=== PATIENT | male | born 1940 | race Caucasian/White ===

== ENCOUNTER 2023-07-27 20:11 | Observation (INO) ==
[2023-07-27 22:04] LABS: Albumin Globulin Ratio 1.1 (0.9-2); Bilirubin,Total 1.2 mg/dl (0.2-1.0); Calcium 9.6 mg/dl (8.6-10.3); Creatinine Clr Calc Pharmacy 81.8 ml/min; Est GFR (African American) 93.9 ml/min; Globulin 3.6 gm/dl (2.5-4.0); Potassium 3.6 mmol/L (3.5-5.1); Total Protein 7.6 gm/dl (6.0-8.3)
[2023-07-27 22:23] LABS: Appearance Urine Clear (Clear); Bacteria Urine Automated Negative (Negative); Bilirubin Urine Negative (Negative); Blood Urine 1+ (Negative); Color Urine Yellow; Epithelial Cell Urine Auto 20-30 /lpf (0-5); Glucose Urine UA Negative (Negative); Ketones Urine Negative (Negative); Leukocyte Esterase Urine 2+ (Negative); Nitrite Urine Negative (Negative); Protein Urine Negative (Negative); RBC Urine Automated 0-4 /hpf (0-4); Specific Gravity Urine 1.005 (1.000-1.030); Urobilinogen Urine Negative (Negative); WBC Urine Automated >30 /hpf (0-5)
[2023-07-27 22:26] LABS: Basophils # (auto) 0.03 K/uL (0.00-0.20); Basophils % (auto) 0.2 %; Eosinophils # (auto) 0.21 K/uL (0.00-0.50); Eosinophils % (auto) 1.7 %; Hematocrit (blood only) 41.4 % (42.0-52.0); Hemoglobin 13.8 g/dl (14.0-18.0); Immature Granulocytes # (auto) 0.06 K/uL (0.01-0.20); Immature Granulocytes % (auto) 0.5 %; Lymphocytes % (auto) 15.6 %; Mean Corpuscular Hemoglobin 31.2 pg (25.0-34.0); Mean Corpuscular Hgb Conc 33.3 g/dL (32.0-36.0); Mean Corpuscular Volume 93.5 fL (80.0-100.0); Monocytes # (auto) 1.31 K/uL (0.11-0.59); Monocytes % (auto) 10.8 %; Neutrophils # (auto) 8.66 K/uL (1.40-6.50); Neutrophils % (auto) 71.2 %; Platelet Count 178 K/uL (130-400); RDW Coefficient of Variation 12.8 % (11.5-14.5); Red Blood Count 4.43 M/uL (4.70-6.10); White Blood Count 12.17 K/ul (4.8-10.8)
[2023-07-27] MEDS ORDERED: PIPERACILLIN/TAZOBACTAM 4.5 GM/100 ML BAG IV ONE (22:40)
[2023-07-27] MEDS ORDERED: SODIUM CHLORIDE 0.9% 500 ML IV ONE (22:41)
--- NOTE | 2023-07-27 22:56 | Emergency Department Note ---
History of Present Illness General Chief complaint: Urinary Symptoms Stated complaint: UTI SYMPTOMS History of Present Illness This 83-year-old male presents to the ER complaining of urinary symptoms and increased confusion and weakness today. Patient denies chest pain, dyspnea, flank pain, vomiting, diarrhea. is present. He states he was admitted last night for 10 days for this. Home Medications Medication Instructions Recorded Confirmed Type allopurinol 300 mg tablet 300 mg PO Q2D 05/19/19 07/28/23 History aspirin 81 mg tablet,delayed 81 mg PO HS 05/19/19 07/28/23 History release finasteride 5 mg tablet 5 mg PO QAM 05/19/19 07/28/23 History hydrochlorothiazide 25 mg tablet 25 mg PO QAM 05/19/19 07/28/23 History lisinopril 10 mg tablet 10 mg PO QAM 05/19/19 07/28/23 History metoprolol tartrate 25 mg tablet 12.5 mg PO BID 05/19/19 07/28/23 History hfipdpqz-ly-fbzza 300 mcg-K 60 1 tab PO QAM 05/19/19 07/28/23 History mcg-lycop 600 mcg-lutein 300 mcg tablet ([facility]) rosuvastatin 10 mg tablet 10 mg PO QAM 05/19/19 07/28/23 History tamsulosin 0.4 mg capsule 0.8 mg PO QAM 05/19/19 07/28/23 History brimonidine 0.2 % eye drops 1 drp OPL BID 07/28/23 07/28/23 History dorzolamide 2 % eye drops 1 drp OPL BID 07/28/23 07/28/23 History latanoprost (PF) 0.005 % eye drops 1 drp OPL HS 07/28/23 07/28/23 History in a dropperette oxybutynin chloride 10 mg 10 mg PO QAM 07/28/23 07/28/23 History tablet,extended release 24 hr timolol maleate 0.5 % eye drops 1 drp OPB BID 07/28/23 07/28/23 History Allergies Allergy/AdvReac Type Severity Reaction Status Date / Time Blackening Seasoning Allergy Intermediate Swelling Uncoded 07/28/23 09:00 of Lip/Tongue/Throat Past Med/Surg History Medical History (Updated 07/27/23 @ 22:58 by Rahel Tian PA-C) Hypercholesterolemia Hypertension Pyelonephritis Pyelonephritis Urinary tract infection Ventricular tachycardia Surgical History History of appendectomy Family History Other Family history non-contributory Social History Smoking Status: Never smoker Second Hand Exposure: No; Do You Dip or Chew Tobacco: No; Hx Alcohol Use: Yes Alcohol type: beer Hx Substance Use: No Preferred Language: Nepali Communication Ability: Effective Child Care Leader Required: No Beliefs That Will Affect Care: None marital status: Current Living Situation: Spouse current occupational status: retired Other Information That Helps Us Care for You: No Feels Safe at Home: Yes Safety Concerns: Feels Safe At This Time Assistive Devices: Glasses Review of Systems A total of 10 systems reviewed and were otherwise negative Physical Exam Vital Signs Vital Signs - 24 hr 07/27/23 20:19 07/28/23 00:33 07/28/23 01:00 Temperature 36.7 C Temperature Source Skin Pulse Rate 71 69 Pulse Rate [Finger] 94 H Pulse Rhythm [Finger] Regular Pulse Strength [Finger] Normal Respiratory Rate 18 18 Respiratory Effort / Characteristics Non-Labored Spontaneous Respiratory Depth Normal Respiratory Pattern Regular Blood Pressure 171/78 H Blood Pressure [Right Arm] 172/91 H Blood Pressure Mean 109 Blood Pressure Mean [Right Arm] 118 Blood Pressure Position [Right Arm] Lying Pulse Oximetry 94 97 Oxygen Delivery Method Room Air Sepsis Recent Fever Within 48 Hours No Sepsis New/Unexplained Change in Mental Status No Sepsis Action Taken by Nursing No Action Required 07/28/23 01:00 Temperature Temperature Source Pulse Rate Pulse Rate [Finger] Pulse Rhythm [Finger] Pulse Strength [Finger] Respiratory Rate Respiratory Effort / Characteristics Respiratory Depth Respiratory Pattern Blood Pressure Blood Pressure [Right Arm] Blood Pressure Mean Blood Pressure Mean [Right Arm] Blood Pressure Position [Right Arm] Pulse Oximetry 97 Oxygen Delivery Method Room Air Sepsis Recent Fever Within 48 Hours Sepsis New/Unexplained Change in Mental Status Sepsis Action Taken by Nursing VITALS: Vitals are noted on the nurse's note and reviewed by myself. Vital signs stable. GENERAL: Pleasant elderly male, in no acute distress, nondiaphoretic, well- developed well-nourished. SKIN: The skin was without rashes, erythema, or bruising. There is no tenting of the skin. Capillary reflex less than 2 seconds. HEAD: Normocephalic atraumatic. EARS: External auditory canals clear, EYES: Pupils equal round and reactive to light and accommodation. Conjunctivae without injection, sclerae without icterus. Extraocular movements intact. NOSE: Patent, turbinates without inflammation or discharge. MOUTH: Mucous membranes moist. Pharynx without erythema or exudate. Uvula midline. Airway patent. Tongue does not deviate. NECK: Supple without nuchal rigidity. No lymphadenopathy. No thyromegaly. Cervical spine is nontender. No JVD. HEART: Regular rate and rhythm LUNGS: Clear to auscultation bilaterally without wheezes, rales or rhonchi. No retractions or accessory muscle use. ABDOMEN: Positive bowel sounds x 4. Normal tympanic percussion. Soft, nontender, without masses or organomegaly. Ward sign negative. No guarding or rebound tenderness. No CVA tenderness MUSCULOSKELETAL: No muscle atrophy, erythema, noted. NEURO: Patient was alert and oriented to person place and time. Normal sensation to light and sharp touch. No focal neurological deficits. Course Administered Medications Allopurinol (Allopurinol 300 Mg Tab) 300 mg PO Q48H ALEX Stop: 08/28/23 08:59 Last Admin: 07/29/23 08:51 Dose: 300 mg Documented By: Stanton Aspirin (Aspirin 81 Mg Ectab) 81 mg PO HS ALEX Stop: 08/27/23 20:59 Last Admin: 07/29/23 21:15 Dose: 81 mg Documented By: Admin: 07/28/23 20:02 Dose: 81 mg Documented By: GINI Brimonidine Tartrate (Brimonidine Tartrate 0.2% 5ml) 1 drops OPL BID ALEX Stop: 08/27/23 08:59 Last Admin: 07/29/23 21:16 Dose: 1 drops Documented By: Admin: 07/29/23 08:54 Dose: 1 drops Documented By: [facility] Admin: 07/28/23 20:01 Dose: 1 drops Documented By: Admin: 07/28/23 09:00 Dose: 1 drops Documented By: SYWLIA Dorzolamide HCl (Dorzolamide Hcl 2% Oph Soln 10 Ml Btl) 1 drops OPL BID [facility] Stop: 08/27/23 08:59 Last Admin: 07/29/23 21:16 Dose: 1 drops Documented By: Admin: 07/29/23 08:54 Dose: 1 drops Documented By: [facility] Admin: 07/28/23 20:01 Dose: 1 drops Documented By: Admin: 07/28/23 09:00 Dose: 1 drops Documented By: SYLWIA Enoxaparin Sodium (Enoxaparin Inj 40 Mg/0.4 Ml Syr) 40 mg SQ Q24H [facility] Stop: 08/27/23 08:59 Last Admin: 07/29/23 08:51 Dose: 40 mg Documented By: [facility] Admin: 07/28/23 09:13 Dose: 40 mg Documented By: SYLWIA Finasteride (Finasteride 5 Mg Tab) 5 mg PO QAM [facility] Stop: 08/27/23 08:59 Last Admin: 07/29/23 08:52 Dose: 5 mg Documented By: [facility] Admin: 07/28/23 09:06 Dose: 5 mg Documented By: SYLWIA Hydrochlorothiazide (Hydrochlorothiazide 25 Mg Tab) [facility]: 08/27/23 08:59 Last Admin: 07/29/23 08:53 Dose: 25 mg Documented By: [facility] Admin: 07/28/23 09:06 Dose: 25 mg Documented By: SYLWIA Piperacillin Sod/Tazobactam (Sod 4.5 gm/ Dextrose) 100 mls @ 25 mls/hr IV Q8H [facility]; Protocol Stop: 08/07/23 06:59 Last Admin: 07/29/23 22:00 Dose: 25 mls/hr Documented By: Infusion: 07/29/23 20:04 Dose: 0 mls/hr Documented By: Admin: 07/29/23 15:26 Dose: 25 mls/hr Documented By: Infusion: 07/29/23 10:37 Dose: 0 mls/hr Documented By: [facility] Admin: 07/29/23 06:08 Dose: 25 mls/hr Documented By: Infusion: 07/29/23 01:56 Dose: 0 mls/hr Documented By: Admin: 07/28/23 22:02 Dose: 25 mls/hr Documented By: Infusion: 07/28/23 19:46 Dose: 0 mls/hr Documented By: Admin: 07/28/23 15:38 Dose: 25 mls/hr Documented By: Infusion: 07/28/23 10:19 Dose: 0 mls/hr Documented By: Admin: 07/28/23 05:34 Dose: 25 mls/hr Documented By: PATRICK Latanoprost (Latanoprost 0.005% Op Soln 2.5 Ml Btl) 1 drops OPL HS ALEX Stop: 08/27/23 20:59 Last Admin: 07/29/23 21:17 Dose: 1 drops Documented By: Admin: 07/28/23 20:01 Dose: 1 drops Documented By: GINI Lisinopril (Lisinopril 10 Mg Tab) [facility] Stop: 08/27/23 08:59 Last Admin: 07/29/23 08:52 Dose: 10 mg Documented By: [facility] Admin: 07/28/23 09:06 Dose: 10 mg Documented By: SYLWIA Metoprolol Tartrate (Metoprolol Tartrate 25 Mg Tab) 12.5 mg PO BID [facility] Stop: 08/27/23 08:59 Last Admin: 07/29/23 21:15 Dose: 12.5 mg Documented By: Admin: 07/29/23 08:50 Dose: 12.5 mg Documented By: [facility] Admin: 07/28/23 20:08 Dose: 12.5 mg Documented By: Admin: 07/28/23 09:06 Dose: 12.5 mg Documented By: SYLWIA Multivitamins/Minerals (Cerovite Adv Formula Tab) 1 tab [facility] Stop: 08/27/23 08:59 Last Admin: 07/29/23 08:52 Dose: 1 tab Documented By: [facility] Admin: 07/28/23 09:06 Dose: 1 tab Documented By: SYLWIA Oxybutynin Chloride (Oxybutynin Chloride Xl 5 Mg Tabcr) 10 mg [facility] Stop: 08/27/23 08:59 Last Admin: 07/29/23 08:52 Dose: 10 mg Documented By: [facility] Admin: 07/28/23 09:06 Dose: 10 mg Documented By: SYLWIA Rosuvastatin Calcium (Rosuvastatin Calcium 10 Mg Tab) 10 [facility] Stop: 08/27/23 08:59 Last Admin: 07/29/23 08:52 Dose: 10 mg Documented By: [facility] Admin: 07/28/23 09:06 Dose: 10 mg Documented By: SYLWIA Tamsulosin HCl (Tamsulosin Hcl 0.4 Mg Cap) 0.8 mg PO QAM ALEX Stop: 08/27/23 08:59 Last Admin: 07/29/23 08:50 Dose: 0.8 mg Documented By: Admin: 07/28/23 09:07 Dose: 0.8 mg Documented By: SYLWIA Timolol Maleate (Timolol Maleate 0.5% Op Soln 5 Ml Btl) 1 drops OPB BID ALEX Stop: 08/27/23 08:59 Last Admin: 07/29/23 21:16 Dose: 1 drops Documented By: Admin: 07/29/23 08:54 Dose: 1 drops Documented By: Admin: 07/28/23 20:01 Dose: 1 drops Documented By: Admin: 07/28/23 09:01 Dose: 1 drops Documented By: SYLWIA Discontinued Medications Piperacillin Sod/Tazobactam Sod (Zosyn) 4.5 gm in 100 mls @ 200 mls/hr IV NOW ONE Stop: 07/27/23 23:09 Last Infusion: 07/28/23 03:25 Dose: 0 mls/hr Documented By: Admin: 07/28/23 01:04 Dose: 200 mls/hr Documented By: MAURYW Sodium Chloride (Nss) 500 mls @ 999 mls/hr IV .Q31M ONE Stop: 07/27/23 23:11 Last Infusion: 07/28/23 03:26 Dose: 0 mls/hr Documented By: Admin: 07/28/23 01:06 Dose: 999 mls/hr Documented By: NAW Sodium Chloride (Nss) 1,000 mls @ 75 mls/hr IV .[id number] ALEX Stop: 07/28/23 15:06 Last Infusion: 07/28/23 15:46 Dose: 0 mls/hr Documented By: Admin: 07/28/23 01:57 Dose: 75 mls/hr Documented By: PATRICK Ioversol (Optiray 320 100ml) 100 ml IV ONCE ONE Stop: 07/27/23 23:18 Last Admin: 07/27/23 23:17 Dose: 93 ml Documented By: JUNIOR Medical Decision Making Medical Records Attestation: I reviewed the patient's medical records. Home Medications Current Medication List: was personally reviewed by me Laboratory Data Attestation: I reviewed the patient's lab results. 07/27/23 21:27 07/27/23 21:27 Lab Results 07/27/23 07/27/23 07/27/23 Range/Units 21:27 21:27 21:32 WBC 12.17 H (4.8-10.8) K/ul RBC 4.43 L (4.70-6.10) M/uL Hgb 13.8 L (14.0-18.0) g/dl Hct 41.4 L (42.0-52.0) % MCV 93.5 (80.0-100.0) fL MCH 31.2 (25.0-34.0) pg MCHC 33.3 (32.0-36.0) g/dL RDW Std Deviation 44.0 (36.4-46.3) fL RDW Coeff of Hilda 12.8 (11.5-14.5) % Plt Count 178 (130-400) K/uL MPV 11.0 (9.4-12.4) fL Immature Gran % (Auto) 0.5 % Neut % (Auto) 71.2 % Lymph % (Auto) 15.6 % [place] % (Auto) 10.8 % Eos % (Auto) 1.7 % Baso % (Auto) 0.2 % Neut # (Auto) 8.66 H (1.40-6.50) K/uL Lymph # (Auto) 1.90 (1.20-3.40) K/uL [place] # (Auto) 1.31 H (0.11-0.59) K/uL Eos # (Auto) 0.21 (0.00-0.50) K/uL Baso # (Auto) 0.03 (0.00-0.20) K/uL Immature Gran # (Auto) 0.06 (0.01-0.20) K/uL Sodium 137 (136-145) mmol/L Potassium 3.6 (3.5-5.1) mmol/L Chloride 100 (98-107) mmol/L Carbon Dioxide 32 (21-32) mmol/L Anion Gap 5 (3-11) BUN 17 (6-23) mg/dl Creatinine 0.81 (0.6-1.4) mg/dl Est Cr Clr Drug Dosing 81.8 ml/min Est GFR ( Amer) 93.9 ml/min Est GFR (Non-Af Amer) 81.0 ml/min BUN/Creatinine Ratio 21.0 H (10-20) Glucose 136 H (70-99(Fasting)) mg/dl Lactate (0.4-2.0) mmol/L Calcium 9.6 (8.6-10.3) mg/dl Magnesium 1.8 (1.7-2.4) mg/dl Total Bilirubin 1.2 H (0.2-1.0) mg/dl AST 43 H (13-39) U/L ALT 33 (7-52) U/L Alkaline Phosphatase 71 (34-104) U/L Troponin I High Sens 9.1 (0-20) pg/ml Total Protein 7.6 (6.0-8.3) gm/dl Albumin 4.0 (3.4-5.0) gm/dl Globulin 3.6 (2.5-4.0) gm/dl Albumin/Globulin Ratio 1.1 (0.9-2) Lipase 17 (11-82) U/L Urine Color Yellow Urine Appearance Clear (Clear) Urine pH 6.0 (4.5-7.5) Ur Specific [place] 1.005 (1.000-1.030) Urine Protein Negative (Negative) Urine Glucose (UA) Negative (Negative) Urine Ketones Negative (Negative) Urine Blood 1+ H (Negative) Urine Nitrite Negative (Negative) Urine Bilirubin Negative (Negative) Urine Urobilinogen Negative (Negative) Ur Leukocyte Esterase 2+ H (Negative) Urine WBC (Auto) >30 H (0-5) /hpf Urine RBC (Auto) 0-4 (0-4) /hpf U Hyaline Cast (Auto) 1-5 (0-5) /lpf U Epithel Cells (Auto) 20-30 H (0-5) /lpf Urine Bacteria (Auto) Negative (Negative) 07/28/23 Range/Units 00:26 WBC (4.8-10.8) K/ul RBC (4.70-6.10) M/uL Hgb (14.0-18.0) g/dl Hct (42.0-52.0) % MCV (80.0-100.0) fL MCH (25.0-34.0) pg MCHC (32.0-36.0) g/dL RDW Std Deviation (36.4-46.3) fL RDW Coeff of Hilda (11.5-14.5) % Plt Count (130-400) K/uL MPV (9.4-12.4) fL Immature Gran % (Auto) % Neut % (Auto) % Lymph % (Auto) % [place] % (Auto) % Eos % (Auto) % Baso % (Auto) % Neut # (Auto) (1.40-6.50) K/uL Lymph # (Auto) (1.20-3.40) K/uL [place] # (Auto) (0.11-0.59) K/uL Eos # (Auto) (0.00-0.50) K/uL Baso # (Auto) (0.00-0.20) K/uL Immature Gran # (Auto) (0.01-0.20) K/uL Sodium (136-145) mmol/L Potassium (3.5-5.1) mmol/L Chloride (98-107) mmol/L Carbon Dioxide (21-32) mmol/L Anion Gap (3-11) BUN (6-23) mg/dl Creatinine (0.6-1.4) mg/dl Est Cr Clr Drug Dosing ml/min Est GFR ( Amer) ml/min Est GFR (Non-Af Amer) ml/min BUN/Creatinine Ratio (10-20) Glucose (70-99(Fasting)) mg/dl Lactate 1.3 (0.4-2.0) mmol/L Calcium (8.6-10.3) mg/dl Magnesium (1.7-2.4) mg/dl Total Bilirubin (0.2-1.0) mg/dl AST (13-39) U/L ALT (7-52) U/L Alkaline Phosphatase (34-104) U/L Troponin I High Sens (0-20) pg/ml Total Protein (6.0-8.3) gm/dl Albumin (3.4-5.0) gm/dl Globulin (2.5-4.0) gm/dl Albumin/Globulin Ratio (0.9-2) Lipase (11-82) U/L Urine Color Urine Appearance (Clear) Urine pH (4.5-7.5) Ur Specific [place] (1.000-1.030) Urine Protein (Negative) Urine Glucose (UA) (Negative) Urine Ketones (Negative) Urine Blood (Negative) Urine Nitrite (Negative) Urine Bilirubin (Negative) Urine Urobilinogen (Negative) Ur Leukocyte Esterase (Negative) Urine WBC (Auto) (0-5) /hpf Urine RBC (Auto) (0-4) /hpf U Hyaline Cast (Auto) (0-5) /lpf U Epithel Cells (Auto) (0-5) /lpf Urine Bacteria (Auto) (Negative) Imaging Data Attestation: I personally reviewed and interpreted this imaging study as follows: Radiologist's Impression: Abdomen/Pelvis CT 07/27/23 22:41 Exam(s): CT ABDOMEN + PELVIS With Contrast IV Amt: 93 ML OPTIRAY 320 EXAM: CT Abdomen and Pelvis With Intravenous Contrast CLINICAL HISTORY: Reason for exam: UTI, ams. TECHNIQUE: Axial computed tomography images of the abdomen and pelvis with intravenous contrast. Automated exposure control was utilized for the study. A dose lowering technique was utilized adhering to the principles of ALARA. CONTRAST: Patient received 93 ML OPTIRAY 320 of IV contrast COMPARISON: No relevant prior studies available. FINDINGS: Lung bases: Unremarkable. No mass. No consolidation. ABDOMEN: Liver: Hepatic steatosis. Gallbladder and bile ducts: Unremarkable. No calcified stones. No ductal dilation. Pancreas: Unremarkable. No mass. No ductal dilation. Spleen: Unremarkable. No splenomegaly. Adrenals: Unremarkable. No mass. Kidneys and ureters: Cyst in the RIGHT kidney lower pole measures 6.8 x 5.8 cm. No hydronephrosis. Stomach and bowel: Diverticulosis, without acute diverticulitis. No small bowel obstruction. No free intraperitoneal air. PELVIS: Appendix: No findings to suggest acute appendicitis. Bladder: Decompressed urinary bladder with mild wall thickening, correlate for UTI. Urinalysis recommended. Reproductive: Unremarkable as visualized. ABDOMEN and PELVIS: Intraperitoneal space: Unremarkable. No free air. No significant fluid collection. Bones/joints: Degenerative changes of the spine. No acute fracture. No dislocation. Soft tissues: Fat-containing bilateral inguinal hernias. Vasculature: Atherosclerotic changes of the aorta. No abdominal aortic aneurysm. Lymph nodes: Unremarkable. No enlarged lymph nodes. IMPRESSION: 1. Decompressed urinary bladder with mild wall thickening, correlate for UTI. Urinalysis recommended. 2. Hepatic steatosis. 3. Diverticulosis, without acute diverticulitis. No small bowel obstruction. No free intraperitoneal air. Electronically signed by: Larry King MD 07/27/23 23:52 PM MDM Narrative Prior records/ancillary studies reviewed and summarized above. Nursing notes reviewed. Additional history obtained from family. The patient's history was concerning for increased confusion with urinary sympto ms. Differential diagnosis: Etiologies such as metabolic, infection, hypo/hyperglycemia, electrolyte abnormalities, cardiac sources, intracerebral event, toxicologic, neurologic, as well as others were entertained. Physical examination: As above. ER treatment provided: IV Lock An order was placed for continuous cardiac monitoring. The monitor shows a rate of 60-100 with a sinus rhythm per my interpretation. Zosyn, IV fluids On reassessment the patient felt better. Diagnostics interpretation by me: The labs Independently Interpreted by myself revealed leukocytosis, urine concerning for infection sent for culture. Prior urine culture was reviewed Imaging studies: CT the abdomen pelvis is negative for obstruction or pyelonephritis per my independent interpretation. Consultation: A consultation was placed with the hospitalist. The case was discussed and diagnostics were reviewed. The patient was evaluated in the ER for further treatment. Consultation was placed with the pharmacist and recommend starting with Zosyn when reviewing the last urine culture. Exam and history seem consistent with UTI with increased confusion. Medicine was consulted along with pharmacy and the case discussed. Patient will be admitted to the medical service. Patient was started on IV antibiotics and IV fluids. By the evaluation outlined above emergent etiologies such as electrolyte abnormalities, cardiac sources, intracerebral event, toxologic, neurologic, abnormalities blood glucose, metabolic, as well as others were deemed relatively unlikely. The pt informed about the findings as listed above. All questions were answered and pleased with the treatment. The chart was completed utilizing [employer] voice recognition software. Grammatical errors, random word insertions, pronoun errors, and incomplete sentences are an occassional consequence of this system due to software limitations, ambient noise, and hardware issues. Any formal questions or concerns about the content, text, or information contained within the body of this dictation should be directly addressed to the physician faculty i on call medical assistant for clarification. Impression & Plan Acute UTI, Weakness Discharge Plan Visit Data Chief Complaint: Urinary Symptoms Stated Complaint: UTI SYMPTOMS ED Provider: Keanu Pandey ED Midlevel Provider: Rahel Tian Discharge Problem: Acute UTI, Weakness Patient Disposition: Admitted As Inpatient Condition: Fair Discharge Instructions Interventions: ED Discharge Assessment Last Done: 07/28/23 01:47 Addendum July 30, 2023 01:01 HPI: The patient is an 83-year-old gentleman with a past medical history of hypertension, hyperlipidemia, UTI who presents to the emergency department for evaluation of symptoms of frequency and burning with urination with confusion that began this morning. The patient denies chest pain, shortness of breath, vomiting, diarrhea, flank pain. He has been previously admitted for similar symptoms. A/P: EKG is without overt acute ischemia. EKG demonstrates sinus rhythm with occasional PVCs and PACs. Left bundle branch block, no sgarbossa criteria. QTc 472, QRS 140. Similar to prior. WBC 12 K with elevated neutrophils but no left shift. H/H 13.8/41.4 without recent for comparison. Platelets within normal limits. Chemistry without metabolic acidosis. Total bilirubin and AST mildly elevated nonspecific and LFTs otherwise normal. High-sensitivity troponin 9.1, within normal limits. Lipase is normal. UA is consistent with infection. CT of the abdomen pelvis was performed and did not demonstrate evidence of upper infection. Empiric treatment for UTI initiated with IV Zosyn. Hospitalist service was consulted for admission for further management. I was consulted by the Advanced Practice Provider and was substantively involved in the patient's visit.This includes aspects of the HPI, MDM, diagnostic interpretations, and disposition/plan. I discussed the case with the ELIS and agree with the findings and plan as documented in ELIS Jaylan's note.
[2023-07-27 23:13] LABS: Magnesium 1.8 mg/dl (1.7-2.4)
[2023-07-27] MEDS ORDERED: OPTIRAY 320 100ml IV ONE (23:17)
[2023-07-27 23:20] LABS: Troponin I High Sensitivity 9.1 pg/ml (0-20)
--- NOTE | 2023-07-27 23:53 | CT Scan Report ---
Exam(s): CT ABDOMEN + PELVIS With Contrast IV Amt: 93 ML OPTIRAY 320 EXAM: CT Abdomen and Pelvis With Intravenous Contrast CLINICAL HISTORY: Reason for exam: UTI, ams. TECHNIQUE: Axial computed tomography images of the abdomen and pelvis with intravenous contrast. Automated exposure control was utilized for the study. A dose lowering technique was utilized adhering to the principles of ALARA. CONTRAST: Patient received 93 ML OPTIRAY 320 of IV contrast COMPARISON: No relevant prior studies available. FINDINGS: Lung bases: Unremarkable. No mass. No consolidation. ABDOMEN: Liver: Hepatic steatosis. Gallbladder and bile ducts: Unremarkable. No calcified stones. No ductal dilation. Pancreas: Unremarkable. No mass. No ductal dilation. Spleen: Unremarkable. No splenomegaly. Adrenals: Unremarkable. No mass. Kidneys and ureters: Cyst in the RIGHT kidney lower pole measures 6.8 x 5.8 cm. No hydronephrosis. Stomach and bowel: Diverticulosis, without acute diverticulitis. No small bowel obstruction. No free intraperitoneal air. PELVIS: Appendix: No findings to suggest acute appendicitis. Bladder: Decompressed urinary bladder with mild wall thickening, correlate for UTI. Urinalysis recommended. Reproductive: Unremarkable as visualized. ABDOMEN and PELVIS: Intraperitoneal space: Unremarkable. No free air. No significant fluid collection. Bones/joints: Degenerative changes of the spine. No acute fracture. No dislocation. Soft tissues: Fat-containing bilateral inguinal hernias. Vasculature: Atherosclerotic changes of the aorta. No abdominal aortic aneurysm. Lymph nodes: Unremarkable. No enlarged lymph nodes. IMPRESSION: 1. Decompressed urinary bladder with mild wall thickening, correlate for UTI. Urinalysis recommended. 2. Hepatic steatosis. 3. Diverticulosis, without acute diverticulitis. No small bowel obstruction. No free intraperitoneal air. Electronically signed by: Larry King MD 07/27/23 23:52 PM
--- NOTE | 2023-07-28 00:45 | History & Physical Report ---
Date of Service July 28, 2023 Assessment & Plan (1) Acute UTI: Plan: 83-year-old male with past med significant for hypertension, pulmonary hypertension, interstitial lung disease, history of sinus bradycardia, glaucoma,History of right bundle branch, history of nonsustained ventricular tachycardia, history of sepsis from UTI during during which she had nonsustained ventricular tachycardia and follows with cardiology comes because of frequent urination and burning micturition since today. Acute UTI History of sepsis from UTI in the past ER started on Zosyn which will be continued Gentle fluids We will follow the cultures History of hypertension On lisinopril, hydrochlorothiazide, metoprolol We will monitor History of gout On allopurinol History of glaucoma Continue home eyedrops History of nonsustained ventricular tachycardia On metoprolol Follows with cardiology BPH On Flomax Hyperlipidemia On statin DVT prophylaxis Lovenox Disposition Medical floor Full code History of Present Illness Chief Complaint: Urinary symptoms Primary Care Provider: Bebeto Tony DO 83-year-old male with past med significant for hypertension, pulmonary hypertension, interstitial lung disease, history of sinus bradycardia, glaucoma,History of right bundle branch, history of nonsustained ventricular tachycardia, history of sepsis from UTI during during which he had nonsustained ventricular tachycardia and follows with cardiology comes because of frequent urination and burning micturition since today. Because of history of sepsis in the past patient is worried and came to the ER. Denies any fevers. No abdominal pain. No blood in the urine. Normal bowel movements. No chest pain. No shortness of breath. Mild occasional cough. Has some runny nose. No headache. Currently resting comfortably and hemodynamically stable. Past medical history. As mentioned above Past surgical history. Circumcision. Colonoscopy. Cystoscopy. Right eye stent for glaucoma. Appendectomy. Tonsillectomy. Social history. . No smoking. Alcohol rarely. No drug use. Family history. Brother had colon cancer. Sister colon cancer. Mother has diabetes. Brother has heart disorder. Allergies Allergy/AdvReac Type Severity Reaction Status Date / Time SEAFOOD AdvReac Mild Abdominal Uncoded 07/28/23 00:30 Pain Home Medications Medication Instructions Recorded Confirmed Type allopurinol 300 mg tablet 300 mg PO Q2D 05/19/19 07/28/23 History aspirin 81 mg tablet,delayed 81 mg PO HS 05/19/19 07/28/23 History release finasteride 5 mg tablet 5 mg PO QAM 05/19/19 07/28/23 History hydrochlorothiazide 25 mg tablet 25 mg PO QAM 05/19/19 07/28/23 History lisinopril 10 mg tablet 10 mg PO QAM 05/19/19 07/28/23 History metoprolol tartrate 25 mg tablet 12.5 mg PO BID 05/19/19 07/28/23 History fovdyiud-ym-iiziz 300 mcg-K 60 1 tab PO QAM 05/19/19 07/28/23 History mcg-lycop 600 mcg-lutein 300 mcg tablet ([facility]) rosuvastatin 10 mg tablet 10 mg PO QAM 05/19/19 07/28/23 History tamsulosin 0.4 mg capsule 0.8 mg PO QAM 05/19/19 07/28/23 History brimonidine 0.2 % eye drops 1 drp OPL BID 07/28/23 07/28/23 History dorzolamide 2 % eye drops 1 drp OPL BID 07/28/23 07/28/23 History latanoprost (PF) 0.005 % eye drops 1 drp OPL HS 07/28/23 07/28/23 History in a dropperette oxybutynin chloride 10 mg 10 mg PO QAM 07/28/23 07/28/23 History tablet,extended release 24 hr timolol maleate 0.5 % eye drops 1 drp OPB BID 07/28/23 07/28/23 History Past Med/Surg History Medical History (Updated 07/27/23 @ 22:58 by Rahel Tian PA-C) Hypercholesterolemia Hypertension Pyelonephritis Pyelonephritis Urinary tract infection Ventricular tachycardia Surgical History History of appendectomy Family History Other Family history non-contributory Social History Smoking Status: Never smoker Second Hand Exposure: No; Do You Dip or Chew Tobacco: No; Hx Alcohol Use: Yes Alcohol type: beer Hx Substance Use: No Preferred Language: Italian Communication Ability: Effective Pool Coordinator Required: No Beliefs That Will Affect Care: None marital status: Current Living Situation: Spouse current occupational status: retired Other Information That Helps Us Care for You: No Feels Safe at Home: Yes Safety Concerns: Feels Safe At This Time Assistive Devices: Glasses Review of Systems Review of Systems: All systems reviewed & are unremarkable except as noted in HPI & below Physical Exam Physical Exam: General- Not in distress Head- atraumatic Eyes- PERRL. ENT- oropharynx clear Neck- supple, no JVD. Lungs- clear to auscultation no wheezing or crackles Heart- regular rhythm; no murmur, no gallop. Abdomen- normal bowel sounds, soft, nontender, no distension Extremities- trace pretibial edema, no erythema seen. Neuro- alert, oriented x 3; PERRLno facial palsy; no dysarthria; moves extremities. Skin- warm & dry Results & Data Results & Data Vital Signs (Past 12 Hours) Vital Signs Temp Pulse Resp BP Pulse Ox 07/28/23 00:33 69 07/27/23 20:19 36.7 C 71 18 171/78 H 94 Diagnostic Findings Laboratory Results WBC 12.17 K/ul (4.8-10.8) H 07/27/23 21: RBC 4.43 M/uL (4.70-6.10) L 07/27/23 21: Hgb 13.8 g/dl (14.0-18.0) L 07/27/23 21: Hct 41.4 % (42.0-52.0) L 07/27/23 21: MCV 93.5 fL (80.0-100.0) 07/27/23 21: MCH 31.2 pg (25.0-34.0) 07/27/23 21: MCHC 33.3 g/dL (32.0-36.0) 07/27/23 21: RDW Std Deviation 44.0 fL (36.4-46.3) 07/27/23 21: RDW Coeff of Hilda 12.8 % (11.5-14.5) 07/27/23 21: Plt Count 178 K/uL (130-400) 07/27/23 21: MPV 11.0 fL (9.4-12.4) 07/27/23 21: Immature Gran % (Auto) 0.5 % 07/27/23: Neut % (Auto) 71.2 % 07/27/23: Lymph % (Auto) 15.6 % 07/27/23: [place] % (Auto) 10.8 % 07/27/23: Eos % (Auto) 1.7 % 07/27/23: Baso % (Auto) 0.2 % 07/27/23: Neut # (Auto) 8.66 K/uL (1.40-6.50) H 07/27/23: Lymph # (Auto) 1.90 K/uL (1.20-3.40) 07/27/23: Emmet # (Auto) 1.31 K/uL (0.11-0.59) H 07/27/23: Eos # (Auto) 0.21 K/uL (0.00-0.50) 07/27/23: Baso # (Auto) 0.03 K/uL (0.00-0.20) 07/27/23: Immature Gran # (Auto) 0.06 K/uL (0.01-0.20) 07/27/23: Sodium 137 mmol/L (136-145) 07/27/23: Potassium 3.6 mmol/L (3.5-5.1) 07/27/23: Chloride 100 mmol/L (98-107) 07/27/23: Carbon Dioxide 32 mmol/L (21-32) 07/27/23: Anion Gap 5 (3-11) 07/27/23: BUN 17 mg/dl (6-23) 07/27/23: Creatinine 0.81 mg/dl (0.6-1.4) 07/27/23: Est Cr Clr Drug Dosing 81.8 ml/min 07/27/23: Est GFR ( Amer) 93.9 ml/min 07/27/23: Est GFR (Non-Af Amer) 81.0 ml/min 07/27/23: BUN/Creatinine Ratio 21.0 (10-20) H 07/27/23: Glucose 136 mg/dl (70-99(Fasting)) H 07/27/23 21: Lactate 1.3 mmol/L (0.4-2.0) 07/28/23 00:26 Calcium 9.6 mg/dl (8.6-10.3) 07/27/23 21: Magnesium 1.8 mg/dl (1.7-2.4) 07/27/23: Total Bilirubin 1.2 mg/dl (0.2-1.0) H 07/27/23: AST 43 U/L (13-39) H 07/27/23: ALT 33 U/L (7-52) 07/27/23: Alkaline Phosphatase 71 U/L (34-104) 07/27/23: Troponin I High Sens 9.1 pg/ml (0-20) 07/27/23 21: Total Protein 7.6 gm/dl (6.0-8.3) 07/27/23: Albumin 4.0 gm/dl (3.4-5.0) 07/27/23: Globulin 3.6 gm/dl (2.5-4.0) 07/27/23: Albumin/Globulin Ratio 1.1 (0.9-2) 07/27/23: Lipase 17 U/L (11-82) 07/27/23 21: Urine Color Yellow 07/27/23 21: Urine Appearance Clear (Clear) 07/27/23: Urine pH 6.0 (4.5-7.5) 07/27/23: Ur Specific [place] 1.005 (1.000-1.030) 07/27/23 21: Urine Protein Negative (Negative) 07/27/23 21: Urine Glucose (UA) Negative (Negative) 07/27/23: Urine Ketones Negative (Negative) 07/27/23: Urine Blood 1+ (Negative) H 07/27/23 21: Urine Nitrite Negative (Negative) 07/27/23 21: Urine Bilirubin Negative (Negative) 07/27/23 21: Urine Urobilinogen Negative (Negative) 07/27/23 21: Ur Leukocyte Esterase 2+ (Negative) H 10/25/23 21:32 Urine WBC (Auto) >30 /hpf (0-5) H 07/27/23 21:32 Urine RBC (Auto) 0-4 /hpf (0-4) 07/27/23 21:32 U Hyaline Cast (Auto) 1-5 /lpf (0-5) 07/27/23 21:32 U Epithel Cells (Auto) 20-30 /lpf (0-5) H 07/27/23 21:32 Urine Bacteria (Auto) Negative (Negative) 07/27/23 21:32 Impressions Abdomen/Pelvis CT 07/27/23 22:41 Exam(s): CT ABDOMEN + PELVIS With Contrast IV Amt: 93 ML OPTIRAY 320 EXAM: CT Abdomen and Pelvis With Intravenous Contrast CLINICAL HISTORY: Reason for exam: UTI, ams. TECHNIQUE: Axial computed tomography images of the abdomen and pelvis with intravenous contrast. Automated exposure control was utilized for the study. A dose lowering technique was utilized adhering to the principles of ALARA. CONTRAST: Patient received 93 ML OPTIRAY 320 of IV contrast COMPARISON: No relevant prior studies available. FINDINGS: Lung bases: Unremarkable. No mass. No consolidation. ABDOMEN: Liver: Hepatic steatosis. Gallbladder and bile ducts: Unremarkable. No calcified stones. No ductal dilation. Pancreas: Unremarkable. No mass. No ductal dilation. Spleen: Unremarkable. No splenomegaly. Adrenals: Unremarkable. No mass. Kidneys and ureters: Cyst in the RIGHT kidney lower pole measures 6.8 x 5.8 cm. No hydronephrosis. Stomach and bowel: Diverticulosis, without acute diverticulitis. No small bowel obstruction. No free intraperitoneal air. PELVIS: Appendix: No findings to suggest acute appendicitis. Bladder: Decompressed urinary bladder with mild wall thickening, correlate for UTI. Urinalysis recommended. Reproductive: Unremarkable as visualized. ABDOMEN and PELVIS: Intraperitoneal space: Unremarkable. No free air. No significant fluid collection. Bones/joints: Degenerative changes of the spine. No acute fracture. No dislocation. Soft tissues: Fat-containing bilateral inguinal hernias. Vasculature: Atherosclerotic changes of the aorta. No abdominal aortic aneurysm. Lymph nodes: Unremarkable. No enlarged lymph nodes. IMPRESSION: 1. Decompressed urinary bladder with mild wall thickening, correlate for UTI. Urinalysis recommended. 2. Hepatic steatosis. 3. Diverticulosis, without acute diverticulitis. No small bowel obstruction. No free intraperitoneal air. Electronically signed by: Larry King MD 07/27/23 23:52 PM Code Status & VTE Plan VTE Prophylaxis Plan VTE Prophylaxis will be ordered: Yes
[2023-07-28] MEDS ORDERED: ACETAMINOPHEN 325 MG TAB PO PRN (01:47)
[2023-07-28] MEDS ORDERED: SODIUM CHLORIDE 0.9% 1,000 ML IV SCH (01:47)
[2023-07-28] MEDS ORDERED: POLYETHYLENE (MIRALAX) 17 GM PACK PO PRN (01:47)
[2023-07-28] MEDS: PIPERACILLIN/TAZOBACTAM 4.5 GM in DEXTROSE 5% MINI-B 100 ML IV SCH ×3 (05:34→22:02)
[2023-07-28 05:54] LABS: Basophils # (auto) 0.02 K/uL (0.00-0.20); Basophils % (auto) 0.2 %; Eosinophils # (auto) 0.28 K/uL (0.00-0.50); Eosinophils % (auto) 2.6 %; Hematocrit (blood only) 38.1 % (42.0-52.0); Hemoglobin 13.2 g/dl (14.0-18.0); Immature Granulocytes # (auto) 0.03 K/uL (0.01-0.20); Immature Granulocytes % (auto) 0.3 %; Lymphocytes # (auto) 1.97 K/uL (1.20-3.40); Lymphocytes % (auto) 18.6 %; Mean Corpuscular Hemoglobin 31.7 pg (25.0-34.0); Mean Corpuscular Hgb Conc 34.6 g/dL (32.0-36.0); Mean Corpuscular Volume 91.4 fL (80.0-100.0); Monocytes # (auto) 1.13 K/uL (0.11-0.59); Monocytes % (auto) 10.7 %; Neutrophils # (auto) 7.14 K/uL (1.40-6.50); Neutrophils % (auto) 67.6 %; Platelet Count 161 K/uL (130-400); RDW Coefficient of Variation 12.7 % (11.5-14.5); RDW Standard Deviation 42.1 fL (36.4-46.3); Red Blood Count 4.17 M/uL (4.70-6.10); White Blood Count 10.57 K/ul (4.8-10.8)
[2023-07-28 06:04] LABS: BUN Creatinine Ratio 18.7 (10-20); Creatinine Clr Calc Pharmacy 88.2 ml/min; Est GFR (African American) 96.9 ml/min; Est GFR (Non-African American) 83.6 ml/min; Magnesium 1.7 mg/dl (1.7-2.4); Potassium 3.4 mmol/L (3.5-5.1)
[2023-07-28] MEDS: BRIMONIDINE TARTRATE 0.2% 5ML OPL SCH ×2 (09:00→20:01)
[2023-07-28] MEDS: DORZOLAMIDE HCL 2% OPH SOLN 10 ML BTL OPL SCH ×2 (09:00→20:01)
[2023-07-28] MEDS: TIMOLOL MALEATE 0.5% OP SOLN 5 ML BTL OPB SCH ×2 (09:01→20:01)
[2023-07-28] MEDS: lisinopril 10 MG TAB PO SCH (09:06)
[2023-07-28] MEDS: ROSUVASTATIN CALCIUM 10 MG TAB PO SCH (09:06)
[2023-07-28] MEDS: OXYBUTYNIN CHLORIDE XL 5 MG TABCR PO SCH (09:06)
[2023-07-28] MEDS: METOPROLOL TARTRATE 25 MG TAB PO SCH ×2 (09:06→20:08)
[2023-07-28] MEDS: hydroCHLOROthiazide 25 MG TAB PO SCH (09:06)
[2023-07-28] MEDS: FINASTERIDE 5 MG TAB PO SCH (09:06)
[2023-07-28] MEDS: CEROVITE ADV FORMULA TAB PO SCH (09:06)
[2023-07-28] MEDS: TAMSULOSIN HCL 0.4 MG CAP PO SCH (09:07)
[2023-07-28] MEDS: ENOXAPARIN INJ 40 MG/0.4 ML SYR SQ SCH (09:13)
--- NOTE | 2023-07-28 16:59 | Communication Note ---
Date of Service: July 28, 2023 The patient was seen and examined in medical floor He was admitted with UTI symptoms with UA was supportive for infection and has been sent for culture. Started on intravenous Zosyn. Has been feeling much better without any other significant symptoms. The full progress note will be done tomorrow. Dr Dutch Borrero
[2023-07-28 19:58] VITALS: TEMP 97.7
[2023-07-28] MEDS: LATANOPROST 0.005% OP SOLN 2.5 ML BTL OPL SCH (20:01)
[2023-07-28] MEDS: ASPIRIN 81 MG ECTAB PO SCH (20:02)
[2023-07-29] MEDS: PIPERACILLIN/TAZOBACTAM 4.5 GM in DEXTROSE 5% MINI-B 100 ML IV SCH ×3 (06:08→22:00)
[2023-07-29 07:53] LABS: Basophils # (auto) 0.03 K/uL (0.00-0.20); Basophils % (auto) 0.3 %; Eosinophils # (auto) 0.25 K/uL (0.00-0.50); Eosinophils % (auto) 2.8 %; Hematocrit (blood only) 38.8 % (42.0-52.0); Hemoglobin 13.1 g/dl (14.0-18.0); Immature Granulocytes # (auto) 0.04 K/uL (0.01-0.20); Immature Granulocytes % (auto) 0.5 %; Lymphocytes # (auto) 1.74 K/uL (1.20-3.40); Lymphocytes % (auto) 19.8 %; Mean Corpuscular Hemoglobin 31.4 pg (25.0-34.0); Mean Corpuscular Hgb Conc 33.8 g/dL (32.0-36.0); Monocytes % (auto) 10.3 %; Neutrophils # (auto) 5.82 K/uL (1.40-6.50); Neutrophils % (auto) 66.3 %; Platelet Count 171 K/uL (130-400); RDW Standard Deviation 44.3 fL (36.4-46.3); Red Blood Count 4.17 M/uL (4.70-6.10); White Blood Count 8.78 K/ul (4.8-10.8)
[2023-07-29 08:04] LABS: BUN Creatinine Ratio 18.6 (10-20); Calcium 9.1 mg/dl (8.6-10.3); Est GFR (African American) 91.6 ml/min; Est GFR (Non-African American) 79.1 ml/min; Magnesium 1.8 mg/dl (1.7-2.4); Potassium 3.5 mmol/L (3.5-5.1)
[2023-07-29] MEDS: METOPROLOL TARTRATE 25 MG TAB PO SCH ×2 (08:50→21:15)
[2023-07-29] MEDS: TAMSULOSIN HCL 0.4 MG CAP PO SCH (08:50)
[2023-07-29] MEDS: ENOXAPARIN INJ 40 MG/0.4 ML SYR SQ SCH (08:51)
[2023-07-29] MEDS: lisinopril 10 MG TAB PO SCH (08:52)
[2023-07-29] MEDS: ROSUVASTATIN CALCIUM 10 MG TAB PO SCH (08:52)
[2023-07-29] MEDS: FINASTERIDE 5 MG TAB PO SCH (08:52)
[2023-07-29] MEDS: CEROVITE ADV FORMULA TAB PO SCH (08:52)
[2023-07-29] MEDS: OXYBUTYNIN CHLORIDE XL 5 MG TABCR PO SCH (08:52)
[2023-07-29] MEDS: hydroCHLOROthiazide 25 MG TAB PO SCH (08:53)
[2023-07-29] MEDS: DORZOLAMIDE HCL 2% OPH SOLN 10 ML BTL OPL SCH ×2 (08:54→21:16)
[2023-07-29] MEDS: BRIMONIDINE TARTRATE 0.2% 5ML OPL SCH ×2 (08:54→21:16)
[2023-07-29] MEDS: TIMOLOL MALEATE 0.5% OP SOLN 5 ML BTL OPB SCH ×2 (08:54→21:16)
[2023-07-29] MEDS ORDERED: allopurinoL 300 MG TAB PO SCH (09:00)
--- NOTE | 2023-07-29 16:27 | Hospitalist Progress Note ---
Date of Service July 29, 2023 Assessment & Plan (1) Acute UTI: Plan: 83-year-old male with past med significant for hypertension, pulmonary hypertension, interstitial lung disease, history of sinus bradycardia, glaucoma,History of right bundle branch, history of nonsustained ventricular tachycardia, history of sepsis from UTI during during which she had nonsustained ventricular tachycardia and follows with cardiology comes because of frequent urination and burning micturition since today. Acute UTI History of sepsis from UTI in the past ER started on Zosyn which will be continued Gentle fluids Clinically much better and the white count is normalized Denies any urinary symptoms and does not have any fever and or chills Wound culture is growing 10,000 colonies and awaiting final report Likely discharge tomorrow History of hypertension On lisinopril, hydrochlorothiazide, metoprolol We will monitor Blood pressure remains stable at 129/74 History of gout On allopurinol No acute attack History of glaucoma Continue home eyedrops History of nonsustained ventricular tachycardia On metoprolol Follows with cardiology No evidence of any cardiac issues during this admission BPH On Flomax Hyperlipidemia On statin DVT prophylaxis Lovenox Disposition Medical floor Full code Discussed with the and the patient Admission and Anticipated Discharge Date Admission Date: July 28, 2023 Subjective 07/29/2023 The patient was seen and examined in medical floor He has been feeling much better Denies any urinary symptoms No fever and no chills Review of Systems Review of Systems: All systems reviewed and are unremarkable except as noted below Physical Exam Physical Exam: Sitting on a chair without any acute distress Constitutional: well developed, well nourished and + obese; not ill appearing Eyes: PERRL, conjunctivae normal, anicteric sclerae ENMT: external ear and nose normal, oropharynx normal Neck: trachea midline, no thyromegaly Respiratory: no respiratory distress Auscultation: lungs clear to auscultation bilaterally Cardiovascular: Rate/Rhythm: regular rate and regular rhythm; not tachycardic Heart Sounds: normal S1, normal S2 and + murmur Extremities: + edema (Trace edema bilaterally) Gastrointestinal (Abdomen): Inspection/Auscultation: normal bowel sounds; abdomen not distended Percussion/Palpation: abdomen soft; abdomen nontender Musculoskeletal: No acute arthritis involving any joint Neurologic: normal touch/pain/proprioception and moves all extremities; no focal motor deficits Psychiatric: A+Ox3, euthymic affect Lymphatic: no cervical or axillary lymphadenopathy Results & Data Results & Data Vital Signs (Past 12 Hours) Vital Signs Temp Pulse Resp BP Pulse Ox O2 Del Method 07/29/23 15:13 36.5 C 62 16 129/74 93 Room Air 07/29/23 09:08 36.5 C 71 16 136/78 93 Room Air Laboratory Results Short CBC 07/29/23 Range/Units 06:46 WBC 8.78 (4.8-10.8) K/ul Hgb 13.1 L (14.0-18.0) g/dl Hct 38.8 L (42.0-52.0) % Plt Count 171 (130-400) K/uL BMP 07/29/23 06:46 Sodium 138 Potassium 3.5 Chloride 102 Carbon Dioxide 29 BUN 16 Creatinine 0.86 Glucose 150 H Calcium 9.1 Medications Administered Current Inpatient Medications Acetaminophen (Acetaminophen 325 Mg Tab) 650 mg PO Q4H PRN PRN Reason: pain/fever Stop: 08/27/23 01:46 Allopurinol (Allopurinol 300 Mg Tab) 300 mg PO Q48H AELX Stop: 08/28/23 08:59 Last Admin: 07/29/23 08:51 Dose: 300 mg Aspirin (Aspirin 81 Mg Ectab) 81 mg PO HS ALEX Stop: 08/27/23 20:59 Last Admin: 07/28/23 20:02 Dose: 81 mg Brimonidine Tartrate (Brimonidine Tartrate 0.2% 5ml) 1 drops OPL BID ALEX Stop: 08/27/23 08:59 Last Admin: 07/29/23 08:54 Dose: 1 drops Dorzolamide HCl (Dorzolamide Hcl 2% Oph Soln 10 Ml Btl) 1 drops OPL BID ALEX Stop: 08/27/23 08:59 Last Admin: 07/29/23 08:54 Dose: 1 drops Enoxaparin Sodium (Enoxaparin Inj 40 Mg/0.4 Ml Syr) 40 mg SQ Q24H ALEX Stop: 08/27/23 08:59 Last Admin: 07/29/23 08:51 Dose: 40 mg Finasteride (Finasteride 5 Mg Tab) 5 mg PO QAM ALEX Stop: 08/27/23 08:59 Last Admin: 07/29/23 08:52 Dose: 5 mg Hydrochlorothiazide (Hydrochlorothiazide 25 Mg Tab) 25 mg PO QAM [facility] Stop: 08/27/23 08:59 Last Admin: 07/29/23 08:53 Dose: 25 mg Piperacillin Sod/Tazobactam (Sod 4.5 gm/ Dextrose) 100 mls @ 25 mls/hr IV Q8H [facility]; Protocol Stop: 08/07/23 06:59 Last Admin: 07/29/23 15:26 Dose: 25 mls/hr Latanoprost (Latanoprost 0.005% Op Soln 2.5 Ml Btl) 1 drops OPL HS [facility] Stop: 08/27/23 20:59 Last Admin: 07/28/23 20:01 Dose: 1 drops Lisinopril (Lisinopril 10 Mg Tab) [address] [facility] [place] [facility]: 08/27/23 08:59 Last Admin: 07/29/23 08:52 Dose: 10 mg Metoprolol Tartrate (Metoprolol Tartrate 25 Mg Tab) 12.5 mg PO BID [facility] Stop: 08/27/23 08:59 Last Admin: 07/29/23 08:50 Dose: 12.5 mg Multivitamins/Minerals (Cerovite Adv Formula Tab) [address] [facility] [place] Stop: 08/27/23 08:59 Last Admin: 07/29/23 08:52 Dose: 1 tab Oxybutynin Chloride (Oxybutynin Chloride Xl 5 Mg Tabcr) [address] [facility] [place] Stop: 08/27/23 08:59 Last Admin: 07/29/23 08:52 Dose: 10 mg Polyethylene Glycol (Polyethylene (Miralax) 17 Gm Pack) 17 gm PO DAILY PRN PRN Reason: Constipation Stop: 08/27/23 01:46 Rosuvastatin Calcium (Rosuvastatin Calcium 10 Mg Tab) 10 mg PO [facility] Stop: 08/27/23 08:59 Last Admin: 07/29/23 08:52 Dose: 10 mg Tamsulosin HCl (Tamsulosin Hcl 0.4 Mg Cap) 0.[address] [facility] [place] Stop: 08/27/23 08:59 Last Admin: 07/29/23 08:50 Dose: 0.8 mg Timolol Maleate (Timolol Maleate 0.5% Op Soln 5 Ml Btl) 1 drops OPB BID [facility] Stop: 08/27/23 08:59 Last Admin: 07/29/23 08:54 Dose: 1 drops
--- NOTE | 2023-07-29 20:55 | Electrocardiogram Report ---
Test Reason : Blood Pressure : / mmHG Vent. Rate : 076 BPM Atrial Rate : 076 BPM P-R Int : 188 ms QRS Dur : 140 ms QT Int : 420 ms P-R-T Axes : 052 -60 066 degrees QTc Int : 472 ms Sinus rhythm with occasional Premature ventricular complexes and Premature atrial complexes Left axis deviation Left bundle branch block Abnormal ECG When compared with ECG of 08-MAY-2016 07:53, Premature ventricular complexes are now Present Premature atrial complexes are now Present Confirmed by Seng Cespedes ([id number]) on 07/29/2023 8:55:16 PM Referred By: REFERRED SELF Confirmed By:Seng Cespedes
[2023-07-29] MEDS: ASPIRIN 81 MG ECTAB PO SCH (21:15)
[2023-07-29] MEDS: LATANOPROST 0.005% OP SOLN 2.5 ML BTL OPL SCH (21:17)
[2023-07-30] MEDS: PIPERACILLIN/TAZOBACTAM 4.5 GM in DEXTROSE 5% MINI-B 100 ML IV SCH (06:37)
[2023-07-30 08:15] VITALS: RESP 16
[2023-07-30] MEDS: ROSUVASTATIN CALCIUM 10 MG TAB PO SCH (09:18)
[2023-07-30] MEDS: OXYBUTYNIN CHLORIDE XL 5 MG TABCR PO SCH (09:18)
[2023-07-30] MEDS: lisinopril 10 MG TAB PO SCH (09:18)
[2023-07-30] MEDS: TAMSULOSIN HCL 0.4 MG CAP PO SCH (09:18)
[2023-07-30] MEDS: CEROVITE ADV FORMULA TAB PO SCH (09:18)
[2023-07-30] MEDS: hydroCHLOROthiazide 25 MG TAB PO SCH (09:19)
[2023-07-30] MEDS: ENOXAPARIN INJ 40 MG/0.4 ML SYR SQ SCH (09:19)
[2023-07-30] MEDS: METOPROLOL TARTRATE 25 MG TAB PO SCH (09:19)
[2023-07-30] MEDS: DORZOLAMIDE HCL 2% OPH SOLN 10 ML BTL OPL SCH (09:20)
[2023-07-30] MEDS: TIMOLOL MALEATE 0.5% OP SOLN 5 ML BTL OPB SCH (09:20)
[2023-07-30] MEDS: BRIMONIDINE TARTRATE 0.2% 5ML OPL SCH (09:20)
[2023-07-30 10:12] LABS: Basophils # (auto) 0.03 K/uL (0.00-0.20); Basophils % (auto) 0.4 %; Eosinophils # (auto) 0.31 K/uL (0.00-0.50); Eosinophils % (auto) 3.8 %; Hematocrit (blood only) 40.3 % (42.0-52.0); Hemoglobin 13.8 g/dl (14.0-18.0); Immature Granulocytes # (auto) 0.04 K/uL (0.01-0.20); Immature Granulocytes % (auto) 0.5 %; Lymphocytes # (auto) 1.65 K/uL (1.20-3.40); Mean Corpuscular Hemoglobin 31.2 pg (25.0-34.0); Mean Corpuscular Hgb Conc 34.2 g/dL (32.0-36.0); Mean Platelet Volume 10.9 fL (9.4-12.4); Monocytes # (auto) 0.73 K/uL (0.11-0.59); Monocytes % (auto) 8.9 %; Neutrophils # (auto) 5.48 K/uL (1.40-6.50); Neutrophils % (auto) 66.4 %; Platelet Count 180 K/uL (130-400); RDW Coefficient of Variation 12.9 % (11.5-14.5); RDW Standard Deviation 42.8 fL (36.4-46.3); Red Blood Count 4.43 M/uL (4.70-6.10); White Blood Count 8.24 K/ul (4.8-10.8)
[2023-07-30 10:28] LABS: BUN Creatinine Ratio 19.1 (10-20); Calcium 9.3 mg/dl (8.6-10.3); Creatinine Clr Calc Pharmacy 74.4 ml/min; Est GFR (African American) 90.4 ml/min; Potassium 3.6 mmol/L (3.5-5.1)
[2023-07-30] MEDS: FINASTERIDE 5 MG TAB PO SCH (11:14)
--- NOTE | 2023-07-30 14:04 | Hospitalist Progress Note ---
Date of Service July 30, 2023 Assessment & Plan (1) Acute UTI: Plan: 83-year-old male with past med significant for hypertension, pulmonary hypertension, interstitial lung disease, history of sinus bradycardia, glaucoma,History of right bundle branch, history of nonsustained ventricular tachycardia, history of sepsis from UTI during during which she had nonsustained ventricular tachycardia and follows with cardiology comes because of frequent urination and burning micturition since today. Acute UTI History of sepsis from UTI in the past ER started on Zosyn which will be continued Gentle fluids Clinically much better and the white count is normalized Denies any urinary symptoms and does not have any fever and or chills Wound culture is growing 10,000 colonies and awaiting final report Likely discharge tomorrow History of hypertension On lisinopril, hydrochlorothiazide, metoprolol We will monitor Blood pressure remains stable at 129/74 History of gout On allopurinol No acute attack History of glaucoma Continue home eyedrops History of nonsustained ventricular tachycardia On metoprolol Follows with cardiology No evidence of any cardiac issues during this admission BPH On Flomax Hyperlipidemia On statin DVT prophylaxis Lovenox Disposition Medical floor Full code Discussed with the and the patient Admission and Anticipated Discharge Date Admission Date: July 28, 2023 Results & Data Results & Data Vital Signs (Past 12 Hours) Vital Signs Temp Pulse Resp BP Pulse Ox O2 Del Method 07/30/23 08:14 36.5 C 67 16 128/82 92 Room Air
[2023-07-30 15:24] VITALS: BP 150/74; PULSE 66; O2SAT 94
--- NOTE | 2023-07-30 16:30 | Discharge Summary ---
Discharge Summary Date of Service July 30, 2023 Notes For Next Care Provider Consider Urology follow up Medication Changes From Visit Augmentin for 7 additional days Admission HPI Per Admitting Provider 83-year-old male with past med significant for hypertension, pulmonary hypertension, interstitial lung disease, history of sinus bradycardia, glauco ma,History of right bundle branch, history of nonsustained ventricular tachycardia, history of sepsis from UTI during during which he had nonsustained ventricular tachycardia and follows with cardiology comes because of frequent urination and burning micturition since today. Because of history of sepsis in the past patient is worried and came to the ER. Denies any fevers. No abdominal pain. No blood in the urine. Normal bowel movements. No chest pain. No shortness of breath. Mild occasional cough. Has some runny nose. No headache. Currently resting comfortably and hemodynamically stable. Past medical history. As mentioned above Past surgical history. Circumcision. Colonoscopy. Cystoscopy. Right eye stent for glaucoma. Appendectomy. Tonsillectomy. Social history. . No smoking. Alcohol rarely. No drug use. Family history. Brother had colon cancer. Sister colon cancer. Mother has diabetes. Brother has heart disorder. Admission Exam Per Admitting Provider General- Not in distress Head- atraumatic Eyes- PERRL. ENT- oropharynx clear Neck- supple, no JVD. Lungs- clear to auscultation no wheezing or crackles Heart- regular rhythm; no murmur, no gallop. Abdomen- normal bowel sounds, soft, nontender, no distension Extremities- trace pretibial edema, no erythema seen. Neuro- alert, oriented x 3; PERRLno facial palsy; no dysarthria; moves extremities. Skin- warm & dry Principal Dx & Hospital Course #1 = Principal Diagnosis (1) Acute UTI: (2) Weakness: (3) Hypertension: (4) Hypercholesterolemia: (5) Pyelonephritis: (6) Ventricular tachycardia: Plan 83-year-old male with past med Hx significant for hypertension, pulmonary hypertension, interstitial lung disease, history of sinus bradycardia, glaucoma, History of right bundle branch block, history of nonsustained ventricular tachycardia, history of sepsis from UTI presenting with frequent urination and burning micturition of one day. Acute UTI History of sepsis from UTI in the past WBC elevated on admission, UA suggestive of infection, urine Cx with no significant growth Blood Cx NGTD ER started on Zosyn, transitioned to Augmentin on discharge for 7 more days Gentle fluids Clinically much better and the white count normalized on discharge Denies any urinary symptoms and does not have any fever and or chills Consider Urology follow up. Hypertension On lisinopril, hydrochlorothiazide, metoprolol Blood pressure remained stable History of gout On allopurinol, continue History of glaucoma Continue home eyedrops History of nonsustained ventricular tachycardia On metoprolol Follows with cardiology No evidence of any cardiac issues during this admission BPH On Flomax, stable Hyperlipidemia On statin, stable Discharge Exam General: Alert, oriented. No acute distress Skin: No noted rashes or bruises Psych: Appropriate mood and affect Neuro: No gross deficits HEENT: NC/AT Chest: Nontender to palpation. CV: RRR, Normal s1, s2. No murmurs appreciated Resp: Breath sounds clear bilaterally, no increased effort of breathing. Abdomen: Soft, nontender, nondistended. No guarding. No organomegaly appreciated. Extremities: No edema in lower extremities bilaterally. Updated Medication List Medication Instructions Recorded Confirmed Type allopurinol 300 mg tablet 300 mg PO Q2D 05/19/19 07/28/23 History aspirin 81 mg tablet,delayed 81 mg PO HS 05/19/19 07/28/23 History release finasteride 5 mg tablet 5 mg PO QAM 05/19/19 07/28/23 History hydrochlorothiazide 25 mg tablet 25 mg PO QAM 05/19/19 07/28/23 History lisinopril 10 mg tablet 10 mg PO QAM 05/19/19 07/28/23 History metoprolol tartrate 25 mg tablet 12.5 mg PO BID 05/19/19 07/28/23 History [id number]-[id number] 300 mcg-K 60 1 tab PO QAM 05/19/19 07/28/23 History mcg-lycop 600 mcg-lutein 300 mcg tablet (Centrum Silver Men) rosuvastatin 10 mg tablet 10 mg PO QAM 05/19/19 07/28/23 History tamsulosin 0.4 mg capsule 0.8 mg PO QAM 05/19/19 07/28/23 History brimonidine 0.2 % eye drops 1 drp OPL BID 07/28/23 07/28/23 History dorzolamide 2 % eye drops 1 drp OPL BID 07/28/23 07/28/23 History latanoprost (PF) 0.005 % eye drops 1 drp OPL HS 07/28/23 07/28/23 History in a dropperette oxybutynin chloride 10 mg 10 mg PO QAM 07/28/23 07/28/23 History tablet,extended release 24 hr timolol maleate 0.5 % eye drops 1 drp OPB BID 07/28/23 07/28/23 History amoxicillin 875 mg-potassium 1 tab PO BIDM #14 tabs 07/30/23 Rx clavulanate 125 mg tablet Hospital Stay Data Consultations 07/27/23 22:53 ED Decision to Admit Stat Diagnostic Imagining Performed 07/27/23 22:41 CT Abd and Pelvis [CT abd pelvis IV con only] Stat Abdomen/Pelvis CT 07/27/23 22:41 Exam(s): CT ABDOMEN + PELVIS With Contrast IV Amt: 93 ML OPTIRAY 320 EXAM: CT Abdomen and Pelvis With Intravenous Contrast CLINICAL HISTORY: Reason for exam: UTI, ams. TECHNIQUE: Axial computed tomography images of the abdomen and pelvis with intravenous contrast. Automated exposure control was utilized for the study. A dose lowering technique was utilized adhering to the principles of ALARA. CONTRAST: Patient received 93 ML OPTIRAY 320 of IV contrast COMPARISON: No relevant prior studies available. FINDINGS: Lung bases: Unremarkable. No mass. No consolidation. ABDOMEN: Liver: Hepatic steatosis. Gallbladder and bile ducts: Unremarkable. No calcified stones. No ductal dilation. Pancreas: Unremarkable. No mass. No ductal dilation. Spleen: Unremarkable. No splenomegaly. Adrenals: Unremarkable. No mass. Kidneys and ureters: Cyst in the RIGHT kidney lower pole measures 6.8 x 5.8 cm. No hydronephrosis. Stomach and bowel: Diverticulosis, without acute diverticulitis. No small bowel obstruction. No free intraperitoneal air. PELVIS: Appendix: No findings to suggest acute appendicitis. Bladder: Decompressed urinary bladder with mild wall thickening, correlate for UTI. Urinalysis recommended. Reproductive: Unremarkable as visualized. ABDOMEN and PELVIS: Intraperitoneal space: Unremarkable. No free air. No significant fluid collection. Bones/joints: Degenerative changes of the spine. No acute fracture. No dislocation. Soft tissues: Fat-containing bilateral inguinal hernias. Vasculature: Atherosclerotic changes of the aorta. No abdominal aortic aneurysm. Lymph nodes: Unremarkable. No enlarged lymph nodes. IMPRESSION: 1. Decompressed urinary bladder with mild wall thickening, correlate for UTI. Urinalysis recommended. 2. Hepatic steatosis. 3. Diverticulosis, without acute diverticulitis. No small bowel obstruction. No free intraperitoneal air. Electronically signed by: Larry King MD 07/27/23 23:52 PM Pending Results Patient Have Any Pending Studies at Discharge: No Discharge Instructions Given to Patient (Per Discharging Provider) Mr. Gutierrez, You were admitted out of concern that you had a progressing urinary tract infection. Your symptoms improved after about 2 days of IV antibiotic treatment. We are discharging you home with medication for an additional 8 days (a prescription for 7 days and a home pack for tomorrow). Please take as directed. We recommend follow up with your primary care provider as scheduled. Consider follow up with a urologist as well, your pcp can refer you if needed. You can take the antibiotics with an over the counter probiotic to help prevent diarrhea. Please continue taking your other home medications as prescribed. It was a pleasure taking care of you during your time here! Total Time Total Time Spent Total Time Spent (In Minutes): > 30 minutes
[2023-07-30] MEDS ORDERED: AMOXICILLIN/CLAVULANATE 875 MG TAB PO SCH (17:00)
[2023-07-30] MEDS ORDERED: AMOXICILLIN/CLAVULANATE 875MG HOME PACK PO ONE (21:00)
== END 2023-07-30 17:50 | disposition home or self-care (01) | DRG 690 ==
LOC: ED 20:11 → 3N 07-28 00:36 → INTOOBSV 07-28 00:36 → SUATTDRO 07-28 00:36 → 3N 07-28 01:47
DX: N40.0 Benign prostatic hyperplasia without lower urinary tract symptoms; I47.20 Ventricular tachycardia, unspecified; J84.9 Interstitial pulmonary disease, unspecified; Z79.82 Long term (current) use of aspirin; I27.20 Pulmonary hypertension, unspecified; H40.9 Unspecified glaucoma; E78.00 Pure hypercholesterolemia, unspecified; M10.9 Gout, unspecified; Z79.899 Other long term (current) drug therapy; N12 Tubulo-interstitial nephritis, not specified as acute or chronic; N39.0 Urinary tract infection, site not specified; I10 Essential (primary) hypertension

== ENCOUNTER 2024-12-28 12:52 | Observation (INO) ==
--- NOTE | 2024-12-28 13:39 | Emergency Department Note ---
Impression & Plan Weakness, Leukocytosis, RLQ abdominal pain ED Provider Note NAME: SHASHA ROTHMAN AGE: 84 SEX: M : 1940 ARRIVES VIA: Walk-In INFORMANT: [Patient][family] ED PROVIDER(S): [Scott Escoto MD] CHIEF COMPLAINT: Lethargic HISTORY OF PRESENT ILLNESS: The patient is an 84-year-old male who is almost too weak to even stand. Things have progressed over 4 weeks. 4 weeks ago, he had a viral infection that caused a lot of coughing. He then developed a UTI. He finished his antibiotics. He states that he now has some right sided abdominal pain from coughing, he thinks he has a hernia. He has an appointment scheduled for next week with a general surgeon. His right sided abdominal pain worsens with movement and if he lays on his right side. He is here really for the weakness. He states he is so weak, he can barely even function. He can barely stand from a chair. No shortness of breath. No fever. No nausea or vomiting. No black or bloody stool. PMHx/PSHx/Social Hx: See Below PHYSICAL EXAM: GENERAL: Patient is in no acute distress. HEENT: No acute trauma, normocephalic atraumatic, mucous membranes dry, no nasal congestion. NECK: No stridor, no adenopathy, no meningismus, trachea is midline. LUNGS: There are crackles heard bilaterally with some decreased breath sounds bilaterally. No respiratory distress. HEART: Without murmurs gallops or rubs, regular rate and rhythm. Heart tones distant. ABDOMEN: Soft, tender along the right lower abdomen, no significant distention. Appendicitis scar noted. EXTREMITIES: No cyanosis, full range of motion of all the joints without pain or difficulty. NEUROLOGIC: Oriented x 3, no acute motor or sensory deficits, no focal weakness. No speech slur. SKIN: No jaundice, no diaphoresis. DIFFERENTIAL DIAGNOSIS: Diverticulitis, bowel obstruction, hernia, dehydration, electrolyte imbalance, pneumonia, UTI, among others. EMERGENCY DEPARTMENT PROCEDURES: MEDICAL DECISION MAKING: There is a moderate leukocytosis, this certainly could be consistent with infection. A very mild anemia was seen. There was a normal platelet count. No coagulopathy. No renal failure or significant electrolyte abnormality. Lactic acid level was not elevated making sepsis less likely. No worrisome liver enzyme elevation. BNP was not elevated making CHF unlikely. Procalcitonin level was not elevated making a bacterial source for his complaints less likely. The patient appeared to be in a euthyroid state. ECG showed a sinus rhythm, no obvious ischemia. Cardiac enzyme testing x 1 was not consistent with acute cardiac injury. Chest x-ray showed a poor inspiratory effort, no focal pneumonia. Urinalysis showed some dehydration, no obvious infection. Respiratory bio fire was negative. Abdominal and pelvis CT showed a small right inguinal hernia. No diverticulitis, no acute surgical process on CT imaging. The patient received IV saline, he is currently resting fairly comfortably. The patient presents with profound weakness for the last several weeks. I suspect a large part of this is debilitation. Patient is too weak to even really stand, he can do nothing on his own at home. The cause for his leukocytosis noted today is unclear. I do think the patient requires a hospital stay, further workup and strengthening. He may require inpatient rehab at some point. I did speak with the patient at length, I did speak with case management. The on-call hospitalist was consulted. Prior/Outside records/notes reviewed: None ECG per my interpretation: Indication was weakness. The ECG shows a normal sinus rhythm with a rate of 69. There is a left bundle branch block. There is no acute ST elevation, no PVCs. The QTc is 437. Continuous Cardiac Monitoring per my interpretation: An order was placed for continuous cardiac monitoring. The monitor shows a rate of 79 with normal sinus rhythm. Imaging/x-ray results per my interpretation: Chest x-ray shows a poor inspiratory effort and some mild cardiomegaly. No obvious focal infiltrate. Chronic Medical/Social conditions affecting care: Advanced age. Care/Management discussed with: Case management, the on-call hospitalist. Level of care consideration(s): After review of the information above and other included data: --I believe the patient requires escalation of care to admission DISPOSITION: Admission Past Med/Surg History Problem List (Updated 12/28/24 @ 20:47 by Scott Escoto MD) RLQ abdominal pain (Acute) Leukocytosis (Acute) Weakness (Acute) Recent urinary tract infection Ambulatory dysfunction Generalized weakness Acute UTI (Acute) Weakness (Acute) Hypercholesterolemia (Chronic) Pyelonephritis Pyelonephritis Urinary tract infection (Acute) Ventricular tachycardia Medical History Gout BPH (benign prostatic hyperplasia) RBBB LBBB (left bundle branch block) NSVT (nonsustained ventricular tachycardia) Dyslipidemia Diabetes mellitus, type II Hypertension Surgical History History of colonoscopy Hx of tonsillectomy History of appendectomy Family History Other Cancer Diabetes Social History Smoking Status: Never smoker Second Hand Exposure: No; Do You Dip or Chew Tobacco: No; Hx Alcohol Use: No Hx Substance Use: No Preferred Language: Congolese Communication Ability: Effective Mix Technician Required: No Beliefs That Will Affect Care: None marital status: Current Living Situation: Spouse Current Living Situation Comment: lives at home with current occupational status: retired Other Information That Helps Us Care for You: No Feels Safe at Home: Yes Safety Concerns: Feels Safe At This Time Assistive Devices: Cane, Hearing Aid - Bilateral, Hospital Bed and Walker Allergies Allergies Allergy/AdvReac Type Severity Reaction Status Date / Time Blackening Seasoning Allergy Intermediate Swelling Uncoded 07/28/23 09:00 of Lip/Tongue/Throat Home Meds Home Medications Medication Instructions Recorded Confirmed allopurinol 300 mg tablet 300 mg PO Q2D 05/19/19 12/28/24 aspirin 81 mg tablet,delayed 81 mg PO HS 05/19/19 12/28/24 release finasteride 5 mg tablet 5 mg PO QAM 05/19/19 12/28/24 hydrochlorothiazide 25 mg tablet 25 mg PO QAM 05/19/19 12/28/24 lisinopril 10 mg tablet 10 mg PO QAM 05/19/19 12/28/24 metoprolol tartrate 25 mg tablet 12.5 mg PO BID 05/19/19 12/28/24 [id number] 300 mcg-K 60 1 tab PO QAM 05/19/19 12/28/24 mcg-lycop 600 mcg-lutein 300 mcg tablet (Centrum Silver Men) rosuvastatin 10 mg tablet 10 mg PO QAM 05/19/19 12/28/24 tamsulosin 0.4 mg capsule 0.8 mg PO HS 05/19/19 12/28/24 brimonidine 0.2 % eye drops 1 drp OPL UD 07/28/23 12/28/24 dorzolamide 2 % eye drops 1 drp OPL BID 07/28/23 12/28/24 latanoprost (PF) 0.005 % eye drops 1 drp OPL HS 07/28/23 12/28/24 in a dropperette oxybutynin chloride 10 mg 10 mg PO DAILY 07/28/23 12/28/24 tablet,extended release 24 hr timolol maleate 0.5 % eye drops 1 drp OPB BID 07/28/23 12/28/24 Results & Data (ED) Vital Signs Vital Signs - 24 hr 12/28/24 12:56 12/28/24 13:30 12/28/24 13:40 Temperature 36.9 C Temperature Source Oral Pulse Rate 79 67 Pulse Rate from SpO2 Sensor 65 Respiratory Rate 16 18 Respiratory Effort / Characteristics Spontaneous Respiratory Depth Normal Respiratory Pattern Regular Blood Pressure 109/65 105/61 Blood Pressure Mean 79 75 Pulse Oximetry 91 91 92 Oxygen Delivery Method Room Air Room Air Sepsis Recent Fever Within 48 Hours No Sepsis New/Unexplained Change in Mental Status No Sepsis Action Taken by Nursing No Action Required 12/28/24 13:54 12/28/24 14:00 12/28/24 14:02 Temperature Temperature Source Pulse Rate 62 68 Pulse Rate from SpO2 Sensor 63 Respiratory Rate 23 Respiratory Effort / Characteristics Respiratory Depth Respiratory Pattern Blood Pressure 128/57 L 128/57 L Blood Pressure Mean 80 98 Pulse Oximetry 93 Oxygen Delivery Method Sepsis Recent Fever Within 48 Hours Sepsis New/Unexplained Change in Mental Status Sepsis Action Taken by Nursing 12/28/24 14:54 12/28/24 15:00 12/28/24 15:00 Temperature Temperature Source Pulse Rate Pulse Rate from SpO2 Sensor 63 Respiratory Rate Respiratory Effort / Characteristics Respiratory Depth Respiratory Pattern Blood Pressure 108/69 108/69 Blood Pressure Mean 72 72 Pulse Oximetry 94 Oxygen Delivery Method Sepsis Recent Fever Within 48 Hours Sepsis New/Unexplained Change in Mental Status Sepsis Action Taken by Nursing 12/28/24 15:12 12/28/24 15:30 12/28/24 15:45 Temperature Temperature Source Pulse Rate Pulse Rate from SpO2 Sensor 67 63 Respiratory Rate Respiratory Effort / Characteristics Respiratory Depth Respiratory Pattern Blood Pressure 154/86 H Blood Pressure Mean 110 Pulse Oximetry 94 96 Oxygen Delivery Method Sepsis Recent Fever Within 48 Hours Sepsis New/Unexplained Change in Mental Status Sepsis Action Taken by Nursing 12/28/24 15:51 12/28/24 15:57 12/28/24 16:01 Temperature Temperature Source Pulse Rate Pulse Rate from SpO2 Sensor 64 Respiratory Rate Respiratory Effort / Characteristics Respiratory Depth Respiratory Pattern Blood Pressure 134/87 Blood Pressure Mean 91 Pulse Oximetry 95 Oxygen Delivery Method Room Air Sepsis Recent Fever Within 48 Hours Sepsis New/Unexplained Change in Mental Status Sepsis Action Taken by Nursing 12/28/24 16:15 Temperature Temperature Source Pulse Rate Pulse Rate from SpO2 Sensor 66 Respiratory Rate Respiratory Effort / Characteristics Respiratory Depth Respiratory Pattern Blood Pressure Blood Pressure Mean Pulse Oximetry 96 Oxygen Delivery Method Sepsis Recent Fever Within 48 Hours Sepsis New/Unexplained Change in Mental Status Sepsis Action Taken by [facility] Medications Current Medication List: was personally reviewed by me Laboratory Data Attestation: I reviewed the patient's lab results. 12/28/24 13:22 12/28/24 13:22 Lab Results 12/28/24 12/28/24 12/28/24 Range/Units 13:22 14:17 15:10 WBC 15.30 H (4.8-10.8) K/ul RBC 4.31 L (4.70-6.10) M/uL Hgb 13.2 L (14.0-18.0) g/dl Hct 39.3 L (42.0-52.0) % MCV 91.2 (80.0-100.0) fL MCH 30.6 (25.0-34.0) pg MCHC 33.6 (32.0-36.0) g/dL RDW Std Deviation 45.1 (36.4-46.3) fL RDW Coeff of Hilda 13.4 (11.5-14.5) % Plt Count 254 (130-400) K/uL MPV 10.9 (9.4-12.4) fL Immature Gran % (Auto) 0.6 % Neut % (Auto) 81.2 % Lymph % (Auto) 8.2 % Sanders % (Auto) 9.0 % Eos % (Auto) 0.7 % Baso % (Auto) 0.3 % Neut # (Auto) 12.43 H (1.40-6.50) K/uL Lymph # (Auto) 1.25 (1.20-3.40) K/uL Sanders # (Auto) 1.38 H (0.11-0.59) K/uL Eos # (Auto) 0.11 (0.00-0.50) K/uL Baso # (Auto) 0.04 (0.00-0.20) K/uL Immature Gran # (Auto) 0.09 (0.01-0.20) K/uL PT 11.3 (9.0-12.0) Seconds INR 1.0 (0.9-1.1) APTT 29 (21-31) Seconds PTT Ratio 1.1 Sodium 136 (136-145) mmol/L Potassium 3.7 (3.5-5.1) mmol/L Chloride 97 L (98-107) mmol/L Carbon Dioxide 29 (21-32) mmol/L Anion Gap 10 (3-11) BUN 28 H (6-23) mg/dl Creatinine 0.89 (0.6-1.4) mg/dl Est Cr Clr Drug Dosing Not Reportable eGFR 83.46 BUN/Creatinine Ratio 31.5 H (10-20) Glucose 180 H (70-99(Fasting)) mg/dl Lactate 1.8 (0.4-2.0) mmol/L Calcium 9.5 (8.6-10.3) mg/dl Magnesium 1.9 (1.7-2.4) mg/dl Total Bilirubin 0.9 (0.2-1.0) mg/dl AST 28 (13-39) U/L ALT 26 (7-52) U/L Alkaline Phosphatase 92 (34-104) U/L Troponin I High Sens 10.1 (0-20) pg/ml B-Natriuretic Peptide 73 (0-100) pg/ml Total Protein 7.4 (6.0-8.3) gm/dl Albumin 3.4 (3.4-5.0) gm/dl Globulin 4.0 (2.5-4.0) gm/dl Albumin/Globulin Ratio 0.9 (0.9-2) Procalcitonin 0.17 (0-0.5) ng/ml TSH 1.766 (0.300-4.500) uIu/ml Urine Color Dark Yellow Urine Appearance Clear (Clear) Urine pH 5.5 (4.5-7.5) Ur Specific [place] 1.024 (1.000-1.030) Urine Protein 1+ H (Negative) Urine Glucose (UA) Negative (Negative) Urine Ketones Trace H (Negative) Urine Blood Negative (Negative) Urine Nitrite Negative (Negative) Urine Bilirubin 1+ H (Negative) Urine Urobilinogen Negative (Negative) Ur Leukocyte Esterase Trace H (Negative) Urine WBC (Auto) 0-5 (0-5) /hpf Urine RBC (Auto) 0-2 (0-2) /hpf U Hyaline Cast (Auto) 11-20 H (0-2) /lpf U Epithel Cells (Auto) 6-10 H (0-2) /hpf Urine Bacteria (Auto) None Seen (None Seen) Urine Mucus Present A (None Prsent) Administered Medications Aspirin (Aspirin 81 Mg Ectab) 81 mg PO [facility] Stop: 01/27/25 20:59 Last Admin: 12/28/24 20:31 Dose: 81 mg Documented By: MED Brimonidine Tartrate (Brimonidine Tartrate 0.2% 5ml) 1 drops OPL BID [facility] Stop: 01/27/25 18:16 Last Admin: 12/28/24 20:29 Dose: 1 drops Documented By: MED Dorzolamide HCl (Dorzolamide Hcl 2% Oph Soln 10 Ml Btl) 1 drops OPL BID [facility] Stop: 01/27/25 20:59 Last Admin: 12/28/24 20:28 Dose: 1 drops Documented By: MED Enoxaparin Sodium (Enoxaparin Inj 40 Mg/0.4 Ml Syr) 40 mg SQ Q24H [facility] Stop: 01/27/25 19:59 Last Admin: 12/28/24 20:30 Dose: 40 mg Documented By: MED Latanoprost (Latanoprost 0.005% Op Soln 2.5 Ml Btl) 1 drops OPL [facility] Stop: 01/27/25 20:59 Last Admin: 12/28/24 20:29 Dose: 1 drops Documented By: MED Metoprolol Tartrate (Metoprolol Tartrate 25 Mg Tab) 12.5 mg PO BID [facility] Stop: 01/27/25 20:59 Last Admin: 12/28/24 20:31 Dose: 12.5 mg Documented By: MED Tamsulosin HCl (Tamsulosin Hcl 0.4 Mg Cap) 0.8 mg PO [facility] Stop: 01/27/25 20:59 Last Admin: 12/28/24 20:32 Dose: 0.8 mg Documented By: MED Timolol Maleate (Timolol Maleate 0.5% Op Soln 5 Ml Btl) 1 drops OP BID [facility] Stop: 01/27/25 20:59 Last Admin: 12/28/24 20:28 Dose: 1 drops Documented By: MED Discontinued Medications Sodium Chloride (Nss) 500 mls @ 999 mls/hr IV .Q31M ONE Stop: 12/28/24 15:32 Last Infusion: 12/28/24 15:43 Dose: Infused Documented By: Admin: 12/28/24 15:08 Dose: 999 mls/hr Documented By: MNLuisa Ioversol (Optiray 320 100ml) 90 ml IV ONCE ONE Stop: 12/28/24 14:35 Last Admin: 12/28/24 14:35 Dose: 90 ml Documented By: JESSEE Lidocaine (Lidocaine 5% 1 Patch) 1 patch TD NOW STA Stop: 12/28/24 18:18 Last Admin: 12/28/24 19:31 Dose: 1 patch Documented By: MED Imaging Data Radiologist's Impression: Chest X-Ray 12/28/24 13:12 XR chest 1V portable CLINICAL HISTORY: weakness COMPARISON STUDY: 10/25/2024 FINDINGS: Stable calcified left mediastinal lymph node. Stable cardiomegaly without pulmonary vascular congestion. Inspiration is shallow which limits the exam. Stable mild elevation of the right hemidiaphragm. Evaluation of the left lung base is limited by the overlying cardiac silhouette. No definite consolidation or pleural effusion. No pneumothorax. IMPRESSION: Shallow inspiration with no acute findings seen. ACT 112: Negative or not required by law. Electronically signed by: Rigo Roque M.D. 12/28/2024 1:45 PM Abdomen/Pelvis CT 12/28/24 13:[address] WITH IV CONTRAST CT DOSE: 1554.16 mGy.cm HISTORY: right abd pain TECHNIQUE: Multiaxial CT images of the abdomen and pelvis were performed following the IV administration of 90 cc of Optiray, A dose lowering technique was utilized adhering to the principles of ALARA. COMPARISON STUDY: 07/27/2023 FINDINGS: Stable interstitial opacities in the lung bases, possible interstitial lung disease. ABDOMEN: Liver has mildly lobular contour, possible early cirrhosis. There is mild diffuse ascites. Gallbladder, spleen, pancreas, and adrenal glands are unremarkable. Kidneys show no hydronephrosis or calculi. There are a few cysts at the kidneys, largest at the lower right kidney measures 7 cm, stable. There are scattered atherosclerotic calcifications. No abdominal aortic aneurysm. Pelvis: Stable small fat-containing right inguinal hernia. Prostate is mildly enlarged. Urinary bladder is decompressed. There is sigmoid diverticulosis. No acute diverticulitis. There is possible mild enteritis. No other bowel inflammation or obstruction seen. No free air or abscess. No enlarged adenopathy. Osseous structures: There is moderate lumbar degenerative disc disease. No acute osseous findings. IMPRESSION: 1. Interval small amount of diffuse ascites at the abdomen and pelvis. 2. Mildly lobular contour of the liver, normal variation versus early cirrhosis. 3. Possible mild enteritis without bowel obstruction. 4. No other acute findings seen. Otherwise as described. ACT 112: Negative or not required by law. The above report was generated using voice recognition software. It may contain grammatical, syntax or spelling errors. Electronically signed by: Rigo Roque M.D. 12/28/2024 2:49 PM Discharge Plan Visit Data Chief Complaint: Lethargic Stated Complaint: WEAKNESS, ABDOMINAL PAIN ED Provider: Scott Escoto Discharge Problem: Weakness, Leukocytosis, RLQ abdominal pain Patient Disposition: Admitted As Inpatient Condition: Fair Discharge Instructions Interventions: ED Discharge Assessment Last Done: 12/28/24 18:10 Discharge Problem: Leukocytosis Qualifiers: Leukocytosis type: unspecified Qualified Code(s): D72.829 - Elevated white blood cell count, unspecified
--- NOTE | 2024-12-28 13:47 | XRay Report ---
XR chest 1V portable CLINICAL HISTORY: weakness COMPARISON STUDY: 10/25/2024 FINDINGS: Stable calcified left mediastinal lymph node. Stable cardiomegaly without pulmonary vascula r congestion. Inspiration is shallow which limits the exam. Stable mild elevation of the right hemidi aphragm. Evaluation of the left lung base is limited by the overlying cardiac silhouette. No definite consolidation or pleural effusion. No pneumothorax. IMPRESSION: Shallow inspiration with no acute findings seen. ACT 112: Negative or not required by law. Electronically signed by: Rigo Roque M.D. 12/28/2024 1:45 PM
[2024-12-28 13:51] LABS: Basophils # (auto) 0.04 K/uL (0.00-0.20); Basophils % (auto) 0.3 %; Eosinophils # (auto) 0.11 K/uL (0.00-0.50); Eosinophils % (auto) 0.7 %; Hematocrit (blood only) 39.3 % (42.0-52.0); Hemoglobin 13.2 g/dl (14.0-18.0); Immature Granulocytes # (auto) 0.09 K/uL (0.01-0.20); Immature Granulocytes % (auto) 0.6 %; Lymphocytes # (auto) 1.25 K/uL (1.20-3.40); Lymphocytes % (auto) 8.2 %; Mean Corpuscular Hemoglobin 30.6 pg (25.0-34.0); Mean Corpuscular Hgb Conc 33.6 g/dL (32.0-36.0); Mean Corpuscular Volume 91.2 fL (80.0-100.0); Mean Platelet Volume 10.9 fL (9.4-12.4); Monocytes # (auto) 1.38 K/uL (0.11-0.59); Neutrophils # (auto) 12.43 K/uL (1.40-6.50); Neutrophils % (auto) 81.2 %; Platelet Count 254 K/uL (130-400); RDW Coefficient of Variation 13.4 % (11.5-14.5); RDW Standard Deviation 45.1 fL (36.4-46.3); Red Blood Count 4.31 M/uL (4.70-6.10)
[2024-12-28 14:11] LABS: Alanine Aminotransferase 26 U/L (7-52); Albumin Globulin Ratio 0.9 (0.9-2); Albumin Level 3.4 gm/dl (3.4-5.0); Alkaline Phosphatase 92 U/L (34-104); Anion Gap 10 (3-11); Aspartate Aminotransferase 28 U/L (13-39); BUN Creatinine Ratio 31.5 (10-20); Bilirubin,Total 0.9 mg/dl (0.2-1.0); Blood Urea Nitrogen 28 mg/dl (6-23); Calcium 9.5 mg/dl (8.6-10.3); Carbon Dioxide 29 mmol/L (21-32); Chloride 97 mmol/L (98-107); Glucose 180 mg/dl (70-99(Fasting)); Magnesium 1.9 mg/dl (1.7-2.4); Potassium 3.7 mmol/L (3.5-5.1); Sodium 136 mmol/L (136-145); Total Protein 7.4 gm/dl (6.0-8.3)
[2024-12-28 14:14] LABS: Partial Thromboplastin Ratio 1.1; Partial Thromboplastin Time 29 Seconds (21-31); Prothrombin Time 11.3 Seconds (9.0-12.0)
[2024-12-28 14:18] LABS: Troponin I High Sensitivity 10.1 pg/ml (0-20)
[2024-12-28 14:25] LABS: Thyroid Stimulating Hormone 1.766 uIu/ml (0.300-4.500)
--- NOTE | 2024-12-28 14:28 | Electrocardiogram Report ---
Test Reason : Blood Pressure : */* mmHG Vent. Rate : 69 BPM Atrial Rate : 69 BPM P-R Int : 198 ms QRS Dur : 138 ms QT Int : 408 ms P-R-T Axes : 35 -61 38 degrees QTcB Int : 437 ms Normal sinus rhythm Left axis deviation Left bundle branch block Abnormal ECG When compared with ECG of 25-Oct-2024 12:52, No significant change was found Confirmed by Lucho Nava ([id number]) on 12/28/2024 2:28:02 PM Referred By: Confirmed By: Lucho Nava
[2024-12-28] MEDS: OPTIRAY 320 100ml IV ONE (14:35)
[2024-12-28 14:39] LABS: Adenovirus PCR Not Detected (NotDetected); Bordetella parapertussis PCR Not Detected (NotDetected); Bordetella pertussis PCR Not Detected (NotDetected); Chlamydia pneumoniae PCR Not Detected (NotDetected); Coronavirus 229E PCR Not Detected (NotDetected); Coronavirus CoV-2 (COVID19)PCR Not Detected (NotDetected); Coronavirus HKU1 PCR Not Detected (NotDetected); Coronavirus NL63 PCR Not Detected (NotDetected); Coronavirus OC43PCR Not Detected (NotDetected); Human Metapneumovirus PCR Not Detected (NotDetected); Influenza A PCR Not Detected (NotDetected); Influenza B PCR Not Detected (NotDetected); Mycoplasma pneumoniae PCR Not Detected (NotDetected); Parainfluenza Virus 1 PCR Not Detected (NotDetected); Parainfluenza Virus 2 PCR Not Detected (NotDetected); Parainfluenza Virus 3 PCR Not Detected (NotDetected); Parainfluenza Virus 4 PCR Not Detected (NotDetected); Respiratory Syncytial VirusPCR Not Detected (NotDetected); Rhinovirus/Enterovirus PCR Not Detected (NotDetected)
--- NOTE | 2024-12-28 14:50 | CT Scan Report ---
ABDOMEN AND PELVIS CT WITH IV CONTRAST CT DOSE: 1554.16 mGy.cm HISTORY: right abd pain TECHNIQUE: Multiaxial CT images of the abdomen and pelvis were performed following the IV administrat ion of 90 cc of Optiray, A dose lowering technique was utilized adhering to the principles of ALARA. COMPARISON STUDY: 07/27/2023 FINDINGS: Stable interstitial opacities in the lung bases, possible interstitial lung disease. ABDOMEN: Liver has mildly lobular contour, possible early cirrhosis. There is mild diffuse ascites. G allbladder, spleen, pancreas, and adrenal glands are unremarkable. Kidneys show no hydronephrosis or calculi. There are a few cysts at the kidneys, largest at the lower right kidney measures 7 cm, stabl e. There are scattered atherosclerotic calcifications. No abdominal aortic aneurysm. Pelvis: Stable small fat-containing right inguinal hernia. Prostate is mildly enlarged. Urinary bladd er is decompressed. There is sigmoid diverticulosis. No acute diverticulitis. There is possible mild enteritis. No other bowel inflammation or obstruction seen. No free air or abscess. No enlarged adeno sonia. Osseous structures: There is moderate lumbar degenerative disc disease. No acute osseous findings. IMPRESSION: 1. Interval small amount of diffuse ascites at the abdomen and pelvis. 2. Mildly lobular contour of the liver, normal variation versus early cirrhosis. 3. Possible mild enteritis without bowel obstruction. 4. No other acute findings seen. Otherwise as described. ACT 112: Negative or not required by law. The above report was generated using voice recognition software. It may contain grammatical, syntax o r spelling errors. Electronically signed by: Rigo Roque M.D. 12/28/2024 2:49 PM
[2024-12-28] MEDS: SODIUM CHLORIDE 0.9% 500 ML IV ONE (15:08)
[2024-12-28 15:30] LABS: Appearance Urine Clear (Clear); Bacteria Urine Automated None Seen (None Seen); Bilirubin Urine 1+ (Negative); Blood Urine Negative (Negative); Color Urine Dark Yellow; Glucose Urine UA Negative (Negative); Ketones Urine Trace (Negative); Leukocyte Esterase Urine Trace (Negative); Mucus Urine Present (None Prsent); Nitrite Urine Negative (Negative); Protein Urine 1+ (Negative); RBC Urine Automated 0-2 /hpf (0-2); Specific Gravity Urine 1.024 (1.000-1.030); Urobilinogen Urine Negative (Negative); WBC Urine Automated 0-5 /hpf (0-5); pH Urine 5.5 (4.5-7.5)
--- NOTE | 2024-12-28 16:25 | History & Physical Report ---
<Statement entered by Celso Castaneda, DO - 12/28/24 18:11> I have seen and examined the patient and have discussed the case with the advance practice provider. I have reviewed the advanced practitioner's documentation, and I agree with, and take responsibility for that plan of care. Patient overall seems to be declining with his recent viral infection and subsequent UTI. Anticipate would benefit from some more focused rehab prior to returning home. Discussed plan of care as outlined below I spent a total of 14 minutes coordinating, documenting, and providing care for this patient excluding time spent by another provider/QHP. Date of Service December 28, 2024 Assessment & Plan (1) Generalized weakness: (2) Ambulatory dysfunction: Plan: Patient is 84-year-old male with PMH HTN, HLD, DM II, pulmonary HTN, interstitial lung disease, history RBBB and LBBB, history NSVT, gout presented to ER with c/o progressive weakness. In ER afebrile, Vital stable WBC: 15, random glucose: 180, lactate WNL, no significant electrolyte abnormality, LFTs WNL, normal troponin CXR: no consolidation noted No focal findings on exam Possible deconditioning from recent illness. R/O bacteremia. Blood cultures pending Fall precautions PT/OT eval CBC, BMP in am #Abdominal pain Right sided/RLL abdominal pain with movement started after severe coughing CT abd/pelvis: Stable small fat-containing right inguinal hernia. Prostate is mildly enlarged. Urinary bladder is decompressed. There is sigmoid diverticulosis. No acute diverticulitis. There is possible mild enteritis. No other bowel inflammation or obstruction seen. No free air or abscess. No enlarged adenopathy. Denies diarrhea. Will continue to monitor Suspect strain abdominal wall after coughing Trial of lidocaine patch If worsening or no improvement may need to consider further imaging (3) Recent urinary tract infection: Plan: Was having increased urinary frequency. 12/20/2024 urine culture + pansensitive > 100,000 colonies/mL E. coli Treated with Macrobid x 7 days Reported improvement of symptoms. UA without bacteria seen today (4) Hypertension: Plan: Continue home lisinopril, HCTZ, metoprolol tartrate (5) Dyslipidemia: Plan: Continue rosuvastatin (6) Diabetes mellitus, type II: Plan: A1c: 7.3 on 11/08/24 Random glucose 180 Novolog sliding scale per protocol (7) NSVT (nonsustained ventricular tachycardia): Plan: History NSVT Continue metoprolol tartrate (8) BPH (benign prostatic hyperplasia): Plan: #History phimosis Follows with urology, Dr Horowitz Continue tamsulosin, finasteride, oxybutynin (9) Gout: Plan: Continue allopurinol DVT Prophylaxis Lovenox SQ Admit med tele DNR/DNI as per discussion with pt Follows with Dr Alvarado for routine care Pt was seen and care coordinated with Dr Castaneda. See addendum I spent a total of 72 minutes reviewing notes, outpatient records, labs, medication, coordinating, documenting and providing care for this patient exclud ing time spent in the performance of separately billed services and excluding time spent by another provider/QHP. History of Present Illness Chief Complaint: Weakness Primary Care Provider: Kenny Alvarado MD Patient is 84-year-old male with PMH HTN, HLD, DM II, pulmonary HTN, interstitial lung disease, history RBBB and LBBB, history NSVT, gout presented to ER with c/o progressive weakness. Patient reports approximately one month ago had cough that he reports was severe. States one time he coughed so hard that he passed out. Patient reports cough is since resolved. Denies any recurrent syncope. He denies any noted fever or chills or hemoptysis. Reports right lower abdominal pain for past several weeks that began after he was severely coughing. Describes pain as ache with movement and reports is unable to sleep on right side secondary to pain. Denies any noted edema or bulging to abdomen. He reports overall decreased appetite. Denies nausea or vomiting. Denies diarrhea. Reports constipation. Last BM was yesterday and described as small. Seen by PCPs office on 12/20/2024 for urinary frequency. Treated with Macrobid x 7 days. The 12/20/2024 urine culture + pansensitive > 100,000 colonies/mL E. coli. He feels the urinary frequency has improved to his baseline. Patient reports past month has had progressive fatigue and weakness. He has needed to start ambulating with walking stick. He feels both legs are weak. Denies falls. Denies fever/chills, diaphoresis, melena, hematochezia, REYES, dizziness, vision changes, neck pain, CP, SOB, orthopnea, palpitations, rhinorrhea, paresthesias, extremity edema, rashes, hematuria. Allergies Allergy/AdvReac Type Severity Reaction Status Date / Time Blackening Seasoning Allergy Intermediate Swelling Uncoded 07/28/23 09:00 of Lip/Tongue/Throat Home Medications Medication Instructions Recorded Confirmed Type allopurinol 300 mg tablet 300 mg PO Q2D 05/19/19 12/28/24 History aspirin 81 mg tablet,delayed 81 mg PO HS 05/19/19 12/28/24 History release finasteride 5 mg tablet 5 mg PO QAM 05/19/19 12/28/24 History hydrochlorothiazide 25 mg tablet 25 mg PO QAM 05/19/19 12/28/24 History lisinopril 10 mg tablet 10 mg PO QAM 05/19/19 12/28/24 History metoprolol tartrate 25 mg tablet 12.5 mg PO BID 05/19/19 12/28/24 History [id number]-[id number] 300 mcg-K 60 1 tab PO QAM 05/19/19 12/28/24 History mcg-lycop 600 mcg-lutein 300 mcg tablet (Centrum Silver Men) rosuvastatin 10 mg tablet 10 mg PO QAM 05/19/19 12/28/24 History tamsulosin 0.4 mg capsule 0.8 mg PO HS 05/19/19 12/28/24 History brimonidine 0.2 % eye drops 1 drp OPL UD 07/28/23 12/28/24 History dorzolamide 2 % eye drops 1 drp OPL BID 07/28/23 12/28/24 History latanoprost (PF) 0.005 % eye drops 1 drp OPL HS 07/28/23 12/28/24 History in a dropperette oxybutynin chloride 10 mg 10 mg PO DAILY 07/28/23 12/28/24 History tablet,extended release 24 hr timolol maleate 0.5 % eye drops 1 drp OPB BID 07/28/23 12/28/24 History Past Med/Surg History Problem List (Updated 12/28/24 @ 17:23 by Yulisa Alcala PA-C) Recent urinary tract infection Ambulatory dysfunction Generalized weakness Acute UTI (Acute) Weakness (Acute) Hypercholesterolemia (Chronic) Pyelonephritis Pyelonephritis Urinary tract infection (Acute) Ventricular tachycardia Medical History Gout BPH (benign prostatic hyperplasia) RBBB LBBB (left bundle branch block) NSVT (nonsustained ventricular tachycardia) Dyslipidemia Diabetes mellitus, type II Hypertension Surgical History History of colonoscopy Hx of tonsillectomy History of appendectomy Family History Other Cancer Diabetes Social History Smoking Status: Never smoker Second Hand Exposure: No; Do You Dip or Chew Tobacco: No; Hx Alcohol Use: Yes Alcohol type: beer Hx Substance Use: No Preferred Language: Ecuadorean Communication Ability: Effective Roll Forming Supervisor Required: No Beliefs That Will Affect Care: None marital status: Current Living Situation: Spouse current occupational status: retired Feels Safe at Home: Yes Assistive Devices: Glasses Review of Systems Review of Systems: All systems reviewed & are unremarkable except as noted in HPI & below Physical Exam Physical Exam: General: no distress, overweight elderly male Head: normocephalic, atraumatic Eyes: PERRL, EOM's intact, conjunctiva non-injected, anicteric ENT: normal inspection external ears, nose, mucous membranes moist Neck: supple, trachea midline Lungs: clear, no respiratory distress, no wheezing/rhonchi/rales CV: RRR, no murmur, no pretibial edema Abd: protuberant, normal BS, soft, +tender to palpation RLQ without rebound or guarding Ext: no cyanosis, no calf tenderness Neuro: A&O x 3, no focal deficits noted, normal affect Skin: warm, dry Results & Data Results & Data Vital Signs (Past 12 Hours) Vital Signs Temp Pulse Resp BP Pulse Ox O2 Del Method 12/28/24 15:57 Room Air 12/28/24 15:51 95 12/28/24 15:45 96 12/28/24 15:30 154/86 H 12/28/24 15:12 94 12/28/24 15:00 108/69 12/28/24 15:00 108/69 12/28/24 14:54 94 12/28/24 14:02 128/57 L 12/28/24 14:00 68 12/28/24 13:54 62 23 128/57 L 93 12/28/24 13:40 92 Room Air 12/28/24 13:30 67 18 105/61 91 12/28/24 12:56 36.9 C 79 16 109/65 91 Room Air Laboratory Results Short CBC 12/28/24 Range/Units 13:22 WBC 15.30 H (4.8-10.8) K/ul Hgb 13.2 L (14.0-18.0) g/dl Hct 39.3 L (42.0-52.0) % Plt Count 254 (130-400) K/uL BMP 12/28/24 13:22 Sodium 136 Potassium 3.7 Chloride 97 L Carbon Dioxide 29 BUN 28 H Creatinine 0.89 Glucose 180 H Calcium 9.5 Liver Function 12/28/24 Range/Units 13:22 Total Bilirubin 0.9 (0.2-1.0) mg/dl AST 28 (13-39) U/L ALT 26 (7-52) U/L Alkaline Phosphatase 92 (34-104) U/L Albumin 3.4 (3.4-5.0) gm/dl Urine 12/28/24 Range/Units 15:10 Urine Color Dark Yellow Urine Appearance Clear (Clear) Urine pH 5.5 (4.5-7.5) Ur Specific [place] 1.024 (1.000-1.030) Urine Protein 1+ H (Negative) Urine Glucose (UA) Negative (Negative) Diagnostic Findings Chest X-Ray 12/28/24 13:12 XR chest 1V portable CLINICAL HISTORY: weakness COMPARISON STUDY: 10/25/2024 FINDINGS: Stable calcified left mediastinal lymph node. Stable cardiomegaly without pulmonary vascular congestion. Inspiration is shallow which limits the exam. Stable mild elevation of the right hemidiaphragm. Evaluation of the left lung base is limited by the overlying cardiac silhouette. No definite consolidation or pleural effusion. No pneumothorax. IMPRESSION: Shallow inspiration with no acute findings seen. ACT 112: Negative or not required by law. Electronically signed by: Rigo Roque M.D. 12/28/2024 1:45 PM Abdomen/Pelvis CT 12/28/24 13:[address] WITH IV CONTRAST CT DOSE: 1554.16 mGy.cm HISTORY: right abd pain TECHNIQUE: Multiaxial CT images of the abdomen and pelvis were performed following the IV administration of 90 cc of Optiray, A dose lowering technique was utilized adhering to the principles of ALARA. COMPARISON STUDY: 07/27/2023 FINDINGS: Stable interstitial opacities in the lung bases, possible interstitial lung disease. ABDOMEN: Liver has mildly lobular contour, possible early cirrhosis. There is mild diffuse ascites. Gallbladder, spleen, pancreas, and adrenal glands are unremarkable. Kidneys show no hydronephrosis or calculi. There are a few cysts at the kidneys, largest at the lower right kidney measures 7 cm, stable. There are scattered atherosclerotic calcifications. No abdominal aortic aneurysm. Pelvis: Stable small fat-containing right inguinal hernia. Prostate is mildly enlarged. Urinary bladder is decompressed. There is sigmoid diverticulosis. No acute diverticulitis. There is possible mild enteritis. No other bowel inflammation or obstruction seen. No free air or abscess. No enlarged adenopathy. Osseous structures: There is moderate lumbar degenerative disc disease. No acute osseous findings. IMPRESSION: 1. Interval small amount of diffuse ascites at the abdomen and pelvis. 2. Mildly lobular contour of the liver, normal variation versus early cirrhosis. 3. Possible mild enteritis without bowel obstruction. 4. No other acute findings seen. Otherwise as described. ACT 112: Negative or not required by law. The above report was generated using voice recognition software. It may contain grammatical, syntax or spelling errors. Electronically signed by: Rigo Roque M.D. 12/28/2024 2:49 PM
[2024-12-28] MEDS ORDERED: BRIMONIDINE TARTRATE 0.2% 5ML OPL SCH (18:17)
[2024-12-28] MEDS ORDERED: DEXTROSE 50% 50 ML SYRINGE IV PRN (18:17)
[2024-12-28] MEDS ORDERED: CARBOHYDRATES FOR HYPOGLYCEMIA PO PRN (18:17)
[2024-12-28] MEDS ORDERED: GLUCOSE 40% GEL 15 GM TUBE PO PRN (18:17)
[2024-12-28] MEDS ORDERED: GLUCAGON FOR INJ 1 MG VIAL SQ PRN (18:17)
[2024-12-28] MEDS ORDERED: GLUCOSE 10 TAB/TUBE PO PRN (18:17)
[2024-12-28] MEDS ORDERED: Patient's HEIGHT &/or WEIGHT Needed SCH (18:32)
[2024-12-28] MEDS: LIDOCAINE 5% 1 PATCH TD STA (19:31)
[2024-12-28] MEDS: TIMOLOL MALEATE 0.5% OP SOLN 5 ML BTL OP SCH (20:28)
[2024-12-28] MEDS: DORZOLAMIDE HCL 2% OPH SOLN 10 ML BTL OPL SCH (20:28)
[2024-12-28] MEDS: LATANOPROST 0.005% OP SOLN 2.5 ML BTL OPL SCH (20:29)
[2024-12-28] MEDS: BRIMONIDINE TARTRATE 0.2% 5ML OPL SCH (20:29)
[2024-12-28] MEDS: ENOXAPARIN INJ 40 MG/0.4 ML SYR SQ SCH (20:30)
[2024-12-28] MEDS: METOPROLOL TARTRATE 25 MG TAB PO SCH (20:31)
[2024-12-28] MEDS: ASPIRIN 81 MG ECTAB PO SCH (20:31)
[2024-12-28] MEDS: TAMSULOSIN HCL 0.4 MG CAP PO SCH (20:32)
[2024-12-28] MEDS: INSULIN ASPART PER UNIT CHARGE SC SCH (20:44)
[2024-12-28] MEDS: ACETAMINOPHEN 325 MG TAB PO PRN (23:36)
--- OUTSIDE RECORDS SUMMARY | 2024-12-29 02:26 | External Medical Summary | Summary of Care ---
Author Name Unknown Organization [facility] Address [address] [place] [address] Phone [phone] Care Team Providers Care Customer Service Specialist Name Role Phone Kenny Alvarado MD Primary Care Provider + Reason for Visit * Reason Comments Follow Up * Evaluate & Treat - Unlimited Visits (Within 10 days (routine)) - Closed Specialty Diagnoses / Procedures Referred By Contac t Referred To Contact Cardiovascular Medicine / Cardiology Diagnoses Mixed hyperlipidemia Pulmonary HTN (HCC) NSVT (nonsustained ventricular tachycardia) (HCC) Kenny Alvarado MD [address] [place] [address] Phone: tel: fax: Referral ID Status Reason Start Date Expiration Date V isits Requested Visits Authorized [id number] Closed Specialty Services Required 05/20/[phone] Encounter Details Date Type Department Care Team (Late st Contact Info) Description 12/18/2024 10:30 AM EDT Office Visit Cardiology, [facility] [address] [facility] [place] [id number] Benny Wylie DO [address] [place] [id number] LBBB (left bundle branch block)*; RBBB (right bundle branch block); NSVT (nonsustained ventricular tachycardia) (HCC); Bradycardia, sinus Allergies No known active allergiesdocumented as of this encounter (statuses as of 12/18/2024) Medications ASPIRIN 81 MG PO TABS one tab by mouth daily 7 Active CENTRUM SILVER PO TABS one tab daily 3 Active AnaquaTOUCH ULTRA SYSTEM W/DEVICE KIT use fasting daily. DX 250.00 1 Kit 0 5 Active ONETOUCH ULTRASOFT LANCETS MISC use fasting daily. DX 250.00 1 Box 5 5 Active Glucose Blood (AnaquaTOUCH ULTRA BLUE) STRPIndications: Type 2 diabetes mellitus with hemoglobin A1c goal of less than 8.0% ([facility]) Use fasting daily. E11.9 100 Strip 5 8 Active Meclizine HCl 12.5 MG Oral Tablet (Antivert)Indica tions:Vertigo Take 1 Tab by mouth 3 times a day as needed for Dizziness. 30 Tab 1 1 Active Additional Information Patient not taking.Reported on 12/18/2024 Brimonidine Tartrate 0.2 % Ophthalmic Solution (Alphagan) 1 Active Dorzolamide HCl 2 % Ophthalmic Solution (Trusopt Ocumeter Plus) 1 Active Timolol Maleate 0.5 % Ophthalmic Solution (Timoptic) 1 Active Latanoprost 0.005 % Ophthalmic Solution (Xalatan) 1 Drop at bedtime. Active prednisoLONE Acetate 1 % Ophthalmic Suspension (Pred Forte) 2 Active Ofloxacin 0.3 % Ophthalmic Solution (Ocuflox) 2 Active Loratadine 10 MG Oral Capsule Take 1 Capsule by mouth in the morning. Active Triamcinolone Acetonide 0.1 % External Cream (Aristocort) Apply topically to affected area 2 times a day. 30 g 2 4 Active Tamsulosin HCl 0.4 MG Oral Capsule (Flomax)Indicati ons:BPH without obstruction/lowe r urinary tract symptoms TAKE 2 CAPSULES EVERY NIGHT AT BEDTIME 180 Capsule 3 4 Active Rosuvastatin Calcium 10 MG Oral Tablet (Crestor)Indicat ions:Dyslipidemi a, goal LDL below 130 TAKE 1 TABLET EVERY DAY 90 Tablet 3 4 Active hydroCHLOROthiaz ursula 25 MG Oral Tablet (Hydrodiuril)Ind ications:Essenti al hypertension with goal blood pressure less than 140/90 TAKE 1 TABLET EVERY DAY 90 Tablet 3 4 Active Lisinopril 10 MG Oral Tablet (Prinivil)Indica tions:Essential hypertension with goal blood pressure less than 140/90 TAKE 1 TABLET EVERY DAY 90 Tablet 3 4 Active oxyBUTYnin Chloride ER 10 MG Oral Tablet Extended Release 24 Hour (Ditropan XL) Take 1 Tablet by mouth in the morning. 90 Tablet 3 4 Active Finasteride 5 MG Oral Tablet (Proscar)Indicat ions:BPH without obstruction/lowe r urinary tract symptoms TAKE 1 TABLET EVERY DAY 90 Tablet 1 5 Active Allopurinol 300 MG Oral Tablet (Zyloprim)Indica tions:Chronic gout of multiple sites, unspecified cause TAKE 1 TABLET EVERY OTHER DAY 45 Tablet 1 5 Active Metoprolol Tartrate 25 MG Oral Tablet (Lopressor)Indic ations:NSVT (nonsustained ventricular tachycardia) (HCC),HTN, goal below 140/90,Dyslipide harry, goal LDL below 100,LBBB (left bundle branch block),Pulmonary HTN (HCC),Interstiti al lung disease (HCC),Bradycardi a, sinus,RBBB (right bundle branch block) TAKE 1/2 TABLET IN THE MORNING AND TAKE 1/2 TABLET BEFORE BEDTIME 90 Tablet 5 Active documented as of this encounter (statuses as of 12/18/2024) Active Problems Problem Noted Date Diagnosed Date Nocturia 12/26/2023 Urinary frequency 12/26/2023 Phimosis 12/26/2023 NSVT (nonsustained ventricular tachycardia) 10/05 Primary open angle glaucoma (POAG) of both eyes 10/13/2021 Bradycardia, sinus 03/30/2019 Type 2 diabetes mellitus wit h hemoglobin A1c goal of less than 8.0% 11/30/2017 LBBB (left bundle branch block) 08/05/2017 RBBB (right bundle branch block) 04/12/2016 BPH without obstruction/lower urinary tract symp toms 11/25/2015 Urethral stricture 09/29/2015 Overview (09/29/2015): Multiple penile and bulbar thin strictures from 18 - 22 fr size Pulmonary HTN 01/06/2015 Interstitial lung disease 01/06/2015 Mixed hyperlipidemia 12/29/2014 Venous insufficiency 09/13/2011 BMI 35-39 ISOLATED (SEE ACTUAL BMI) 03/16/2010 Overview (03/16/2010): Per Obesity Protocol, #19 Essential hypertension with goal blood pressure less than 140/90 08/25/2009 Overview (08/25/2009): Modified per HTN protocol #16. Gouty arthropathy 07/19/2005 documented as of this encounter (statuses as of 12/18/2024) Resolved Problems Problem Noted Date Diagnosed Date Resolved Date NSVT (nonsustained ventricular tachycardia) 05/09/2018 10/18/2019 Abnormal echocardiogram 08/05/201709/02 Venous stasis dermatitis of right lower extremity 11/08/2016 01/29/2019 NSVT (nonsustained ventricular tachycardia) 12/29/2014 11/15/2017 Low back pain 03/25/2014 05/09/2017 Dyslipidemia, goal LDL below 160 05/06/2011 02/06/2015 History of Helicobacter infection 01/21/2009 02/15/2018 Esophageal reflux 01/20/2009 02/20/2009 HYPERTENSION NOS 07/19/2005 08/25/2009 Overview (08/25/2009): Modified per HTN protocol #16. Dyslipidemia, goal to be determined 07/19/2005 05/06/2011 ADVANCE DIRECTIVE INFORMATION 07/19/2005 10/13/2021 Overview (07/19/2005): Yes, Patient instructed to provide copy of advance directive for provider to review and to be scanned into Electronic Medical Record documented as of this encounter (statuses as of 12/18/2024) Immunizations Name Administration Dates Next Due COVID-19 mRNA, LNP-s, No Pre serve, 2-Dose Series (Moderna) 12/05/2020,11/08/2020 COVID-19, MRNA-LNP, PF, 50 M CG/0.5 mL, 12 YRS AND ABOVE, IM (MODERNA-Spikevax) 08/31/2023 COVID-19, mRNA, LNP-s, PF, B ooster, 100mcg/0.5mg (Moderna) 08/19/2021 Covid-19, Mrna, Lnp-s, Pf, B ivalent, 30 Mcg, IM, 12 yrs and above (Pfizer) 07/05/2022 Pneumococcal Conjugate Vacc, 13 Valent (Prevnar) 04/23/2016 Pneumococcal Polysaccharide PPV23 (Pneumovax) 09/30/2010 RSV Vac., Recomb, Adjuvant, PF,0.5 Ml (Arexvy) 08/31/2023 Season Influenza, Quad, PF, Adjuvanted, 65+ Yrs, IM (FLUAD) 06/05/2020 Seasonal Influenza Vac., MDV , IM, 0.5 mL (Fluzone) 06/11/2015,09/02/2014,08/07/2013,07/27,08/09/2011,08/18/2010,08/11/2009 ,08/17/2007,07/27/2006 Seasonal Influenza, High Dos e, Trivalent, PF, IM (Fluzone HD) 06/27/2024 Seasonal Influenza, PF, 6 M & above, IM , (FluLaval or Fluzone) 06/09/2018,08/05/2017 Seasonal Influenza, Quadriva lent Hd (Fluzone Hd) 06/11/2022,06/25/2021 Seasonal Influenza, Quadriva lent Hd, 65+ Yrs 06/20/2023 Seasonal Influenza, Quadriva lent, No Preserve, IM 06/30/2016 Seasonal Influenza, Trivalen t, Adjuvanted, 65+ YRS, PF, (Fluad) 06/14/2019 TDAP (age 10 and older)(Boostrix) 01/29/2019 Varicella Zoster Vaccine (Adult) 03/14/2012 Zoster Vaccine Recombinant (Shingrix) 08/18/2020 ,05/15/2020 documented as of this encounter Social History Tobacco Use Types Packs/Day Years Used Date Smoking Tobacco: Never Smokeless Tobacco: Never Alcohol Use Standard Drinks/Week Comments Yes 0 (1 standard drink = 0.6 oz pur e alcohol) rarely only the sacrament PHQ-2 Answer Date Recorded PHQ Adult Total Score 0 03/28/2024 Hunger Vital Sign Answer Date Recorded Within the past 12 months, y ou worried that your food would run out before you got the money to buy more. Never true 11/02/19 23 Within the past 12 months, t he food you bought just didn't last and you didn't have money to get more. Never true 11/02/2022 Sex and Gender Information Value Date Recorded Sex Assigned at Male 01/29/2019 1:51 PM EDT Legal Sex Male 7:07 AM EST Gender Identity Male 01/29/2019 1:51 PM EDT Sexual Orientation Straight 01/29/2019 1: 51 PM EDT documented as of this encounter Last Filed Vital Signs Vital Sign Reading Time Taken Comments Blood Pressure 124/68 12/18/2024 10:45 AM EDT Pulse 56 12/18/2024 10:45 AM EDT Temperature - - Respiratory Rate 16 12/18/2024 10:4 5 AM EDT Oxygen Saturation - - Inhaled Oxygen Concentration - - Weight 103.1 kg (227 lb 6.4 oz) 025 10:45 AM EDT Height - - Body Mass Index 33.58 06/12/2024 9:35 AM EDT documented in this encounter Progress Notes * Benny Wylie, DO - 12/18/2024 11:06 AM EDT 12/18/2024 Cardiology Follow Up SUBJECTIVE: History of Present Illness Jorge Luis Gutierrez is an 84 year old male with hypertension, dyslipidemia, left bundle branch block, andhistory of non-sustained ventricular tachycardia who presents for follow-up. He recently experienced a viral illness, leaving him feeling fatigued and 'worn out half the time.'Symptoms include a persistent cough that disrupted sleep for three to four nights, throat swelling,and difficulty breathing. He also has pain in his side, attributed to coughing, persisting for about two to three weeks. He experiences intermittent fever and sweating, but no vomiting. Despite these symptoms, he can still climb stairs, albeit more slowly. He notes swelling in his face, which began before the cough and other symptoms. Last year, he had swelling on the right side of his face, for which a CT scan of the neck showed no abnormalities. He describes a sensation of ear closure, similar to changes in altitude. In October, he visited the emergency room for facial swelling, where complement levels were normal. He experiences right lower quadrant abdominal pain, likely due to muscle strain from coughing. No scrotal pain or changes in urination, but he notes variability in bowel habits, with episodes of diarrhea and constipation, likely due to dietary changes. He has a history of non-sustained ventricular tachycardia during an acute urinary tract infection in 2014, with no recent episodes reported. He is on hydrochlorothiazide for hypertension and rosuvastatin for dyslipidemia. His blood pressureis well-controlled, and his LDL cholesterol level was 69 mg/dL as of May 2024. He also takes lisinopril, which was recently exchanged for another medication. His cardiac history dates back to 2014. He initially presented to the emergency department and was found to have a febrile illness due to a urinary tract infection and had a brief asymptomatic run ofnonsustained ventricular tachycardia observed on telemetry at that time. He also has a history of al ternating right bundle branch block and left bundle branch block which we have been observing. During his initial cardiac workup in 2014 and echocardiogram also revealed mild pulmonary hypertension. CT of the chest revealed findings consistent with underlying interstitial lung disease. Past Medical History: HTN HLD LBBB Hx of alternating RBBB and LBBB Hx of Nonsustained Vtach in the setting of acute illness/UTI, 2014 Mild Pulm HTN Interstitial lung disease Hx of pancreatitis, 06/2021 Extensive ROS: All systems reviewed & are unremarkable except as noted in HPI & below Cardiovascular (chest pain/palpitations/fluttering/diaphoresis/dyspnea on exertion/paroxysmally nocturnal dyspnea):Negative Review of patient's allergies indicates: No Known Allergies Current Outpatient Medications Medication Sig Dispense Refill ASPIRIN 81 MG PO TABS one tab by mouth daily CENTRUM SILVER PO TABS one tab daily Brimonidine Tartrate 0.2 % Ophthalmic Solution (Alphagan) Dorzolamide HCl 2 % Ophthalmic Solution (Trusopt Ocumeter Plus) Timolol Maleate 0.5 % Ophthalmic Solution (Timoptic) Latanoprost 0.005 % Ophthalmic Solution (Xalatan) 1 Drop at bedtime. Ofloxacin 0.3 % Ophthalmic Solution (Ocuflox) Loratadine 10 MG Oral Capsule Take 1 Capsule by mouth in the morning. Triamcinolone Acetonide 0.1 % External Cream (Aristocort) Apply topically to affected area 2 times a day. 30 g 2 Tamsulosin HCl 0.4 MG Oral Capsule (Flomax) TAKE 2 CAPSULES EVERY NIGHT AT BEDTIME 180 Capsule 3 Rosuvastatin Calcium 10 MG Oral Tablet (Crestor) TAKE 1 TABLET EVERY DAY 90 Tablet 3 hydroCHLOROthiazide 25 MG Oral Tablet (Hydrodiuril) TAKE 1 TABLET EVERY DAY 90 Tablet 3 Lisinopril 10 MG Oral Tablet (Prinivil) TAKE 1 TABLET EVERY DAY 90 Tablet 3 oxyBUTYnin Chloride ER 10 MG Oral Tablet Extended Release 24 Hour (Ditropan XL) Take 1 Tablet by mouth in the morning. 90 Tablet 3 Finasteride 5 MG Oral Tablet (Proscar) TAKE 1 TABLET EVERY DAY 90 Tablet 1 Allopurinol 300 MG Oral Tablet (Zyloprim) TAKE 1 TABLET EVERY OTHER DAY 45 Tablet 1 Metoprolol Tartrate 25 MG Oral Tablet (Lopressor) TAKE 1/2 TABLET IN THE MORNING AND TAKE 1/2 TABLET BEFORE BEDTIME 90 Tablet 0 [employer] SYSTEM W/DEVICE KIT use fasting daily. DX 250.00 1 Kit 0 AnaquaTOUCH ULTRASOFT LANCETS MISC use fasting daily. DX 250.00 1 Box 5 Glucose Blood (Reveal TechnologyUCH ULTRA BLUE) STRP Use fasting daily. E11.9 100 Strip 5 Meclizine HCl 12.5 MG Oral Tablet (Antivert) Take 1 Tab by mouth 3 times a day as needed for Dizziness. (Patient not taking: Reported on 12/18/2024) 30 Tab 1 prednisoLONE Acetate 1 % Ophthalmic Suspension (Pred Forte) (Patient not taking: Reported on 12/18/2024) No current facility-administered medications for this visit. OBJECTIVE/PHYSICAL EXAMINATION: BP 124/68 (BP Site: Left Arm) | Pulse 56 | Resp 16 | Wt 103.1 kg (227 lb 6.4 oz) | BMI 33.58 kg/m²| BSA 2.24 m² General: no acute distress and stated age Eyes: conjunctiva are pink and non-injected, sclera clear Neck: normal jugular venous pulse, no hepatojugular reflux Chest: normal shape and normal respiratory effort Lungs: clear to auscultation , no rales rhonchi or wheezing Cardiac Exam: - regular heart sounds, no murmurs, rubs, or gallops Abdomen: abdomen soft, non-tender, no abnormal masses and no hepatosplenomegaly Musculoskeletal: no gait disturbance, no weakness Extremities: no edema and no cyanosis Neuro: grossly normal exam Psych: appropriate affect and insight. Data: Results LABS Complement levels: within normal limits (10/2024) RADIOLOGY CT scan of neck: no abnormalities (06/2024) DIAGNOSTIC EKG: sinus bradycardia, 55 bpm, left bundle branch block, QRS duration 140 ms (12/18/2024) Summary of transthoracic echocardiogram performed 11/10/2020: The LV wall thickness is normal. The left ventricular wall motion is normal. The qualitative LV ejection fraction is 55-59% (normal). The left atrium is mildly enlarged (35-41 ml/m^2). The left ventricular diastolic function is mildly abnormal (grade I). Mild aortic valve sclerosis is present. Aortic stenosis is absent. Mild tricuspid regurgitation is present. Mild pulmonary hypertension is present. The estimated pulmonary artery systolic pressure is 43mm Hg. Compared to the prior study dated 10/26/2019, the left ventricular ejection fraction is stable without significant interval change, mild pulmonary hypertension is now noted. Latest Reference Range & Units 05/16/24 08:18 Triglycerides <=174 mg/dL 327 (H) Cholesterol <200 mg/dL 167 Non-HDL Cholesterol <=159 mg/dL 127 HDL Cholesterol >39 mg/dL 40 LDL Cholesterol (Direct Measure) <=129 mg/dL 69 (H): Data is abnormally high Assessment & Plan Left bundle branch block Left bundle branch block with current EKG showing sinus bradycardia at 55 bpm and QRS duration of 140 ms, unchanged from June 2021. No symptoms of worsening dyspnea or syncope reported. - Monitor for symptoms such as worsening dyspnea or syncope. Non-sustained ventricular tachycardia Non-sustained ventricular tachycardia associated with a urinary tract infection in 2014. No recent episodes reported. - Monitor for recurrence of symptoms. Hypertension Hypertension well-controlled at 124/68 mmHg on hydrochlorothiazide and lisinopril. - Continue hydrochlorothiazide and lisinopril. Dyslipidemia LDL cholesterol at 69 mg/dL as of May 2024, within target range. On rosuvastatin 10 mg daily. - Continue rosuvastatin 10 mg daily. Viral illness Symptoms consistent with viral illness, including cough, fatigue, and intermittent fever. Suspectedviral infection, possibly influenza or COVID-19. Recovery may be prolonged in older adults. - Monitor symptoms and allow time for recovery. Right lower quadrant abdominal pain Persistent right lower quadrant abdominal pain for two weeks, worsens with movement. Suspected muscle strain due to coughing; differential includes hernia, gallbladder issues, or diverticulitis. No hernia detected on examination. - Monitor pain and seek evaluation by primary care physician if not improved in 1-2 weeks. - Seek emergent care if acute changes in bowel habits occur. Follow up : Follow Up: Return in about 1 year (around 12/18/2025) for Clinic Visit. | For: Clinic Visit Patient seen in longitudinal follow up of the above issues with assessment and plan as documented. Benny Wylie DO Cardiology, [address] [address] Text in this note was generated using an [employer] documentation service. I discussed the use of a device to record and summarize our discussion today. All persons present during the encounter consented to its use. documented in this encounter Procedure Notes * Dario Juarez MD - 12/18/2024 11:00 AM EDTAssociated Order(s): EKG REASON FOR STUDY: Annual;Annual CONCLUSIONS: Sinus bradycardia Left axis deviation Left bundle branch block Abnormal ECG When compared with ECG of 25-Jun-2021 15:03, T wave inversion now evident in Inferior leads Ventricular Rate: 55 Atrial Rate: 55 TX Interval: 194 QRS Duration: 140 QT/QTc: 452/432 ms P-R-T Alma: 22 : -44 : -12 degrees documented in this encounter Nursing Notes * Shefali Ramirez CMA - 12/18/2024 10:37 AM EDT Examination Room: 10 Name: Jorge Luis Gutierrez Date of : (1940). Reason for Visit: f/u - overdue for annual visit, med refills Interim Hospitalization(s): [facility] for facial edema Problems/Concerns: Still recovering from recent URI, also having dull LRQ pain Chest Pain/SOB: denies [facility] Discussed: Yes [facility] is a way you can talk to your provider online through e-mail. Would you like to sign up? I can activate it for you? ALREADY ACTIVE Patient was instructed to not get up on the exam table until directed and assisted by their provider; patient is to remain seated in the chair/ wheelchair/ exam table for fall prevention and safety reasons. Patient is aware to have assistance to step down off exam table with personnel. Patient voiced full comprehension of instructions. documented in this encounter Plan of Treatment Upcoming Encounters Date Type Department Care Team (Late st Contact Info) Description 01/01/2025 2:00 PM EDT Office Visit Allergy/Immunology [facility] [address] [facility] [place] [phone] Larry Cleveland MD [address] [facility] [place] [id number] 06/10/2025 12:40 PM EDT Office Visit General Internal Medicine [facility] [address] [facility] [place] [address] Kenny Alvarado MD [address] [facility] [place] [facility] [place] [id number] 07/03/2025 8:30 AM EDT Office Visit Urology, [facility] [address] [facility] [place] [address] Hung Horowitz MD [address] [place] [id number] Scheduled Procedures Name Priority Associated Diagnoses Date/Ti me COLONOSCOPY FLEXIBLE PROXIMAL DIAGNOSTIC Recall History of colon polyps Health Maintenance Due Date Last Done Comments Adult Wellness Visit 01/05/2014 01/05/2013 COVID-19 Vaccine ( season) 2024 08/31/2023, 07/05/2022, 08/19/2021, Additional history exists Diabetic Eye Exam 11/22/2024 11/22/2023, , 05/01/2019, Additional history exists Depression Screening 03/28/2025 03/28/2024 Diabetic Foot Exam 03/28/2025 03/28/2024, 0 11/02/2022, 10/13/2021, Additional history exists Albumin/Creatinine Ratio 03/29/2025 024, 04/29/2023, 04/09/2022, Additional history exists HbA1c 05/08/2025 11/08/2024, 03/03, 04/29/2023, Additional history exists DTap/Tdap Vaccines (2 - Td or Tdap) 01/29/2029 01/29/2019 Pneumococcal Vaccine: 50+ Years Completed 04/23/2016, 09/30/2010, 07/31/2003 RETIRED - COLONOSCOPY-EVERY 5 YRS AGES 18-100 Discontinued 03/13/2018, 03/13/2018, 01/08/2013, Additional history exists Zoster Vaccines Completed 08/18/2020, 05/03, 03/14/2012 Influenza Vaccine (FLU shot) Completed 06/27/2024, 06/20/2023, 06/11/2022, Additional history exists HPV (Gardasil) Vaccine Aged Out No lo nger eligible based on patient's age to complete this topic Hepatitis B Vaccine Aged Out No longe r eligible based on patient's age to complete this topic MENINGOCOCCAL (MENACTRA/MENVEO) Aged Out No longer eligible based on patient's age to complete this topic Meningitis B Vaccine (Bexsero/Trumemba) Aged Out No longer eligible based on patient's age to complete this topic documented as of this encounter Medical Devices Not on filedocumented as of this encounter Procedures Procedure Name Priority Date/Time Associated Diagnosis Comments TX ECG ROUTINE ECG W/LEAST 12 LDS W/I&R Routine 12/18/2024 11:00 AM EDT NSVT (nonsustained ventricular tachycardia) (HCC) Bradycardia, sinus RBBB (right bundle branch block) LBBB (left bundle branch block) documented in this encounter Results * EKG (12/18/2024 11:00 AM EDT) 12/18/2024 11:0 0 AM EDT Narrative Procedure Note Dario Juarez MD - 12/18/2024 11:00 AM EDT REASON FOR STUDY: Annual;Annual CONCLUSIONS: Sinus bradycardia Left axis deviation Left bundle branch block Abnormal ECG When compared with ECG of 25-Jun-2021 15:03, T wave inversion now evident in Inferior leads Ventricular Rate: 55 Atrial Rate: 55 TX Interval: 194 QRS Duration: 140 QT/QTc: 452/432 ms P-R-T Alma: 22 : -44 : -12 degrees Benny Wylie DO EKG Final Result Performing Organization Address City/State/[facility] Co de Phone Number [facility] documented in this encounter Visit Diagnoses Diagnosis LBBB (left bundle branch block)- Primary Other left bundle branch block RBBB (right bundle branch block) Right bundle branch block NSVT (nonsustained ventricular tachycardia) (HCC) Paroxysmal ventricular tachycardia Bradycardia, sinus Other specified cardiac dysrhythmias documented in this encounter Care Teams Customer Service Specialist Relationship Specialty Start Date End Date Kenny Alvarado MD [address] [place] [address] PCP - General Internal Medicine 07/30/21 documented as of this encounter"
--- OUTSIDE RECORDS SUMMARY | 2024-12-29 02:26 | External Medical Summary ---
Author Name Unknown Address Unknown Organization [id number]:[facility] [place] - [address] [facility] [address] Laboratory Report Ordering Provider Test Date Status TRUNG THAYER 12/20/2024 08:37:00 Final Observation Date Value Abnormality Reference (Units ) Status Bacteria identified in Specimen by Culture 12/20/2024 08:37:00 [id number]^ESCHE RICHIA COLI Abnormal Final >100,000 colonies/mL Escheri tejinder coli Performing Location [facility] - [address] [facility] [address] Ordering Provider Test Date Status TRUNG THAYER 12/20/2024 08:37:00 Final Observation Date Value Abnormality Reference (Units ) Status Ampicillin 12/20/2024 08:37:00 8 Susceptible Final Cefazolin 12/20/2024 08:37:00 <=4 Susceptible Final Cefepime susceptibility 12/20/2024 08:37:00 <=1 Susceptible Final Ceftriaxone suceptibility 12/20/2024 08:37:00 <=1 Susceptible Final Ciprofloxacin 12/20/2024 08:37:00 <=0.25 Susceptible Final Due to serious side effects, the FDA has advised against using Ciprofloxacin to treat uncomplicated UTIs and respiratory tract infections unless there are no alternative treatment options. Gentamicin susceptibility 12/20/2024 08:37:00 <=1 Susc eptible Final Nitrofurantoin susceptibility 12/20/2024 08:37:00 <=16 Susceptible Final Piperacillin + Tazobactamsusceptibility 12/20/2024 08:37:00 <=4 Susceptible Final TMP-SMZ susceptibility 12/20/2024 08:37:00 <=20 Suscept ible Final Test: Culture, Urine, Quanti tative
Specimen Source: Urine, Clean Catch
Specimen Type: Urine
Specimen Date: 12/20/2024836
Result Date: 12/22/2024724
Result Status: Final result
Abnormal: Yes
Resulting Lab: [facility]
[address]
[place] [address]

CULTURE

>100,000 colonies/mL Escherichia coli (Abnormal)

SUSCEPTIBILITY

Escherichia coli
METHOD MICROBROTH
DILUTIONS

AMPICILLIN 8 Susceptible
CEFAZOLIN <=4 Susceptible
CEFEPIME <=1 Susceptible
CEFTRIAXONE <=1 Susceptible
CIPROFLOXACIN <=0.25 Susceptible
[1]
GENTAMICIN <=1 Susceptible
NITROFURANTOIN <=16 Susceptible
PIPERACILLIN TAZOBACTAM <=4 Susceptible
TRIMETH/SULFAMETHOXAZOLE <=20 Susceptible

[1] Due to serious side effects, the FDA has advised against using
Ciprofloxacin to treat uncomplicated UTIs and respiratory tract infections
unless there are no alternative treatment options.

null Performing Location [facility] - [address] [facility] [address]
--- OUTSIDE RECORDS SUMMARY | 2024-12-29 02:26 | External Medical Summary ---
Author Name Unknown Address Unknown Organization K09:[facility] [place] [address] Laboratory Report Ordering Provider Test Date Status TRUNG THAYER 12/27/2024 07:46:00 Final Observation Date Value Abnormality Reference (Units ) Status Color of Urine by Auto 12/27/2024 07:46:00 Yellow Light Yellow, Yellow, Dark Yellow Final Clarity, Urine 12/27/2024 07:46:00 Clear Clear Final Glucose [Mass/volume] in Urine by Automated test strip 12/27/2024 07:46:00 Negative Negative (mg/dL) Final Bilirubin.total [Presence] in Urine by Automated test strip 12/27/2024 07:46:00 Small Abnormal Negative Final Ketones [Mass/volume] in Urine by Automated test strip 12/27/2024 07:46:00 Trace Abnormal Negative (mg/dL) Final Specific gravity, Urine 12/27/2024 07:46:00 1.025 1.003-1.030 Final Hemoglobin [Presence] in Urine by Automated test strip 12/27/2024 07:46:00 Negative Negative Final pH, Urine 12/27/2024 07:46:00 6.0 5.0-7.5 (Units) Final Protein [Mass/volume] in Urine by Automated test strip 12/27/2024 07:46:00 30 Abnormal Negative (mg/dL) Final Urobilinogen [Mass/volume] in Urine by Automated test strip 12/27/2024 07:46:00 0.2 0.2, 1.0 (mg/dL) Final Nitrite [Presence] in Urine by Automated test strip 12/27/2024 07:46:00 Negative Negative Final Leukocyte esterase [Presence] in Urine by Automated test strip 12/27/2024 07:46:00 Negative Negative Final RBC, Urine 12/27/2024 07:46:00 0-2 0-2 (/HPF) Final WBC, Urine 12/27/2024 07:46:00 3-5 Abnormal 0-2 (/HPF) Final Bacteria [#/area] in Urine sediment by Microscopy high power field 12/27/2024 07:46:00 26-50 Abnormal 0-25 (/HPF) Final Mucus, Urine 12/27/2024 07:46:00 Many Abnormal None (/HPF) Final Hyaline casts, Urine 12/27/2024 07:46:00 1-4 Abnormal None (/LPF) Final CULTURE, URINE - [facility] 12/27/2024 07:46:00 Final Quantitative urine culture t o be performed Performing Location [facility] [place] [address]
--- OUTSIDE RECORDS SUMMARY | 2024-12-29 02:26 | External Medical Summary ---
Author Name Unknown Address Unknown Organization [id number]:[facility] [place] - [address] [place] [address] Laboratory Report Ordering Provider Test Date Status TRUNG THAYER 12/27/2024 07:46:00 Final Observation Date Value Abnormality Reference (Units) Status Bacteria identified in Specimen by Culture 12/27/2024 07:46:00 No significant growth Final Test: Culture, Urine, Quanti tative
Specimen Source: Urine, Clean Catch
Specimen Type: Urine
Specimen Date: 12/27/2024745
Result Date: 12/28/2024820
Result Status: Final result
Resulting Lab: [facility]
[address]
[place] [address]

CULTURE

No significant growth

null Performing Location [facility] - [address] [facility] [address]
--- OUTSIDE RECORDS SUMMARY | 2024-12-29 02:26 | External Medical Summary ---
Author Name Unknown Address Unknown Organization K09:[facility] [address] [place] [address] Laboratory Report Ordering Provider Test Date Status TRUNG THAYER 12/20/2024 08:26:00 Final Observation Date Value Abnormality Reference (Units ) Status Color of Urine by Auto 12/20/2024 08:26:00 Other Abnormal Light Yellow, Yellow Final Clarity, Urine 12/20/2024 08:26:00 Cloudy Abnormal Clear Final Glucose [Mass/volume] in Urine by Automated test strip 12/20/2024 08:26:00 100 Abnormal Negative (mg/dL) Final Bilirubin.total [Presence] in Urine by Automated test strip 12/20/2024 08:26:00 Small Abnormal Negative Final Ketones [Mass/volume] in Urine by Automated test strip 12/20/2024 08:26:00 Trace Abnormal Negative (mg/dL) Final Specific gravity, Urine 12/20/2024 08:26:00 >=1.030 1.003-1.030 Final Hemoglobin [Presence] in Urine by Automated test strip 12/20/2024 08:26:00 Large Abnormal Negative Final pH, Urine 12/20/2024 08:26:00 5.5 5.0, 5.5, 6.0, 6.5, 7.0, 7.5 (units) Final Protein [Mass/volume] in Urine by Automated test strip 12/20/2024 08:26:00 >=300 Abnormal Negative (mg/dL) Final Urobilinogen, Urine 12/20/2024 08:26:00 1.0 0.2, 1.0 (mg/dL) Final Nitrite [Presence] in Urine by Automated test strip 12/20/2024 08:26:00 Positive Abnormal Negative Final Leukocyte esterase [Presence] in Urine by Automated test strip 12/20/2024 08:26:00 Large Abnormal Negative Final Performing Location [facility] [address]
--- OUTSIDE RECORDS SUMMARY | 2024-12-29 02:26 | External Medical Summary | Summary of Care ---
Author Name Unknown Organization [facility] Address [address] [place] [address] Phone [phone] Care Team Providers Care Cutter Machine Tender Name Role Phone Kenny Alvarado MD Primary Care Provider + Reason for Referral * Evaluate & Treat - Unlimited Visits (Within 10 days (routine)) - Authorized Specialty Diagnoses / Procedures Referred By Contanil t Referred To Contact General Surgery Diagnoses Incisional hernia, without obstruction or gangrene Cayla Castellanos PA-C [address] [place] [address] Phone: tel: fax: Referral ID Status Reason Start Date Expiration Date Visits Requested Visits Authorized [id number] Authorized Specialty Services Required 12/20/[phone] Question Answer Referral Priority Within 10 days (routine) Where should this appointment be scheduled? [facility] What condition is the patient being seen for? General Surgery Conditions What condition is the patient being seen for? Hernia (excluding Hiatal) Reason for Visit * Reason Comments Urinary Tract Infection Symptoms Encounter Details Date Type Department Care Team (Late st Contact Info) Description 12/20/2024 8:00 AM EDT Office Visit General Internal Medicine [facility] [address] [place] [address] Cayla Castellanos PA-C [address] [place] [address] UTI symptoms*; Incisional hernia, without obstruction or gangrene Allergies No known active allergiesdocumented as of this encounter (statuses as of 12/20/2024) Medications ASPIRIN 81 MG PO TABS one tab by mouth daily 7 Active CENTRUM SILVER PO TABS one tab daily 3 Active Slyce ULTRA SYSTEM W/DEVICE KIT use fasting daily. DX 250.00 1 Kit 0 5 Active ONETOUCH ULTRASOFT LANCETS MISC use fasting daily. DX 250.00 1 Box 5 5 Active Glucose Blood (High Cloud SecurityUCH ULTRA BLUE) STRPIndications:T ype 2 diabetes mellitus with hemoglobin A1c goal of less than 8.0% ([facility]) Use fasting daily. E11.9 100 Strip 5 8 Active Meclizine HCl 12.5 MG Oral Tablet (Antivert)Indicat ions:Vertigo Take 1 Tab by mouth 3 times a day as needed for Dizziness. 30 Tab 1 1 Active Brimonidine Tartrate 0.2 % Ophthalmic Solution (Alphagan) [...] Active Tamsulosin HCl 0.4 MG Oral Capsule (Flomax)Indicatio ns:BPH without obstruction/lower urinary tract symptoms TAKE 2 CAPSULES EVERY NIGHT AT BEDTIME 180 Capsule 3 4 Active Rosuvastatin Calcium 10 MG Oral Tablet (Crestor)Indicati ons:Dyslipidemia, goal LDL below 130 TAKE 1 TABLET EVERY DAY 90 Tablet 3 4 Active hydroCHLOROthiazi de 25 MG Oral Tablet (Hydrodiuril)Angelique cations:Essential hypertension with goal blood pressure less than 140/90 TAKE 1 TABLET EVERY DAY 90 Tablet 3 4 Active Lisinopril 10 MG Oral Tablet (Prinivil)Indicat ions:Essential hypertension with goal blood pressure less than 140/90 TAKE 1 TABLET EVERY DAY 90 Tablet 3 4 Active oxyBUTYnin Chloride ER 10 MG Oral Tablet Extended Release 24 Hour (Ditropan XL) Take 1 Tablet by mouth in the morning. 90 Tablet 3 4 Active Finasteride 5 MG Oral Tablet (Proscar)Indicati ons:BPH without obstruction/lower urinary tract symptoms TAKE 1 TABLET EVERY DAY 90 Tablet 1 5 Active Allopurinol 300 MG Oral Tablet (Zyloprim)Indicat ions:Chronic gout of multiple sites, unspecified cause TAKE 1 TABLET EVERY OTHER DAY 45 Tablet 1 5 Active Metoprolol Tartrate 25 MG Oral Tablet (Lopressor)Indica tions:NSVT (nonsustained ventricular tachycardia) (HCC),HTN, goal below 140/90,Dyslipidem ia, goal LDL below 100,LBBB (left bundle branch block),Pulmonary HTN (HCC),Interstitia l lung disease (HCC),Bradycardia , sinus,RBBB (right bundle branch block) TAKE 1/2 TABLET IN THE MORNING AND TAKE 1/2 TABLET BEFORE BEDTIME 90 Tablet 5 Active Nitrofurantoin Monohyd Macro 100 MG Oral Capsule (Macrobid)Indicat ions:UTI symptoms Take 1 Capsule by mouth in the morning and 1 Capsule before bedtime. Do all this for 7 days. With food until gone. 14 Capsule 5 12/28/19 25 Active documented as of this encounter (statuses as of 12/20/2024) Active Problems Problem Noted Date Diagnosed Date [...] as of this encounter (statuses as of 12/20/2024) Resolved Problems Problem Noted Date Diagnosed Date [...] as of this encounter (statuses as of 12/20/2024) Immunizations Name Administration Dates Next Due COVID-19 [...] Sign Reading Time Taken Comments Blood Pressure 90/56 12/20/2024 8:05 AM EDT Pulse 59 12/20/2024 8:05 AM EDT Temperature 35.1 °C (95.1 °F) 12/20/2024 8:05 AM ED T Respiratory Rate - - Oxygen Saturation 98% 12/20/2024 8:05 AM EDT Inhaled Oxygen Concentration - - Weight 103.3 kg (227 lb 12.8 oz) 12/20/2024 8:05 AM EDT Height - - Body Mass Index 33.64 06/12/2024 9:35 AM EDT documented in this encounter Progress Notes * Cayla Castellanos PA-C - 12/20/2024 8:04 AM EDT Images from the original note were not included. Subjective Jorge Luis Gutierrez is a 84 year old male that presents for Urinary Tract Infection Symptoms Pt also c/o pain in his R lower abd for the last few weeks that began when he was sick and coughingexcessively. Urinary Tract Infection Symptoms This is a new problem. The current episode started in the past 7 days (2 days ago). The problem occurs every urination. There has been no fever. There is No history of pyelonephritis. Associated symptoms include frequency. Pertinent negatives include no chills, flank pain, hematuria or vomiting. Hehas tried nothing for the symptoms. Review of Systems Constitutional: Negative for chills. Gastrointestinal: Negative for vomiting. Genitourinary: Positive for frequency. Negative for flank pain and hematuria. Review of Systems: See HPI for pertinent positives. All other review of systems is negative. Objective BP 90/56 | Pulse 59 | Temp (!) 95.1 °F (35.1 °C) | Wt 227 lb 12.8 oz (103.3 kg) | SpO2 98% | BMI 33.64 kg/m² | BSA 2.24 m² Physical Exam Constitutional: General: He is not in acute distress. HENT: Mouth/Throat: Mouth: Mucous membranes are moist. Pharynx: Oropharynx is clear. Cardiovascular: Rate and Rhythm: Normal rate and regular rhythm. Pulmonary: Effort: Pulmonary effort is normal. Breath sounds: Normal breath sounds. Abdominal: Tenderness: There is no right CVA tenderness or left CVA tenderness. Hernia: A hernia is present. Musculoskeletal: Cervical back: Normal range of motion and neck supple. Skin: General: Skin is warm. Neurological: General: No focal deficit present. Mental Status: He is alert. Mental status is at baseline. Results reviewed : Urinalysis, POC Assessment and Plan UTI symptoms Orders: CULTURE, URINE, QUANTITATIVE Nitrofurantoin Monohyd Macro 100 MG Oral Capsule (Macrobid); Take 1 Capsule by mouth in the morningand 1 Capsule before bedtime. Do all this for 7 days. With food until gone. Incisional hernia, without obstruction or gangrene Orders: SURGERY REFERRAL OP UA with positive nitrite, large amount of leukocytes and blood. Culture sent. Macrobid started. Daily yogurt/probiotic encouraged while taking the antibiotic. Referral to gen surg placed to discuss hernia and options for management. Wrap-Up Follow Up: Return if symptoms worsen or fail to improve. I spent a total of 30-39 minutes (exact time 34 mins) on the date of service in preparation, delivery, and documentation of the care provided to Jorge Luis Gutierrez excluding any time spent in the performance of separately billed services. documented in this encounter Nursing Notes * Samaria Trevino CCMA - 12/20/2024 7:58 AM EDT Pt is here today for possible of UTI pt stated it started on Tuesday pt has some pain on right lower abd pt is not having fevers pt is sleeping in a chair since Tuesday and pt has burning and going lot to bathroom pt went to the Cardio on Tuesday and told pt to have his hernia checked out pt was sick on with the vital and pt hasn't felt good since pt is very week documented in this encounter Miscellaneous Notes * Result Encounter Note - Cayla Castellanos PA-C - 12/20/2024 9:19 AM EDT On Macrobid. Culture sent. documented in this encounter Plan of Treatment Upcoming Encounters Date Type Department Care Team (Late st Contact Info) Description 01/01/2025 2:00 PM EDT Office Visit Allergy/Immunology [facility] [address] [place] [address] Larry Cleveland MD [address] [place] [address] 01/02/2025 9:00 AM EDT Office Visit General Surgery, [facility] [address] [place] [phone] Jonathan Horowitz MD [address] [place] [address] 06/10/2025 12:40 PM EDT Office Visit General Internal Medicine [facility] [address] [place] [address] Kenny Alvarado MD [address] [place] [address] 07/03/2025 8:30 AM EDT Office Visit Urology, [facility] [address] [place] [phone] Hung Horowitz MD [address] [place] [address] Pending Results Name Type Priority Associated Diagnoses Date /Time CULTURE, URINE, QUANTITATIVE Lab Routine UTI symptoms 12/20/2024 8:39 AM EDT Scheduled Procedures Name Priority Associated Diagnoses Date/Ti me COLONOSCOPY FLEXIBLE PROXIMAL DIAGNOSTIC Recall History of colon polyps Scheduled Referrals Name Type Priority Associated Diagnoses Orde r Schedule SURGERY REFERRAL OP Referral Within 10 da ys (routine) Incisional hernia, without obstruction or gangrene Ordered: 12/20/2024 Health Maintenance Due Date Last Done Comments Adult Wellness Visit 01/05/2014 01/05/2013 COVID-19 Vaccine ( season) 2024 08/31/2023, 07/05/2022, 08/19/2021, Additional history exists Diabetic Eye Exam 11/22/2024 11/22/2023, , 05/01/2019, Additional history exists Depression Screening 03/28/2025 03/28/2024 Diabetic Foot Exam 03/28/2025 03/28/2024, 0 11/02/2022, 10/13/2021, Additional history exists Albumin/Creatinine Ratio 03/29/202503/29/ 024, 04/29/2023, 04/09/2022, Additional history exists HbA1c [...] Procedure Name Priority Date/Time Associated Diagnosis Comments URINALYSIS, POINT OF CARE NICOL 12/20/2024 8:26 AM EDT documented in this encounter Results * (ABNORMAL) URINALYSIS, POINT OF CARE (12/20/2024 8:26 AM EDT) Color, Urine Other(A) Light Yellow, Yellow 12/20/2024 8:30 AM EDT [facility] Clarity, Urine Cloudy(A) Clear 12/20/2024 8:30 AM EDT [facility]- Glucose, Urine 100(A) Negative mg/dL 12/20/2024 8:30 AM EDT [facility]- Bilirubin, Urine Small(A) Negative 12/20/2024 8:30 AM EDT [facility]- Ketone, Urine Trace(A) Negative mg/dL 12/20/2024 8:30 AM EDT [facility]- Specific [place], Urine >=1.030 1.003 - 1.030 12/20/2024 8:30 AM EDT [facility]- Blood, Urine Large(A) Negative 12/20/2024 8:30 AM EDT [facility] pH, Urine 5.5 5.0, 5.5, 6.0, 6.5, 7.0, 7.5 units 12/20/2024 8:30 AM EDT [facility]- Protein, Urine >=300(A) Negative mg/dL 12/20/2024 8:30 AM EDT [facility] Urobilinogen, Urine 1.0 0.2, 1.0 mg/dL 12/20/2024 8:30 AM EDT [facility] Nitrite, Urine Positive( A) Negative 12/20/2024 8:30 AM EDT [facility] Esterase, Urine Large(A) Negative 12/20/2024 8:30 AM EDT [facility] Urine 12/20/2024 8:26 AM EDT 12/20/2024 8:30 AM EDT us Cayla REBOLL[facility] POINT OF CARE TEST DOCKED DEVICE UNSOLICITED RESULTS Final Result [facility] [address] [address] documented in this encounter Visit Diagnoses Diagnosis UTI symptoms- Primary Other symptoms involving urinary system Incisional hernia, without obstruction or gangrene Incisional hernia without mention of obstruction or gangrene documented in this encounter Care Teams Cutter Machine Tender Relationship Specialty Start Date End Date Kenny Alvarado MD [address] [id number] PCP - General Internal Medicine 07/30/21 documented as of this encounter"
--- OUTSIDE RECORDS SUMMARY | 2024-12-29 02:26 | External Medical Summary | Summary of Care ---
Author Name Unknown Organization [facility] Address [address] [place] [address] Phone [phone] Care Team Providers Care Guillotine Trimmer Name Role Phone Kenny Alvarado MD Primary Care Provider + Reason for Visit * Reason Comments Outpatient Testing Encounter Details Date Type Department Care Team (Late st Contact Info) Description 12/27/2024 7:50 AM EDT Laboratory Laboratory [facility] [address] [place] [phone] [facility] [place] [address] [place] [address] Acute UTI (urinary tract infection) Allergies No known active allergiesdocumented as of this encounter (statuses as of 12/27/2024) Medications ASPIRIN 81 MG PO TABS one tab by mouth daily 7 Active CENTRUM SILVER PO TABS one tab daily 3 Active ONETOUCH ULTRA SYSTEM W/DEVICE KIT use fasting daily. DX 250.00 1 Kit 0 5 Active ONETOUCH ULTRASOFT LANCETS MISC use fasting daily. DX 250.00 1 Box 5 5 Active Glucose Blood (ONETOUCH ULTRA BLUE) STRPIndications:T ype 2 diabetes mellitus with hemoglobin A1c goal of less than 8.0% ([facility]) Use fasting daily. E11.9 100 Strip 5 [...] food until gone. 14 Capsule 5 12/28/19 Active documented as of this encounter (statuses as of 12/27/2024) Active Problems Problem Noted Date Diagnosed Date [...] as of this encounter (statuses as of 12/27/2024) Resolved Problems Problem Noted Date Diagnosed Date [...] as of this encounter (statuses as of 12/27/2024) Immunizations Name Administration Dates Next Due COVID-19 [...] PM EDT documented as of this encounter Plan of Treatment Upcoming Encounters Date Type Department Care Team (Late st Contact Info) Description 12/31/2024 1:30 PM EDT Office Visit General Surgery, [facility] [address] [place] [phone] Matthieu Ragsdale MD [address] [place] [address] 01/01/2025 2:00 PM EDT Office Visit Allergy/Immunology [facility] [address] [place] [address] Larry Cleveland MD [address] [place] [address] 06/10/2025 12:40 PM EDT Office Visit General Internal Medicine [facility] [address] [place] [address] Kenny Alvarado MD [address] [place] [address] 07/03/2025 8:30 AM EDT Office Visit Urology, [facility] [address] [place] [phone] Hung Horowitz MD [address] [place] [address] Pending Results Name Type Priority Associated Diagnoses Date /Time URINALYSIS, REFLEX TO CULTURE (NOT FOR NEUTROPENIC PATIENTS) Lab Routine Acute UTI (urinary tract infection) 12/27/2024 7:46 AM EDT URINALYSIS, REFLEX TO CULTURE (CUP ONLY) Lab Routine Acute UTI (urinary tract infection) 12/27/2024 7:46 AM EDT URINALYSIS, REFLEX TO CULTURE Lab Routine Acute UTI (urinary tract infection) 12/27/2024 7:46 AM EDT Scheduled Procedures Name Priority Associated [...] Not on filedocumented as of this encounter Visit Diagnoses Diagnosis Acute UTI (urinary tract infection) Urinary tract infection, site not specified documented in this encounter Care Teams Guillotine Trimmer Relationship Specialty Start Date End Date Kenny Alvarado MD [address] [place] [address] PCP - General Internal Medicine 07/30/21 documented as of this encounter
--- OUTSIDE RECORDS SUMMARY | 2024-12-29 02:26 | External Medical Summary | Summary of Care ---
Author Name Unknown Organization [facility] Address [address] [address] Phone [phone] Care Team Providers Care Earring Maker Name Role Phone Kenny Alvarado MD Primary Care Provider + Reason for Visit * Reason Comments eRx-Medication Refill Encounter Details Date Type Department Care Team (Late st Contact Info) Description 11/30/2024 Refill Cardiology, [facility] [address] [place] [address] Rashad Loredo, [address] [place] [address] NSVT (nonsustained ventricular tachycardia) (HCC); HTN, goal below 140/90; Dyslipidemia, goal LDL below 100; LBBB (left bundle branch block); Pulmonary HTN (HCC); Interstitial lung disease (HCC); Bradycardia, sinus; RBBB (right bundle branch block) Allergies No known active allergiesdocumented as of this encounter (statuses as of 12/04/2024) Medications ASPIRIN 81 MG PO TABS one tab by mouth daily 02/17/20 07 Active CENTRUM SILVER PO TABS one tab daily 03/22/20 13 Active ONETOUCH ULTRA SYSTEM W/DEVICE KIT use fasting daily. DX 250.00 1 Kit 0 01/02/20 15 Active ONETOUCH ULTRASOFT LANCETS MISC use fasting daily. DX 250.00 1 Box 5 01/02/20 15 Active Glucose Blood (ONETOUCH ULTRA BLUE) STRPIndications: Type 2 diabetes mellitus with hemoglobin A1c goal of less than 8.0% ([facility]) Use fasting daily. E11.9 100 Strip 5 09/15/20 18 Active Meclizine HCl 12.5 MG Oral Tablet (Antivert)Indica tions:Vertigo Take 1 Tab by mouth 3 times a day as needed for Dizziness. 30 Tab 1 04/10/20 21 Active Brimonidine Tartrate 0.2 % Ophthalmic Solution (Alphagan) 07/24/20 21 Active Dorzolamide HCl 2 % Ophthalmic Solution (Trusopt Ocumeter Plus) 09/01/20 21 Active Timolol Maleate 0.5 % Ophthalmic Solution (Timoptic) 08/16/20 21 Active Latanoprost 0.005 % Ophthalmic Solution (Xalatan) 1 Drop at bedtime. Active prednisoLONE Acetate 1 % Ophthalmic Suspension (Pred Forte) 02/24/20 22 Active Ofloxacin 0.3 % Ophthalmic Solution (Ocuflox) 02/24/20 22 Active Loratadine 10 MG Oral Capsule Take 1 Capsule by mouth in the morning. Active Triamcinolone Acetonide 0.1 % External Cream (Aristocort) Apply topically to affected area 2 times a day. 30 g 2 12/26/19 24 Active Tamsulosin HCl 0.4 MG Oral Capsule (Flomax)Indicati ons:BPH without obstruction/lowe r urinary tract symptoms TAKE 2 CAPSULES EVERY NIGHT AT BEDTIME 180 Capsule 3 05/01/20 24 Active Rosuvastatin Calcium 10 MG Oral Tablet (Crestor)Indicat ions:Dyslipidemi a, goal LDL below 130 TAKE 1 TABLET EVERY DAY 90 Tablet 3 05/02/20 24 Active hydroCHLOROthiaz rusula 25 MG Oral Tablet (Hydrodiuril)Ind ications:Essenti al hypertension with goal blood pressure less than 140/90 TAKE 1 TABLET EVERY DAY 90 Tablet 3 05/02/20 24 Active Lisinopril 10 MG Oral Tablet (Prinivil)Indica tions:Essential hypertension with goal blood pressure less than 140/90 TAKE 1 TABLET EVERY DAY 90 Tablet 3 05/02/20 24 Active oxyBUTYnin Chloride ER 10 MG Oral Tablet Extended Release 24 Hour (Ditropan XL) Take 1 Tablet by mouth in the morning. 90 Tablet 3 06/27/20 24 Active Finasteride 5 MG Oral Tablet (Proscar)Indicat ions:BPH without obstruction/lowe r urinary tract symptoms TAKE 1 TABLET EVERY DAY 90 Tablet 1 10/15/19 25 Active Allopurinol 300 MG Oral Tablet (Zyloprim)Indica tions:Chronic gout of multiple sites, unspecified cause TAKE 1 TABLET EVERY OTHER DAY 45 Tablet 1 10/15/19 25 Active Metoprolol Tartrate 25 MG Oral Tablet (Lopressor)Indic ations:NSVT (nonsustained ventricular tachycardia) (HCC),HTN, goal below 140/90,Dyslipide harry, goal LDL below 100,LBBB (left bundle branch block),Pulmonary HTN (HCC),Interstiti al lung disease (HCC),Bradycardi a, sinus,RBBB (right bundle branch block) TAKE 1/2 TABLET IN THE MORNING AND TAKE 1/2 TABLET BEFORE BEDTIME 90 Tablet 12/04/19 25 Active Metoprolol Tartrate 25 MG Oral Tablet (Lopressor)Indic ations:NSVT (nonsustained ventricular tachycardia) (HCC),HTN, goal below 140/90,Dyslipide harry, goal LDL below 100,LBBB (left bundle branch block),Pulmonary HTN (HCC),Interstiti al lung disease (HCC),Bradycardi a, sinus,RBBB (right bundle branch block) TAKE 1/2 TABLET IN THE MORNING AND TAKE 1/2 TABLET BEFORE BEDTIME 90 Tablet 3 02/09/20 24 025 Discontinued documented as of this encounter (statuses as of 12/04/2024) Active Problems Problem Noted Date Diagnosed Date [...] as of this encounter (statuses as of 12/04/2024) Resolved Problems Problem Noted Date Diagnosed Date [...] as of this encounter (statuses as of 12/04/2024) Immunizations Name Administration Dates Next Due COVID-19 [...] PM EDT documented as of this encounter Miscellaneous Notes * Telephone Encounter - Khadra Olmos [facility] - 12/03/2024 3:34 PM EST Signed Prescriptions: Disp Refills Metoprolol Tartrate 25 MG Oral Tablet (Lop*90 Tab*0 Sig: TAKE 1/2 TABLET IN THE MORNING AND TAKE 1/2 TABLET BEFORE BEDTIMEAuthorizing Provider: RASHAD LOREDO User: KHADRA OLMOS * Telephone Encounter - Khadra Olmos [facility] - 12/03/2024 3:31 PM EST RX authorized for this fill only as patient is overdue for a visit. Zero additional refills given until upcoming appt. 12/18/2024 Khadra Olmos [facility], Pharm D Clinical Pharmacist [facility] 12/03/2024, 3:31 PM [phone] * Telephone Encounter - Frannie Junior - 11/30/2024 7:57 PM ESTPending Prescriptions: Disp Refills Metoprolol Tartrate 25 MG Oral Tablet [Pha*90 Tab*3 Sig: TAKE 1/2 TABLET IN THE MORNING AND TAKE 1/2 TABLET BEFORE BEDTIME * Telephone Encounter - Frannie Junior - 11/30/2024 7:55 PM EST Did you pend patient's preferred pharmacy and medication before forwarding?yes Pharmacy: [facility] [id number] [facility] [place] Pending Prescriptions: Disp Refills Metoprolol Tartrate 25 MG Oral Tablet (Lo*90 Tab*3 Sig: TAKE 1/2 TABLET IN THE MORNING AND TAKE 1/2 TABLET BEFORE BEDTIME Last Visit: 07/05/2022 (in office), Visit date not found (telemedicine) Next Visit: 12/18/2024 If no future appointments scheduled, and last appointment is greater than a year ago, please schedule patient for a follow-up appointment Last date the medication was ordered: 02/09/2024 Is this request for a controlled substance?No Urine Drug Screen:No results found for this or any previous visit. Patient Phone Numbers Labs: Lab Results Component Value Date/Time CREAT 0.9 11/08/2024 01:08 PM CREAT 1.0 06/05/2020 02:11 PM POTASSIUM 4.2 11/08/2024 01:08 PM POTASSIUM 4.3 06/05/2020 02:11 PM TSH 2.27 10/27/2023 02:32 PM TSH 1.40 06/29/2006 09:11 AM LDL 69 05/16/2024 08:18 AM LDL 86 06/05/2020 02:11 PM LDL UNINTERPRETABLE RESULT 01/29/2019 02:50 PM ALT 24 11/08/2024 01:08 PM ALT 42 06/05/2020 02:11 PM HGBA1C 7.3 (H) 11/08/2024 01:08 PM HGBA1C 6.9 (H) 12/04/2020 09:21 AM HGBA1C 7.2 (H) 06/05/2020 02:11 PM documented in this encounter Plan of Treatment Upcoming Encounters Date Type Department Care Team (Late st Contact Info) Description 12/18/2024 10:30 AM EDT Office Visit Cardiology, [facility] [address] [place] [address] Rashad Loredo DO [address] [place] [address] 01/01/2025 2:00 PM EDT Office Visit Allergy/Immunology [facility] [address] [facility] [place] [address] Larry Cleveland MD 200 [place] [address] 06/10/2025 12:40 PM EDT Office Visit General Internal Medicine [facility] [address] [facility] [place] [address] Kenny Alvarado MD 200 [place] [address] 07/03/2025 8:30 AM EDT Office Visit Urology, [facility] 132 [facility] [place] [address] Hung Horowitz MD [address] [place] [address] Scheduled Procedures Name Priority Associated Diagnoses Date/Ti [...] as of this encounter Visit Diagnoses Diagnosis NSVT (nonsustained ventricular tachycardia) (HCC) Paroxysmal ventricular tachycardia HTN, goal below 140/90 Unspecified essential hypertension Dyslipidemia, goal LDL below 100 Other and unspecified hyperlipidemia LBBB (left bundle branch block) Other left bundle branch block Pulmonary HTN (HCC) Other chronic pulmonary heart diseases Interstitial lung disease (HCC) Postinflammatory pulmonary fibrosis Bradycardia, sinus Other specified cardiac dysrhythmias RBBB (right bundle branch block) Right bundle branch block documented in this encounter Care Teams Earring Maker Relationship Specialty Start Date End Date Kenny Alvarado MD 200 [facility] [place] [address] PCP - General Internal Medicine 07/30/21 documented as of this encounter
--- OUTSIDE RECORDS SUMMARY | 2024-12-29 02:26 | External Medical Summary | Summary of Care ---
Author Name Unknown Organization [facility] Address [address] [place] [address] Phone [phone] Care Team Providers Care Dye House Helper Name Role Phone Kenny Alvarado MD Primary Care Provider + Reason for Visit * Reason Onset Date Comments Test Results 12/24/2024 Encounter Details Date Type Department Care Team (Late st Contact Info) Description 12/24/2024 Telephone General Internal Medicine [facility] [address] [place] [address] Kenny Alvarado MD 200 [place] [address] Test Results Allergies No known active allergiesdocumented as of this encounter (statuses as of 12/24/2024) Medications ASPIRIN 81 MG PO TABS one [...] hemoglobin A1c goal of less than 8.0% ([facility]) Use fasting daily. E11.9 100 [...] as of this encounter (statuses as of 12/24/2024) Active Problems Problem Noted Date Diagnosed Date [...] as of this encounter (statuses as of 12/24/2024) Resolved Problems Problem Noted Date Diagnosed Date [...] as of this encounter (statuses as of 12/24/2024) Immunizations Name Administration Dates Next Due COVID-19 [...] encounter Miscellaneous Notes * Telephone Encounter - Dary Nye CMA - 12/24/2024 11:17 AM EDT Patient aware and voiced understanding. * Telephone Encounter - Cayla Castellanos PA-C - 12/24/2024 10:37 AM EDT We can have him repeat his urine studies after he has completed the Macrobid to ensure infection has resolved. * Telephone Encounter - Dary Nye CMA - 12/24/2024 9:52 AM EDT ----- Message from Cayla Castellanos sent at 12/24/2024 9:29 AM EDT ----- Urine culture positive for UTI. Showing sensitivity to the Macrobid. Have his urinary symptoms improved? * Telephone Encounter - Dary Nye CMA - 12/24/2024 9:50 AM EDT Patient aware and voiced understanding. Pt stated that his burning has subsided but he is still going quite frequently. He is wondering if any further action is required for symptoms. Please advise. Dary Nye CMA * Telephone Encounter - Dary Nye CMA - 12/24/2024 9:50 AM EDT ----- Message from Cayla Castellanos sent at 12/24/2024 9:29 AM EDT ----- Urine culture positive for UTI. Showing sensitivity to the Macrobid. Have his urinary symptoms improved? documented in this encounter Plan of Treatment Upcoming Encounters Date Type Department Care Team (Late st Contact Info) Description 12/31/2024 1:30 PM EDT Office Visit General Surgery, [facility] [address] [address] Matthieu Ragsdale MD 132 [facility] [place] [address] 01/01/2025 2:00 PM EDT Office Visit Allergy/Immunology [facility] 200 [facility] [place] [address] Larry Cleveland MD 200 [facility] [place] [address] 06/10/2025 12:40 PM EDT Office Visit General Internal Medicine [facility] 200 [facility] [place] [address] Kenny Alvarado MD [address] [facility] [place] [address] 07/03/2025 8:30 AM EDT Office Visit Urology, [facility] [address] [place] [id number] Hung Horowitz MD [address] [place] [address] Scheduled Orders Name Type Priority Associated Diagnoses Orde r Schedule URINALYSIS, REFLEX TO CULTURE (NOT FOR NEUTROPENIC PATIENTS) Lab Routine Acute UTI (urinary tract infection) Expected: 12/31/2024, Expires: 12/24/2025 Scheduled Procedures Name Priority Associated Diagnoses Date/Ti [...] Visit Diagnoses Diagnosis Acute UTI (urinary tract infection)- Primary Urinary tract infection, site not specified documented in this encounter Care Teams Dye House Helper Relationship Specialty Start Date End Date Kenny Alvarado MD [address] [place] [address] PCP - General Internal Medicine 07/30/21 documented as of this encounter
--- OUTSIDE RECORDS SUMMARY | 2024-12-29 02:27 | External Medical Summary ---
Author Name Unknown Address Unknown Organization [id number]:[facility] - [address] [facility] [address] Laboratory Report Ordering Provider Test Date Status TIANNA MAKI 11/08/2024 13:08:21 Final Observation Date Value Abnormality Reference (Units ) Status HbA1C 11/08/2024 13:08:21 7.3 Above high normal 4. 0-5.6 (%) Final The use of HbA1c to monitor glycemic status is based on normal hemoglobin and HbA composition. This test should not be used in patients with abnormal hemoglobin that affects the half life of the red blood cell or the in vivo glycation rates. Glucose, estimated average 11/08/2024 13:08:21 163 Above high normal <126 (mg/dL) German hennessy Performing Location [facility] - [address] [facility] [address]
--- OUTSIDE RECORDS SUMMARY | 2024-12-29 02:27 | External Medical Summary | Summary of Care ---
Author Name Unknown Organization [facility] Address [address] [place] [address] Phone [phone] Care Team Providers Care Foot Piece Assembler Name Role Phone Kenny Alvarado MD Primary Care Provider + Reason for Visit * Reason Comments Outpatient Testing Encounter Details Date Type Department Care Team (Late st Contact Info) Description 11/08/2024 1:40 PM EST Laboratory Laboratory [facility] [address] [place] [address] [facility] [address] [facility] [place] [address] Essential hypertension with goal blood pressure less than 140/90; Type 2 diabetes mellitus with hemoglobin A1c goal of less than 8.0% ([facility]); Facial swelling Allergies No known active allergiesdocumented as of this encounter (statuses as of 11/08/2024) Medications ASPIRIN 81 MG PO TABS one [...] hemoglobin A1c goal of less than 8.0% (HCC) Use fasting daily. E11.9 100 Strip 5 [...] a day. 30 g 2 4 Active Metoprolol Tartrate 25 MG Oral Tablet (Lopressor)Indica tions:NSVT (nonsustained ventricular tachycardia) (HCC),HTN, goal below 140/90,Dyslipidem ia, goal LDL below 100,LBBB (left bundle branch block),Pulmonary HTN (HCC),Interstitia l lung disease (HCC),Bradycardia , sinus,RBBB (right bundle branch block) TAKE 1/2 TABLET IN THE MORNING AND TAKE 1/2 TABLET BEFORE BEDTIME 90 Tablet 3 4 Active Tamsulosin HCl 0.4 MG Oral [...] OTHER DAY 45 Tablet 1 5 Active documented as of this encounter (statuses as of 11/08/2024) Active Problems Problem Noted Date Diagnosed Date [...] as of this encounter (statuses as of 11/08/2024) Resolved Problems Problem Noted Date Diagnosed Date [...] as of this encounter (statuses as of 11/08/2024) Immunizations Name Administration Dates Next Due COVID-19 [...] 12/18/2024 10:30 AM EDT Office Visit Cardiology, [facility] [address] [place] [address] Benny Wylie DO [address] [place] [address] 01/01/2025 2:00 PM EDT Office Visit Allergy/Immunology [facility] [address] [place] [address] Larry Cleveland MD 200 [facility] [place] [address] 06/10/2025 12:40 PM EDT Office Visit General Internal Medicine [facility] 200 [facility] [place] [address] Kenny Alvarado MD 200 [facility] [place] [address] 07/03/2025 8:30 AM EDT Office Visit Urology, [facility] [address] [place] [address] Hung Horowitz MD [address] [address] Scheduled Procedures Name Priority Associated Diagnoses Date/Ti [...] 11/02/2022, 10/13/2021, Additional history exists Albumin/Creatinine Ratio 03/29/20252 024, 04/29/2023, 04/09/2022, Additional history exists HbA1c [...] Procedure Name Priority Date/Time Associated Diagnosis Comments DIFFERENTIAL, AUTOMATED Routine 11/08/2024 1:08 PM EST Facial swelling HEMOGLOBIN A1C Routine 11/08/2024 1:08 PM EST Type 2 diabetes mellitus with hemoglobin A1c goal of less than 8.0% (HCC) COMPREHENSIVE METABOLIC PANEL Routine 11/08/2024 1:08 PM EST Essential hypertension with goal blood pressure less than 140/90 CBC Routine 11/08/2024 1:08 PM EST Facial swelling COMPLEMENT C4 Routine 11/08/2024 1:08 PM EST Facial swelling COMPLEMENT C3 Routine 11/08/2024 1:08 PM EST Facial swelling CBC Routine 11/08/2024 1:08 PM EST Facial swelling documented in this encounter Results * DIFFERENTIAL, AUTOMATED (11/08/2024 1:08 PM EST) WBC 9.24 4.00 - 10.80 K/uL 11/08/2024 1:15 PM EST [facility] 56-02 Neutrophils % 64.3 40.0 - 75.0 % 11/08/2024 1:15 PM EST [facility] 56-02 Lymphocytes % 22.5 18.0 - 42.0 % 11/08/2024 1:15 PM EST [facility] 56-02 Monocytes % 10.1 1.0 - 11.0 % 11/08/2024 1:15 PM EST [facility] 56-02 Eosinophils % 2.8 0.0 - 6.0 % 11/08/2024 1:15 PM EST [facility] 56-02 Basophils % 0.3 0.0 - 2.0 % 11/08/2024 1:15 PM EST [facility] 56-02 Absolute Neutrophils 5.94 1.80 - 7.70 K/uL 11/08/2024 1:15 PM EST [facility] 56-02 Absolute Lymphocytes 2.08 1.00 - 4.80 K/ul 11/08/2024 1:15 PM EST [facility] 56-02 Absolute Monocytes 0.93 0.00 - 1.10 K/uL 11/08/2024 1:15 PM EST [facility] 56-02 Absolute Eosinophils 0.26 0.00 - 0.70 K/uL 11/08/2024 1:15 PM [facility] 56-02 Absolute Basophils 0.03 0.00 - 0.20 K/uL 11/08/2024 1:15 PM [facility] 56-02 Blood Venous blood specimen / Unknown Venipuncture / Unknown 11/08/2024 1:08 PM EST 11/08/2024 1:08 PM EST us Kenny Alvarado MD LAB BLOOD ORDERABLES Fin al Result [facility] [address] [place] [address] * (ABNORMAL) CBC (11/08/2024 1:08 PM EST) WBC 9.24 4.00 - 10.80 K/uL 11/08/2024 1:15 PM [facility] 56-02 RBC 4.27 4.50 - 5.25 M/uL 11/08/2024 1:15 PM [facility] 56-02 HGB 13.4(L) 14.0 - 16.8 g/dL 11/08/2024 1:15 PM [facility] 56-02 HCT 41.2 40.0 - 48.4 % 11/08/2024 1:15 PM [facility] 56-02 MCV 96.5 82.0 - 99.5 fL 11/08/2024 1:15 PM [facility] 56-02 MCH 31.4 27.0 - 34.0 pg 11/08/2024 1:15 PM [facility] 5602 MCHC 32.5 32.0 - 36.0 g/dL 11/08/2024 1:15 PM [facility] 5602 RDW 13.1 11.5 - 15.5 % 11/08/2024 1:15 PM [facility] 56-02 PLT 194 140 - 400 K/uL 11/08/2024 1:15 PM [facility] 5602 MPV 10.7 6.6 - 11.1 fL 11/08/2024 1:15 PM [facility] 56-02 Blood Venous blood specimen / Unknown Venipuncture / Unknown 11/08/2024 1:08 PM EST 11/08/2024 1:08 PM EST us Kenny Alvarado MD LAB BLOOD ORDERABLES Fin al Result [facility] [address] [place] [address] * COMPLEMENT C4 (11/08/2024 1:08 PM EST) Pathologist [facility] Complement C4 31 10 - 40 mg/dL 11/08/2024 5:22 PM EST [facility] Blood Venous blood specimen / Unknown Venipuncture / Unknown 11/08/2024 1:08 PM EST 11/08/2024 1:08 PM EST Kenny Alvarado MD LAB BLOOD ORDERABLES Fin al Result [facility] [address] [place] [address] * COMPLEMENT C3 (11/08/2024 1:08 PM EST) [facility] Complement C3 168 90 - 180 mg/dL 11/08/2024 5:22 PM EST [facility] Blood Venous blood specimen / Unknown Venipuncture / Unknown 11/08/2024 1:08 PM EST 11/08/2024 1:08 PM EST Kenny Alvarado MD LAB BLOOD ORDERABLES Fin al Result Performing Organization Address [facility] de Phone Number [facility] [address] [place] [address] * (ABNORMAL) HEMOGLOBIN A1C (11/08/2024 1:08 PM EST) [facility] Hemoglobin A1C 7.3(H) 4.0 - 5.6 % 11/08/2024 5:25 PM EST [facility] Comment:The use of HbA1c to monitor glycemic status is based on normal hemoglobin and HbA composition. This test should not be used in patients with abnormal hemoglobin that affects the half life of the red blood cell or the in vivo glycation rates. Estimated Average Glucose 163(H) <126 mg/dL 11/08/2024 5:25 PM EST [facility] Blood Venous blood specimen / Unknown Venipuncture / Unknown 11/08/2024 1:08 PM EST 11/08/2024 1:08 PM EST Kenny Alvarado MD LAB BLOOD ORDERABLES Fin al Result Performing Organization Address City/[facility]/ZIP Co de Phone Number [facility] [address] [place] [address] * (ABNORMAL) COMPREHENSIVE METABOLIC PANEL (11/08/2024 1:08 PM EST) [facility] BUN 13 6 - 20 mg/dL 11/08/2024 2:03 PM [facility] 56- CREATININE 0.9 0.6 - 1.2 mg/dL 11/08/2024 2:03 PM [facility] 56- EGFR 84 >=60 mL/min 11/08/2024 2:03 PM [facility] 56- Comment:eGFR is calculated b ased on the CKD-EPI 2020 equation. SODIUM 138 135 - 146 mmol/L 11/08/2024 2:03 PM [facility] 56- POTASSIUM 4.2 3.5 - 5.1 mmol/L 11/08/2024 2:03 PM [facility] 56- CHLORIDE 97(L) 98 - 107 mmol/L 11/08/2024 2:03 PM [facility] 56 CO2 29 22 - 32 mmol/L 11/08/2024 2:03 PM [facility] 56 ANION GAP 12 7 - 15 mmol/L 11/08/2024 2:03 PM [facility] 56 GLUCOSE 140(H) 70 - 120 mg/dL 11/08/2024 2:03 PM [facility] 56 Albumin 3.9 3.8 - 5.0 g/dL 11/08/2024 2:03 PM [facility] 56- AST 35 10 - 50 U/L 11/08/2024 2:03 PM [facility] 56- Alkaline Phosphatase 104 35 - 130 U/L 11/08/2024 2:03 PM [facility] 56- Bilirubin, Total 0.8 <=1.2 mg/dL 11/08/2024 2:03 PM [facility] 56- CALCIUM 9.5 8.4 - 10.2 mg/dL 11/08/2024 2:03 PM [facility] 56- Protein 7.5 6.0 - 8.3 g/dL 11/08/2024 2:03 PM [facility] 56- ALT 24 10 - 50 U/L 11/08/2024 2:03 PM [facility] 56- Blood Venous blood specimen / Unknown Venipuncture / Unknown 11/08/2024 1:08 PM EST 11/08/2024 1:08 PM EST us Kenny Alvarado MD LAB BLOOD ORDERABLES Fin al Result [facility] [address] [facility] [address] documented in this encounter Visit Diagnoses Diagnosis Essential hypertension with goal blood pressure less than 140/90 Type 2 diabetes mellitus with hemoglobin A1c goal of less than 8.0% (HCC) Facial swelling Swelling, mass, or lump in head and neck documented in this encounter Care Teams Foot Piece Assembler Relationship Specialty Start Date End Date Kenny Alvarado MD 200 [facility] [place] [address] PCP - General Internal Medicine 07/30/21 documented as of this encounter
--- OUTSIDE RECORDS SUMMARY | 2024-12-29 02:27 | External Medical Summary ---
Author Name Unknown Address Unknown Organization K09:[facility] [place] [address] Laboratory Report Ordering Provider Test Date Status TIANNA MAKI 11/08/2024 13:08:21 Final Observation Date Value Abnormality Reference (Units ) Status WBC, Total 11/08/2024 13:08:21 9.24 4.00-10.8 0 (K/uL) Final RBC 11/08/2024 13:08:21 4.27 4.50-5.25 (M/uL) Final Hemoglobin 11/08/2024 13:08:21 13.4 Below low normal 14 .0-16.8 (g/dL) Final HCT 11/08/2024 13:08:21 41.2 40.0-48.4 (%) Final MCV 11/08/2024 13:08:21 96.5 82.0-99.5 (fL) Final MCH 11/08/2024 13:08:21 31.4 27.0-34.0 (pg) Final MCHC 11/08/2024 13:08:21 32.5 32.0-36.0 (g/dL) Final RDW 11/08/2024 13:08:21 13.1 11.5-15.5 (%) Final Platelets 11/08/2024 13:08:21 194 140-400 (K /uL) Final MPV 11/08/2024 13:08:21 10.7 6.6-11.1 ( fL) Final Performing Location [facility] [place] [address]
--- OUTSIDE RECORDS SUMMARY | 2024-12-29 02:27 | External Medical Summary ---
Author Name Unknown Address Unknown Organization K01:LABORATORY [facility] [place] - [address] [place] [address] Laboratory Report Ordering Provider Test Date Status TIANNA MAKI 11/08/2024 13:08:21 Final Observation Date Value Abnormality Reference (Units ) Status Complement C3c [Mass/volume] in Serum or Plasma 11/08/2024 13:08:21 168 90-180 (mg/dL) Final Performing Location LABORATORY C - [address] [place] [address]
--- OUTSIDE RECORDS SUMMARY | 2024-12-29 02:27 | External Medical Summary ---
Author Name Unknown Address Unknown Organization K09:LABORATORY [facility] [address] [place] [address] Laboratory Report Ordering Provider Test Date Status TIANNA MAKI 11/08/2024 13:08:21 Final Observation Date Value Abnormality Reference (Units ) Status BUN 11/08/2024 13:08:21 13 6-20 (mg/dL) Final Creatinine 11/08/2024 13:08:21 0.9 0.6-1.2 (mg/dL) Final Glomerular filtration rate/1.73 sq M.predicted [Volume Rate/Area] in Serum, Plasma or Blood by Creatinine-based formula (CKD-EPI) 11/08/2024 13:08:21 84 >=60 (mL/min) Final eGFR is calculated based on the CKD-EPI 2020 equation. Sodium 11/08/2024 13:08:21 138 135-146 (m mol/L) Final Potassium 11/08/2024 13:08:21 4.2 3.5-5.1 (m mol/L) Final Cl 11/08/2024 13:08:21 97 Below low normal 98- 107 (mmol/L) Final CO2 11/08/2024 13:08:21 29 22-32 (mmo l/L) Final Anion gap 11/08/2024 13:08:21 12 7-15 (mmol /L) Final Glucose 11/08/2024 13:08:21 140 Above high normal 70 -120 (mg/dL) Final Albumin 11/08/2024 13:08:21 3.9 3.8-5.0 (g /dL) Final AST (Aspartate aminotransferase) 11/08/2024 13:08:21 35 10-50 (U/L) Fin al Alk Phos 11/08/2024 13:08:21 104 35-130 (U/ L) Final Bilirubin, Total 11/08/2024 13:08:21 0.8 <=1 .2 (mg/dL) Final Calcium 11/08/2024 13:08:21 9.5 8.4-10.2 ( mg/dL) Final Protein 11/08/2024 13:08:21 7.5 6.0-8.3 (g /dL) Final ALT (Alanine aminotransferase) 11/08/2024 13:08:21 24 10-50 (U/L) German hennessy Performing Location [facility]ATORY [facility] [address] [place] [address]
--- OUTSIDE RECORDS SUMMARY | 2024-12-29 02:27 | External Medical Summary ---
Author Name Unknown Address Unknown Organization K01:[facility] - [address] [place] [address] Laboratory Report Ordering Provider Test Date Status TIANNA MAKI 11/08/2024 13:08:21 Final Observation Date Value Abnormality Reference (Units ) Status C4 11/08/2024 13:08:21 31 10-40 (mg/ dL) Final Performing Location [facility] - [address] [place] [address]
--- OUTSIDE RECORDS SUMMARY | 2024-12-29 02:27 | External Medical Summary ---
Author Name Unknown Address Unknown Organization K09:LABORATORY [place] [address] [place] [address] Laboratory Report Ordering Provider Test Date Status TIANNA MAKI 11/08/2024 13:08:21 Final Observation Date Value Abnormality Reference (Units ) Status SYNC LEUKOCYTES IN BLOOD BY AUTOMATED COUNT 11/08/2024 13:08:21 9.24 4.00-10.80 (K/uL) Final Segs 11/08/2024 13:08:21 64.3 40.0-75.0 (%) Final Lymphs % 11/08/2024 13:08:21 22.5 18.0-42.0 (%) Final Monos 11/08/2024 13:08:21 10.1 1.0-11.0 (%) Final Eosinophils 11/08/2024 13:08:21 2.8 0.0-6.0 (%) Final Basos 11/08/2024 13:08:21 0.3 0.0-2.0 (%) Final Absolute Segs 11/08/2024 13:08:21 5.94 1.80-7.70 (K/uL) Final Lymphs, absolute 11/08/2024 13:08:21 2.08 1.00-4.80 (K/ul) Final Monos, Abs 11/08/2024 13:08:21 0.93 0.00-1.10 (K/uL) Final Eos, Abs 11/08/2024 13:08:21 0.26 0.00-0.70 (K/uL) Final Basos, Abs 11/08/2024 13:08:21 0.03 0.00-0.20 (K/uL) Final Performing Location [facility]ORY [place] [address]
--- OUTSIDE RECORDS SUMMARY | 2024-12-29 02:27 | External Medical Summary | Summary of Care ---
Author Name Unknown Organization [facility] Address [address] [place] [address] Phone [phone] Care Team Providers Care Sales Clerk Supervisor Name Role Phone Kenny Alvarado MD Primary Care Provider + Reason for Referral * Evaluate & Treat - Unlimited Visits (Within 30 days (routine)) - Authorized Specialty Diagnoses / Procedures Referred By Contac t Referred To Contact Allergy & Immunology / Allergy and Immunology Diagnoses Facial swelling Kenny Alvarado MD [facility] [address] [facility] [place] [address] Phone: tel: fax: Referral ID Status Reason Start Date Expiration Date Visits Requested Visits Authorized [id number] Authorized Specialty Services Required 11/08/2024 999 999 Question Answer Referral Priority Within 30 days (routine) Where should this appointment be scheduled? [facility] For what condition is the patient being referred? Anaphylaxis/Angioedema/Urticaria Comments Intermittent facial swelling ?allergy Reason for Visit * Reason Comments Follow Up 6 month and hospital follow up Encounter Details Date Type Department Care Team (Late st Contact Info) Description 11/08/2024 1:00 PM EST Office Visit General Internal Medicine [facility] [address] [place] [address] Kenny Alvarado MD [address] [facility] [address] Facial swelling*; Essential hypertension with goal blood pressure less than 140/90; Mixed hyperlipidemia; Type 2 diabetes mellitus with hemoglobin A1c goal of less than 8.0% ([facility]); Pulmonary HTN ([facility]); Interstitial lung disease ([facility]); NSVT (nonsustained ventricular tachycardia) ([facility]); Choking, initial encounter; Gouty arthropathy Allergies No known active allergiesdocumented as of this encounter (statuses as of 11/08/2024) Medications ASPIRIN 81 MG PO TABS one tab by mouth daily 7 Active CENTRUM SILVER PO TABS one tab daily 3 Active Tripvi ULTRA SYSTEM W/DEVICE KIT use fasting daily. DX 250.00 1 Kit 0 5 Active Zero LocusTOUCH ULTRASOFT LANCETS MISC use fasting daily. DX 250.00 1 Box 5 5 Active Glucose Blood (Zero LocusTOUCH ULTRA BLUE) STRPIndications:T ype 2 diabetes mellitus with hemoglobin A1c goal of less than 8.0% ([facility]) Use fasting daily. E11.9 100 Strip [...] Oral Tablet (Lopressor)Indica tions:NSVT (nonsustained ventricular tachycardia) ([facility]),HTN, goal below 140/90,Dyslipidem ia, goal LDL below [...] Sign Reading Time Taken Comments Blood Pressure 138/74 11/08/2024 12:37 PM EST Pulse 55 11/08/2024 12:37 PM EST Temperature 35.9 °C (96.6 °F) 11/08/2024 12:[address] Respiratory Rate - - Oxygen Saturation 97% 11/08/2024 12:37 PM EST Inhaled Oxygen Concentration - - Weight 108 kg (238 lb) 11/08/2024 12:37 PM EST Height - - Body Mass Index 35.15 06/12/2024 9:35 AM EDT documented in this encounter Progress Notes * Kenny Alvarado MD - 11/08/2024 12:58 PM EST Chief Complaint Patient presents with Follow Up 6 month and hospital follow up SUBJECTIVE: Jorge Luis Gutierrez is a 84 year old male with PMH as below who presents for follow up HTN, DM, lipids. No cp. Sob, flower. Did have episode right facial swelling into left side, felt some throat discomfort with it. No wheezing, cough. Has had intermittent facial swelling for many years, no cause found, no known trigger. Occasional choking episodes still if eats quickly, but managed if chews food and doesn't want swallow study as recommended. No falls. Patient Active Problem List Diagnosis Gouty arthropathy Essential hypertension with goal blood pressure less than 140/90 BMI 35-39 ISOLATED (SEE ACTUAL BMI) Venous insufficiency Mixed hyperlipidemia Pulmonary HTN (HCC) Interstitial lung disease (HCC) Urethral stricture BPH without obstruction/lower urinary tract symptoms RBBB (right bundle branch block) LBBB (left bundle branch block) Type 2 diabetes mellitus with hemoglobin A1c goal of less than 8.0% ([facility]) Bradycardia, sinus Primary open angle glaucoma (POAG) of both eyes NSVT (nonsustained ventricular tachycardia) ([facility]) Nocturia Urinary frequency Phimosis Current Outpatient Medications Medication Sig Dispense Refill ASPIRIN 81 MG PO TABS one tab by mouth daily CENTRUM SILVER PO TABS one tab daily ZAI Lab SYSTEM W/DEVICE KIT use fasting daily. DX 250.00 1 Kit 0 Zero LocusTOUCH ULTRASOFT LANCETS MISC use fasting daily. DX 250.00 1 Box 5 Glucose Blood (PushforUCH ULTRA BLUE) STRP Use fasting daily. E11.9 100 Strip 5 Meclizine HCl 12.5 MG Oral Tablet (Antivert) Take 1 Tab by mouth 3 times a day as needed for Dizziness. 30 Tab 1 Brimonidine Tartrate 0.2 % Ophthalmic Solution (Alphagan) Dorzolamide HCl 2 % Ophthalmic Solution (Trusopt Ocumeter Plus) Timolol Maleate 0.5 % Ophthalmic Solution (Timoptic) Latanoprost 0.005 % Ophthalmic Solution (Xalatan) 1 Drop at bedtime. prednisoLONE Acetate 1 % Ophthalmic Suspension (Pred Forte) Ofloxacin 0.3 % Ophthalmic Solution (Ocuflox) Loratadine 10 MG Oral Capsule Take 1 Capsule by mouth in the morning. Triamcinolone Acetonide 0.1 % External Cream (Aristocort) Apply topically to affected area 2 times a day. 30 g 2 Metoprolol Tartrate 25 MG Oral Tablet (Lopressor) TAKE 1/2 TABLET IN THE MORNING AND TAKE 1/2 TABLET BEFORE BEDTIME 90 Tablet 3 Tamsulosin HCl 0.4 MG Oral Capsule (Flomax) [...] TABLET EVERY OTHER DAY 45 Tablet 1 No current facility-administered medications for this visit. Review of patient's allergies indicates: No Known Allergies Health Maintenance Due Topic Date Due Adult Wellness Visit 01/05/2014 COVID-19 Vaccine () 06/03/2024 HbA1c 09/20/2024 Diabetic Eye Exam 11/22/2024 ROS: CONSTITUTIONAL: No fevers, sweats, or chills EYE: No recent significant change in vision, No eye pain, redness, discharge, and No diplopia EARS: No ear pain, No drainage, No tinnitus or vertigo, and No recent change in hearing PULMONARY: No cough, sputum, or hemoptysis, No wheezing, No rales, No shortness of breath, and No recent change in breathing CARDIOVASCULAR: No chest pain, No shortness of breath, No dyspnea on exertion, No orthopnea, No paroxysmal nocturnal dyspnea, No edema, No palpitations, and No syncope GASTROINTESTINAL: No abdominal pain, No change in bowel habits, No significant heartburn, No significant change in appetite, and No nausea, vomiting, diarrhea, or constipation EXTREMITIES: No pain, redness or swelling on the joints SKIN/INTEGUMENTARY: No edema NEUROLOGIC: Normal balance and No weakness ALL OTHER SYSTEMS NEGATIVE I reviewed social, PMH, PSH, and family history and updated where needed. Social History Socioeconomic History Marital status: Spouse name: Not on file Number of children: Not on file Years of education: Not on file Highest education level: Not on file Occupational History Not on file Tobacco Use Smoking status: Never Smokeless tobacco: Never Vaping Use Vaping status: Never Used Substance and Sexual Activity Alcohol use: Yes Comment: rarely only the sacrament Drug use: No Sexual activity: Yes Other Topics Concern Not on file Social History Narrative Environmental History Home construction: Brick, stone, wood Heating System: Oil, hot water Cockroach Exposure: No Basement (wet, dry, none): Dry Possible mold exposure: No Current exposure to pets: No Does pet sleep in the bed: No Pillows (foam, synthetic, down): Foam Dust mite covers:No Blankets (synthetic, down):synthetic Mattress (foam, springs, futon): Foam Dust mite covers:No Furniture Stuffing (foam, horse hair, other): Foam Carpets (area rugs, wall-to wall, none): Wall to wall, 5 years Work environment: [employer] Radon exposure: No Social Needs Financial Resource Strain: Not on file Food Insecurity: No Food Insecurity (11/02/2022) Hunger Vital Sign Worried About Running Out of Food in the Last Year: Never true Ran Out of Food in the Last Year: Never true Transportation Needs: Not on file Social Connections: Not on file Housing Stability: Not on file Past Medical History: Diagnosis Date Benign neoplasm of colon 04/17/2010 diverticulosis, polyps x2 path shows polyp was tubulovillous adenoma and the other adenoma repeat 2year Benign neoplasm of colon 01/02/13 COLONOSCOPY FLEXIBLE PROXIMAL DIAGNOSTIC performed by Lucho Sandhu MD at ENDOSCOPY [facility], benign polyp repeat colonoscopy in 5 year Dyslipidemia, goal LDL below 160 Essential hypertension with goal blood pressure less than 140/90 08/25/2009 Modified per HTN protocol #16. Gouty arthropathy 07/19/2005 HELICOBACTER PYLORI (H. PYLORI) INFECTION- treated 01/200901/21/2009 NSVT (nonsustained ventricular tachycardia) (HCC) 12/29/2014 Past Surgical History: Procedure Laterality Date CIRCUMCISION,OTHER THAN CLAMP/SLIT,>28 DAYS 1997 COLONOSCOPY 04/22/2005 Normal repeat in 04/11 COLONOSCOPY W/ LESION REMOVAL, SNARE 04/17/2010 diverticulosis, polyps x2 path shows polyp was tubulovillous adenoma and the other adenoma repeat 2years COLONOSCOPY, DIAGNOSTIC (RECTUM) 01/02/2013 COLONOSCOPY FLEXIBLE PROXIMAL DIAGNOSTIC performed by Lucho Sandhu MD at [facility]OSCOPY [facility], benign polyp repeat colonoscopy in 5 years COLONOSCOPY, DIAGNOSTIC (RECTUM) 03/13/2018 adenomatous polyp, repeat 5 yrs/COLONOSCOPY FLEXIBLE PROXIMAL DIAGNOSTIC performed by Bryce Chu MD at ENDOSCOPY [facility] CYSTOSCOPY 09/03/2015 INCISION OF EYE FOR GLAUCOMA Right 01/2022 stent placed REMOVAL OF APPENDIX 194 REMOVAL OF TONSILS, UNDER AGE 10 194 Family History Problem Relation Name Age of Onset Diabetes Mother Cancer Sister colon Cancer Brother colon Heart Disorder Brother OBJECTIVE: PHYSICAL EXAM: BP 138/74 | Pulse 55 | Temp 96.6 °F (35.9 °C) | Wt 238 lb (108 kg) | SpO2 97% | BMI 35.15 kg/m² | BSA 2.29 m² General: alert, healthy, and no distress Head: Normocephalic, No masses, lesions, or abnormalities Eye Exam: conjunctiva are pink and non-injected, sclera clear Ears:right canal clear, no obstruction Heart: regular rate & rhythm, no murmur, no gallops, PMI non-displaced, S-1 normal, and S-2 normal Lungs: normal respiratory rate and rhythm, lungs clear to auscultation Abdomen: abdomen soft, non-tender, and obese Extremities: no clubbing, no cyanosis, +small varicose veins right leg Neuro Exam: alert with fluent speech, gait normal Psych: normal affect, no flight of ideas or tangential thought, good eye contact, no pressured speech 10/25/24 ER note: This is an 84-year-old male presents for facial swelling, neck pain and feeling off balance. Patient overall appears clinically well without neurologic deficits. He has been observed walking by me with a stable gait. Does not maintain in 1 direction. No shuffling gait. Coordination is intact. No motor disturbance. - overall is difficult to see the facial swelling that patient's and his note. There is some possible periorbital swelling bilaterally without tenderness, fluctuance, pain. This appears to be not related to cellulitis, periorbital or orbital cellulitis. -Bloodwork is reviewed showing no significant leukocytosis, anemia, electrolyte or creatinine abnormality -CT of the head is negative -Chest x-ray reveals bilateral atelectasis versus pneumonia. Patient does not appear to have signs of pneumonia clinically, no cough, fever, chills, nausea, vomiting, hypoxia, clear lung sounds on exam -discussed the workup with patient and family, they are reassured by currently negative workup. They will follow-up with the PCP at this time -My assessment and the results of testing completed here in the ED were discussed with the patient/family. All questions were answered, and they expressed understanding of my assessment and the plan.They have been instructed to return if symptoms worsen, and they have been asked to follow up with their PCP to recheck today's presenting complaint. 06/21/[address] (done for swelling with ent): No soft tissue swelling or other significant abnormality of the neck. ASSESSMENT: (R22.0) Facial swelling (primary encounter diagnosis) (I10) Essential hypertension with goal blood pressure less than 140/90 (E78.2) Mixed hyperlipidemia (E11.9) Type 2 diabetes mellitus with hemoglobin A1c goal of less than 8.0% (HCC) (I27.20) Pulmonary HTN (HCC) (J84.9) Interstitial lung disease (HCC) (I47.29) NSVT (nonsustained ventricular tachycardia) (HCC) (T17.308A) Choking, initial encounter (M10.9) Gouty arthropathy PLAN: Facial swelling (Primary) - CBC WITH WBC DIFFERENTIAL; Future; Expected date: 11/08/2024 - ALLERGY REFERRAL OP - COMPLEMENT C3; Future; Expected date: 11/08/2024 - COMPLEMENT C4; Future; Expected date: 11/08/2024 Still unclear, possible allergy component as he reports better with anti-histamines Check labs Ask allergy aid, follow Er for severe Essential hypertension with goal blood pressure less than 140/90 - COMPREHENSIVE METABOLIC PANEL; Future; Expected date: 11/08/2024 Cont hctz, lisinopril, metoprolol Mixed hyperlipidemia Cont rosuvastatin Type 2 diabetes mellitus with hemoglobin A1c goal of less than 8.0% (HCC) - HEMOGLOBIN A1C; Future; Expected date: 11/08/2024 Pulmonary HTN (HCC) Bp controlled Await cardiology Interstitial lung disease (HCC) No current flower - follow symptoms Discussed further evaul for swallow study exclude chronic aspiration, declines NSVT (nonsustained ventricular tachycardia) (HCC) Cont metoprolol Choking, initial encounter As above, declines swallow Follow Gouty arthropathy Cont allopurinol Follow Up: Return in about 6 months (around 05/08/2025) for Labs Today. | For: Labs Today Kenny Alvarado MD documented in this encounter Nursing Notes * [facility] - 11/08/2024 12:33 PM EST Pt is here for 6 month follow up pt also is here for hospital follow up pt went to er in 10/25/24 Ilya Garcia pt stated he has questions about the swelling in his face pt said the ER did not give him answers why his face is swelling up pt's said this past Tuesday pt's left side of face was swelled up again documented in this encounter Plan of Treatment Upcoming Encounters Date Type Department Care Team (Late st Contact Info) Description 12/18/2024 10:30 AM EDT Office Visit Cardiology, [facility] [address] [place] [id number] Benny Wylie DO [address] [place] [address] 01/01/2025 2:00 PM EDT Office Visit Allergy/Immunology [facility] [address] [facility] [place] [address] Larry Cleveland MD [address] [facility] [place] [address] 06/10/2025 12:40 PM EDT Office Visit General Internal Medicine [facility] [address] [facility] [place] [address] Kenny Alvarado MD [address] [facility] [place] [address] 07/03/2025 8:30 AM EDT Office Visit Urology, [facility] [address] [place] [id number] Hung Horowitz MD [address] [place] [address] Scheduled Procedures Name Priority Associated Diagnoses Date/Ti me COLONOSCOPY FLEXIBLE PROXIMAL DIAGNOSTIC Recall History of colon polyps Scheduled Referrals Name Type Priority Associated Diagnoses Orde r Schedule ALLERGY REFERRAL OP Referral Within 30 da ys (routine) Facial swelling Ordered: 11/08/2024 Health Maintenance Due Date Last Done Comments [...] Not on filedocumented as of this encounter Results * COMPLEMENT C4 (11/08/2024 1:08 PM EST) Complement C4 31 10 - 40 mg/dL 11/08/2024 5:22 PM EST [facility] Blood Venous blood specimen / Unknown Venipuncture / Unknown 11/08/2024 1:08 PM EST 11/08/2024 1:08 PM EST Kenny Alvarado MD LAB BLOOD ORDERABLES Fin al Result Performing Organization Address City/[facility]/ZIP Co de Phone Number LABORATORY [facility] [address] [place] [address] * COMPLEMENT C3 (11/08/2024 1:08 PM EST) [facility] Complement C3 168 90 - 180 mg/dL 11/08/2024 5:22 PM EST LABORATORY [facility] Blood Venous blood specimen / Unknown Venipuncture / Unknown 11/08/2024 1:08 PM EST 11/08/2024 1:08 PM EST Kenny Alvarado MD LAB BLOOD ORDERABLES Fin al Result Performing Organization Address [facility] de Phone Number LABORATORY [facility] [address] [place] [address] * (ABNORMAL) HEMOGLOBIN A1C (11/08/2024 1:08 PM EST) [facility] Hemoglobin A1C 7.3(H) 4.0 - 5.6 % 11/08/2024 5:25 PM EST LABORATORY [facility] Comment:The use of HbA1c to monitor glycemic status is based on normal hemoglobin and HbA composition. This test should not be used in patients with abnormal hemoglobin that affects the half life of the red blood cell or the in vivo glycation rates. Estimated Average Glucose 163(H) <126 mg/dL 11/08/2024 5:25 PM EST LABORATORY [facility] Blood Venous blood specimen / Unknown Venipuncture / Unknown 11/08/2024 1:08 PM EST 11/08/2024 1:08 PM EST Kenny Alvarado MD LAB BLOOD ORDERABLES Fin al Result Performing Organization Address City/[facility] Co de Phone Number LABORATORY [facility] [address] [place] [address] * (ABNORMAL) COMPREHENSIVE METABOLIC PANEL (11/08/2024 1:08 PM EST) [facility] BUN 13 6 - 20 mg/dL 11/08/2024 2:03 PM [facility] 56-02 CREATININE 0.9 0.6 - 1.2 mg/dL 11/08/2024 2:03 PM [facility] 56- EGFR 84 >=60 mL/min 11/08/2024 2:03 PM [facility] 56- Comment:eGFR is calculated b ased on the CKD-EPI 2020 equation. SODIUM 138 135 - 146 mmol/L 11/08/2024 2:03 PM [facility] 56- POTASSIUM 4.2 3.5 - 5.1 mmol/L 11/08/2024 2:03 PM [facility] 56- CHLORIDE 97(L) 98 - 107 mmol/L 11/08/2024 2:03 PM [facility] 56- CO2 29 22 - 32 mmol/L 11/08/2024 2:03 PM [facility] 56 ANION GAP 12 7 - 15 mmol/L 11/08/2024 2:03 PM [facility] 56 GLUCOSE 140(H) 70 - 120 mg/dL 11/08/2024 2:03 PM [facility] 56- Albumin 3.9 3.8 - 5.0 g/dL 11/08/2024 2:03 PM [facility] 56- AST 35 10 - 50 U/L 11/08/2024 2:03 PM [facility] 56- Alkaline Phosphatase 104 35 - 130 U/L 11/08/2024 2:03 PM [facility] 56- Bilirubin, Total 0.8 <=1.2 mg/dL 11/08/2024 2:03 PM [facility] 56- CALCIUM 9.5 8.4 - 10.2 mg/dL 11/08/2024 2:03 PM [facility] 56- Protein 7.5 6.0 - 8.3 g/dL 11/08/2024 2:03 PM [facility] 56- ALT 24 10 - 50 U/L 11/08/2024 2:03 PM [facility] 56- Blood Venous blood specimen / Unknown Venipuncture / Unknown 11/08/2024 1:08 PM EST 11/08/2024 1:08 PM EST us Kenny Alvarado MD LAB BLOOD ORDERABLES Fin al Result LABORATORY [place] [address] [place] [address] documented in this encounter Visit Diagnoses Diagnosis Facial swelling- Primary Swelling, mass, or lump in head and neck Essential hypertension with goal blood pressure less than 140/90 Mixed hyperlipidemia Type 2 diabetes mellitus with hemoglobin A1c goal of less than 8.0% (HCC) Pulmonary HTN (HCC) Other chronic pulmonary heart diseases Interstitial lung disease (HCC) Postinflammatory pulmonary fibrosis NSVT (nonsustained ventricular tachycardia) (HCC) Paroxysmal ventricular tachycardia Choking, initial encounter Gouty arthropathy Gouty arthropathy, unspecified documented in this encounter Care Teams Sales Clerk Supervisor Relationship Specialty Start Date End Date Kenny Alvarado MD [address] [place] [address] PCP - General Internal Medicine 07/30/21 documented as of this encounter"
[2024-12-29] MEDS: SODIUM CHLORIDE 0.9% 500 ML IV ONE ×2 (02:29→22:36)
[2024-12-29 07:06] LABS: Basophils # (auto) 0.04 K/uL (0.00-0.20); Basophils % (auto) 0.3 %; Eosinophils # (auto) 0.08 K/uL (0.00-0.50); Eosinophils % (auto) 0.6 %; Hematocrit (blood only) 38.2 % (42.0-52.0); Hemoglobin 12.6 g/dl (14.0-18.0); Immature Granulocytes % (auto) 0.8 %; Lymphocytes % (auto) 11.3 %; Mean Corpuscular Hemoglobin 30.3 pg (25.0-34.0); Mean Corpuscular Volume 91.8 fL (80.0-100.0); Monocytes # (auto) 1.68 K/uL (0.11-0.59); Monocytes % (auto) 12.7 %; Neutrophils # (auto) 9.85 K/uL (1.40-6.50); Neutrophils % (auto) 74.3 %; Platelet Count 251 K/uL (130-400); RDW Coefficient of Variation 13.6 % (11.5-14.5); RDW Standard Deviation 46.2 fL (36.4-46.3); Red Blood Count 4.16 M/uL (4.70-6.10); White Blood Count 13.25 K/ul (4.8-10.8)
[2024-12-29 07:23] LABS: BUN Creatinine Ratio 24.4 (10-20); Calcium 9.4 mg/dl (8.6-10.3); Creatinine Clr Calc Pharmacy 48.1 ml/min; Potassium 3.9 mmol/L (3.5-5.1)
[2024-12-29] MEDS: ONDANSETRON INJ 2 MG/ML 2 ML VIAL IV PRN (07:44)
[2024-12-29] MEDS: POLYETHYLENE (MIRALAX) 17 GM PACK PO SCH (09:06)
[2024-12-29] MEDS: DOCUSATE SODIUM 100 MG CAP PO SCH (09:06)
[2024-12-29] MEDS: allopurinoL 300 MG TAB PO SCH (09:08)
[2024-12-29] MEDS: FINASTERIDE 5 MG TAB PO SCH (09:08)
[2024-12-29] MEDS: lisinopril 10 MG TAB PO SCH (09:09)
[2024-12-29] MEDS: hydroCHLOROthiazide 25 MG TAB PO SCH (09:09)
[2024-12-29] MEDS: OXYBUTYNIN CHLORIDE XL 5 MG TABCR PO SCH (09:10)
[2024-12-29] MEDS: ROSUVASTATIN CALCIUM 10 MG TAB PO SCH (09:10)
[2024-12-29] MEDS: CEROVITE ADV FORMULA TAB PO SCH (09:10)
--- OUTSIDE RECORDS SUMMARY | 2024-12-29 09:58 | External Medical Summary | Summary of Care ---
Author Name Unknown Organization [facility] Address [address] [place] [address] Phone [phone] Care Team Providers Care Parcel Post Clerk Name Role Phone Kenny Alvarado MD Primary Care Provider + Reason for Visit * Reason Onset Date Comments Test Results 12/28/2024 Encounter Details Date Type Department Care Team (Late st Contact Info) Description 12/28/2024 Telephone General Internal Medicine [facility] [address] [facility] [place] [address] Cayla Castellanos PA-C [address] [facility] [place] [address] Test Results Allergies No known active allergiesdocumented as of this encounter (statuses as of 12/28/2024) Medications ASPIRIN 81 MG PO TABS one [...] hemoglobin A1c goal of less than 8.0% ([facility]) Use fasting daily. E11.9 100 [...] as of this encounter (statuses as of 12/28/2024) Active Problems Problem Noted Date Diagnosed Date [...] as of this encounter (statuses as of 12/28/2024) Resolved Problems Problem Noted Date Diagnosed Date [...] as of this encounter (statuses as of 12/28/2024) Immunizations Name Administration Dates Next Due COVID-19 [...] encounter Miscellaneous Notes * Telephone Encounter - Josie Cazares OSA - 12/28/2024 12:02 PM EDT Spoke to pts and they are going to urgent care today. She also scheduled him an appointment for the weekend clinic just incase something happens and pt changes his mind about going to urgent care Samaria said that she will cancel the weekend clinic apt if pt ends up not needing it * Telephone Encounter - Cayla Castellanos PA-C - 12/28/2024 11:29 AM EDT Noted. Unfortunately I'm not comfortable giving him anything like a narcotic without seeing him. Hecould try to schedule an appt this afternoon or go to an urgent care for evaluation. * Telephone Encounter - Jeri Medellin LPN - 12/28/2024 11:15 AM EDT He is currently alternating Tylenol and Ibuprofen not helping at all. * Telephone Encounter - Cayla Castellanos PA-C - 12/28/2024 11:05 AM EDT What is he currently taking for pain? * Telephone Encounter - Bay Garcia RN - 12/28/2024 9:46 AM EDT Called patient and informed him and his spouse Samaria of Cayla's previous message. They both verbalized understanding. Patient said he is not feeling very good. States he feels weak and washed out. Patient said he is no longer having any burning with urination, states he is still voiding every 1.5 to 2 hours. Patientsaid he is still having the abdominal pain and can't lay down and can't sleep. Patient's said he is coughing and burping a lot. She said he is scheduled to see the surgeon on Tuesday. Patient asked if there is any medication that can be sent in for pain? Please advise. Did advise them that if patient's symptoms become severe to call 911 and go to the ER. They verbalized understanding. Pharmacy confirmed. * Telephone Encounter - Bay Garcia RN - 12/28/2024 9:30 AM EDT ----- Message from Cayla Castellanos sent at 12/28/2024 8:54 AM EDT ----- UA was still showing a few bacteria, however the culture was negative for any significant growth. How is the pt feeling? documented in this encounter Plan of Treatment Upcoming Encounters Date Type Department Care Team (Late st Contact Info) Description 12/29/2024 10:20 AM EDT Office Visit Family Practice [facility] [address] [facility] [place] [address] Karen Villalobos MD [address] [facility] [place] [address] 12/31/2024 1:30 PM EDT Office Visit General Surgery, [facility] [address] [facility] [place] [address] Matthieu Ragsdale MD [address] [place] [address] 01/01/2025 2:00 PM EDT Office Visit Allergy/Immunology [facility] [address] [place] [address] Larry Cleveland MD [address] [place] [address] 06/10/2025 12:40 PM EDT Office Visit General Internal Medicine [facility] [address] [place] [address] Kenny Alvarado MD [address] [facility] [place] [address] 07/03/2025 8:30 AM EDT Office Visit Urology, [facility] [address] [place] [id number] Hung Horowitz MD [address] [place] [address] Scheduled Procedures Name Priority Associated Diagnoses Date/Ti [...] Not on filedocumented as of this encounter Care Teams Parcel Post Clerk Relationship Specialty Start Date End Date Kenny Alvarado MD [address] [place] [address] PCP - General Internal Medicine 07/30/21 documented as of this encounter
--- NOTE | 2024-12-29 14:46 | Hospitalist Progress Note ---
Date of Service December 29, 2024 Assessment & Plan (1) Generalized weakness: Plan: Patient is 84-year-old male with PMH HTN, HLD, DM II, pulmonary HTN, interstitial lung disease, history RBBB and LBBB, history NSVT, gout presented to ER with c/o progressive weakness. Presented with generalized weakness with recent history of possible viral respiratory infection In ER afebrile, Vital stable Minimally elevated white count of 15,000 and without any other significant lab abnormalities CXR: no consolidation noted No focal findings on exam Possible deconditioning from recent illness. R/O bacteremia. Blood cultures pending Clinically a little better since this morning and remains afebrile Urine culture has been sent and awaiting blood cultures His white count has been improving- advised to drink more fluid Will get PT and OT evaluation #Abdominal pain Right sided/RLL abdominal pain with movement started after severe coughing CT abd/pelvis: Stable small fat-containing right inguinal hernia. Prostate is mildly enlarged. Urinary bladder is decompressed. There is sigmoid diverticulosis. No acute diverticulitis. There is possible mild enteritis. No other bowel inflammation or obstruction seen. No free air or abscess. No enlarged adenopathy. Right inguinal pain is minimal and there is no lump and/or significant tenderness on examination No bowel problem and no evidence of diverticulitis Will observe (2) Ambulatory dysfunction: Plan: Likely secondary to profound weakness Will have PT and OT evaluation prior to discharge (3) Recent urinary tract infection: Plan: Was having increased urinary frequency. 12/20/2024 urine culture + pansensitive > 100,000 colonies/mL E. coli Treated with Macrobid x 7 days Reported improvement of symptoms. UA without bacteria seen today Urine was sent for culture (4) Hypertension: Plan: Continue home lisinopril, HCTZ, metoprolol tartrate (5) Dyslipidemia: Plan: Continue rosuvastatin (6) Diabetes mellitus, type II: Plan: A1c: 7.3 on 11/08/24 Random glucose 180 Novolog sliding scale per protocol (7) NSVT (nonsustained ventricular tachycardia): Plan: History NSVT Continue metoprolol tartrate (8) BPH (benign prostatic hyperplasia): Plan: #History phimosis Follows with urology, Dr Horowitz Continue tamsulosin, finasteride, oxybutynin (9) Gout: Plan: Continue allopurinol DVT Prophylaxis Lovenox SQ Admit med tele DNR/DNI as per discussion with pt Follows with Dr Alvarado for routine care Pt was seen and care coordinated with Dr Castaneda. See addendum I spent a total of 72 minutes reviewing notes, outpatient records, labs, medication, coordinating, documenting and providing care for this patient excluding time spent in the performance of separately billed services and excluding time spent by another provider/QHP. Admission and Anticipated Discharge Date Admission Date: December 28, 2024 Subjective 12/29/2024 The patient was seen and examined in medical telemetry unit He was admitted with profound weakness without any other significant symptoms He has been feeling a little better since admission and denies any significant symptoms except minimal right inguinal pain Remains afebrile Review of Systems Review of Systems: All systems reviewed and are unremarkable except as noted below Physical Exam Physical Exam: Sitting on a chair without any acute distress Constitutional: well developed, well nourished and + ill appearing Eyes: PERRL, conjunctivae normal, anicteric sclerae ENMT: external ear and nose normal, oropharynx normal Neck: trachea midline, no thyromegaly Respiratory: no respiratory distress Auscultation: lungs clear to auscultation bilaterally Cardiovascular: Rate/Rhythm: regular rate and regular rhythm; not tachycardic Heart Sounds: normal S1 and normal S2; no murmur Extremities: no edema Gastrointestinal (Abdomen): Inspection/Auscultation: normal bowel sounds; abdomen not distended Percussion/Palpation: abdomen soft; abdomen nontender Musculoskeletal: Does not have any arthritis involving any of the joint Neurologic: normal touch/pain/proprioception and moves all extremities; no focal motor deficits and not confused Lymphatic: no cervical or axillary lymphadenopathy Results & Data Results & Data Vital Signs (Past 12 Hours) Vital Signs Temp Pulse Resp BP BP Pulse Ox O2 Del Method 12/29/24 11:32 36.5 C 64 16 106/69 95 Room Air 12/29/24 08:01 36.4 C L 68 16 107/71 96 Room Air 12/29/24 07:45 Room Air 12/29/24 03:12 108/74 Laboratory Results Short CBC 12/29/24 Range/Units 06:34 WBC 13.25 H (4.8-10.8) K/ul Hgb 12.6 L (14.0-18.0) g/dl Hct 38.2 L (42.0-52.0) % Plt Count 251 (130-400) K/uL BMP 12/29/24 06:34 Sodium 135 L Potassium 3.9 Chloride 97 L Carbon Dioxide 32 BUN 32 H Creatinine 1.31 D Glucose 149 H Calcium 9.4 Urine 12/28/24 Range/Units 15:10 Urine Color Dark Yellow Urine Appearance Clear (Clear) Urine pH 5.5 (4.5-7.5) Ur Specific [place] 1.024 (1.000-1.030) Urine Protein 1+ H (Negative) Urine Glucose (UA) Negative (Negative) Medications Administered Current Inpatient Medications Acetaminophen (Acetaminophen 325 Mg Tab) 650 mg PO Q4H PRN PRN Reason: Pain or Fever Stop: 01/27/25 18:16 Last Admin: 12/29/24 14:02 Dose: 650 mg Allopurinol (Allopurinol 300 Mg Tab) 300 mg PO Q2D ALEX Stop: 01/28/25 08:59 Last Admin: 12/29/24 09:08 Dose: 300 mg Aspirin (Aspirin 81 Mg Ectab) 81 mg PO HS ALEX Stop: 01/27/25 20:59 Last Admin: 12/28/24 20:31 Dose: 81 mg Brimonidine Tartrate (Brimonidine Tartrate 0.2% 5ml) 1 drops OPL BID ALEX Stop: 01/27/25 18:16 Last Admin: 12/29/24 09:12 Dose: 1 drops Dextrose (Dextrose 50% 50 Ml Syringe) 25 - 50 ml IV UD PRN; Protocol PRN Reason: Hypoglycemia Protocol Stop: 01/27/25 18:16 Docusate Sodium (Docusate Sodium 100 Mg Cap) 100 mg PO DAILY ALEX Stop: 01/28/25 08:59 Last Admin: 12/29/24 09:06 Dose: 100 mg Dorzolamide HCl (Dorzolamide Hcl 2% Oph Soln 10 Ml Btl) 1 drops OPL BID ALEX Stop: 01/27/25 20:59 Last Admin: 12/29/24 09:08 Dose: 1 drops Enoxaparin Sodium (Enoxaparin Inj 40 Mg/0.4 Ml Syr) 40 mg SQ Q24H ALEX Stop: 01/27/25 19:59 Last Admin: 12/28/24 20:30 Dose: 40 mg Finasteride (Finasteride 5 Mg Tab) 5 mg PO QAM [facility] Stop: 01/28/25 08:59 Last Admin: 12/29/24 09:08 Dose: 5 mg Glucagon (Glucagon For Inj 1 Mg Vial) 1 mg SQ UD PRN; Protocol PRN Reason: Hypoglycemia Protocol Stop: 01/27/25 18:16 Glucose (Glucose 40% Gel 15 Gm Tube) 15 - 30 gm PO UD PRN; Protocol PRN Reason: Hypoglycemia Protocol Stop: 01/27/25 18:16 Glucose (Glucose 10 Tab/Tube) 4 - 8 tab PO UD PRN; Protocol PRN Reason: Hypoglycemia Protocol Stop: 01/27/25 18:16 Hydrochlorothiazide (Hydrochlorothiazide 25 Mg Tab) [facility] Stop: 01/28/25 08:59 Last Admin: 12/29/24 09:09 Dose: 25 mg Insulin Aspart (Insulin Aspart Per Unit Charge) 0 units SC [facility] Stop: 01/27/25 20:59 Last Admin: 12/29/24 13:05 Dose: 2 units Latanoprost (Latanoprost 0.005% Op Soln 2.5 Ml Btl) 1 drops OPL HS [facility] Stop: 01/27/25 20:59 Last Admin: 12/28/24 20:29 Dose: 1 drops Lisinopril (Lisinopril 10 Mg Tab) 10 [facility] Stop: 01/28/25 08:59 Last Admin: 12/29/24 09:09 Dose: 10 mg Metoprolol Tartrate (Metoprolol Tartrate 25 Mg Tab) 12.5 mg PO BID [facility] Stop: 01/27/25 20:59 Last Admin: 12/29/24 09:09 Dose: 12.5 mg Miscellaneous (Remove Lidoderm Patch) 1 each N/A DAILY@2100 [facility] Stop: 01/27/25 22:59 Last Admin: 12/28/24 22:31 Dose: 1 each Miscellaneous (Carbohydrates For Hypoglycemia ) 15 - 30 gm PO UD PRN PRN Reason: Hypoglycemia Protocol Stop: 01/27/25 18:16 Multivitamins/Minerals (Cerovite Adv Formula Tab) 1 tab [facility] Stop: 01/28/25 08:59 Last Admin: 12/29/24 09:10 Dose: 1 tab Ondansetron HCl (Ondansetron Inj 2 Mg/Ml 2 Ml Vial) 4 mg IV Q6H PRN PRN Reason: Nausea Stop: 01/27/25 18:16 Last Admin: 12/29/24 07:44 Dose: 4 mg Oxybutynin Chloride (Oxybutynin Chloride Xl 5 Mg Tabcr) 10 mg PO DAILY ALEX Stop: 01/28/25 08:59 Last Admin: 12/29/24 09:10 Dose: 10 mg Polyethylene Glycol (Polyethylene (Miralax) 17 Gm Pack) 17 gm PO DAILY ALEX Stop: 01/28/25 08:59 Last Admin: 12/29/24 09:06 Dose: 17 gm Rosuvastatin Calcium (Rosuvastatin Calcium 10 Mg Tab) 10 mg PO QAM ALEX Stop: 01/28/25 08:59 Last Admin: 12/29/24 09:10 Dose: 10 mg Tamsulosin HCl (Tamsulosin Hcl 0.4 Mg Cap) 0.8 mg PO HS ALEX Stop: 01/27/25 20:59 Last Admin: 12/28/24 20:32 Dose: 0.8 mg Timolol Maleate (Timolol Maleate 0.5% Op Soln 5 Ml Btl) 1 drops OP BID ALEX Stop: 01/27/25 20:59 Last Admin: 12/29/24 09:11 Dose: 1 drops
[2024-12-30 09:33] LABS: Basophils # (auto) 0.03 K/uL (0.00-0.20); Basophils % (auto) 0.2 %; Eosinophils # (auto) 0.19 K/uL (0.00-0.50); Eosinophils % (auto) 1.5 %; Immature Granulocytes % (auto) 0.8 %; Lymphocytes # (auto) 1.43 K/uL (1.20-3.40); Mean Corpuscular Hemoglobin 30.8 pg (25.0-34.0); Mean Corpuscular Hgb Conc 33.3 g/dL (32.0-36.0); Mean Corpuscular Volume 92.3 fL (80.0-100.0); Mean Platelet Volume 10.9 fL (9.4-12.4); Neutrophils # (auto) 9.94 K/uL (1.40-6.50); Neutrophils % (auto) 76.5 %; Platelet Count 252 K/uL (130-400); RDW Coefficient of Variation 13.7 % (11.5-14.5); RDW Standard Deviation 46.5 fL (36.4-46.3); White Blood Count 12.99 K/ul (4.8-10.8)
[2024-12-30 09:51] LABS: BUN Creatinine Ratio 20.3 (10-20); Calcium 9.2 mg/dl (8.6-10.3); Potassium 4.1 mmol/L (3.5-5.1)
[2024-12-30] MEDS: SODIUM CHLORIDE 0.9% 1,000 ML IV SCH (10:54)
--- NOTE | 2024-12-30 11:28 | Hospitalist Progress Note ---
Date of Service December 30, 2024 Assessment & Plan (1) Generalized weakness: Plan: Patient is 84-year-old male with PMH HTN, HLD, DM II, pulmonary HTN, interstitial lung disease, history RBBB and LBBB, history NSVT, gout presented to ER with c/o progressive weakness. Presented with generalized weakness with recent history of possible viral respiratory infection In ER afebrile, Vital stable Minimally elevated white count of 15,000 and without any other significant lab abnormalities CXR: no consolidation noted No focal findings on exam Possible deconditioning from recent illness. R/O bacteremia. Blood cultures pending Clinically a little better since this morning and remains afebrile Urine culture has been sent and awaiting blood cultures His white count has been improving- advised to drink more fluid Will get PT and OT evaluation Hypotension Asymptomatic and required IV fluid bolus last night Noted to have increasing BUN and creatinine Doubt any sepsis but urine culture has been pending Blood pressure medications will be on hold for now Started with intravenous fluid to correct dehydration He was advised to drink more fluid Monitor PRP #Abdominal pain Right sided/RLL abdominal pain with movement started after severe coughing CT abd/pelvis: Stable small fat-containing right inguinal hernia. Prostate is mildly enlarged. Urinary bladder is decompressed. There is sigmoid diverticulosis. No acute diverticulitis. There is possible mild enteritis. No other bowel inflammation or obstruction seen. No free air or abscess. No enlarged adenopathy. Right inguinal pain is minimal and there is no lump and/or significant tenderness on examination No bowel problem and no evidence of diverticulitis Will observe- denies any more abdominal pain Bowel not moved and will give MiraLAX (2) Ambulatory dysfunction: Plan: Likely secondary to profound weakness Will have PT and OT evaluation prior to discharge (3) Recent urinary tract infection: Plan: Was having increased urinary frequency. 12/20/2024 urine culture + pansensitive > 100,000 colonies/mL E. coli Treated with Macrobid x 7 days Reported improvement of symptoms. UA without bacteria seen today Urine was sent for culture Awaiting culture (4) Hypertension: Plan: Continue home lisinopril, HCTZ, metoprolol tartrate Now has hypotension and will hold any blood pressure medications for now (5) Dyslipidemia: Plan: Continue rosuvastatin (6) Diabetes mellitus, type II: Plan: A1c: 7.3 on 11/08/24 Random glucose 180 Novolog sliding scale per protocol (7) NSVT (nonsustained ventricular tachycardia): Plan: History NSVT Continue metoprolol tartrate (8) BPH (benign prostatic hyperplasia): Plan: #History phimosis Follows with urology, Dr Horowitz Continue tamsulosin, finasteride, oxybutynin (9) Gout: Plan: Continue allopurinol DVT Prophylaxis Lovenox SQ Admit med tele DNR/DNI as per discussion with pt Follows with Dr Alvarado for routine care Admission and Anticipated Discharge Date Admission Date: December 28, 2024 Subjective 12/29/2024 The patient was seen and examined in medical telemetry unit He was admitted with profound weakness without any other significant symptoms He has been feeling a little better since admission and denies any significant symptoms except minimal right inguinal pain Remains afebrile 12/30/2024 The patient was seen and examined in medical telemetry unit in presence of the He was noted to have low blood pressure at night and required IV boluses He has been feeling better otherwise and the blood pressure remains low at 94/60 Denies any significant symptoms Review of Systems Review of Systems: All systems reviewed and are unremarkable except as noted below Physical Exam Physical Exam: Sitting on a chair without any acute distress Constitutional: well developed, well nourished and + ill appearing Eyes: PERRL, conjunctivae normal, anicteric sclerae ENMT: external ear and nose normal, oropharynx normal Neck: trachea midline, no thyromegaly Respiratory: no respiratory distress Auscultation: lungs clear to auscultation bilaterally Cardiovascular: Rate/Rhythm: regular rate and regular rhythm; not tachycardic Heart Sounds: normal S1 and normal S2; no murmur Extremities: no edema Gastrointestinal (Abdomen): Inspection/Auscultation: normal bowel sounds; abdomen not distended Percussion/Palpation: abdomen soft; abdomen nontender Neurologic: normal touch/pain/proprioception and moves all extremities; no focal motor deficits and not confused Lymphatic: no cervical or axillary lymphadenopathy Results & Data Results & Data Vital Signs (Past 12 Hours) Vital Signs Temp Pulse Pulse Resp BP BP Pulse Ox 12/30/24 07:57 36.4 C L 74 20 94/60 L 99 12/30/24 07:25 61 12/30/24 02:04 36.6 C 64 16 98/61 L 94 12/29/24 23:39 101/65 O2 Del Method 12/30/24 07:57 Room Air 12/30/24 07:25 12/30/24 02:04 Room Air 12/29/24 23:39 Laboratory Results Short CBC 12/30/24 Range/Units 09:14 WBC 12.99 H (4.8-10.8) K/ul Hgb 12.0 L (14.0-18.0) g/dl Hct 36.0 L (42.0-52.0) % Plt Count 252 (130-400) K/uL BMP 12/30/24 09:14 Sodium 134 L Potassium 4.1 Chloride 97 L Carbon Dioxide 28 BUN 46 H Creatinine 2.27 H D Glucose 130 H Calcium 9.2 Medications Administered Current Inpatient Medications Acetaminophen (Acetaminophen 325 Mg Tab) 650 mg PO Q4H PRN PRN Reason: Pain or Fever Stop: 01/27/25 18:16 Last Admin: 12/30/24 01:38 Dose: 650 mg Allopurinol (Allopurinol 300 Mg Tab) 300 mg PO Q2D ALEX Stop: 01/28/25 08:59 Last Admin: 12/29/24 09:08 Dose: 300 mg Aspirin (Aspirin 81 Mg Ectab) 81 mg PO HS ALEX Stop: 01/27/25 20:59 Last Admin: 12/29/24 20:31 Dose: 81 mg Brimonidine Tartrate (Brimonidine Tartrate 0.2% 5ml) 1 drops OPL BID ALEX Stop: 01/27/25 18:16 Last Admin: 12/30/24 09:04 Dose: 1 drops Dextrose (Dextrose 50% 50 Ml Syringe) 25 - 50 ml IV UD PRN; Protocol PRN Reason: Hypoglycemia Protocol Stop: 01/27/25 18:16 Docusate Sodium (Docusate Sodium 100 Mg Cap) 100 mg PO DAILY ALEX Stop: 01/28/25 08:59 Last Admin: 12/30/24 09:04 Dose: 100 mg Dorzolamide HCl (Dorzolamide Hcl 2% Oph Soln 10 Ml Btl) 1 drops OPL BID ALEX Stop: 01/27/25 20:59 Last Admin: 12/30/24 09:01 Dose: 1 drops Enoxaparin Sodium (Enoxaparin Inj 30 Mg/0.3 Ml Syr) 30 mg SQ Q24H ALEX Stop: 01/29/25 19:59 Finasteride (Finasteride 5 Mg Tab) 5 mg PO QAM ALEX Stop: 01/28/25 08:59 Last Admin: 12/30/24 09:05 Dose: 5 mg Glucagon (Glucagon For Inj 1 Mg Vial) 1 mg SQ UD PRN; Protocol PRN Reason: Hypoglycemia Protocol Stop: 01/27/25 18:16 Glucose (Glucose 40% Gel 15 Gm Tube) 15 - 30 gm PO UD PRN; Protocol PRN Reason: Hypoglycemia Protocol Stop: 01/27/25 18:16 Glucose (Glucose 10 Tab/Tube) 4 - 8 tab PO UD PRN; Protocol PRN Reason: Hypoglycemia Protocol Stop: 01/27/25 18:16 Hydrochlorothiazide (Hydrochlorothiazide 25 Mg Tab) 25 mg PO QAM ALEX Stop: 01/28/25 08:59 Last Admin: 12/30/24 09:02 Dose: 25 mg Sodium Chloride (Nss) 1,000 mls @ 125 mls/hr IV .Q8H ALEX Stop: 12/31/24 10:44 Last Admin: 12/30/24 10:54 Dose: 125 mls/hr Insulin Aspart (Insulin Aspart Per Unit Charge) 0 units SC ACHS ALEX Stop: 01/27/25 20:59 Last Admin: 12/30/24 09:03 Dose: 4 units Latanoprost (Latanoprost 0.005% Op Soln 2.5 Ml Btl) 1 drops OPL HS [facility] Stop: 01/27/25 20:59 Last Admin: 12/29/24 20:32 Dose: 1 drops Lisinopril (Lisinopril 10 Mg Tab) 10 mg PO QAM ALEX Stop: 01/28/25 08:59 Last Admin: 12/30/24 09:03 Dose: Not Given Metoprolol Tartrate (Metoprolol Tartrate 25 Mg Tab) 12.5 mg PO BID [facility] Stop: 01/27/25 20:59 Last Admin: 12/30/24 09:03 Dose: Not Given Miscellaneous (Remove Lidoderm Patch) 1 each N/A DAILY@2100 [facility] Stop: 01/27/25 22:59 Last Admin: 12/29/24 20:34 Dose: 1 each Miscellaneous (Carbohydrates For Hypoglycemia ) 15 - 30 gm PO UD PRN PRN Reason: Hypoglycemia Protocol Stop: 01/27/25 18:16 Multivitamins/Minerals (Cerovite Adv Formula Tab) 1 tab PO QAM ALEX Stop: 01/28/25 08:59 Last Admin: 12/30/24 09:02 Dose: 1 tab Ondansetron HCl (Ondansetron Inj 2 Mg/Ml 2 Ml Vial) 4 mg IV Q6H PRN PRN Reason: Nausea Stop: 01/27/25 18:16 Last Admin: 12/29/24 07:44 Dose: 4 mg Oxybutynin Chloride (Oxybutynin Chloride Xl 5 Mg Tabcr) 10 mg PO DAILY ALEX Stop: 01/28/25 08:59 Last Admin: 12/30/24 09:02 Dose: 10 mg Polyethylene Glycol (Polyethylene (Miralax) 17 Gm Pack) 17 gm PO DAILY ALEX Stop: 01/28/25 08:59 Last Admin: 12/30/24 09:01 Dose: 17 gm Rosuvastatin Calcium (Rosuvastatin Calcium 10 Mg Tab) 10 mg PO QAM ALEX Stop: 01/28/25 08:59 Last Admin: 12/30/24 09:03 Dose: 10 mg Tamsulosin HCl (Tamsulosin Hcl 0.4 Mg Cap) 0.8 mg PO HS ALEX Stop: 01/27/25 20:59 Last Admin: 12/29/24 20:31 Dose: 0.8 mg Timolol Maleate (Timolol Maleate 0.5% Op Soln 5 Ml Btl) 1 drops OP BID ALEX Stop: 01/27/25 20:59 Last Admin: 12/30/24 09:01 Dose: 1 drops
[2024-12-30] MEDS: ENOXAPARIN INJ 30 MG/0.3 ML SYR SQ SCH (20:08)
[2024-12-30] MEDS: MELATONIN 3 MG TAB PO PRN (23:43)
[2024-12-31 06:57] LABS: Basophils # (auto) 0.03 K/uL (0.00-0.20); Basophils % (auto) 0.3 %; Eosinophils # (auto) 0.22 K/uL (0.00-0.50); Eosinophils % (auto) 1.9 %; Hemoglobin 11.8 g/dl (14.0-18.0); Immature Granulocytes # (auto) 0.08 K/uL (0.01-0.20); Immature Granulocytes % (auto) 0.7 %; Lymphocytes % (auto) 12.3 %; Mean Corpuscular Hemoglobin 30.9 pg (25.0-34.0); Mean Corpuscular Hgb Conc 33.7 g/dL (32.0-36.0); Mean Corpuscular Volume 91.6 fL (80.0-100.0); Mean Platelet Volume 11.2 fL (9.4-12.4); Monocytes # (auto) 1.21 K/uL (0.11-0.59); Monocytes % (auto) 10.6 %; Neutrophils # (auto) 8.48 K/uL (1.40-6.50); Neutrophils % (auto) 74.2 %; Platelet Count 236 K/uL (130-400); RDW Coefficient of Variation 13.8 % (11.5-14.5); RDW Standard Deviation 46.7 fL (36.4-46.3); Red Blood Count 3.82 M/uL (4.70-6.10); White Blood Count 11.42 K/ul (4.8-10.8)
[2024-12-31 07:21] LABS: BUN Creatinine Ratio 24.7 (10-20); Calcium 8.9 mg/dl (8.6-10.3); Creatinine Clr Calc Pharmacy 29.6 ml/min; Magnesium 1.9 mg/dl (1.7-2.4); Potassium 4.6 mmol/L (3.5-5.1)
[2024-12-31] MEDS: bisacodyL 10 MG SUPP PR STA (09:32)
--- NOTE | 2024-12-31 13:07 | Hospitalist Progress Note ---
Date of Service December 31, 2024 Assessment & Plan (1) Generalized weakness: Plan: Patient is 84-year-old male with PMH HTN, HLD, DM II, pulmonary HTN, interstitial lung disease, history RBBB and LBBB, history NSVT, gout presented to ER with c/o progressive weakness. Presented with generalized weakness with recent history of possible viral respiratory infection In ER afebrile, Vital stable Minimally elevated white count of 15,000 and without any other significant lab abnormalities CXR: no consolidation noted No focal findings on exam Possible deconditioning from recent illness. R/O bacteremia. Blood cultures pending Clinically a little better since this morning and remains afebrile Urine culture has been sent and awaiting blood cultures His white count has been improving- advised to drink more fluid Will get PT and OT evaluation- awaiting PT OT evaluation Remains stable and feels a little better Has not had bowel movement since admission and will try glycerin suppository and also enema if no improvement Bowel moved following Suppository Complained epigastric pain -TUMs given Repeat CT abdomen and Pelvis-Some ascites ,no obstruction Bradycardia Heart rate went down to lower 40s without any symptoms mentioned that other night he was almost fainted and said that he was passing out EKG SR ,controlled rate and Trop-negative Discontinued BB Monitor -if further bradycardia will need Card ENMA Creatinine went up to 2.27 on 12/30/2024 likely secondary to dehydration He was given normal saline infusion and also advised to drink more fluid Creatinine is slightly better at 2.15 as of 12/31/2024 Will hold lisinopril hydrochlorothiazide Monitor PRP-Getting IVF and increase oral intake Hypotension Asymptomatic and required IV fluid bolus last night Noted to have increasing BUN and creatinine Doubt any sepsis but urine culture has been pending Blood pressure medications will be on hold for now Started with intravenous fluid to correct dehydration He was advised to drink more fluid Monitor PRP Blood pressure was noted to be low and his lisinopril and hydrochlorothiazide have been on hold #Abdominal pain Right sided/RLL abdominal pain with movement started after severe coughing CT abd/pelvis: Stable small fat-containing right inguinal hernia. Prostate is mildly enlarged. Urinary bladder is decompressed. There is sigmoid diverticulosis. No acute diverticulitis. There is possible mild enteritis. No other bowel inflammation or obstruction seen. No free air or abscess. No enlarged adenopathy. Right inguinal pain is minimal and there is no lump and/or significant tenderness on examination No bowel problem and no evidence of diverticulitis Will observe- denies any more abdominal pain Bowel not moved and will give MiraLAX Denies any abdominal pain- Repeat CT -some ascites,no obstruction (2) Ambulatory dysfunction: Plan: Likely secondary to profound weakness Will have PT and OT evaluation prior to discharge (3) Recent urinary tract infection: Plan: Was having increased urinary frequency. 12/20/2024 urine culture + pansensitive > 100,000 colonies/mL E. coli Treated with Macrobid x 7 days Reported improvement of symptoms. UA without bacteria seen today Urine was sent for culture Awaiting culture- culture has been negative (4) Hypertension: Plan: Continue home lisinopril, HCTZ, metoprolol tartrate Now has hypotension and will hold any blood pressure medications for now (5) Dyslipidemia: Plan: Continue rosuvastatin (6) Diabetes mellitus, type II: Plan: A1c: 7.3 on 11/08/24 Random glucose 180 Novolog sliding scale per protocol (7) NSVT (nonsustained ventricular tachycardia): Plan: History NSVT Continue metoprolol tartrate (8) BPH (benign prostatic hyperplasia): Plan: #History phimosis Follows with urology, Dr Horowitz Continue tamsulosin, finasteride, oxybutynin (9) Gout: Plan: Continue allopurinol DVT Prophylaxis Lovenox SQ Admit med tele DNR/DNI as per discussion with pt Follows with Dr Alvarado for routine care Admission and Anticipated Discharge Date Admission Date: December 28, 2024 Subjective 12/29/2024 The patient was seen and examined in medical telemetry unit He was admitted with profound weakness without any other significant symptoms He has been feeling a little better since admission and denies any significant symptoms except minimal right inguinal pain Remains afebrile 12/30/2024 The patient was seen and examined in medical telemetry unit in presence of the He was noted to have low blood pressure at night and required IV boluses He has been feeling better otherwise and the blood pressure remains low at 94/60 Denies any significant symptoms 12/31/2024 The patient was seen and examined in medical telemetry unit She has been feeling much better except minimal discomfort in the abdomen Does not have any pain in the right lower quadrant or right groin Has not had a bowel movement since admission Review of Systems Review of Systems: All systems reviewed and are unremarkable except as noted below Physical Exam Physical Exam: Sitting on a chair without any acute distress Constitutional: well developed, well nourished and + ill appearing Eyes: PERRL, conjunctivae normal, anicteric sclerae ENMT: external ear and nose normal, oropharynx normal Neck: trachea midline, no thyromegaly Respiratory: no respiratory distress Auscultation: lungs clear to auscultation bilaterally Cardiovascular: Rate/Rhythm: regular rate and regular rhythm; not tachycardic Heart Sounds: normal S1 and normal S2; no murmur Extremities: no edema Gastrointestinal (Abdomen): Inspection/Auscultation: normal bowel sounds; abdomen not distended Percussion/Palpation: abdomen soft; abdomen nontender Neurologic: normal touch/pain/proprioception and moves all extremities; no focal motor deficits and not confused Lymphatic: no cervical or axillary lymphadenopathy Results & Data Results & Data Vital Signs (Past 12 Hours) Vital Signs Temp Pulse Pulse Resp BP Pulse Ox O2 Del Method 12/31/24 11:27 66 18 103/69 95 Room Air 12/31/24 10:59 Room Air 12/31/24 07:57 94 H 18 114/75 91 Room Air 12/31/24 07:05 71 12/31/24 02:50 36.5 C 69 18 104/67 94 Room Air Laboratory Results Short CBC 12/31/24 Range/Units 06:33 WBC 11.42 H (4.8-10.8) K/ul Hgb 11.8 L (14.0-18.0) g/dl Hct 35.0 L (42.0-52.0) % Plt Count 236 (130-400) K/uL [facility] 12/31/24 06:33 Sodium 133 L Potassium 4.6 Chloride 100 Carbon Dioxide 28 BUN 53 H Creatinine 2.15 H Glucose 125 H Calcium 8.9 Medications Administered Current Inpatient Medications Acetaminophen (Acetaminophen 325 Mg Tab) 650 mg PO Q4H PRN PRN Reason: Pain or Fever Stop: 01/27/25 18:16 Last Admin: 12/31/24 02:12 Dose: 650 mg Allopurinol (Allopurinol 300 Mg Tab) 300 mg PO Q2D ALEX Stop: 01/28/25 08:59 Last Admin: 12/31/24 07:39 Dose: 300 mg Aspirin (Aspirin 81 Mg Ectab) 81 mg PO HS ALEX Stop: 01/27/25 20:59 Last Admin: 12/30/24 20:09 Dose: 81 mg Brimonidine Tartrate (Brimonidine Tartrate 0.2% 5ml) 1 drops OPL BID ALEX Stop: 01/27/25 18:16 Last Admin: 12/31/24 07:38 Dose: 1 drops Dextrose (Dextrose 50% 50 Ml Syringe) 25 - 50 ml IV UD PRN; Protocol PRN Reason: Hypoglycemia Protocol Stop: 01/27/25 18:16 Docusate Sodium (Docusate Sodium 100 Mg Cap) 100 mg PO DAILY ALEX Stop: 01/28/25 08:59 Last Admin: 12/31/24 07:41 Dose: 100 mg Dorzolamide HCl (Dorzolamide Hcl 2% Oph Soln 10 Ml Btl) 1 drops OPL BID ALEX Stop: 01/27/25 20:59 Last Admin: 12/31/24 07:37 Dose: 1 drops Enoxaparin Sodium (Enoxaparin Inj 30 Mg/0.3 Ml Syr) 30 mg SQ Q24H ALEX Stop: 01/29/25 19:59 Last Admin: 12/30/24 20:08 Dose: 30 mg Finasteride (Finasteride 5 Mg Tab) 5 mg PO QAM ALEX Stop: 01/28/25 08:59 Last Admin: 12/31/24 07:38 Dose: 5 mg Glucagon (Glucagon For Inj 1 Mg Vial) 1 mg SQ UD PRN; Protocol PRN Reason: Hypoglycemia Protocol Stop: 01/27/25 18:16 Glucose (Glucose 40% Gel 15 Gm Tube) 15 - 30 gm PO UD PRN; Protocol PRN Reason: Hypoglycemia Protocol Stop: 01/27/25 18:16 Glucose (Glucose 10 Tab/Tube) 4 - 8 tab PO UD PRN; Protocol PRN Reason: Hypoglycemia Protocol Stop: 01/27/25 18:16 Hydrochlorothiazide (Hydrochlorothiazide 25 Mg Tab) 25 mg PO QAM ALEX Stop: 01/28/25 08:59 Last Admin: 12/31/24 07:39 Dose: 25 mg Insulin Aspart (Insulin Aspart Per Unit Charge) 0 units SC ACHS ALEX Stop: 01/27/25 20:59 Last Admin: 12/31/24 12:58 Dose: 2 units Latanoprost (Latanoprost 0.005% Op Soln 2.5 Ml Btl) 1 drops OPL HS ALEX Stop: 01/27/25 20:59 Last Admin: 12/30/24 20:10 Dose: 1 drops Lisinopril (Lisinopril 10 Mg Tab) 10 mg PO QAM ALEX Stop: 01/28/25 08:59 Last Admin: 12/30/24 09:03 Dose: Not Given Melatonin (Melatonin 3 Mg Tab) 3 mg PO HS PRN PRN Reason: Sleep Stop: 01/29/25 23:33 Last Admin: 12/30/24 23:43 Dose: 3 mg Metoprolol Tartrate (Metoprolol Tartrate 25 Mg Tab) 12.5 mg PO BID ALEX Stop: 01/27/25 20:59 Last Admin: 12/31/24 09:04 Dose: 12.5 mg Miscellaneous (Remove Lidoderm Patch) 1 each N/A DAILY@2100 COUNT INCLUDES THE [facility] Stop: 01/27/25 22:59 Last Admin: 12/30/24 20:41 Dose: Not Given Miscellaneous (Carbohydrates For Hypoglycemia ) 15 - 30 gm PO UD PRN PRN Reason: Hypoglycemia Protocol Stop: 01/27/25 18:16 Multivitamins/Minerals (Cerovite Adv Formula Tab) 1 tab PO QAM COUNT INCLUDES THE [facility] Stop: 01/28/25 08:59 Last Admin: 12/31/24 07:39 Dose: 1 tab Ondansetron HCl (Ondansetron Inj 2 Mg/Ml 2 Ml Vial) 4 mg IV Q6H PRN PRN Reason: Nausea Stop: 01/27/25 18:16 Last Admin: 12/29/24 07:44 Dose: 4 mg Oxybutynin Chloride (Oxybutynin Chloride Xl 5 Mg Tabcr) 10 mg PO DAILY ALEX Stop: 01/28/25 08:59 Last Admin: 12/31/24 07:39 Dose: 10 mg Polyethylene Glycol (Polyethylene (Miralax) 17 Gm Pack) 17 gm PO DAILY ALEX Stop: 01/28/25 08:59 Last Admin: 12/31/24 07:41 Dose: 17 gm Rosuvastatin Calcium (Rosuvastatin Calcium 10 Mg Tab) 10 mg PO QAM ALEX Stop: 01/28/25 08:59 Last Admin: 12/31/24 07:40 Dose: 10 mg Tamsulosin HCl (Tamsulosin Hcl 0.4 Mg Cap) 0.8 mg PO HS ALEX Stop: 01/27/25 20:59 Last Admin: 12/30/24 20:08 Dose: 0.8 mg Timolol Maleate (Timolol Maleate 0.5% Op Soln 5 Ml Btl) 1 drops OP BID ALEX Stop: 01/27/25 20:59 Last Admin: 12/31/24 07:37 Dose: 1 drops
[2024-12-31] MEDS: SODIUM CHLORIDE 0.9% 1,000 ML IV SCH (14:28)
[2024-12-31] MEDS: CALCIUM CARBONATE 500 MG CHEWABLE TAB PO PRN (15:26)
--- NOTE | 2024-12-31 17:17 | CT Scan Report ---
EXAM: CT Abdomen and Pelvis Without Intravenous Contrast INDICATION: Evaluate for obstruction. TECHNIQUE: Axial computed tomography images of the abdomen and pelvis without intravenous contrast. Sagittal and coronal reformatted images were created and reviewed. This CT exam was performed using one or more of the following dose reduction techniques: automated exposure control, adjustment of the mA and/or kV according to patient size, and/or use of iterative reconstruction technique. COMPARISON: 07/27/2023 FINDINGS: Limitations: None. Lung bases: No abnormality noted. Pleural space: Trace bilateral pleural effusions present. Heart: Mild cardiomegaly and trace pericardial effusion. Mediastinum: No abnormality noted. ABDOMEN: Liver: Few granulomas noted in the liver which otherwise appears normal. Gallbladder and bile ducts: Collapsed gallbladder contains dense material. No calcifications. No ductal dilatation or calcification. Pancreas: No pancreatic mass, calcification, inflammation or ductal dilation noted. Spleen: There is a granuloma in the spleen which is normal size. Adrenals: No significant abnormality noted. Kidneys and ureters: Simple right renal cyst/s. No simple cyst follow-up necessary. Left kidney appears normal. No renal stone, hydronephrosis or perinephric fluid. Left kidney appears normal. Stomach and bowel:Moderate amounts of stool in the right colon. Diverticulosis noted. Limited assessment for the presence of inflammation given the presence of ascites and resultant edema. No obstruction. PELVIS: Appendix: Not distinctly defined. Ascitic fluid limits assessment for edema. Bladder: Appears normal for the degree of filling. No stones or inflammation. No large mass. Masses may not be detected in the absence of opacification. Reproductive: No abnormalities noted. ABDOMEN and PELVIS: Intraperitoneal space: Now present is moderate abdominal and pelvic ascites. No free air. No organized collection to suggest abscess. Bones/joints: Degenerative changes noted throughout the spine. No acute osseous abnormality seen. Soft tissues: There are small bilateral fat containing inguinal hernias. Bilateral inguinal hernias containing fat. Subcutaneous edema noted. Vasculature: Atherosclerotic calcification of the aorta and branches. No aneurysm. Lymph nodes: Centrilobular emphysematous changes and scarring noted in the lung bases. Granulomatous lymph nodes identified. IMPRESSION: 1. Moderate abdominal and pelvic ascites and trace pleural effusions. 2. Colonic diverticulosis. Assessment for inflammation limited due to the presence of ascites and edema. Secondary small bowel thickening related to the presence of ascites. No obstruction. ACT 112: N/A This Electronically signed by Arminda Wilkinson 12-31-2024 5:17 PM
[2025-01-01 06:14] LABS: Basophils # (auto) 0.03 K/uL (0.00-0.20); Basophils % (auto) 0.3 %; Eosinophils # (auto) 0.27 K/uL (0.00-0.50); Eosinophils % (auto) 2.4 %; Hematocrit (blood only) 34.4 % (42.0-52.0); Hemoglobin 11.5 g/dl (14.0-18.0); Immature Granulocytes % (auto) 0.9 %; Lymphocytes # (auto) 1.38 K/uL (1.20-3.40); Lymphocytes % (auto) 12.2 %; Mean Corpuscular Hemoglobin 30.5 pg (25.0-34.0); Mean Corpuscular Hgb Conc 33.4 g/dL (32.0-36.0); Mean Corpuscular Volume 91.2 fL (80.0-100.0); Mean Platelet Volume 11.4 fL (9.4-12.4); Monocytes # (auto) 1.21 K/uL (0.11-0.59); Monocytes % (auto) 10.7 %; Neutrophils # (auto) 8.36 K/uL (1.40-6.50); Neutrophils % (auto) 73.5 %; Platelet Count 261 K/uL (130-400); RDW Coefficient of Variation 13.5 % (11.5-14.5); RDW Standard Deviation 45.2 fL (36.4-46.3); Red Blood Count 3.77 M/uL (4.70-6.10); White Blood Count 11.35 K/ul (4.8-10.8)
[2025-01-01 06:30] LABS: Calcium 8.9 mg/dl (8.6-10.3); Creatinine Clr Calc Pharmacy 46.2 ml/min; Potassium 4.2 mmol/L (3.5-5.1)
--- NOTE | 2025-01-01 07:59 | Electrocardiogram Report ---
Test Reason : Blood Pressure : */* mmHG Vent. Rate : 62 BPM Atrial Rate : 62 BPM P-R Int : 198 ms QRS Dur : 144 ms QT Int : 422 ms P-R-T Axes : 40 -55 38 degrees QTcB Int : 428 ms Normal sinus rhythm Left axis deviation Non-specific intra-ventricular conduction block Possible Old Anterolateral infarct Abnormal ECG When compared with ECG of 28-Dec-2024 13:15, No significant change Confirmed by Brett Webber ([id number]) on 01/01/2025 7:59:24 AM Referred By: REFERRED SELF Confirmed By: Brett Webber
[2025-01-01] MEDS ORDERED: bisacodyL 10 MG SUPP PR PRN (10:33)
[2025-01-01] MEDS: SENNA 8.6 MG TAB PO SCH (11:41)
--- NOTE | 2025-01-01 13:57 | Cardiology Consultation ---
Date of Consultation January 01, 2025 Assessment & Plan (1) Sinus bradycardia: (2) Intraventricular conduction delay: (3) Generalized weakness: (4) Acute UTI: Plan 84-year-old male admitted with generalized weakness likely secondary to urinary tract infection and transient hypotension. Sinus bradycardia with 2.6-second sinus pause recorded on telemetry yesterday at approximately 2:50 PM. No associated symptoms. Underlying conduction disease noted with history of both right bundle and left bundle branch block. ECG on admission demonstrating nonspecific interventricular conduction block. No evidence of high degree AV block, symptomatic bradycardia, or significant pauses on telemetry since admission. Agree with holding beta-oplo at this time. Continue telemetry monitoring. Assess TSH with reflex to free T4 if indicated. Currently, no overt indication for pacemaker implantation. I did discuss with both the patient and his the possible need for pacemaker at implant at some point in the future given underlying conduction disease and intermittent bradycardia. Thank you for allow me to participate in the care of your patient. I spent a total of 60 minutes on the date of service in preparation, delivery, and documentation of the care provided to this patient, excluding any time spent in the performance of separately billed services. Aaron Ibarra DO, [facility] History of Present Illness Reason for Consultation: Symptomatic bradycardia, pauses, PACs/PVCs Requesting Physician: Dr. Lora Attending Physician: Hayes Lora MD History of Present Illness 84-year-old male with history of right bundle branch block, left bundle branch block, nonsustained ventricular tachycardia in the setting of UTI 2021 presented to the emergency department with generalized weakness and low blood pressure. Recently diagnosed with UTI 12/20/2024 and placed on antibiotic therapy by primary care. Followed in the cardiology clinic due to his history of right bundle branch block and left bundle branch block. Chronically treated with beta-polo therapy due to history of nonsustained ventricular tachycardia occurring in the setting of infectious process. Normal LV function per echocardiogram 2020 Patient denies chest pain or unusual shortness of breath. Reports feeling extremely weak in the middle of the night and found to have low blood pressure. Symptoms attributed to urinary tract infection. Denies any recurrent li ghtheadedness or dizziness since admission. On telemetry 12/31/2024 at approximately 2:50 PM, patient developed sinus bradycardia with 2.6-second sinus pause. No associated symptoms. Beta-polo subsequently placed on hold. ECG on admission demonstrating nonspecific interventricular conduction block. Allergies Allergy/AdvReac Type Severity Reaction Status Date / Time Blackening Seasoning Allergy Intermediate Swelling Uncoded 07/28/23 09:00 of Lip/Tongue/Throat Home Medications Medication Instructions Recorded Confirmed Type allopurinol 300 mg tablet 300 mg PO Q2D 05/19/19 12/28/24 History aspirin 81 mg tablet,delayed 81 mg PO HS 05/19/19 12/28/24 History release finasteride 5 mg tablet 5 mg PO QAM 05/19/19 12/28/24 History hydrochlorothiazide 25 mg tablet 25 mg PO QAM 05/19/19 12/28/24 History lisinopril 10 mg tablet 10 mg PO QAM 05/19/19 12/28/24 History metoprolol tartrate 25 mg tablet 12.5 mg PO BID 05/19/19 12/28/24 History [id number] 300 mcg-K 60 1 tab PO QAM 05/19/19 12/28/24 History mcg-lycop 600 mcg-lutein 300 mcg tablet (Centrum Silver Men) rosuvastatin 10 mg tablet 10 mg PO QAM 05/19/19 12/28/24 History tamsulosin 0.4 mg capsule 0.8 mg PO HS 05/19/19 12/28/24 History brimonidine 0.2 % eye drops 1 drp OPL UD 07/28/23 12/28/24 History dorzolamide 2 % eye drops 1 drp OPL BID 07/28/23 12/28/24 History latanoprost (PF) 0.005 % eye drops 1 drp OPL HS 07/28/23 12/28/24 History in a dropperette oxybutynin chloride 10 mg 10 mg PO DAILY 07/28/23 12/28/24 History tablet,extended release 24 hr timolol maleate 0.5 % eye drops 1 drp OPB BID 07/28/23 12/28/24 History Patient History Medical History Gout BPH (benign prostatic hyperplasia) RBBB LBBB (left bundle branch block) NSVT (nonsustained ventricular tachycardia) Dyslipidemia Diabetes mellitus, type II Hypertension Surgical History History of colonoscopy Hx of tonsillectomy History of appendectomy Family History Other Cancer Diabetes Social History Smoking Status: Never smoker Second Hand Exposure: No; Do You Dip or Chew Tobacco: No; Hx Alcohol Use: No Hx Substance Use: No Preferred Language: Khmer Communication Ability: Effective 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: No Beliefs That Will Affect Care: None marital status: Current Living Situation: Spouse Current Living Situation Comment: lives at home with current occupational status: retired Other Information That Helps Us Care for You: No Feels Safe at Home: Yes Safety Concerns: Feels Safe At This Time Assistive Devices: Cane and Walker Review of Systems Review of Systems: All systems reviewed & are unremarkable except as noted in Subjective Physical Exam Constitutional: well nourished and + obese; no acute distress Respiratory: normal respiratory effort; no respiratory distress Auscultation: no crackles, no rales, no rhonchi and no wheezes Cardiovascular: Rate/Rhythm: regular rate and regular rhythm Heart Sounds: normal S1 and normal S2; no murmur Vessels: no JVD Extremities: + edema (Trace pedal edema.) Gastrointestinal (Abdomen): Inspection/Auscultation: abdomen normal to inspection and normal bowel sounds; abdomen not distended Neurologic: CN's II-XI intact bilaterally; no focal motor deficits Results & Data Vital Signs (Past 12 Hours) Vital Signs Temp Pulse Pulse Resp BP Pulse Ox O2 Del Method 01/01/25 10:56 36.5 C 59 L 18 120/68 100 Nasal Cannula 01/01/25 07:57 Room Air 01/01/25 07:38 71 01/01/25 07:19 36.4 C L 66 16 107/70 96 Room Air 01/01/25 02:30 36.4 C L 69 18 114/76 95 Room Air O2 Flow Rate 01/01/25 10:56 2 01/01/25 07:57 01/01/25 07:38 01/01/25 07:19 01/01/25 02:30 Laboratory Results Cardiac Enzymes 12/31/24 Range/Units 15:36 Troponin I High Sens 9.7 (0-20) pg/ml CBC 01/01/25 Range/Units 05:27 WBC 11.35 H (4.8-10.8) K/ul RBC 3.77 L (4.70-6.10) M/uL Hgb 11.5 L (14.0-18.0) g/dl Hct 34.4 L (42.0-52.0) % Plt Count 261 (130-400) K/uL Neut # (Auto) 8.36 H (1.40-6.50) K/uL Lymph # (Auto) 1.38 (1.20-3.40) K/uL [place] # (Auto) 1.21 H (0.11-0.59) K/uL Eos # (Auto) 0.27 (0.00-0.50) K/uL Baso # (Auto) 0.03 (0.00-0.20) K/uL Comprehensive Metabolic Panel 01/01/25 Range/Units 05:27 Sodium 134 L (136-145) mmol/L Potassium 4.2 (3.5-5.1) mmol/L Chloride 100 (98-107) mmol/L Carbon Dioxide 27 (21-32) mmol/L BUN 48 H (6-23) mg/dl Creatinine 1.41 H D (0.6-1.4) mg/dl Glucose 115 H (70-99(Fasting)) mg/dl Calcium 8.9 (8.6-10.3) mg/dl Intake and Output 12/31/24 01/01/25 01/01/25 22:59 06:59 14:59 Intake Total 1540 / 2660 120 / 2660 1440 / 1440 Balance 1540 / 2660 120 / 2660 1440 / 1440 Intake: IV 1000 / 1999 1000 / 1000 Sodium Chloride 0.9% 1,000 ml @ 1000 / 1000 1000 / 1000 125 mls/hr IV .Q8H ALEX Rx#: [id number] Oral 540 / 660 120 / 660 440 / 440 Other: # Unmeasured Voids 2 Weight 110.9 kg Weight Measurement Method Standing Scale
[2025-01-01 15:15] LABS: Thyroid Stimulating Hormone 2.265 uIu/ml (0.300-4.500)
--- NOTE | 2025-01-01 16:28 | Hospitalist Progress Note ---
Date of Service January 01, 2025 Assessment & Plan (1) Generalized weakness: Plan: Patient is 84-year-old male with PMH HTN, HLD, DM II, pulmonary HTN, interstitial lung disease, history RBBB and LBBB, history NSVT, gout presented to ER with c/o progressive weakness. Generalized weakness Recent history of possible viral respiratory infection Likely multifactorial secondary to ENMA, recent infection, bradycardia Leukocytosis trending down Bio fire negative Chest x-ray showed no acute process CTA abdomen ? Enteritis, repeat CT no acute process Urine culture showed mixed bud Blood cultures negative to date Continue PT OT Constipation Started on bowel regimen Sinus bradycardia 2.6 second pause Interventricular conduction delay H/O NSVT Metoprolol discontinued TSH normal May need pacemaker eventually Appreciate cardiology input Acute kidney injury Cr 2.2>2.1>1.4 Renal function improved with IV fluids Encouraged to increase oral fluid intake Lisinopril, HCTZ on hold Monitor renal function Avoid nephrotoxic agents as able Hypotension Likely due to dehydration Received IV fluids Hold antihypertensives (lisinopril, HCTZ) Blood pressure stable Monitor blood pressure Abdominal pain Right sided/RLL abdominal pain with movement started after severe coughing ? Musculoskeletal --CT abd/pelvis: Stable small fat-containing right inguinal hernia. Prostate is mildly enlarged. Urinary bladder is decompressed. There is sigmoid diverticulosis. No acute diverticulitis. There is possible mild enteritis. No other bowel inflammation or obstruction seen. No free air or abscess. No enlarged adenopathy. Right inguinal pain is minimal and there is no lump and/or significant tenderness on examination No bowel problem and no evidence of diverticulitis Abdominal pain resolved Bowel regimen to help with constipation Tolerating current diet (2) Ambulatory dysfunction: Plan: Continue PT OT Fall precautions (3) Recent urinary tract infection: Plan: Was having increased urinary frequency. 12/20/2024 urine culture + pansensitive > 100,000 colonies/mL E. coli Treated with Macrobid x 7 days Reported improvement of symptoms. (4) Hypertension: Plan: Resume home medications as able (5) Dyslipidemia: Plan: Continue rosuvastatin (6) Diabetes mellitus, type II: Plan: A1c: 7.3 on 11/08/24 Random glucose 180 Novolog sliding scale per protocol (7) NSVT (nonsustained ventricular tachycardia): Plan: History NSVT Metoprolol discontinued as above (8) BPH (benign prostatic hyperplasia): Plan: History phimosis Follows with urology, Dr Horowitz Continue tamsulosin, finasteride, oxybutynin (9) Gout: Plan: Continue allopurinol DVT Px Lovenox SQ Code Status DNR/DNI as per discussion with pt Follows with Dr Alvarado for routine care Admission and Anticipated Discharge Date Admission Date: December 28, 2024 Subjective Patient is seen and examined at bedside Reports constipation Had bradycardia overnight Abdominal pain resolved Denies any chest pain, dyspnea, nausea, vomiting Discussed with patient's family at bedside Review of Systems Review of Systems: All systems reviewed & are unremarkable except as noted in Subjective Physical Exam Physical Exam: Physical Exam: Vitals signs as noted above General Appearance:Obese, no apparent distress Head: normocephalic, Atraumatic Eyes: normal inspection, EOMI Neck: supple, Trachea midline Respiratory/Chest: Normal breath sounds, CTA, No accessory muscle use Cardiovascular: S1, S2, No murmur Abdomen/GI:Soft, Non tender, Bowel sounds present Extremities/Musculoskeletal:normal inspection, 1+edema Neurologic/Psych:AAOX3, grossly no focal neurological deficits Skin: normal color, warm Results & Data Results & Data Vital Signs (Past 12 Hours) Vital Signs Temp Pulse Pulse Resp BP Pulse Ox O2 Del Method 01/01/25 14:53 36.5 C 70 18 121/78 94 Room Air 01/01/25 14:00 67 01/01/25 10:56 36.5 C 59 L 18 120/68 100 Nasal Cannula 01/01/25 07:57 Room Air 01/01/25 07:38 71 01/01/25 07:19 36.4 C L 66 16 107/70 96 Room Air O2 Flow Rate 01/01/25 14:53 01/01/25 14:00 01/01/25 10:56 2 01/01/25 07:57 01/01/25 07:38 01/01/25 07:19 Laboratory Results Short CBC 01/01/25 Range/Units 05:27 WBC 11.35 H (4.8-10.8) K/ul Hgb 11.5 L (14.0-18.0) g/dl Hct 34.4 L (42.0-52.0) % Plt Count 261 (130-400) K/uL BMP 01/01/25 05:27 Sodium 134 L Potassium 4.2 Chloride 100 Carbon Dioxide 27 BUN 48 H Creatinine 1.41 H D Glucose 115 H Calcium 8.9
[2025-01-01] MEDS: DOCUSATE SODIUM 100 MG CAP PO SCH (20:40)
[2025-01-02 04:02] LABS: Appearance Urine Turbid (Clear); Bacteria Urine Automated 4+ (None Seen); Bilirubin Urine Negative (Negative); Blood Urine 2+ (Negative); Color Urine Yellow; Epithelial Cell Urine Auto 0-2 /hpf (0-2); Glucose Urine UA Negative (Negative); Ketones Urine Negative (Negative); Leukocyte Esterase Urine 2+ (Negative); Nitrite Urine Positive (Negative); Protein Urine 3+ (Negative); RBC Urine Automated >20 /hpf (0-2); Specific Gravity Urine 1.021 (1.000-1.030); Urobilinogen Urine Negative (Negative); WBC Urine Automated >50 /hpf (0-5); pH Urine 5.5 (4.5-7.5)
[2025-01-02] MEDS: cefTRIAXone SODIUM 2,000 MG/50 ML BAG IV SCH (05:33)
[2025-01-02 06:34] LABS: Hematocrit (blood only) 35.1 % (42.0-52.0); Hemoglobin 11.8 g/dl (14.0-18.0); Mean Corpuscular Hemoglobin 30.9 pg (25.0-34.0); Mean Corpuscular Hgb Conc 33.6 g/dL (32.0-36.0); Mean Corpuscular Volume 91.9 fL (80.0-100.0); Mean Platelet Volume 11.4 fL (9.4-12.4); Platelet Count 286 K/uL (130-400); RDW Coefficient of Variation 13.7 % (11.5-14.5); RDW Standard Deviation 46.2 fL (36.4-46.3); Red Blood Count 3.82 M/uL (4.70-6.10); White Blood Count 12.98 K/ul (4.8-10.8)
[2025-01-02 07:16] LABS: BUN Creatinine Ratio 36.9 (10-20); Calcium 9.2 mg/dl (8.6-10.3); Creatinine Clr Calc Pharmacy 63.2 ml/min; Potassium 4.3 mmol/L (3.5-5.1)
--- NOTE | 2025-01-02 10:00 | XRay Report ---
KUB HISTORY: constipation COMPARISON STUDY: None FINDINGS: Supine view the abdomen demonstrates bulging flanks and increased soft tissue density sugge stive of ascites. There is moderate fecal debris in the rectum. There is no increased stool burden pr oximally. There is no evidence of obstruction. Properitoneal fat lines and psoas margins are maintain ed. There are scattered degenerative changes throughout the lower thoracic and lumbar spine as well a s bilateral hips. IMPRESSION: Probable ascites. Nonspecific bowel gas pattern. ACT 112: Negative or not required by law. The above report was generated using voice recognition software. It may contain grammatical, syntax o r spelling errors. Electronically signed by: Lila Zepeda M.D. 01/02/2025 9:58 AM
[2025-01-02] MEDS ORDERED: SENNA 8.6 MG TAB PO PRN (14:27)
[2025-01-02] MEDS ORDERED: DOCUSATE SODIUM 100 MG CAP PO PRN (14:27)
[2025-01-02] MEDS ORDERED: POLYETHYLENE (MIRALAX) 17 GM PACK PO PRN (14:27)
--- NOTE | 2025-01-02 15:25 | Cardiology Progress Note ---
Date of Service January 02, 2025 Assessment & Plan (1) Sinus bradycardia: (2) Intraventricular conduction delay: (3) Generalized weakness: (4) Acute UTI: Plan 84-year-old male admitted with generalized weakness likely secondary to urinary tract infection and transient hypotension. Sinus bradycardia with 2.6-second sinus pause recorded on telemetry 01/01/2025 at approximately 2:50 PM. No associated symptoms. Underlying conduction disease noted with history of both right bundle and left bundle branch block. ECG on admission demonstrating nonspecific interventricular conduction block. No evidence of high degree AV block, symptomatic bradycardia, or significant pauses on telemetry since admission. Continue to hold beta-polo therapy and telemetry monitoring. Normal TSH noted. Currently, no overt indication for pacemaker implantation. I did discuss with both the patient and his the possible need for pacemaker at implant at some point in the future given underlying conduction disease and intermittent bradycardia. Thank you for allow me to participate in the care of your patient. Cardiology will sign off. Please call with additional concerns/questions. I spent a total of 30 minutes on the date of service in preparation, delivery, and documentation of the care provided to this patient, excluding any time spent in the performance of separately billed services. Aaron Ibarra DO, [facility] Admission and Anticipated Discharge Date Admission Date: December 28, 2024 Subjective 84-year-old male seen and examined at the bedside. Telemetry reveals sinus rhythm. No recurrent bradycardia or pauses. Denies palpitations. present at bedside as well. Offers no concerns/complaints. Review of Systems Review of Systems: All systems reviewed & are unremarkable except as noted in Subjective Physical Exam Constitutional: well nourished and + obese; no acute distress Respiratory: normal respiratory effort; no respiratory distress Auscultation: no crackles, no rales, no rhonchi and no wheezes Cardiovascular: Rate/Rhythm: regular rate and regular rhythm Heart Sounds: normal S1 and normal S2; no murmur Vessels: no JVD Extremities: + edema (Trace pedal edema.) Gastrointestinal (Abdomen): Inspection/Auscultation: abdomen normal to inspection and normal bowel sounds; abdomen not distended Neurologic: CN's II-XI intact bilaterally; no focal motor deficits Results & Data Vital Signs (Past 12 Hours) Vital Signs Temp Pulse Pulse Pulse Resp BP BP 01/02/25 14:56 36.2 C L 65 16 136/81 04/02/25 14:33 65 01/02/25 12:02 36.5 C 68 16 138/68 01/02/25 10:00 01/02/25 07:43 36.4 C L 70 15 130/86 01/02/25 07:12 69 Pulse Ox O2 Del Method 01/02/25 14:56 96 Room Air 01/02/25 14:33 01/02/25 12:02 98 Room Air 01/02/25 10:00 Room Air 01/02/25 07:43 95 Room Air 01/02/25 07:12 Laboratory Results CBC 01/02/25 Range/Units 05:46 WBC 12.98 H (4.8-10.8) K/ul RBC 3.82 L (4.70-6.10) M/uL Hgb 11.8 L (14.0-18.0) g/dl Hct 35.1 L (42.0-52.0) % Plt Count 286 (130-400) K/uL Comprehensive Metabolic Panel 01/02/25 Range/Units 05:46 Sodium 134 L (136-145) mmol/L Potassium 4.3 (3.5-5.1) mmol/L Chloride 101 (98-107) mmol/L Carbon Dioxide 27 (21-32) mmol/L BUN 38 H (6-23) mg/dl Creatinine 1.03 D (0.6-1.4) mg/dl Glucose 126 H (70-99(Fasting)) mg/dl Calcium 9.2 (8.6-10.3) mg/dl Intake and Output 01/02/25 01/02/25 01/02/25 06:59 14:59 22:59 Intake Total 150 / 1950 480 / 480 Output Total 50 / 51 125 / 125 Balance 100 / 1899 355 / 355 Intake: IV 50 / 1050 cefTRIAXone SODIUM 2,000 mg In 50 / 50 50 ml @ 100 mls/hr IV Q24H [facility] Rx#:[id number] Oral 100 / 900 480 / 480 Output: Urine 50 / 50 125 / 125 Other: Other Intake Source lunch # Unmeasured Voids 1 1
--- NOTE | 2025-01-02 16:23 | Hospitalist Progress Note ---
Date of Service January 02, 2025 Assessment & Plan (1) Generalized weakness: Plan: Patient is 84-year-old male with PMH HTN, HLD, DM II, pulmonary HTN, interstitial lung disease, history RBBB and LBBB, history NSVT, gout presented to ER with c/o progressive weakness. Generalized weakness Recent history of possible viral respiratory infection Likely multifactorial secondary to ENMA, recent infection, bradycardia Leukocytosis trending down Bio fire negative Chest x-ray showed no acute process CTA abdomen ? Enteritis, repeat CT no acute process Blood cultures negative to date Continue PT OT Slowly improving Suspected UTI Outpatient urine culture about 2 weeks ago grew pansensitive E. coli ? Failed Macrobid treatment Urine culture pending Empirically on Rocephin Constipation Resolved Continue bowel regimen as needed Sinus bradycardia 2.6 second pause Interventricular conduction delay H/O NSVT Metoprolol discontinued TSH normal May need pacemaker eventually Appreciate cardiology input Acute kidney injury Cr 2.2>2.1>1.4>1.0 Renal function improved with IV fluids Encouraged to increase oral fluid intake Lisinopril, HCTZ on hold Monitor renal function Avoid nephrotoxic agents as able Hypotension Likely due to dehydration Received IV fluids Hold antihypertensives (lisinopril, HCTZ) Blood pressure improving Monitor blood pressure Consider to restart lisinopril tomorrow Abdominal pain likely due to constipation Right sided/RLL abdominal pain with movement started after severe coughing DD:Musculoskeletal --CT abd/pelvis: Stable small fat-containing right inguinal hernia. Prostate is mildly enlarged. Urinary bladder is decompressed. There is sigmoid diverticulosis. No acute diverticulitis. There is possible mild enteritis. No other bowel inflammation or obstruction seen. No free air or abscess. No enlarged adenopathy. Right inguinal pain is minimal and there is no lump and/or significant tenderness on examination No bowel problem and no evidence of diverticulitis Abdominal pain resolved Bowel regimen to help with constipation Tolerating current diet (2) Ambulatory dysfunction: Plan: Continue PT OT Fall precautions (3) Recent urinary tract infection: Plan: Was having increased urinary frequency. 12/20/2024 urine culture + pansensitive > 100,000 colonies/mL E. coli Treated with Macrobid x 7 days as outpatient (4) Hypertension: Plan: Resume home medications as able (5) Dyslipidemia: Plan: Continue rosuvastatin (6) Diabetes mellitus, type II: Plan: A1c: 7.3 on 11/08/24 Random glucose 180 Novolog sliding scale per protocol (7) NSVT (nonsustained ventricular tachycardia): Plan: History NSVT Metoprolol discontinued as above (8) BPH (benign prostatic hyperplasia): Plan: History phimosis Follows with urology, Dr Horowitz Continue tamsulosin, finasteride, oxybutynin (9) Gout: Plan: Continue allopurinol DVT Px Lovenox SQ Code Status DNR/DNI as per discussion with pt Follows with Dr Alvarado for routine care Admission and Anticipated Discharge Date Admission Date: December 28, 2024 Subjective Patient is seen and examined at bedside Patient had dysuria overnight, resolved this morning States feeling tired Had bowel movement Denies any chest pain, dyspnea, nausea, vomiting, abdominal pain Review of Systems Review of Systems: All systems reviewed & are unremarkable except as noted in Subjective Physical Exam Physical Exam: Physical Exam: Vitals signs as noted above General Appearance:Obese, no apparent distress Head: normocephalic, Atraumatic Eyes: normal inspection, EOMI Neck: supple, Trachea midline Respiratory/Chest: Normal breath sounds, CTA, No accessory muscle use Cardiovascular: S1, S2, No murmur Abdomen/GI:Soft, Non tender, Bowel sounds present Extremities/Musculoskeletal:normal inspection, 1+edema Neurologic/Psych:AAOX3, grossly no focal neurological deficits Skin: normal color, warm Results & Data Results & Data Vital Signs (Past 12 Hours) Vital Signs Temp Pulse Pulse Pulse Resp BP BP 01/02/25 14:56 36.2 C L 65 16 136/81 01/02/25 14:33 65 01/02/25 12:02 36.5 C 68 16 138/68 01/02/25 10:00 01/02/25 07:43 36.4 C L 70 15 130/86 01/02/25 07:12 69 Pulse Ox O2 Del Method 01/02/25 14:56 96 Room Air 01/02/25 14:33 01/02/25 12:02 98 Room Air 01/02/25 10:00 Room Air 01/02/25 07:43 95 Room Air 01/02/25 07:12 Laboratory Results Short CBC 01/02/25 Range/Units 05:46 WBC 12.98 H (4.8-10.8) K/ul Hgb 11.8 L (14.0-18.0) g/dl Hct 35.1 L (42.0-52.0) % Plt Count 286 (130-400) K/uL BMP 01/02/25 05:46 Sodium 134 L Potassium 4.3 Chloride 101 Carbon Dioxide 27 BUN 38 H Creatinine 1.03 D Glucose 126 H Calcium 9.2 Urine 01/02/25 Range/Units 03:00 Urine Color Yellow Urine Appearance Turbid A (Clear) Urine pH 5.5 (4.5-7.5) Ur Specific [place] 1.021 (1.000-1.030) Urine Protein 3+ H (Negative) Urine Glucose (UA) Negative (Negative)
[2025-01-02] MEDS: ENOXAPARIN INJ 40 MG/0.4 ML SYR SQ SCH (20:22)
[2025-01-03] MEDS: ALBUMIN 25% 25 GM/100 ML VIAL IV ONE (06:22)
[2025-01-03 07:29] VITALS: RESP 16
[2025-01-03 07:48] LABS: Calcium 9.6 mg/dl (8.6-10.3); Potassium 4.1 mmol/L (3.5-5.1)
[2025-01-03 07:53] LABS: BUN Creatinine Ratio 38.8 (10-20); Creatinine Clr Calc Pharmacy 76.3 ml/min
[2025-01-03 11:20] VITALS: BP 121/77; PULSE 68; TEMP 97.5; O2SAT 96
--- NOTE | 2025-01-03 12:08 | Hospitalist Progress Note ---
Date of Service January 03, 2025 Assessment & Plan (1) Generalized weakness: Plan: Patient is 84-year-old male with PMH HTN, HLD, DM II, pulmonary HTN, interstitial lung disease, history RBBB and LBBB, history NSVT, gout presented to ER with c/o progressive weakness. Generalized weakness Recent history of possible viral respiratory infection Likely multifactorial secondary to ENMA, UTI infection, bradycardia Bio fire negative Chest x-ray showed no acute process CTA abdomen ? Enteritis, repeat CT no acute process Blood cultures negative Evaluated by PT OT Plan to be discharged home today UTI--POA Outpatient urine culture about 2 weeks ago grew pansensitive E. coli Likely failed Macrobid treatment Urine culture growing E. coli Empirically on Rocephin Transition to cefdinir on discharge Constipation Resolved Continue bowel regimen as needed Sinus bradycardia 2.6 second pause Interventricular conduction delay H/O NSVT Metoprolol discontinued TSH normal May need pacemaker eventually Appreciate cardiology input Acute kidney injury Cr 2.2>2.1>1.4>1.0>0.85 Renal function improved with IV fluids Encouraged to increase oral fluid intake Lisinopril, HCTZ on hold Monitor renal function Avoid nephrotoxic agents as able Hypotension Likely due to dehydration Received IV fluids Held antihypertensives (lisinopril, HCTZ) while hospitalized Blood pressure improved Monitor blood pressure Abdominal pain likely due to constipation Right sided/RLL abdominal pain with movement started after severe coughing DD:Musculoskeletal --CT abd/pelvis: Stable small fat-containing right inguinal hernia. Prostate is mildly enlarged. Urinary bladder is decompressed. There is sigmoid diverticulosis. No acute diverticulitis. There is possible mild enteritis. No other bowel inflammation or obstruction seen. No free air or abscess. No enlarged adenopathy. Right inguinal pain is minimal and there is no lump and/or significant tenderness on examination No bowel problem and no evidence of diverticulitis Abdominal pain resolved Bowel regimen to help with constipation Tolerating current diet (2) Ambulatory dysfunction: Plan: Continue PT OT Fall precautions (3) Recent urinary tract infection: Plan: Was having increased urinary frequency. 12/20/2024 urine culture + pansensitive > 100,000 colonies/mL E. coli Treated with Macrobid x 7 days as outpatient (4) Hypertension: Plan: Resume home medications as able (5) Dyslipidemia: Plan: Continue rosuvastatin (6) Diabetes mellitus, type II: Plan: A1c: 7.3 on 11/08/24 Random glucose 180 Novolog sliding scale per protocol (7) NSVT (nonsustained ventricular tachycardia): Plan: History NSVT Metoprolol discontinued as above (8) BPH (benign prostatic hyperplasia): Plan: History phimosis Follows with urology, Dr Horowitz Continue tamsulosin, finasteride, oxybutynin (9) Gout: Plan: Continue allopurinol DVT Px Lovenox SQ Code Status DNR/DNI as per discussion with pt Follows with Dr Alvarado for routine care Disposition Home with home health Admission and Anticipated Discharge Date Admission Date: December 28, 2024 Subjective Patient is seen and examined at bedside Dysuria resolved No new complaints today Eager to get discharged No recurrence of constipation Denies any chest pain, dyspnea, nausea, vomiting, abdominal pain Review of Systems Review of Systems: All systems reviewed & are unremarkable except as noted in Subjective Physical Exam Physical Exam: Physical Exam: Vitals signs as noted above General Appearance:Obese, no apparent distress Head: normocephalic, Atraumatic Eyes: normal inspection, EOMI Neck: supple, Trachea midline Respiratory/Chest: Normal breath sounds, CTA, No accessory muscle use Cardiovascular: S1, S2, No murmur Abdomen/GI:Soft, Non tender, Bowel sounds present Extremities/Musculoskeletal:normal inspection, 1+edema Neurologic/Psych:AAOX3, grossly no focal neurological deficits Skin: normal color, warm Results & Data Results & Data Vital Signs (Past 12 Hours) Vital Signs Temp Pulse Pulse Resp BP Pulse Ox O2 Del Method 01/03/25 11:19 36.4 C L 68 16 121/77 96 Room Air 01/03/25 07:29 36.3 C L 69 16 119/70 95 Room Air 01/03/25 06:45 75 01/03/25 04:08 36.3 C L 66 20 124/77 94 Room Air 01/03/25 00:40 36.4 C L 73 20 143/91 H 94 Room Air Laboratory Results [facility] 01/03/25 06:17 Sodium 135 L Potassium 4.1 Chloride 103 Carbon Dioxide 25 BUN 33 H Creatinine 0.85 Glucose 121 H Calcium 9.6
--- NOTE | 2025-01-03 12:28 | Discharge Summary ---
Date of Service January 03, 2025 Admission HPI Per Admitting Provider Patient is 84-year-old male with PMH HTN, HLD, DM II, pulmonary HTN, interstitial lung disease, history RBBB and LBBB, history NSVT, gout presented to ER with c/o progressive weakness. Patient reports approximately one month ago had cough that he reports was severe. States one time he coughed so hard that he passed out. Patient reports cough is since resolved. Denies any recurrent syncope. He denies any noted fever or chills or hemoptysis. Reports right lower abdominal pain for past several weeks that began after he was severely coughing. Describes pain as ache with movement and reports is unable to sleep on right side secondary to pain. Denies any noted edema or bulging to abdomen. He reports overall decreased appetite. Denies nausea or vomiting. Denies diarrhea. Reports constipation. Last BM was yesterday and described as small. Seen by PCPs office on 12/20/2024 for urinary frequency. Treated with Macrobid x 7 days. The 12/20/2024 urine culture + pansensitive > 100,000 colonies/mL E. coli. He feels the urinary frequency has improved to his baseline. Patient reports past month has had progressive fatigue and weakness. He has needed to start ambulating with walking stick. He feels both legs are weak. Denies falls. Denies fever/chills, diaphoresis, melena, hematochezia, REYES, dizziness, vision changes, neck pain, CP, SOB, orthopnea, palpitations, rhinorrhea, paresthesias, extremity edema, rashes, hematuria. Admission Exam Per Admitting Provider General: no distress, overweight elderly male Head: normocephalic, atraumatic Eyes: PERRL, EOM's intact, conjunctiva non-injected, anicteric ENT: normal inspection external ears, nose, mucous membranes moist Neck: supple, trachea midline Lungs: clear, no respiratory distress, no wheezing/rhonchi/rales CV: RRR, no murmur, no pretibial edema Abd: protuberant, normal BS, soft, +tender to palpation RLQ without rebound or guarding Ext: no cyanosis, no calf tenderness Neuro: A&O x 3, no focal deficits noted, normal affect Skin: warm, dry Principal Diagnosis Generalized weakness Urinary tract infection Constipation Sinus bradycardia Acute kidney injury Hypotension Discharge Data Allergies Allergy/AdvReac Type Severity Reaction Status Date / Time Blackening Seasoning Allergy Intermediate Swelling Uncoded 07/28/23 09:00 of Lip/Tongue/Throat Consultations 12/28/24 16:13 ED Decision to Admit Stat 01/01/25 08:25 Consult Cardiology Routine Procedures Performed Laboratory Results WBC 12.98 K/ul (4.8-10.8) H 01/02/25 05:46 RBC 3.82 M/uL (4.70-6.10) L 01/02/25 05:46 Hgb 11.8 g/dl (14.0-18.0) L 01/02/25 05:46 Hct 35.1 % (42.0-52.0) L 01/02/25 05:46 MCV 91.9 fL (80.0-100.0) 01/02/25 05:46 MCH 30.9 pg (25.0-34.0) 01/02/25 05:46 MCHC 33.6 g/dL (32.0-36.0) 01/02/25 05:46 RDW Std Deviation 46.2 fL (36.4-46.3) 01/02/25 05:46 RDW Coeff of Hilda 13.7 % (11.5-14.5) 01/02/25 05:46 Plt Count 286 K/uL (130-400) 01/02/25 05:46 MPV 11.4 fL (9.4-12.4) 01/02/25 05:46 Immature Gran % (Auto) 0.9 % 01/01/25 05:27 Neut % (Auto) 73.5 % 01/01/25 05:27 Lymph % (Auto) 12.2 % 01/01/25 05:27 Latimer % (Auto) 10.7 % 01/01/25 05:27 Eos % (Auto) 2.4 % 01/01/25 05:27 Baso % (Auto) 0.3 % 01/01/25 05:27 Neut # (Auto) 8.36 K/uL (1.40-6.50) H 01/01/25 05:27 Lymph # (Auto) 1.38 K/uL (1.20-3.40) 01/01/25 05:27 Latimer # (Auto) 1.21 K/uL (0.11-0.59) H 01/01/25 05:27 Eos # (Auto) 0.27 K/uL (0.00-0.50) 01/01/25 05:27 Baso # (Auto) 0.03 K/uL (0.00-0.20) 01/01/25 05:27 Immature Gran # (Auto) 0.10 K/uL (0.01-0.20) 01/01/25 05:27 PT 11.3 Seconds (9.0-12.0) 12/28/24 13:22 INR 1.0 (0.9-1.1) 12/28/24 13:22 APTT 29 Seconds (21-31) 12/28/24 13:22 PTT Ratio 1.1 12/28/24 13:22 Sodium 135 mmol/L (136-145) L 01/03/25 06:17 Potassium 4.1 mmol/L (3.5-5.1) 01/03/25 06:17 Chloride 103 mmol/L (98-107) 01/03/25 06:17 Carbon Dioxide 25 mmol/L (21-32) 01/03/25 06:17 Anion Gap 7 (3-11) 01/03/25 06:17 BUN 33 mg/dl (6-23) H 01/03/25 06:17 Creatinine 0.85 mg/dl (0.6-1.4) 01/03/25 06:17 Est Cr Clr Drug Dosing 76.3 ml/min 01/03/25 06:17 eGFR 84.62 01/03/25 06:17 BUN/Creatinine Ratio 38.8 (10-20) H 01/03/25 06:17 Glucose 121 mg/dl (70-99(Fasting)) H 01/03/25 06:17 POC Glucose 128 mg/dl (70-99) H 01/03/25 12:05 Lactate 1.8 mmol/L (0.4-2.0) 12/28/24 13:22 Calcium 9.6 mg/dl (8.6-10.3) 01/03/25 06:17 Magnesium 2.0 mg/dl (1.7-2.4) 01/02/25 05:46 Total Bilirubin 0.9 mg/dl (0.2-1.0) 12/28/24 13:22 AST 28 U/L (13-39) 12/28/24 13:22 ALT 26 U/L (7-52) 12/28/24 13:22 Alkaline Phosphatase 92 U/L (34-104) 12/28/24 13:22 Troponin I High Sens 9.7 pg/ml (0-20) 12/31/24 15:36 B-Natriuretic Peptide 73 pg/ml (0-100) 12/28/24 14:17 Total Protein 7.4 gm/dl (6.0-8.3) 12/28/24 13:22 Albumin 3.4 gm/dl (3.4-5.0) 12/28/24 13:22 Globulin 4.0 gm/dl (2.5-4.0) 12/28/24 13:22 Albumin/Globulin Ratio 0.9 (0.9-2) 12/28/24 13:22 Procalcitonin 0.17 ng/ml (0-0.5) 12/28/24 13:22 TSH 2.265 uIu/ml (0.300-4.500) 01/01/25 05:27 Urine Color Yellow 01/02/25 03:00 Urine Appearance Turbid (Clear) A 01/02/25 03:00 Urine pH 5.5 (4.5-7.5) 01/02/25 03:00 Ur Specific [place] 1.021 (1.000-1.030) 01/02/25 03:00 Urine Protein 3+ (Negative) H 01/02/25 03:00 Urine Glucose (UA) Negative (Negative) 01/02/25 03:00 Urine Ketones Negative (Negative) 01/02/25 03:00 Urine Blood 2+ (Negative) H 01/02/25 03:00 Urine Nitrite Positive (Negative) A 01/02/25 03:00 Urine Bilirubin Negative (Negative) 01/02/25 03:00 Urine Urobilinogen Negative (Negative) 01/02/25 03:00 Ur Leukocyte Esterase 2+ (Negative) H 01/02/25 03:00 Urine WBC (Auto) >50 /hpf (0-5) H 01/02/25 03:00 Urine RBC (Auto) >20 /hpf (0-2) H 01/02/25 03:00 U Hyaline Cast (Auto) 11-20 /lpf (0-2) H 01/02/25 03:00 U Epithel Cells (Auto) 0-2 /hpf (0-2) 01/02/25 03:00 Urine Bacteria (Auto) 4+ (None Seen) H 01/02/25 03:00 Urine Mucus Present (None Prsent) A 12/28/24 15:10 Adenovirus (PCR) Not Detected (NotDetected) 12/28/24 Unknown B. pertussis DNA (PCR) Not Detected (NotDetected) 12/28/24 Unknown B.parapertussis DNA PCR Not Detected (NotDetected) 12/28/24 Unknown C. pneumoniae DNA (PCR) Not Detected (NotDetected) 12/28/24 Unknown Coronavirus OC43 (PCR) Not Detected (NotDetected) 12/28/24 Unknown Coronavirus HKU1 (PCR) Not Detected (NotDetected) 12/28/24 Unknown Coronavirus 229E (PCR) Not Detected (NotDetected) 12/28/24 Unknown SARS-CoV-2 (PCR) Not Detected (NotDetected) 12/28/24 Unknown Coronavirus NL63 (PCR) Not Detected (NotDetected) 12/28/24 Unknown Human Metapneumovir PCR Not Detected (NotDetected) 12/28/24 Unknown Influenza Type A (PCR) Not Detected (NotDetected) 12/28/24 Unknown Influenza Type B (PCR) Not Detected (NotDetected) 12/28/24 Unknown M. pneumoniae (PCR) Not Detected (NotDetected) 12/28/24 Unknown Parainfluenza 1 (PCR) Not Detected (NotDetected) 12/28/24 Unknown Parainfluenza 2 (PCR) Not Detected (NotDetected) 12/28/24 Unknown Parainfluenza 3 (PCR) Not Detected (NotDetected) 12/28/24 Unknown Parainfluenza 4 (PCR) Not Detected (NotDetected) 12/28/24 Unknown RSV (PCR) Not Detected (NotDetected) 12/28/24 Unknown Entero/Rhino (PCR) Not Detected (NotDetected) 12/28/24 Unknown Impressions Chest X-Ray 12/28/24 13:12 XR chest 1V portable CLINICAL HISTORY: weakness COMPARISON STUDY: 10/25/2024 FINDINGS: Stable calcified left mediastinal lymph node. Stable cardiomegaly without pulmonary vascular congestion. Inspiration is shallow which limits the exam. Stable mild elevation of the right hemidiaphragm. Evaluation of the left lung base is limited by the overlying cardiac silhouette. No definite consolidation or pleural effusion. No pneumothorax. IMPRESSION: Shallow inspiration with no acute findings seen. ACT 112: Negative or not required by law. Electronically signed by: Rigo Roque M.D. 12/28/2024 1:45 PM Abdomen/Pelvis CT 12/31/24 16:33 EXAM: CT Abdomen and Pelvis Without Intravenous Contrast INDICATION: Evaluate for obstruction. TECHNIQUE: Axial computed tomography images of the abdomen and pelvis without intravenous contrast. Sagittal and coronal reformatted images were created and reviewed. This CT exam was performed using one or more of the following dose reduction techniques: automated exposure control, adjustment of the mA and/or kV according to patient size, and/or use of iterative reconstruction technique. COMPARISON: 07/27/2023 FINDINGS: Limitations: None. Lung bases: No abnormality noted. Pleural space: Trace bilateral pleural effusions present. Heart: Mild cardiomegaly and trace pericardial effusion. Mediastinum: No abnormality noted. ABDOMEN: Liver: Few granulomas noted in the liver which otherwise appears normal. Gallbladder and bile ducts: Collapsed gallbladder contains dense material. No calcifications. No ductal dilatation or calcification. Pancreas: No pancreatic mass, calcification, inflammation or ductal dilation noted. Spleen: There is a granuloma in the spleen which is normal size. Adrenals: No significant abnormality noted. Kidneys and ureters: Simple right renal cyst/s. No simple cyst follow-up necessary. Left kidney appears normal. No renal stone, hydronephrosis or perinephric fluid. Left kidney appears normal. Stomach and bowel:Moderate amounts of stool in the right colon. Diverticulosis noted. Limited assessment for the presence of inflammation given the presence of ascites and resultant edema. No obstruction. PELVIS: Appendix: Not distinctly defined. Ascitic fluid limits assessment for edema. Bladder: Appears normal for the degree of filling. No stones or inflammation. No large mass. Masses may not be detected in the absence of opacification. Reproductive: No abnormalities noted. ABDOMEN and PELVIS: Intraperitoneal space: Now present is moderate abdominal and pelvic ascites. No free air. No organized collection to suggest abscess. Bones/joints: Degenerative changes noted throughout the spine. No acute osseous abnormality seen. Soft tissues: There are small bilateral fat containing inguinal hernias. Bilateral inguinal hernias containing fat. Subcutaneous edema noted. Vasculature: Atherosclerotic calcification of the aorta and branches. No aneurysm. Lymph nodes: Centrilobular emphysematous changes and scarring noted in the lung bases. Granulomatous lymph nodes identified. IMPRESSION: 1. Moderate abdominal and pelvic ascites and trace pleural effusions. 2. Colonic diverticulosis. Assessment for inflammation limited due to the presence of ascites and edema. Secondary small bowel thickening related to the presence of ascites. No obstruction. ACT 112: N/A This Electronically signed by Arminda Wilkinson 12-31-2024 5:17 PM KUB X-Ray 01/02/25 07:00 KUB HISTORY: constipation COMPARISON STUDY: None FINDINGS: Supine view the abdomen demonstrates bulging flanks and increased soft tissue density suggestive of ascites. There is moderate fecal debris in the rectum. There is no increased stool burden proximally. There is no evidence of obstruction. Properitoneal fat lines and psoas margins are maintained. There are scattered degenerative changes throughout the lower thoracic and lumbar spine as well as bilateral hips. IMPRESSION: Probable ascites. Nonspecific bowel gas pattern. ACT 112: Negative or not required by law. The above report was generated using voice recognition software. It may contain grammatical, syntax or spelling errors. Electronically signed by: Lila Zepeda M.D. 01/02/2025 9:58 AM Ordered Studies 12/28/24 13:27 CT abd pelvis IV con only Stat 12/31/24 16:33 CT Abd and Pelvis [CT abd pelvis wo con] Urgent Hospital Course (1) Generalized weakness: Patient is 84-year-old male with PMH HTN, HLD, DM II, pulmonary HTN, interstitial lung disease, history RBBB and LBBB, history NSVT, gout presented to ER with c/o progressive weakness. Generalized weakness Recent history of possible viral respiratory infection Likely multifactorial secondary to ENMA, UTI infection, bradycardia Bio fire negative Chest x-ray showed no acute process CTA abdomen ? Enteritis, repeat CT no acute process Blood cultures negative Evaluated by PT OT Plan to be discharged home today UTI--POA Outpatient urine culture about 2 weeks ago grew pansensitive E. coli Likely failed Macrobid treatment Urine culture growing E. coli Empirically on Rocephin Transition to cefdinir on discharge Constipation Resolved Continue bowel regimen as needed Sinus bradycardia 2.6 second pause Interventricular conduction delay H/O NSVT Metoprolol discontinued TSH normal May need pacemaker eventually Appreciate cardiology input Acute kidney injury Cr 2.2>2.1>1.4>1.0>0.85 Renal function improved with IV fluids Encouraged to increase oral fluid intake Lisinopril, HCTZ on hold Monitor renal function Avoid nephrotoxic agents as able Hypotension Likely due to dehydration Received IV fluids Held antihypertensives (lisinopril, HCTZ) while hospitalized Blood pressure improved Monitor blood pressure Abdominal pain likely due to constipation Right sided/RLL abdominal pain with movement started after severe coughing DD:Musculoskeletal --CT abd/pelvis: Stable small fat-containing right inguinal hernia. Prostate is mildly enlarged. Urinary bladder is decompressed. There is sigmoid diverticulosis. No acute diverticulitis. There is possible mild enteritis. No other bowel inflammation or obstruction seen. No free air or abscess. No enlarged adenopathy. Right inguinal pain is minimal and there is no lump and/or significant tenderness on examination No bowel problem and no evidence of diverticulitis Abdominal pain resolved Bowel regimen to help with constipation Tolerating current diet (2) Ambulatory dysfunction: Continue PT OT Fall precautions (3) Recent urinary tract infection: Was having increased urinary frequency. 12/20/2024 urine culture + pansensitive > 100,000 colonies/mL E. coli Treated with Macrobid x 7 days as outpatient (4) Hypertension: Resume home medications as able (5) Dyslipidemia: Continue rosuvastatin (6) Diabetes mellitus, type II: A1c: 7.3 on 11/08/24 Random glucose 180 Novolog sliding scale per protocol (7) NSVT (nonsustained ventricular tachycardia): History NSVT Metoprolol discontinued as above (8) BPH (benign prostatic hyperplasia): History phimosis Follows with urology, Dr Horowitz Continue tamsulosin, finasteride, oxybutynin (9) Gout: Continue allopurinol DVT Px Lovenox SQ Code Status DNR/DNI as per discussion with pt Follows with Dr Alvarado for routine care Disposition Home with home health Total Time Total Time Spent Total Time Spent (In Minutes): 45 minutes Discharge Plan Discharge Items Patient Disposition: Home - Home Health Services Reason For Visit: WEAKNESS Discharge Diagnosis: Generalized weakness Urinary tract infection Constipation Sinus bradycardia Acute kidney injury Hypotension Condition on Discharge: Fair Activity: Per Instructions section Exercise/Sports: Wait until after follow-up appointment Non-emergency contact: Primary Care Provider and Production Hand Call non-emergency contact if: you have any medication questions, your symptoms worsen, your pain is concerning for you and you have a fever Follow-up/Referrals: Kenny Alvarado MD [Primary Care Provider] - (Date & Time 01/09/2025 11:20 AM Provider: Kenny Alvarado MD General Internal Medicine [facility] ) Diet: Carb Consistent or DM2 Addtl Attending Provider Instructions: Follow-up with your primary care physician on 01/09/2025 11:20 AM Follow-up with your criminalist Dr. Ibarra as advised -- Your final urine cultures are pending at the time of discharge. Follow-up with your physician for results -- Continue antibiotic course cefdinir for 5 more days as prescribed. Start taking from 01/04/2025. --Your metoprolol was discontinued as you are found to have low heart rate. -- Monitor your blood pressure regularly as advised. Discuss with your primary care physician for further adjustment of medications as needed. Hold taking lisinopril, hydrochlorothiazide for 2 more days. Can resume your medications if blood pressure improves and no diarrhea is advised. Seek immediate medical attention if your symptoms reoccur or worsen Please review medication list provided on discharge for any medication changes as instructed. Please call if you have any questions or problems. You can reach a [facility] hospitalist on duty at [facility] 24 hours a day by calling [phone] Pending Studies at Discharge: Yes Studies:: Urine culture Stand-Alone Forms: My [facility], Smoking Cessation Medications and DC Order Prescriptions: New Advanced Probiotic 625 mg (10 billion cell) Capsule 1 cap PO DAILY Qty: 10 0RF cefdinir 300 mg capsule 300 mg PO BID 5 Days Qty: 10 0RF Rx Instructions: Start taking from 01/04/2025. Continued aspirin 81 mg Tablet,Delayed Release (Dr/Ec) 81 mg PO HS Rx Instructions: otc unable to verify tamsulosin 0.4 mg capsule 0.8 mg PO HS allopurinol 300 mg tablet 300 mg PO Q2D finasteride 5 mg tablet 5 mg PO QAM rosuvastatin 10 mg tablet 10 mg PO QAM Centrum Silver Men 300-600-300 mcg Tablet 1 tab PO QAM Rx Instructions: otc unable to verify oxybutynin chloride 10 mg tablet extended release 24hr 10 mg PO DAILY Rx Instructions: 10 mg po qam. last filled 07/28/24 90 day brimonidine 0.2 % drops 1 drp OPL UD Rx Instructions: 1 drp opl bid. 10/02/24 90 day supply timolol maleate 0.5 % drops 1 drp OPB BID dorzolamide 2 % drops 1 drp OPL BID latanoprost (PF) 0.005 % Dropperette 1 drp OPL HS Held lisinopril 10 mg tablet 10 mg PO QAM Hold Instructions: Hold taking for 2 to 3 days as advised hydrochlorothiazide 25 mg tablet 25 mg PO QAM Hold Instructions: Hold taking for 2 to 3 days as advised Discontinued metoprolol tartrate 25 mg tablet 12.5 mg PO BID Discharge Orders: Discharge Order (Routine); Ordered 01/03/25 Ordered By: Hayes Mary/Other Patient Handouts: Type 2 Diabetes Admission Data Admit Date/Time: 12/28/24 16:28 Attending Provider: Hayes Lora Admit Provider: Celso Castaneda Primary Care Provider: Kenny Alvarado Other Providers: Celso Castaneda; [facility],Home Care
[2025-01-04] MEDS ORDERED: ADVANCED PROBIOTIC 625 MG CAPSULE PO SCH (09:00)
== END 2025-01-03 13:07 | disposition home health service (06) | DRG 690 ==
LOC: ED 12:52 → SUATTDRO 16:28 → INTOOBSV 16:28 → 2N 16:28

== ENCOUNTER 2025-01-10 14:42 | Inpatient (IN) ==
[2025-01-10 15:41] LABS: Basophils # (auto) 0.04 K/uL (0.00-0.20); Basophils % (auto) 0.3 %; Eosinophils # (auto) 0.16 K/uL (0.00-0.50); Eosinophils % (auto) 1.3 %; Hematocrit (blood only) 38.5 % (42.0-52.0); Hemoglobin 12.6 g/dl (14.0-18.0); Immature Granulocytes % (auto) 0.8 %; Lymphocytes # (auto) 1.29 K/uL (1.20-3.40); Lymphocytes % (auto) 10.1 %; Mean Corpuscular Hemoglobin 30.2 pg (25.0-34.0); Mean Corpuscular Hgb Conc 32.7 g/dL (32.0-36.0); Mean Corpuscular Volume 92.3 fL (80.0-100.0); Mean Platelet Volume 10.6 fL (9.4-12.4); Monocytes # (auto) 1.04 K/uL (0.11-0.59); Monocytes % (auto) 8.2 %; Neutrophils # (auto) 10.13 K/uL (1.40-6.50); Neutrophils % (auto) 79.3 %; Platelet Count 342 K/uL (130-400); RDW Coefficient of Variation 14.1 % (11.5-14.5); Red Blood Count 4.17 M/uL (4.70-6.10); White Blood Count 12.76 K/ul (4.8-10.8)
[2025-01-10 15:52] LABS: Alanine Aminotransferase 48 U/L (7-52); Albumin Globulin Ratio 0.7 (0.9-2); Albumin Level 3.1 gm/dl (3.4-5.0); Alkaline Phosphatase 126 U/L (34-104); Anion Gap 6 (3-11); Aspartate Aminotransferase 39 U/L (13-39); BUN Creatinine Ratio 27.6 (10-20); Bilirubin,Total 0.7 mg/dl (0.2-1.0); Blood Urea Nitrogen 24 mg/dl (6-23); Calcium 9.5 mg/dl (8.6-10.3); Carbon Dioxide 30 mmol/L (21-32); Chloride 100 mmol/L (98-107); Globulin 4.3 gm/dl (2.5-4.0); Glucose 122 mg/dl (70-99(Fasting)); Lipase 13 U/L (11-82); Potassium 4.9 mmol/L (3.5-5.1); Sodium 136 mmol/L (136-145); Total Protein 7.4 gm/dl (6.0-8.3)
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
[2025-01-10] MEDS: ACETAMINOPHEN 1,000 MG/100 ML VIAL IV STA (16:08)
[2025-01-10 16:46] LABS: Appearance Urine Slightly Cloudy (Clear); Bilirubin Urine Negative (Negative); Blood Urine Negative (Negative); Color Urine Yellow; Glucose Urine UA Negative (Negative); Ketones Urine Negative (Negative); Leukocyte Esterase Urine Trace (Negative); Nitrite Urine Negative (Negative); Protein Urine Trace (Negative); Urobilinogen Urine Negative (Negative); pH Urine 5.5 (4.5-7.5)
[2025-01-10 16:58] LABS: WBC Urine 21-50 /hpf (0-5)
[2025-01-10 16:59] LABS: Bacteria Urine None Seen (None Seen); RBC Urine 0-2 /hpf (0-2)
--- NOTE | 2025-01-10 17:17 | Ultrasound Report ---
Clinical history: Right upper quadrant pain Technique: Sonography was performed of the right upper quadrant of the abdomen Findings: There is fatty infiltration of the liver. No definite liver mass is seen There are multiple gallstones as well as apparent gallbladder sludge. The gallbladder wall is mildly thickened, measuring 4 mm. The gallbladder appears decompressed. No definite sonographic Ward sign was detected There is no intrahepatic or extrahepatic bile duct dilatation. The common bile duct measures 4 mm The right kidney measures 11.5 cm in length. There is no hydronephrosis. No definite renal calculus or mass is seen. There is a large simple appearing right renal cyst, measuring 8.1 x 6 x 5.9 cm The visualized pancreas, aorta, and IVC appear unremarkable. There is a moderate amount of ascites Impression: 1. Cholelithiasis without definite acute cholecystitis 2. Moderate amount of ascites 3. Fatty infiltration of the liver 4. Large right renal cyst Electronically signed by Maurilio Samayoa 01-10-2025 5:16 PM
--- NOTE | 2025-01-10 18:34 | History & Physical Report ---
Date of Service January 10, 2025 Assessment & Plan (1) Ascites: Plan: Assessment/plan Possible acute cholecystitis New onset ascites Patient was referred to the ED after outpatient CT abdomen showed possibility of acute cholecystitis, moderate volume ascites and peritoneal enhancement CT abdomen pelvis from 12/31 also showed moderate abdominal and pelvic ascites. Leukocytosis present AST/ALT within normal limits ALP elevated to 126 Lipase within normal limits Start on Zosyn for possible acute cholecysitis; will follow-up on diagnostic paracentesis performed in the ED to rule out SBP. Obtain therapeutic paracentesis for tomorrow a.m. given patient's report of shortness of breath while lying flat. Full liquid diet, n.p.o. from midnight Obtain surgery consult given suspicion of acute cholecystitis Will consult GI given new onset of ascites Chronic conditions Hypertensionhold lisinopril and hydrochlorothiazide for now Sinus bradycardia with pauses -evaluated by cardiology last admission; metoprolol discontinued. Continue monitor on telemetry Hyperlipidemiacontinue on rosuvastatin Type 2 diabetes mellituscontinue on sliding scale insulin Gout continue on allopurinol BPHcontinue on tamsulosin, finasteride oxybutynin DNR/DNI DVT prophylaxis on hold for possible surgery Time spent evaluating patient, direct bedside care, chart review, placing orde rs, interpretation of diagnostic studies, discussion with consultants, patient, and family members, as well as other required patient management activities is 75 minutes Please note the above document was generated using voice recognition software. It may contain grammatical, syntax or spelling errors. Any formal questions or concerns about the content, text or information contained within the body of this dictation should be directly addressed to the provider for clarification History of Present Illness Chief Complaint: Abdominal pain for 2 weeks Primary Care Provider: Kenny Alvarado MD History obtained from chart review and interview with the patient, Admitted recently from 12/28 to 01/03 for progressive weakness, UTI, constipation, ENMA. Patient followed up with his primary care doctor on 01/09/2025; reported severe mid epigastric abdominal pain, worse on laying flat. Patient underwent CT abdomen pelvis with IV and oral contrast on 01/10/2025; reported to be found with moderate volume ascites and peritoneal enhancement, nonspecific mild gallbladder wall thickening, small pericardial effusion, small bilateral pleural effusion. Patient was referred to the ED for further evaluation. Patient reports diffuse abdominal pain around periumbilical region He reports low appetite and energy as well He reports increased abdominal distention for last couple of weeks Reports short of breath and difficulty sleeping while lying flat due to abdominal discharge No fever, chills, urinary symptoms On presentation to the ED, he was normotensive, afebrile and saturating well on room air. WBC count was 12,000. BUN/creatinine within normal limits. Ultrasound of the gallbladder showed cholelithiasis without definitive acute cholecystitis, moderate amount of ascites. Patient was referred for further evaluation. Allergies Allergy/AdvReac Type Severity Reaction Status Date / Time Blackening Seasoning Allergy Intermediate Swelling Uncoded 07/28/23 09:00 of Lip/Tongue/Throat Home Medications Medication Instructions Recorded Confirmed Type allopurinol 300 mg tablet 300 mg PO Q2D 05/19/19 01/10/25 History aspirin 81 mg tablet,delayed 81 mg PO HS 05/19/19 01/10/25 History release finasteride 5 mg tablet 5 mg PO QAM 05/19/19 01/10/25 History hydrochlorothiazide 25 mg tablet 25 mg PO QAM 05/19/19 01/10/25 History lisinopril 10 mg tablet 10 mg PO QAM 05/19/19 01/10/25 History labejzbw-hy-devkb 300 mcg-K 60 1 tab PO QAM 05/19/19 01/10/25 History mcg-lycop 600 mcg-lutein 300 mcg tablet (Centrum Silver Men) rosuvastatin 10 mg tablet 10 mg PO QAM 05/19/19 01/10/25 History tamsulosin 0.4 mg capsule 0.8 mg PO HS 05/19/19 01/10/25 History brimonidine 0.2 % eye drops 1 drp OPL UD 07/28/23 01/10/25 History dorzolamide 2 % eye drops 1 drp OPL BID 07/28/23 01/10/25 History latanoprost (PF) 0.005 % eye drops 1 drp OPL HS 07/28/23 01/10/25 History in a dropperette oxybutynin chloride 10 mg 10 mg PO DAILY 07/28/23 01/10/25 History tablet,extended release 24 hr timolol maleate 0.5 % eye drops 1 drp OPB BID 07/28/23 01/10/25 History L.acidop,casei,lactis,rham-B.lact,zahraa 1 cap PO DAILY #10 caps 01/03/25 01/10/25 Rx 625 mg (10 billion cell) capsule (Advanced Probiotic) Past Med/Surg History Problem List (Updated 01/10/25 @ 19:08 by Matty Garcia MD) Ascites Intraventricular conduction delay Sinus bradycardia RLQ abdominal pain (Acute) Leukocytosis (Acute) Weakness (Acute) Recent urinary tract infection Ambulatory dysfunction Generalized weakness Acute UTI (Acute) Weakness (Acute) Hypercholesterolemia (Chronic) Pyelonephritis Pyelonephritis Urinary tract infection (Acute) Ventricular tachycardia Medical History Gout BPH (benign prostatic hyperplasia) RBBB LBBB (left bundle branch block) NSVT (nonsustained ventricular tachycardia) Dyslipidemia Diabetes mellitus, type II Hypertension Surgical History History of colonoscopy Hx of tonsillectomy History of appendectomy Family History Other Cancer Diabetes Social History Smoking Status: Never smoker Second Hand Exposure: No; Do You Dip or Chew Tobacco: No; Hx Alcohol Use: No Hx Substance Use: No Preferred Language: Congolese Communication Ability: Effective Reinforcing Steel Placer Required: No Beliefs That Will Affect Care: None marital status: Current Living Situation: Spouse Current Living Situation Comment: lives at home with current occupational status: retired Feels Safe at Home: Yes Assistive Devices: Cane and Walker Physical Exam Physical Exam: On physical examination; Constitutional: Alert oriented x 3; not in distress. Respiratory: normal respiratory effort, lungs clear to auscultation, no wheeze, rales, rhonchi. Normal insp/exp effort, no accessory muscle use Cardiovascular: RRR, no murmur, no edema Vessels: no JVD or carotid bruit Chest: normal inspection of chest Abdomen: Distended, mild tenderness in periumbilical region. no rigidity Musculoskeletal: Bilateral 2+ pitting edema present Skin: no rashes, warm and dry normal turgor Neurologic: PERRL, EOMI, accommodation nl, no face palsy, no dysarthria CN's II- XI intact bilaterally and moves all extremities Psychiatric: A+Ox3, euthymic affect Results & Data Results & Data Vital Signs (Past 12 Hours) Vital Signs Temp Pulse Resp BP Pulse Ox O2 Del Method 01/10/25 18:12 74 23 93 01/10/25 18:01 149/70 H 01/10/25 18:00 69 20 96 01/10/25 17:51 68 19 93 01/10/25 16:24 66 16 01/10/25 16:17 65 01/10/25 14:47 36.9 C 73 19 131/70 96 Room Air
[2025-01-10] MEDS ORDERED: CARBOHYDRATES FOR HYPOGLYCEMIA PO PRN (18:57)
[2025-01-10] MEDS ORDERED: GLUCOSE 10 TAB/TUBE PO PRN (18:57)
[2025-01-10] MEDS ORDERED: ALUMINUM/MAGNESIUM SUSP 30 ML UDC PO PRN (18:57)
[2025-01-10] MEDS ORDERED: POLYETHYLENE (MIRALAX) 17 GM PACK PO PRN (18:57)
[2025-01-10] MEDS ORDERED: PHARMACY GLYCEMIC MGMT CONSULT PRN (18:57)
[2025-01-10] MEDS ORDERED: DEXTROSE 50% 50 ML SYRINGE IV PRN (18:57)
[2025-01-10] MEDS ORDERED: GLUCOSE 40% GEL 15 GM TUBE PO PRN (18:57)
[2025-01-10] MEDS ORDERED: GLUCAGON FOR INJ 1 MG VIAL SQ PRN (18:57)
[2025-01-10 19:42] LABS: Albumin Peritoneal Fluid 2.3 gm/dl; Total Protein Peritoneal Fluid 4.3 gm/dl
[2025-01-10] MEDS: PIPERACILLIN/TAZOBACTAM 4.5 GM/100 ML BAG IV ONE (20:16)
[2025-01-10 21:30] LABS: Appearance Peritoneal Fluid Slightly Hazy; Color Peritoneal Fluid Pale Yellow; RBC Peritoneal Fluid Auto 4000 /uL; WBC Peritoneal Fluid Auto 590 /ul (0-300)
[2025-01-10] MEDS: INSULIN ASPART PER UNIT CHARGE SC SCH (21:34)
[2025-01-10] MEDS: ACETAMINOPHEN 325 MG TAB PO PRN (22:06)
--- NOTE | 2025-01-10 22:06 | Surgery Consultation ---
Date of Consultation January 10, 2025 Assessment & Plan (1) Ascites: (2) RLQ abdominal pain: Plan 84-year-old presents with new onset of ascites. There is question of possible cholecystitis. I have reviewed his ultrasound and his CT scans. I do not believe he has acute cholecystitis. His primary issue is the new onset of ascites. He has had a paracentesis. He will require a full GI evaluation. Surgery will follow peripherally. Please call with any questions or concerns. History of Present Illness Reason for Consultation: Possible cholecystitis Requesting Physician: Matty Garcia MD Attending Physician: Matty Garcia MD History of Present Illness 84-year-old gentleman has been having right-sided abdominal pain off-and-on for the last month. He has been seen in and out of the emergency department. A week ago he underwent CT scan which demonstrated significant amount of ascitic fluid. He then had a CT scan as an outpatient today which demonstrated again new onset of ascitic fluid throughout his abdomen but also concern for cholecys titis with possible thickening of the gallbladder wall. He denies any significant pain at this time. He denies any other complaints. He is a poor historian. Allergies Allergy/AdvReac Type Severity Reaction Status Date / Time Blackening Seasoning Allergy Intermediate Swelling Uncoded 07/28/23 09:00 of Lip/Tongue/Throat Home Medications Medication Instructions Recorded Confirmed Type allopurinol 300 mg tablet 300 mg PO Q2D 05/19/19 01/10/25 History aspirin 81 mg tablet,delayed 81 mg PO HS 05/19/19 01/10/25 History release finasteride 5 mg tablet 5 mg PO QAM 05/19/19 01/10/25 History hydrochlorothiazide 25 mg tablet 25 mg PO QAM 05/19/19 01/10/25 History lisinopril 10 mg tablet 10 mg PO QAM 05/19/19 01/10/25 History wrgqduiu-uj-fuvym 300 mcg-K 60 1 tab PO QAM 05/19/19 01/10/25 History mcg-lycop 600 mcg-lutein 300 mcg tablet (Centrum Silver Men) rosuvastatin 10 mg tablet 10 mg PO QAM 05/19/19 01/10/25 History tamsulosin 0.4 mg capsule 0.8 mg PO HS 05/19/19 01/10/25 History brimonidine 0.2 % eye drops 1 drp OPL UD 07/28/23 01/10/25 History dorzolamide 2 % eye drops 1 drp OPL BID 07/28/23 01/10/25 History latanoprost (PF) 0.005 % eye drops 1 drp OPL HS 07/28/23 01/10/25 History in a dropperette oxybutynin chloride 10 mg 10 mg PO DAILY 07/28/23 01/10/25 History tablet,extended release 24 hr timolol maleate 0.5 % eye drops 1 drp OPB BID 07/28/23 01/10/25 History L.acidop,casei,lactis,rham-B.lact,zahraa 1 cap PO DAILY #10 caps 01/03/25 01/10/25 Rx 625 mg (10 billion cell) capsule (Advanced Probiotic) Patient History Medical History Gout BPH (benign prostatic hyperplasia) RBBB LBBB (left bundle branch block) NSVT (nonsustained ventricular tachycardia) Dyslipidemia Diabetes mellitus, type II Hypertension Surgical History History of colonoscopy Hx of tonsillectomy History of appendectomy Family History Other Cancer Diabetes Social History Smoking Status: Never smoker Second Hand Exposure: No; Do You Dip or Chew Tobacco: No; Hx Alcohol Use: No Hx Substance Use: No Preferred Language: Mosotho Communication Ability: Effective Accident Examiner Required: No Beliefs That Will Affect Care: None marital status: Current Living Situation: Spouse Current Living Situation Comment: home with current occupational status: retired Other Information That Helps Us Care for You: No Feels Safe at Home: Yes Safety Concerns: Feels Safe At This Time Assistive Devices: Cane, Glasses, Hearing Aid - Bilateral and Walker Review of Systems Review of Systems: All systems reviewed & are unremarkable except as noted in HPI & below Physical Exam Constitutional: WD/WN, vitals as above Eyes: PERRL, conjunctivae normal, anicteric sclerae Neck: trachea midline, no thyromegaly Respiratory: normal respiratory effort; no respiratory distress and no labored breathing Cardiovascular: Rate/Rhythm: regular rate and regular rhythm Gastrointestinal (Abdomen): Inspection/Auscultation: abdomen normal to inspection and + abdomen distended Percussion/Palpation: + abdomen tender ( mild right upper and epigastric abdominal tenderness) and abdomen soft; no guarding and abdomen not rigid Skin: no rashes, warm and dry Psychiatric: A+Ox3, euthymic affect Results & Data Vital Signs (Past 12 Hours) Vital Signs Temp Pulse Pulse Pulse Resp BP BP 01/10/25 21:10 01/10/25 21:10 36.4 C L 91 H 22 139/80 01/10/25 20:13 88 01/10/25 18:33 69 16 153/99 H 01/10/25 18:12 74 23 01/10/25 18:01 149/70 H 01/10/25 18:00 69 20 01/10/25 17:51 68 19 01/10/25 16:24 66 16 01/10/25 16:17 65 01/10/25 14:47 36.9 C 73 19 131/70 Pulse Ox O2 Del Method 01/10/25 21:10 Room Air 01/10/25 21:10 95 Room Air 01/10/25 20:13 01/10/25 18:33 95 Room Air 01/10/25 18:12 93 01/10/25 18:01 01/10/25 18:00 96 01/10/25 17:51 93 01/10/25 16:24 01/10/25 16:17 01/10/25 14:47 96 Room Air Laboratory Results 01/10/25 01/10/25 01/10/25 Range/Units 21:31 18:37 15:03 WBC 12.76 H (4.8-10.8) K/ul RBC 4.17 L (4.70-6.10) M/uL Hgb 12.6 L (14.0-18.0) g/dl Hct 38.5 L (42.0-52.0) % MCV 92.3 (80.0-100.0) fL MCH 30.2 (25.0-34.0) pg MCHC 32.7 (32.0-36.0) g/dL RDW Std Deviation 48.0 H (36.4-46.3) fL RDW Coeff of Hilda 14.1 (11.5-14.5) % Plt Count 342 (130-400) K/uL MPV 10.6 (9.4-12.4) fL Immature Gran % (Auto) 0.8 % Neut % (Auto) 79.3 % Lymph % (Auto) 10.1 % Cataño % (Auto) 8.2 % Eos % (Auto) 1.3 % Baso % (Auto) 0.3 % Neut # (Auto) 10.13 H (1.40-6.50) K/uL Lymph # (Auto) 1.29 (1.20-3.40) K/uL Cataño # (Auto) 1.04 H (0.11-0.59) K/uL Eos # (Auto) 0.16 (0.00-0.50) K/uL Baso # (Auto) 0.04 (0.00-0.20) K/uL Immature Gran # (Auto) 0.10 (0.01-0.20) K/uL Sodium 136 (136-145) mmol/L Potassium 4.9 (3.5-5.1) mmol/L Chloride 100 (98-107) mmol/L Carbon Dioxide 30 (21-32) mmol/L Anion Gap 6 (3-11) BUN 24 H (6-23) mg/dl Creatinine 0.87 (0.6-1.4) mg/dl Est Cr Clr Drug Dosing Not Reportable eGFR 84.03 BUN/Creatinine Ratio 27.6 H (10-20) Glucose 122 H (70-99(Fasting)) mg/dl POC Glucose 113 H (70-99) mg/dl Calcium 9.5 (8.6-10.3) mg/dl Total Bilirubin 0.7 (0.2-1.0) mg/dl AST 39 (13-39) U/L ALT 48 (7-52) U/L Alkaline Phosphatase 126 H (34-104) U/L Total Protein 7.4 (6.0-8.3) gm/dl Albumin 3.1 L (3.4-5.0) gm/dl Globulin 4.3 H (2.5-4.0) gm/dl Albumin/Globulin Ratio 0.7 L (0.9-2) Lipase 13 (11-82) U/L Urine Color Yellow Urine Appearance Slightly Cloudy (Clear) Urine pH 5.5 (4.5-7.5) Ur Specific Hay 1.010 (1.000-1.030) Urine Protein Trace H (Negative) Urine Glucose (UA) Negative (Negative) Urine Ketones Negative (Negative) Urine Blood Negative (Negative) Urine Nitrite Negative (Negative) Urine Bilirubin Negative (Negative) Urine Urobilinogen Negative (Negative) Ur Leukocyte Esterase Trace H (Negative) Urine RBC 0-2 (0-2) /hpf Urine WBC 21-50 H (0-5) /hpf Ur Epithelial Cells 6-10 H (0-2) /hpf Urine Bacteria None Seen (None Seen) Fluid Neutrophils % Pending Fluid Comment Peritoneal Color Pale Yellow Peritoneal Appearance Slightly Hazy Peritoneal WBC (Auto) 590 H (0-300) /ul Peritoneal RBC (Auto) 4000 /uL Peritoneal Tot Protein 4.3 gm/dl Peritoneal Albumin 2.3 gm/dl Diagnostic Findings Clinical history: Right upper quadrant pain Technique: Sonography was performed of the right upper quadrant of the abdomen Findings: There is fatty infiltration of the liver. No definite liver mass is seen There are multiple gallstones as well as apparent gallbladder sludge. The gallbladder wall is mildly thickened, measuring 4 mm. The gallbladder appears decompressed. No definite sonographic Ward sign was detected There is no intrahepatic or extrahepatic bile duct dilatation. The common bile duct measures 4 mm The right kidney measures 11.5 cm in length. There is no hydronephrosis. No definite renal calculus or mass is seen. There is a large simple appearing right renal cyst, measuring 8.1 x 6 x 5.9 cm The visualized pancreas, aorta, and IVC appear unremarkable. There is a moderate amount of ascites Impression: 1. Cholelithiasis without definite acute cholecystitis 2. Moderate amount of ascites 3. Fatty infiltration of the liver 4. Large right renal cyst Electronically signed by Maurilio Samayoa 01-10-2025 5:16 PM
[2025-01-10] MEDS: ASPIRIN 81 MG ECTAB PO SCH (22:07)
[2025-01-10] MEDS: DORZOLAMIDE HCL 2% OPH SOLN 10 ML BTL OPL SCH (22:07)
[2025-01-10] MEDS: BRIMONIDINE TARTRATE 0.2% 5ML OPL SCH (22:07)
[2025-01-10] MEDS: TAMSULOSIN HCL 0.4 MG CAP PO SCH (22:07)
--- OUTSIDE RECORDS SUMMARY | 2025-01-10 22:58 | External Medical Summary ---
Author Name Unknown Address Unknown Organization K09:[facility] [place] [address] Laboratory Report Ordering Provider Test Date Status TIANNA MAKI 01/09/2025 11:52:01 Final Observation Date Value Abnormality Reference (Units ) Status WBC, Total 01/09/2025 11:52:01 13.20 Above high normal 4 .00-10.80 (K/uL) Final RBC 01/09/2025 11:52:01 4.26 4.50-5.25 (M/uL) Final Hemoglobin 01/09/2025 11:52:01 13.1 Below low normal 14 .0-16.8 (g/dL) Final HCT 01/09/2025 11:52:01 40.6 40.0-48.4 (%) Final MCV 01/09/2025 11:52:01 95.3 82.0-99.5 (fL) Final MCH 01/09/2025 11:52:01 30.8 27.0-34.0 (pg) Final MCHC 01/09/2025 11:52:01 32.3 32.0-36.0 (g/dL) Final RDW 01/09/2025 11:52:01 14.4 11.5-15.5 (%) Final Platelets 01/09/2025 11:52:01 349 140-400 (K /uL) Final MPV 01/09/2025 11:52:01 10.6 6.6-11.1 ( fL) Final Performing Location [facility] [place] [address]
--- OUTSIDE RECORDS SUMMARY | 2025-01-10 22:58 | External Medical Summary | Summary of Care ---
Author Name Unknown Organization [facility] Address [address] [place] [address] Phone [phone] Care Team Providers Care Retort Unloader Name Role Phone Kenny Alvarado MD Primary Care Provider + Reason for Visit * Reason Comments Outpatient Testing Encounter Details Date Type Department Care Team (Late st Contact Info) Description 01/09/2025 12:00 PM EDT Laboratory Laboratory [facility] [address] [place] [phone] [facility] [address] [facility] [place] [address] ENMA (acute kidney injury) ([facility]); Acute UTI Allergies No known active allergiesdocumented as of this encounter (statuses as of 01/09/2025) Medications ASPIRIN 81 MG PO TABS one tab by mouth daily 7 Active CENTRUM SILVER PO TABS one tab daily 3 Active Glucose Blood (ONETOUCH ULTRA BLUE) STRPIndications: Type 2 diabetes mellitus with hemoglobin A1c goal of less than 8.0% ([facility]) Use fasting daily. E11.9 100 Strip 5 8 Active Additional Information Patient not taking.Reported on 01/09/2025 Brimonidine Tartrate 0.2 % Ophthalmic Solution (Alphagan) 1 Active Dorzolamide HCl 2 % Ophthalmic Solution (Trusopt Ocumeter Plus) 1 Active Timolol Maleate 0.5 % Ophthalmic Solution (Timoptic) 1 Active Latanoprost 0.005 % Ophthalmic Solution (Xalatan) 1 Drop at bedtime. Active prednisoLONE Acetate 1 % Ophthalmic Suspension (Pred Forte) 2 Active Ofloxacin 0.3 % Ophthalmic Solution (Ocuflox) 2 Active Triamcinolone Acetonide 0.1 % External Cream [...] OTHER DAY 45 Tablet 1 5 Active Probiotic & Acidophilus Ex St Oral Capsule 1 Capsule. 5 Active documented as of this encounter (statuses as of 01/09/2025) Active Problems Problem Noted Date Diagnosed Date [...] as of this encounter (statuses as of 01/09/2025) Resolved Problems Problem Noted Date Diagnosed Date [...] as of this encounter (statuses as of 01/09/2025) Immunizations Name Administration Dates Next Due COVID-19 [...] Valent (Prevnar) 04/23/2016 Pneumococcal Polysaccharide PPV23 (Pneumovax) 09/30/2010,07/31/2003 RSV Vac., Recomb, Adjuvant, PF,0.5 Ml (Arexvy) [...] 10 and older)(Boostrix) 01/29/2019 Varicella Zoster Vaccine Kevyn lt (Zostavax) 03/14/2012 Zoster Vaccine Recombinant (Shingrix) 08/18/2020 ,05/15/2020 [...] as of this encounter Miscellaneous Notes * Result Encounter Note - Bay Garcia RN - 01/09/2025 3:22 PM EDT Please see telephone encounter for more information. documented in this encounter Plan of Treatment Upcoming Encounters Date Type Department Care Team (Late st Contact Info) Description 06/10/2025 12:40 PM EDT Office Visit General Internal Medicine [facility] [address] [facility] [place] [id number] Kenny Alvarado MD [address] [facility] [place] [id number] 07/03/2025 8:30 AM EDT Office Visit Urology, [facility] [address] [place] [phone] Hung Horowitz MD [address] [place] [address] Scheduled Procedures Name Priority Associated Diagnoses [...] Name Priority Date/Time Associated Diagnosis Comments URINALYSIS, REFLEX TO CULTURE Routine 01/09/2025 12:03 PM EDT Acute UTI URINALYSIS, REFLEX TO CULTURE (CUP ONLY) Routine 01/09/2025 12:03 PM EDT Acute UTI URINALYSIS, REFLEX TO CULTURE (NOT FOR NEUTROPENIC PATIENTS) Routine 01/09/2025 12:03 PM EDT Acute UTI DIFFERENTIAL, AUTOMATED STAT 01/09/2025 11:52 AM EDT ENMA (acute kidney injury) (HCC) HEPATIC FUNCTION PANEL Routine 01/09/2025 11:52 AM EDT ENMA (acute kidney injury) (HCC) BASIC METABOLIC PANEL STAT 01/09/2025 11:52 AM EDT ENMA (acute kidney injury) (HCC) CBC STAT 01/09/2025 11:52 AM EDT ENMA (acute kidney injury) (HCC) CBC STAT 01/09/2025 11:52 AM EDT ENMA (acute kidney injury) (HCC) documented in this encounter Results * (ABNORMAL) URINALYSIS, REFLEX TO CULTURE (01/09/2025 12:03 PM EDT) Color, Urine Dark Yellow Light Yellow, Yellow, Dark Yellow 01/09/2025 12:49 PM EDT [facility] Clarity, Urine Slightly Cloudy(A) Clear 01/09/2025 12:49 PM EDT [facility]02 Glucose, Urine Negative Negative mg/dL 01/09/2025 12:49 PM EDT [facility]02 Bilirubin, Urine Small(A) Negative 01/09/2025 12:49 PM EDT [facility]02 Ketone, Urine 15(A) Negative mg/dL 01/09/2025 12:49 PM EDT [facility]02 Specific [place], Urine 1.025 1.003 - 1.030 01/09/2025 12:49 PM EDT [facility]-02 Blood, Urine Negative Negative 01/09/2025 12:49 PM EDT [facility]02 pH, Urine 5.0 5.0 - 7.5 Units 01/09/2025 12:49 PM EDT [facility]-02 Protein, Urine 30(A) Negative mg/dL 01/09/2025 12:49 PM EDT [address] Urobilinogen, Urine 0.2 0.2, 1.0 mg/dL 01/09/2025 12:49 PM EDT [address] Nitrite, Urine Negative Negative 01/09/2025 12:49 PM EDT [address] Esterase, Urine Negative Negative 01/09/2025 12:49 PM EDT [address] RBC, Urine 0-2 0 - 2 /HPF 01/09/2025 12:49 PM EDT [address] WBC, Urine 0-2 0 - 2 /HPF 01/09/2025 12:49 PM EDT [address] Bacteria, Urine 0-25 0 - 25 /HPF 01/09/2025 12:49 PM EDT [address] Hyaline, Cast, Urine 10-19(A) None /LPF 01/09/2025 12:49 PM EDT [address] Culture, Urine 01/09/2025 12:49 PM EDT [address] Comment:Culture not indicate d by urinalysis results Urine Urine specimen obtained by clean catch procedure / Unknown Non-blood Collection / Unknown 01/09/2025 12:03 PM EDT 01/09/2025 12:03 PM EDT Kenny Alvarado MD LAB URINE ORDERABLES Fin al Result [address] [place] [address] * URINALYSIS, REFLEX TO CULTURE (CUP ONLY) (01/09/2025 12:03 PM EDT) Urinalysis, Reflex to Culture Specimen Specimen collected and received 01/09/2025 2:01 PM EDT [place] [address] Urine Urine specimen obtained by clean catch procedure / Unknown Non-blood Collection / Unknown 01/09/2025 12:03 PM EDT 01/09/2025 12:03 PM EDT Kenny Alvarado MD LAB URINE ORDERABLES Fin al Result [facility] [address]- [address] [place] [address] * (ABNORMAL) DIFFERENTIAL, AUTOMATED (01/09/2025 11:52 AM EDT) WBC 13.20(H) 4.00 - 10.80 K/uL 01/09/2025 12:09 PM EDT [facility] 56- Neutrophils % 83.2(H) 40.0 - 75.0 % 01/09/2025 12:09 PM EDT [facility] 56- Lymphocytes % 8.9(L) 18.0 - 42.0 % 01/09/2025 12:09 PM EDT [facility] 56- Monocytes % 6.9 1.0 - 11.0 % 01/09/2025 12:09 PM EDT [facility] 56- Eosinophils % 0.8 0.0 - 6.0 % 01/09/2025 12:09 PM EDT [facility] 56-02 Basophils % 0.2 0.0 - 2.0 % 01/09/2025 12:09 PM EDT [facility] 56- Absolute Neutrophils 10.99(H) 1.80 - 7.70 K/uL 01/09/2025 12:09 PM EDT [facility] 56-02 Absolute Lymphocytes 1.18 1.00 - 4.80 K/ul 01/09/2025 12:09 PM EDT [facility] 56-02 Absolute Monocytes 0.91 0.00 - 1.10 K/uL 01/09/2025 12:09 PM EDT [facility] 56-02 Absolute Eosinophils 0.10 0.00 - 0.70 K/uL 01/09/2025 12:09 PM EDT [facility] 56-02 Absolute Basophils 0.02 0.00 - 0.20 K/uL 01/09/2025 12:09 PM EDT [facility] 56-02 Blood Venous blood specimen / Unknown Venipuncture / Unknown 01/09/2025 11:52 AM EDT 01/09/2025 11:52 AM EDT Kenny Alvarado MD LAB BLOOD ORDERABLES Fin al Result [facility] [address] [place], [place] [id number] * (ABNORMAL) CBC (01/09/2025 11:52 AM EDT) [facility] WBC 13.20(H) 4.00 - 10.80 K/uL 01/09/2025 12:09 [address] EDT [address] RBC 4.26 4.50 - 5.25 M/uL 01/09/2025 12:09 PM EDT [place] [address] HGB 13.1(L) 14.0 - 16.8 g/dL 01/09/2025 12:09 PM EDT [place] [address] HCT 40.6 40.0 - 48.4 % 01/09/2025 12:[address] MCV 95.3 82.0 - 99.5 fL 01/09/2025 12:09 [address] EDT [address] MCH 30.8 27.0 - 34.0 pg 01/09/2025 12:09 PM EDT [place] [address] MCHC 32.3 32.0 - 36.0 g/dL 01/09/2025 12:09 PM EDT [place] [address] RDW 14.4 11.5 - 15.5 % 01/09/2025 12:09 PM EDT [facility] 56 PLT 349 140 - 400 K/uL 01/09/2025 12:09 PM EDT [place] [address] MPV 10.6 6.6 - 11.1 fL 01/09/2025 12:09 PM EDT [facility] Blood Venous blood specimen / Unknown Venipuncture / Unknown 01/09/2025 11:52 AM EDT 01/09/2025 11:52 AM EDT Kenny Alvarado MD LAB BLOOD ORDERABLES Fin al Result [facility] 56 [address] [facility] [place] [id number] * (ABNORMAL) HEPATIC FUNCTION PANEL (01/09/2025 11:52 AM EDT) Albumin 3.1(L) 3.8 - 5.0 g/dL 01/09/2025 12:25 PM EDT [facility] 56 AST 58(H) 10 - 50 U/L 01/09/2025 12:25 PM EDT [address] Alkaline Phosphatase 148(H) 35 - 130 U/L 01/09/2025 12:25 PM EDT [facility] 56 ALT 60(H) 10 - 50 U/L 01/09/2025 12:25 PM EDT [address] Bilirubin, Total 0.6 <=1.2 mg/dL 01/09/2025 12:25 PM EDT [address] Bilirubin, Direct 0.2 0.0 - 0.3 mg/dL 01/09/2025 12:25 PM EDT [address] Protein 7.6 6.0 - 8.3 g/dL 01/09/2025 12:25 PM EDT [facility] 56 Blood Venous blood specimen / Unknown Venipuncture / Unknown 01/09/2025 11:52 AM EDT 01/09/2025 11:52 AM EDT us Kenny Alvarado MD LAB BLOOD ORDERABLES Fin al Result [facility] [address] [place] [address] * (ABNORMAL) BASIC METABOLIC PANEL (01/09/2025 11:52 AM EDT) BUN 23(H) 6 - 20 mg/dL 01/09/2025 12:25 PM EDT [facility] 56 CREATININE 1.0 0.6 - 1.2 mg/dL 01/09/2025 12:25 PM EDT [facility] 56 EGFR 75 >=60 mL/min 01/09/2025 12:25 PM EDT [facility] 56- Comment:eGFR is calculated b ased on the CKD-EPI 2020 equation. SODIUM 136 135 - 146 mmol/L 01/09/2025 12:25 PM EDT [facility] 56 POTASSIUM 4.5 3.5 - 5.1 mmol/L 01/09/2025 12:25 PM EDT [facility] 56 CHLORIDE 99 98 - 107 mmol/L 01/09/2025 12:[address]T [address] CO2 26 22 - 32 mmol/L 01/09/2025 12:25 [address]T [address] ANION GAP 11 7 - 15 mmol/L 01/09/2025 12:25 PM EDT [address] GLUCOSE 146(H) 70 - 120 mg/dL 01/09/2025 12:25 PM EDT [address] CALCIUM 9.8 8.4 - 10.2 mg/dL 01/09/2025 12:25 PM EDT [address] Blood Venous blood specimen / Unknown Venipuncture / Unknown 01/09/2025 11:52 AM EDT 01/09/2025 11:52 AM EDT us Kenny Alvarado MD LAB BLOOD ORDERABLES Fin al Result Performing Organization Address City/State/[facility] Co de Phone Number [place] [address] [address] [place] [address] documented in this encounter Visit Diagnoses Diagnosis ENMA (acute kidney injury) (HCC) Acute kidney failure, unspecified Acute UTI Urinary tract infection, site not specified documented in this encounter Care Teams Retort Unloader Relationship Specialty Start Date End Date Kenny Alvarado MD [address] [place] [address] PCP - General Internal Medicine 07/30/21 documented as of this encounter
--- OUTSIDE RECORDS SUMMARY | 2025-01-10 22:58 | External Medical Summary | Summary of Care ---
Author Name Unknown Organization [facility] Address [address] [place] [address] Phone [phone] Care Team Providers Care Isotope Technician Name Role Phone Kenny Alvarado MD Primary Care Provider + Reason for Visit * Reason Comments Outpatient Testing Encounter Details Date Type Department Care Team (Late st Contact Info) Description 01/09/2025 12:00 PM EDT Laboratory Laboratory [facility] [address] [place] [phone] [facility] [address] [facility] [place] [address] ENMA (acute kidney injury) ([facility]); Acute UTI Allergies No known active allergiesdocumented as of this encounter (statuses as of 01/09/2025) Medications ASPIRIN 81 MG PO TABS one tab by mouth daily 7 Active CENTRUM SILVER PO TABS one tab daily 3 Active Glucose Blood (ONETOUCH ULTRA BLUE) STRPIndications: Type 2 diabetes mellitus with hemoglobin A1c goal of less than 8.0% ([facility]) Use fasting daily. E11.9 100 [...] PM EDT Office Visit General Internal Medicine [facility] [address] [facility] [place] [address] Kenny Alvarado MD [address] [facility] [place] [address] 07/03/2025 8:30 AM EDT Office Visit Urology, [...] Dark Yellow 01/09/2025 12:49 PM EDT [facility] [place] [facility] Clarity, Urine Slightly Cloudy(A) Clear 01/09/2025 12:49 PM EDT [facility] [place] [facility]02 Glucose, Urine Negative Negative mg/dL 01/09/2025 12:49 PM EDT [facility] [place] 56-02 Bilirubin, Urine Small(A) Negative 01/09/2025 12:49 PM EDT [facility] [place] 56-02 Ketone, Urine 15(A) Negative mg/dL 01/09/2025 12:49 PM EDT [facility] [place] 56-02 Specific Sciota, Urine 1.025 1.003 - 1.030 01/09/2025 12:49 PM EDT [facility] [place] 56-02 Blood, Urine Negative Negative 01/09/2025 12:49 PM EDT [facility] [place] 56-02 pH, Urine 5.0 5.0 - 7.5 Units 01/09/2025 12:49 PM EDT [facility] [place] 56-02 Protein, Urine 30(A) Negative mg/dL 01/09/2025 12:49 PM EDT [address] Urobilinogen, Urine 0.2 0.2, 1.0 mg/dL 01/09/2025 12:49 PM EDT [address] Nitrite, Urine Negative Negative 01/09/2025 12:49 PM EDT [address] Esterase, Urine Negative Negative 01/09/2025 12:49 PM EDT [address] RBC, Urine 0-2 0 - 2 /HPF 01/09/2025 12:49 PM EDT [address] WBC, Urine 0-2 0 - 2 /HPF 01/09/2025 12:49 PM EDT [address] Bacteria, Urine 0-25 0 - 25 /HPF 01/09/2025 12:49 PM EDT [address] Hyaline, Cast, Urine 10-19(A) None /LPF 01/09/2025 12:49 PM EDT [address] Culture, Urine 01/09/2025 12:49 PM EDT [address] Comment:Culture not indicate d by urinalysis results Urine Urine specimen obtained by clean catch procedure / Unknown Non-blood Collection / Unknown 01/09/2025 12:03 PM EDT 01/09/2025 12:03 PM EDT Kenny Alvarado MD LAB URINE ORDERABLES Fin al Result [address] [place] [address] * URINALYSIS, REFLEX TO CULTURE (CUP ONLY) (01/09/2025 12:03 PM EDT) Urinalysis, Reflex to Culture Specimen Specimen collected and received 01/09/2025 2:01 PM EDT [place] [address] Urine Urine specimen obtained by clean catch procedure / Unknown Non-blood Collection / Unknown 01/09/2025 12:03 PM EDT 01/09/2025 12:03 PM EDT Kenny Alvarado MD LAB URINE ORDERABLES Fin al Result [facility] 56- [address] [place] [address] * (ABNORMAL) DIFFERENTIAL, AUTOMATED (01/09/2025 11:52 AM EDT) WBC 13.20(H) 4.00 - 10.80 K/uL 01/09/2025 12:09 PM EDT [facility] 56- Neutrophils % 83.2(H) 40.0 - 75.0 % 01/09/2025 12:09 PM EDT [facility] 56- Lymphocytes % 8.9(L) 18.0 - 42.0 % 01/09/2025 12:09 PM EDT [facility] 56- Monocytes % 6.9 1.0 - 11.0 % 01/09/2025 12:09 PM EDT [facility] 56- Eosinophils % 0.8 0.0 - 6.0 % 01/09/2025 12:09 PM EDT [facility] 56-02 Basophils % 0.2 0.0 - 2.0 % 01/09/2025 12:09 PM EDT [facility] 56- Absolute Neutrophils 10.99(H) 1.80 - 7.70 K/uL 01/09/2025 12:09 PM EDT [facility] 56-02 Absolute Lymphocytes 1.18 1.00 - 4.80 K/ul 01/09/2025 12:09 PM EDT [facility] 56-02 Absolute Monocytes 0.91 0.00 - 1.10 K/uL 01/09/2025 12:09 PM EDT [facility] 56-02 Absolute Eosinophils 0.10 0.00 - 0.70 K/uL 01/09/2025 12:09 PM EDT [facility] 56-02 Absolute Basophils 0.02 0.00 - 0.20 K/uL 01/09/2025 12:09 PM EDT [facility] 56-02 Blood Venous blood specimen / Unknown Venipuncture / Unknown 01/09/2025 11:52 AM EDT 01/09/2025 11:52 AM EDT Kenny Alvarado MD LAB BLOOD ORDERABLES Fin al Result [facility] [address] [place], [place] [id number] * (ABNORMAL) CBC (01/09/2025 11:52 AM EDT) [facility] WBC 13.20(H) 4.00 - 10.80 K/uL 01/09/2025 12:09 PM EDT [address] RBC 4.26 4.50 - 5.25 M/uL 01/09/2025 12:09 PM EDT [place] [address] HGB 13.1(L) 14.0 - 16.8 g/dL 01/09/2025 12:09 PM EDT [place] [address] HCT 40.6 40.0 - 48.4 % 01/09/2025 12:09 PM EDT [address] MCV 95.3 82.0 - 99.5 fL 01/09/2025 12:09 PM EDT [address] MCH 30.8 27.0 - 34.0 pg 01/09/2025 12:09 PM EDT [place] [address] MCHC 32.3 32.0 - 36.0 g/dL 01/09/2025 12:09 PM EDT [place] [address] RDW 14.4 11.5 - 15.5 % 01/09/2025 12:09 PM EDT [facility] 56 PLT 349 140 - 400 K/uL 01/09/2025 12:09 PM EDT [place] [address] MPV 10.6 6.6 - 11.1 fL 01/09/2025 12:09 PM EDT [facility] Blood Venous blood specimen / Unknown Venipuncture / Unknown 01/09/2025 11:52 AM EDT 01/09/2025 11:52 AM EDT Kenny Alvarado MD LAB BLOOD ORDERABLES Fin al Result [facility] 56 [address] [facility] [place] [id number] * (ABNORMAL) HEPATIC FUNCTION PANEL (01/09/2025 11:52 AM EDT) Albumin 3.1(L) 3.8 - 5.0 g/dL 01/09/2025 12:25 PM EDT [facility] 56 AST 58(H) 10 - 50 U/L 01/09/2025 12:25 PM EDT [address] Alkaline Phosphatase 148(H) 35 - 130 U/L 01/09/2025 12:25 PM EDT [facility] 56 ALT 60(H) 10 - 50 U/L 01/09/2025 12:25 PM EDT [address] Bilirubin, Total 0.6 <=1.2 mg/dL 01/09/2025 12:25 PM EDT [address] Bilirubin, Direct 0.2 0.0 - 0.3 mg/dL 01/09/2025 12:25 PM EDT [address] Protein 7.6 6.0 - 8.3 g/dL 01/09/2025 12:25 PM EDT [facility] 56 Blood Venous blood specimen / Unknown Venipuncture / Unknown 01/09/2025 11:52 AM EDT 01/09/2025 11:52 AM EDT us Kenny Alvarado MD LAB BLOOD ORDERABLES Fin al Result [facility] 56 [address] [place] [address] * (ABNORMAL) BASIC METABOLIC PANEL (01/09/2025 11:52 AM EDT) BUN 23(H) 6 - 20 mg/dL 01/09/2025 12:25 PM EDT [facility] 56 CREATININE 1.0 0.6 - 1.2 mg/dL 01/09/2025 12:25 PM EDT [facility] 56 EGFR 75 >=60 mL/min 01/09/2025 12:25 PM EDT [facility] 56- Comment:eGFR is calculated b ased on the CKD-EPI 2020 equation. SODIUM 136 135 - 146 mmol/L 01/09/2025 12:25 PM EDT [facility] 56 POTASSIUM 4.5 3.5 - 5.1 mmol/L 01/09/2025 12:25 PM EDT [facility] 56 CHLORIDE 99 98 - 107 mmol/L 01/09/2025 12:25 PM EDT [address] CO2 26 22 - 32 mmol/L 01/09/2025 12:25 PM EDT [address] ANION GAP 11 7 - 15 mmol/L 01/09/2025 12:25 PM EDT [address] GLUCOSE 146(H) 70 - 120 mg/dL 01/09/2025 12:25 PM EDT [address] CALCIUM 9.8 8.4 - 10.2 mg/dL 01/09/2025 12:25 PM EDT [address] Blood Venous blood specimen / Unknown Venipuncture / Unknown 01/09/2025 11:52 AM EDT 01/09/2025 11:52 AM EDT us Kenny Alvarado MD LAB BLOOD ORDERABLES Fin al Result Performing Organization Address City/State/[facility] Co de Phone Number [place] [phone] [place] [address] documented in this encounter Visit Diagnoses Diagnosis ENMA (acute kidney injury) (HCC) Acute kidney failure, unspecified Acute UTI Urinary tract infection, site not specified documented in this encounter Care Teams Isotope Technician Relationship Specialty Start Date End Date Kenny Alvarado MD [address] [place] [address] PCP - General Internal Medicine 07/30/21 documented as of this encounter
--- OUTSIDE RECORDS SUMMARY | 2025-01-10 22:58 | External Medical Summary | Summary of Care ---
Author Name Unknown Organization [facility] Address [address] [place] [address] Phone [phone] Care Team Providers Care Floor Mechanic Name Role Phone Kenny Alvarado MD Primary Care Provider + Reason for Visit * Reason Onset Date Comments Hospital Follow-Up 01/04/2025 [facility] discharg e 01/03 Encounter Details Date Type Department Care Team (Late st Contact Info) Description 01/04/2025 Telephone General Internal Medicine [facility] [place] [address] [place] [address] Rosalee Samayoa, RN Hospital Follow-Up ([facility] discharge 01/03) Allergies No known active allergiesdocumented as of this encounter (statuses as of 01/04/2025) Medications ASPIRIN 81 MG PO TABS one tab by mouth daily 7 Active CENTRUM SILVER PO TABS one tab daily 3 Active ONETOUCH ULTRA SYSTEM W/DEVICE KIT use fasting daily. DX 250.00 1 Kit 0 5 Active ONETOUCH ULTRASOFT LANCETS MISC use fasting daily. DX 250.00 1 Box 5 5 Active Glucose Blood (ONETOUCH ULTRA BLUE) STRPIndications: Type 2 diabetes mellitus with hemoglobin A1c goal of less than 8.0% ([facility]) Use fasting daily. E11.9 [...] St Oral Capsule 1 Capsule. 5 Active Cefdinir 300 MG Oral Capsule (Omnicef) 1 Capsule. 5 Active Metoprolol Tartrate 25 MG Oral Tablet (Lopressor)Indic ations:NSVT (nonsustained ventricular tachycardia) (HCC),HTN, goal below 140/90,Dyslipide harry, goal LDL below 100,LBBB (left bundle branch block),Pulmonary HTN (HCC),Interstiti al lung disease (HCC),Bradycardi a, sinus,RBBB (right bundle branch block) TAKE 1/2 TABLET IN THE MORNING AND TAKE 1/2 TABLET BEFORE BEDTIME 90 Tablet 5 01/05/20 25 Discontin ued(Medic ation List Clean Up) documented as of this encounter (statuses as of 01/04/2025) Active Problems Problem Noted Date Diagnosed Date [...] as of this encounter (statuses as of 01/04/2025) Resolved Problems Problem Noted Date Diagnosed Date [...] as of this encounter (statuses as of 01/04/2025) Immunizations Name Administration Dates Next Due COVID-19 [...] encounter Miscellaneous Notes * Telephone Encounter - Rosalee Samayoa RN - 01/04/2025 8:42 AM EDT Images from the original note were not included. Transitions of Care Note Reason for Referral:Recent Admission Phone visit for follow up: JAZLYN Admitted to: [facility], Date: 12/28 Discharged to: , Date: 01/03 Diagnosis driving hospitalization: weakness and hypotension Source/Contact: Spouse SUBJECTIVE Consent: Verbal consent for review of hospital discharge: Yes REVIEW OF SYSTEMS Patient/Other Reports: Current patient/caregiver problems or concerns: still with some weakness CV: Denies problems Pulmonary: Denies problems Chills/Sweats/Fever:Denies chills/sweats Denies fever Appetite:poor appetite Current diet: regular Bowel: denies problems Bladder: increased urinary frequency Wound (If applicable): N/A Pain:Denies Sleep:fatigued FUNCTIONAL STATUS: ADL'S: Needs Assistance With:Bathing IADL'S: Needs Assistance With:Taking medications Cognitive and Mental Health: denies problems MEDICATION RECONCILIATION Medications: Discharge med list reviewed with patient or caregiver New medication(s) filled since hospitalization- Cefdinir Discontinued medication(s) since hospitalization- metoprolol, Medications on HOLD: lisinopril, hydrochlorothiazide. - Discussed taking BP at home, and also with the nurses, can resume if BP increases, otherwise Samaria will await appt with Dr Alvarado for further instructions on medications ASSESSMENT Medication Risk Assessment: No risks identified Discharge instructions available for review? Yes PLAN Symptom Monitoring Interventions:Member/caregiver education - signs and symptoms to contact PrimaryCare (DO NOT DELETE-Three simeon symptoms patient is to report to PCP) 1. Hypotension/hypertension 2. Worsening weakness/falls 3. Worsening SOB Obgyn SpecialistSenior Software Engineering Manager of Care interventions/Action Plan: Medication reconciliation and 5 - 7 day follow-up with PCP in place - Date: 01/09 Educated on role of JAZLYN completed with patient/caregiver. Educated patient/caregiver on patient right to have input on JAZLYN plan of care. Verification of Home Health/DME if indicated: Yes, [facility]: Yes Care Gaps closed this call: Appointment made or confirmed, Plan of care optimization, Safety and self care issues addressed, and Transition of Care follow-up communication Re-evaluation of Plan of Care and progress towards goals achievement: Patient education this visit: Verbal, as above Plan to instructed to call Primary Care Provider with change in symptoms or as needed before next follow-up, discharge needs met, verbalizes understanding and agrees with plan. Discussed unit control worker nursing phone staff, available on weekends if any questions/symptoms occur that they should need to speak with staff. Rosalee Samayoa RN documented in this encounter Plan of Treatment Upcoming Encounters Date Type Department Care Team (Late st Contact Info) Description 01/09/2025 11:20 AM EDT Office Visit General Internal Medicine [facility] [address] [facility] [address] Kenny Alvarado MD [address] [facility] [place] [address] 06/10/2025 12:40 PM EDT Office Visit General Internal Medicine [facility] [address] [facility] [place] [address] Kenny Alvarado MD [address] [facility] [place] [address] 07/03/2025 8:30 AM EDT Office Visit Urology, [facility] [address] [place] [phone] Hung Horowitz MD [address] [place] [...] filedocumented as of this encounter Care Teams Floor Mechanic Relationship Specialty Start Date End Date Kenny Alvarado MD [address] [place] [address] PCP - General Internal Medicine 07/30/21 documented as of this encounter
--- OUTSIDE RECORDS SUMMARY | 2025-01-10 22:58 | External Medical Summary ---
Author Name Unknown Address Unknown Organization K09:[facility] [address] Laboratory Report Ordering Provider Test Date Status TIANNA MAKI 01/09/2025 11:52:01 Final Observation Date Value Abnormality Reference (Units ) Status SYNC LEUKOCYTES IN BLOOD BY AUTOMATED COUNT 01/09/2025 11:52:01 13.20 Above high normal 4.00-10.80 (K/uL) Final Segs 01/09/2025 11:52:01 83.2 Above high normal 40.0-75.0 (%) Final Lymphs % 01/09/2025 11:52:01 8.9 Below low normal 18.0-42.0 (%) Final Monos 01/09/2025 11:52:01 6.9 1.0-11.0 (%) Final Eosinophils 01/09/2025 11:52:01 0.8 0.0-6.0 (%) Final Basos 01/09/2025 11:52:01 0.2 0.0-2.0 (%) Final Absolute Segs 01/09/2025 11:52:01 10.99 Above high normal 1.80-7.70 (K/uL) Final Lymphs, absolute 01/09/2025 11:52:01 1.18 1.00-4.80 (K/ul) Final Monos, Abs 01/09/2025 11:52:01 0.91 0.00-1.10 (K/uL) Final Eos, Abs 01/09/2025 11:52:01 0.10 0.00-0.70 (K/uL) Final Basos, Abs 01/09/2025 11:52:01 0.02 0.00-0.20 (K/uL) Final Performing Location [facility] [address]
--- OUTSIDE RECORDS SUMMARY | 2025-01-10 22:58 | External Medical Summary | Summary of Care ---
Author Name Unknown Organization [facility] Address [address] [place] [address] Phone [phone] Care Team Providers Care Informatica Name Role Phone Kenny Wynn MD Primary Care Provider + Reason for Referral * Precert (Within 24 hrs (call dept; emergent)) - Pending Review Specialty Diagnoses / Procedures Referred By Contac t Referred To Contact Radiology Diagnoses Generalized abdominal pain Generalized weakness Procedures CT ABD/PELVIS W IV AND W ORAL CONTRAST Kenny Wynn MD [address] [place] [address] Phone: tel: fax: Referral ID Status Reason Start Date Expiration Date V isits Requested Visits Authorized [id number] Pending Review 01/09/2025 999 999 * Evaluate & Treat - Unlimited Visits (Within 10 days (routine)) - Authorized Specialty Diagnoses / Procedures Referred By Contact Referred To Contact Cardiovascular Medicine / Cardiology Diagnoses Sinus pause Bradycardia Kenny Wynn MD [address] [place] [address] Phone: tel: fax: Referral ID Status Reason Start Date Expiration Date Visits Requested Visits Authorized [id number] Authorized Specialty Services Required 01/09/2025 999 999 Question Answer Referral Priority Within 10 days (routine) Where should this appointment be scheduled? [facility] For which of the following conditions are you referring? Other Condition Not Listed Other Condition: bradycardia Reason for Visit * Reason Onset Date Comments Hospital Follow-Up Patient prese nts for hospital follow up from [facility] for weakness, UTI, syncopal episode. Patient admitted on 12/28/2024 and discharged on 01/03/2025. Patient states pain to right lower abdomen is gone, states he is having pain to mid abdomen, states it is very tender to touch Hospital Follow-Up 01/09/2025 Encounter Details Date Type Department Care Team (Late st Contact Info) Description 01/09/2025 11:20 AM EDT Office Visit General Internal Medicine [facility] [place] [place] [address] [facility] [place] [address] Kenny Wynn MD [address] [facility] [place] [address] Hospital discharge follow-up*; Acute UTI; ENMA (acute kidney injury) ([facility]); Generalized abdominal pain; Generalized weakness; Type 2 diabetes mellitus with hemoglobin A1c goal of less than 8.0% ([facility]); Sinus pause; Bradycardia; Elevated LFTs Allergies No known active allergiesdocumented as of this encounter (statuses as of 01/09/2025) Medications ASPIRIN 81 MG PO TABS one tab by mouth daily 02/17/20 07 Active CENTRUM SILVER PO TABS one tab daily 03/22/20 13 Active Glucose Blood (ONETOUCH ULTRA BLUE) STRPIndications: Type 2 diabetes mellitus with hemoglobin A1c goal of less than 8.0% ([facility]) Use fasting daily. E11.9 100 Strip 5 09/15/20 18 Active Additional Information Patient not taking.Reported on 01/09/2025 Brimonidine Tartrate 0.2 % Ophthalmic Solution (Alphagan) 07/24/20 21 Active Dorzolamide HCl 2 % Ophthalmic Solution (Trusopt Ocumeter Plus) 09/01/20 21 Active Timolol Maleate 0.5 % Ophthalmic Solution (Timoptic) 08/16/20 21 Active Latanoprost 0.005 % Ophthalmic Solution (Xalatan) 1 Drop at bedtime. Active prednisoLONE Acetate 1 % Ophthalmic Suspension (Pred Forte) 05/24/20 22 Active Ofloxacin 0.3 % Ophthalmic Solution (Ocuflox) 02/24/20 22 Active Triamcinolone Acetonide 0.1 % External Cream [...] DAY 45 Tablet 1 10/15/19 25 Active Probiotic & Acidophilus Ex St Oral Capsule 1 Capsule. 01/04/20 25 Active ONETOUCH ULTRA SYSTEM W/DEVICE KIT use fasting daily. DX 250.00 1 Kit 0 01/02/20 15 025 Discontin ued(Patie nt preferenc e/discont inuation) ONETOUCH ULTRASOFT LANCETS MISC use fasting daily. DX 250.00 1 Box 5 01/02/20 15 025 Discontin ued(Patie nt preferenc e/discont inuation) Meclizine HCl 12.5 MG Oral Tablet (Antivert)Indica tions:Vertigo Take 1 Tab by mouth 3 times a day as needed for Dizziness. 30 Tab 1 04/10/20 21 025 Discontin ued(Patie nt preferenc e/discont inuation) Loratadine 10 MG Oral Capsule Take 1 Capsule by mouth in the morning. 025 Discontin ued(Patie nt preferenc e/discont inuation) hydroCHLOROthiaz ursula 25 MG Oral Tablet (Hydrodiuril)Ind ications:Essenti al hypertension with goal blood pressure less than 140/90 TAKE 1 TABLET EVERY DAY 90 Tablet 3 05/02/20 24 025 Discontin ued(Patie nt preferenc e/discont inuation) Lisinopril 10 MG Oral Tablet (Prinivil)Indica tions:Essential hypertension with goal blood pressure less than 140/90 TAKE 1 TABLET EVERY DAY 90 Tablet 3 05/02/20 24 025 Discontin ued(Patie nt preferenc e/discont inuation) Nitrofurantoin Monohyd Macro 100 MG Oral Capsule (Macrobid)Indica tions:UTI symptoms Take 1 Capsule by mouth in the morning and 1 Capsule before bedtime. Do all this for 7 days. With food until gone. 14 Capsule 12/21/19 25 025 Discontin ued(Patie nt preferenc e/discont inuation) Cefdinir 300 MG Oral Capsule (Omnicef) 1 Capsule. 01/04/20 25 025 Discontin ued(Medic ation List Clean Up) documented [...] 30 Mcg, IM, 12 yrs and above (EduRise) 07/05/2022 Pneumococcal Conjugate Vacc, 13 Valent (Prevnar) [...] Date Smoking Tobacco: Never Smokeless Tobacco: Never Tobacco Cessation:Counseling Given: Not Answered Alcohol Use Standard Drinks/Week Comments Yes 0 [...] Sign Reading Time Taken Comments Blood Pressure 92/58 01/09/2025 11:20 AM EDT Pulse 70 01/09/2025 11:20 AM EDT Temperature 34.7 °C (94.5 °F) 01/09/2025 1 1:20 AM EDT Respiratory Rate 24 01/09/2025 11:2 0 AM EDT Oxygen Saturation - - Inhaled Oxygen Concentration - - Weight 111.4 kg (245 lb 9.6 oz) 025 11:20 AM EDT Height - - Body Mass Index 36.27 06/12/2024 9:35 AM EDT documented in this encounter Progress Notes * Kenny Wynn MD - 01/09/2025 11:45 AM EDT Chief Complaint Patient presents with Hospital Follow-Up Patient presents for hospital follow up from [facility] for weakness, UTI, syncopal episode. Patient admitted on 12/28/2024 and discharged on 01/03/2025. Patient states pain to right lower abdomen is gone,states he is having pain to mid abdomen, states it is very tender to touch Hospital Follow-Up SUBJECTIVE: Jorge Luis Gutierrez is a 84 year old male with PMH as below who presents for hospital follow up. Admitted12/28-01/03/25 for weakness, rlq pain, syncope. [place] to have uti causing enma and weakness. He also hadlow bp, meds held. Symptoms improved on iv abx, transitioned to oral and given bowel regimen and rlq pain felt to be from constipation. His gfr improved as well. He was sent home with pt/ot on 01/03/25. He notes since 01/03/25 rlq pain gone, but severe mid-epigastric pain, worse laying flat, tylenol helps. Can eat, but does belch often. No cp. Sob ,flower. Edema in legs better. Was seen by cardiology for bradycardia, sinus pause, no pacer needed yet, but needs follow up.still feels weak Patient Active Problem List Diagnosis Gouty arthropathy Essential hypertension with goal blood pressure less than 140/90 BMI 35-39 ISOLATED (SEE ACTUAL BMI) Venous insufficiency Mixed hyperlipidemia Pulmonary HTN (HCC) Interstitial lung disease (HCC) Urethral stricture BPH without obstruction/lower urinary tract symptoms RBBB (right bundle branch block) LBBB (left bundle branch block) Type 2 diabetes mellitus with hemoglobin A1c goal of less than 8.0% ([facility]) Bradycardia, sinus Primary open angle glaucoma (POAG) of both eyes NSVT (nonsustained ventricular tachycardia) ([facility]) Nocturia Urinary frequency Phimosis Current Outpatient Medications [...] Forte) Ofloxacin 0.3 % Ophthalmic Solution (Ocuflox) Triamcinolone Acetonide 0.1 % External Cream (Aristocort) [...] TABLET EVERY OTHER DAY 45 Tablet 1 Probiotic & Acidophilus Ex St Oral Capsule 1 Capsule. Glucose Blood (KnowReUCH ULTRA BLUE) STRP Use fasting daily. E11.9 (Patient not taking: Reported on 01/09/2025) 100 Strip 5 No current facility-administered medications for this visit. Review of patient's allergies indicates: No Known Allergies Health Maintenance Due Topic Date Due Adult Wellness Visit 01/05/2014 COVID-19 Vaccine ( season) 2024 Diabetic Eye Exam 11/22/2024 Albumin/Creatinine Ratio 03/29/2025 ROS: PULMONARY: No cough, sputum, or hemoptysis, No wheezing, No rales, No shortness of breath, and No recent change in breathing CARDIOVASCULAR: No chest pain, No shortness of breath, No dyspnea on exertion, No orthopnea, No paroxysmal nocturnal dyspnea, No palpitations, ALL OTHER SYSTEMS NEGATIVE I reviewed social, [...] Wall to wall, 5 years Work environment: [employer] Radon exposure: No Social Needs Financial Resource [...] DIAGNOSTIC performed by Lucho Sandhu MD at [facility], benign polyp repeat colonoscopy in 5 year [...] performed by Lucho Sandhu MD at [facility], benign polyp repeat colonoscopy in 5 years COLONOSCOPY, DIAGNOSTIC (RECTUM) 03/13/2018 adenomatous polyp, repeat 5 yrs/COLONOSCOPY FLEXIBLE PROXIMAL DIAGNOSTIC performed by Bryce Chu MD at ENDOSCOPY [facility] [address] CYSTOSCOPY 09/03/2015 INCISION OF EYE FOR GLAUCOMA Right 01/2022 stent placed REMOVAL OF APPENDIX 1945 REMOVAL OF TONSILS, UNDER AGE 10 194 Family History Problem Relation Name Age of Onset Diabetes Mother Cancer Sister colon Cancer Brother colon Heart Disorder Brother OBJECTIVE: PHYSICAL EXAM: BP 92/58 (BP Site: Left Arm, BP Position: Sitting, BP Cuff Size: Regular) | Pulse 70 | Temp (!) 94.5 °F (34.7 °C) (Tympanic) | Resp 24 | Wt 245 lb 9.6 oz (111.4 kg) | BMI 36.27 kg/m² | BSA 2.33 m² General: alert, healthy, and no distress Head: Normocephalic, No masses, lesions, or abnormalities Eye Exam: conjunctiva are pink and non-injected, sclera clear Ears: aids in Heart: regular rate & rhythm, no murmur, no gallops, PMI non-displaced, S-1 normal, and S-2 normal Lungs: normal respiratory rate and rhythm, lungs clear to auscultation Abdomen: abdomen soft, obese, distended, and +tender mid epigastric to touch Extremities: no clubbing, no cyanosis, +trace edema ankles Psych: normal affect, no flight of ideas or tangential thought, good eye contact, no pressured speech Neuro: sitting in wheelchair, moving all extremities D/C Summary: (1) Generalized weakness: Patient is 84-year-old male with PMH HTN, HLD, DM II, pulmonary HTN, interstitial lung disease, history RBBB and LBBB, history NSVT, gout presented to ER with c/o progressive weakness. Generalized weakness Recent history of possible viral respiratory infection Likely multifactorial secondary to ENMA, UTI infection, bradycardia Bio fire negative Chest x-ray showed no acute process CTA abdomen ? Enteritis, repeat CT no acute process Blood cultures negative Evaluated by PT OT Plan to be discharged home today UTI--POA Outpatient urine culture about 2 weeks ago grew pansensitive E. coli Likely failed Macrobid treatment Urine culture growing E. coli Empirically on Rocephin Transition to cefdinir on discharge Constipation Resolved Continue bowel regimen as needed Sinus bradycardia 2.6 second pause Interventricular conduction delay H/O NSVT Metoprolol discontinued TSH normal May need pacemaker eventually Appreciate cardiology input Acute kidney injury Cr 2.2>2.1>1.4>1.0>0.85 Renal function improved with IV fluids Encouraged to increase oral fluid intake Lisinopril, HCTZ on hold Monitor renal function Avoid nephrotoxic agents as able Hypotension Likely due to dehydration Received IV fluids Held antihypertensives (lisinopril, HCTZ) while hospitalized Blood pressure improved Monitor blood pressure Abdominal pain likely due to constipation Right sided/RLL abdominal pain with movement started after severe coughing DD:Musculoskeletal --CT abd/pelvis: Stable small fat-containing right inguinal hernia. Prostate is mildly enlarged. Urinary bladder is decompressed. There is sigmoid diverticulosis. No acute diverticulitis. There is possible mild enteritis. No other bowel inflammation or obstruction seen. No free air or abscess. No en larged adenopathy. Right inguinal pain is minimal and there is no lump and/or significant tenderness on examination No bowel problem and no evidence of diverticulitis Abdominal pain resolved Bowel regimen to help with constipation Tolerating current diet (2) Ambulatory dysfunction: Continue PT OT Fall precautions (3) Recent urinary tract infection: Was having increased urinary frequency. 12/20/2024 urine culture + pansensitive > 100,000 colonies/mL E. coli Treated with Macrobid x 7 days as outpatient (4) Hypertension: Resume home medications as able (5) Dyslipidemia: Continue rosuvastatin (6) Diabetes mellitus, type II: A1c: 7.3 on 11/08/24 Random glucose 180 Novolog sliding scale per protocol (7) NSVT (nonsustained ventricular tachycardia): History NSVT Metoprolol discontinued as above (8) BPH (benign prostatic hyperplasia): History phimosis Follows with urology, Dr Horowitz Continue tamsulosin, finasteride, oxybutynin (9) Gout: Continue allopurinol DVT Px Lovenox SQ Code Status DNR/DNI as per discussion with pt Follows with Dr Wynn for routine care Disposition Home with home health CT A/P: IMPRESSION: 1. Moderate abdominal and pelvic ascites and trace pleural effusions. 2. Colonic diverticulosis. Assessment for inflammation limited due to the presence of ascites and edema. Secondary small bowel thickening related to the presence of ascites. No obstruction. Cardiology note: 84-year-old male admitted with generalized weakness likely secondary to urinary tract infection andtransient hypotension. Sinus bradycardia with 2.6-second sinus pause recorded on telemetry 01/01/2025t approximately 2:50 PM. No associated symptoms. Underlying conduction disease noted with history of both right bundle and left bundle branch block. ECG on admission demonstrating nonspecific interventricular conduction block. No evidence of high degree AV block, symptomatic bradycardia, or significant pauses on telemetry since admission. Continue to hold beta-polo therapy and telemetry monitoring. Normal TSH noted. Currently, no overt indication for pacemaker implantation. I did discuss with both the patient and his the possible need for pacemaker at implant at some point in the future given underlying conduction disease and intermittent bradycardia. Thank you for allow me to participate in the care of your patient. Cardiology will sign off. Please call with additional concerns/questions. ASSESSMENT: (Z09) Hospital discharge follow-up (primary encounter diagnosis) (N39.0) Acute UTI (N17.9) ENMA (acute kidney injury) (HCC) (R10.84) Generalized abdominal pain (R53.1) Generalized weakness (E11.9) Type 2 diabetes mellitus with hemoglobin A1c goal of less than 8.0% (HCC) (I45.5) Sinus pause (R00.1) Bradycardia PLAN: Hospital discharge follow-up (Primary) - DISCH MED RECON CUR MED LIS As below Acute UTI - URINALYSIS, REFLEX TO CULTURE (NOT FOR NEUTROPENIC PATIENTS); Future; Expected date: 01/09/2025 Recheck ENMA (acute kidney injury) (HCC) - BASIC METABOLIC PANEL; Future; Expected date: 01/09/2025 - CBC WITH WBC DIFFERENTIAL; Future; Expected date: 01/09/2025 - HEPATIC FUNCTION PANEL; Future; Expected date: 01/09/2025 Recheck labs Hold bp meds Generalized abdominal pain Last ct showed ascites, will recheck labs, t/c CT pending to re-assess Generalized weakness Pt on hold given pain for this week Type 2 diabetes mellitus with hemoglobin A1c goal of less than 8.0% (HCC) Follow Sinus pause - CARDIOLOGY REFERRAL OP Bradycardia - CARDIOLOGY REFERRAL OP Follow Up: Return if symptoms worsen or fail to improve and as scheduled., for Labs Today. | For: Labs Today documented in this encounter Nursing Notes * Bay Garcai RN - 01/09/2025 11:23 AM EDT Chief Complaint Patient presents with Hospital Follow-Up Patient presents for hospital follow up from [facility] for weakness, UTI, syncopal episode. Patient admitted on 12/28/2024 and discharged on 01/03/2025. Patient states pain to right lower abdomen is gone,states he is having pain to mid abdomen, states it is very tender to touch documented in this encounter Miscellaneous Notes * Addendum Note - Kenny Wynn MD - 01/09/2025 3:13 PM EDTAddended by: KENNY WYNN on: 01/09/2025 03:13 PM Modules accepted: Orders documented in this encounter Plan of Treatment Upcoming Encounters Date Type Department Care Team (Late st Contact Info) Description 06/10/2025 12:40 PM EDT Office Visit General Internal Medicine [place] [address] [facility] [place] [address] Kenny Wynn MD [address] [facility] [place] [address] 07/03/2025 8:30 AM EDT Office Visit Urology, [facility] [address] [place] [id number] Hung Horowitz MD [address] [place] [address] Scheduled Orders Name Type Priority Associated Diagnoses Orde r Schedule CT ABD/PELVIS W IV AND W ORAL CONTRAST Medical Imaging NICOL Generalized abdominal pain Generalized weakness Ordered: 01/09/2025 HEPATIC FUNCTION PANEL Lab Routine Elevated LFTs Expected: 01/09/2025 (Approximate), Expires: 01/09/2026 CBC WITH WBC DIFFERENTIAL Lab Routine Elevated LFTs Expected: 01/09/2025 (Approximate), Expires: 01/09/2026 Scheduled Procedures Name Priority Associated Diagnoses Date/Ti me COLONOSCOPY FLEXIBLE PROXIMAL DIAGNOSTIC Recall History of colon polyps Scheduled Referrals Name Type Priority Associated Diagnoses Orde r Schedule CARDIOLOGY REFERRAL OP Referral Within 10 days (routine) Sinus pause Bradycardia Ordered: 01/09/2025 Health Maintenance Due Date Last Done Comments [...] filedocumented as of this encounter Results * (ABNORMAL) HEPATIC FUNCTION PANEL (01/09/2025 11:52 AM EDT) Pathologist [facility] Albumin 3.1(L) 3.8 - 5.0 g/dL 01/09/2025 12:25 PM EDT [facility] AST 58(H) 10 - 50 U/L 01/09/2025 12:25 PM EDT [facility]02 Alkaline Phosphatase 148(H) 35 - 130 U/L 01/09/2025 12:25 PM EDT [facility] ALT 60(H) 10 - 50 U/L 01/09/2025 12:25 PM EDT [facility] Bilirubin, Total 0.6 <=1.2 mg/dL 01/09/2025 12:25 PM EDT [facility] Bilirubin, Direct 0.2 0.0 - 0.3 mg/dL 01/09/2025 12:25 PM EDT [facility]02 Protein 7.6 6.0 - 8.3 g/dL 01/09/2025 12:25 PM EDT [facility]02 Blood Venous blood specimen / Unknown Venipuncture / Unknown 01/09/2025 11:52 AM EDT 01/09/2025 11:52 AM EDT Kenny Wynn MD LAB BLOOD ORDERABLES Fin al Result [facility] [address] [place] [address] * (ABNORMAL) BASIC METABOLIC PANEL (01/09/2025 11:52 AM EDT) BUN 23(H) 6 - 20 mg/dL 01/09/2025 12:25 PM EDT [address] CREATININE 1.0 0.6 - 1.2 mg/dL 01/09/2025 12:25 PM EDT [address] EGFR 75 >=60 mL/min 01/09/2025 12:25 PM EDT [facility] 56 Comment:eGFR is calculated b ased on the CKD-EPI 2020 equation. SODIUM 136 135 - 146 mmol/L 01/09/2025 12:25 PM EDT [facility] 56 POTASSIUM 4.5 3.5 - 5.1 mmol/L 01/09/2025 12:25 PM EDT [facility] 56 CHLORIDE 99 98 - 107 mmol/L 01/09/2025 12:25 PM EDT [facility] 56 CO2 26 22 - 32 mmol/L 01/09/2025 12:25 PM EDT [facility] 56 ANION GAP 11 7 - 15 mmol/L 01/09/2025 12:25 PM EDT [facility] 56 GLUCOSE 146(H) 70 - 120 mg/dL 01/09/2025 12:25 PM EDT [facility] 56 CALCIUM 9.8 8.4 - 10.2 mg/dL 01/09/2025 12:25 PM EDT [facility] 56 Blood Venous blood specimen / Unknown Venipuncture / Unknown 01/09/2025 11:52 AM EDT 01/09/2025 11:52 AM EDT Kenny Wynn MD LAB BLOOD ORDERABLES Fin al Result [facility] [address] [place] [id number] documented in this encounter Visit Diagnoses Diagnosis Hospital discharge follow-up- Primary Other follow-up examination Acute UTI Urinary tract infection, site not specified ENMA (acute kidney injury) (HCC) Acute kidney failure, unspecified Generalized abdominal pain Abdominal pain, generalized Generalized weakness Other malaise and fatigue Type 2 diabetes mellitus with hemoglobin A1c goal of less than 8.0% (HCC) Sinus pause Other heart block Bradycardia Other specified cardiac dysrhythmias Elevated LFTs Other abnormal blood chemistry documented in this encounter Care Teams Informatica Relationship Specialty Start Date End Date Kenny Wynn MD [address] [place] [address] PCP - General Internal Medicine 07/30/21 documented as of this encounter"
--- OUTSIDE RECORDS SUMMARY | 2025-01-10 22:58 | External Medical Summary | Summary of Care ---
Author Name Unknown Organization [facility] Address [address] [place] [address] Phone [phone] Care Team Providers Care Siphon Operator Name Role Phone Kenny Alvarado MD Primary Care Provider + Reason for Visit * Reason Comments Outpatient Testing Encounter Details Date Type Department Care Team (Late st Contact Info) Description 01/09/2025 12:00 PM EDT Laboratory Laboratory [facility] [address] [place] [address] [facility] Lab [facility] [address] [facility] [place] [address] ENMA (acute kidney injury) ([facility]); Acute UTI Allergies No known active allergiesdocumented as of this encounter (statuses as of 01/09/2025) Medications ASPIRIN 81 MG PO TABS one tab by mouth daily 7 Active CENTRUM SILVER PO TABS one tab daily 3 Active Glucose Blood (ONETOUCH ULTRA BLUE) STRPIndications: Type 2 diabetes mellitus with hemoglobin A1c goal of less than 8.0% ([facility]) Use fasting daily. E11.9 100 Strip 5 [...] PM EDT Office Visit General Internal Medicine [facility] [address] [facility] [place] [address] Kenny Alvarado MD [address] [facility] [place] [address] 07/03/2025 8:30 AM EDT Office Visit Urology, [...] Dark Yellow 01/09/2025 12:49 PM EDT [facility] [place] [facility]02 Clarity, Urine Slightly Cloudy(A) Clear 01/09/2025 12:49 PM EDT [facility] [place] [facility]02 Glucose, Urine Negative Negative mg/dL 01/09/2025 12:49 PM EDT [facility] [place] [facility]02 Bilirubin, Urine Small(A) Negative 01/09/2025 12:49 PM EDT [facility] [place] [facility]02 Ketone, Urine 15(A) Negative mg/dL 01/09/2025 12:49 PM EDT [facility] [place] [facility]-02 Specific Harman, Urine 1.025 1.003 - 1.030 01/09/2025 12:49 PM EDT [facility] [place] [facility]-02 Blood, Urine Negative Negative 01/09/2025 12:49 PM EDT [facility] [place] [facility]-02 pH, Urine 5.0 5.0 - 7.5 Units 01/09/2025 12:49 PM EDT [facility] [place] 56-02 Protein, Urine 30(A) Negative mg/dL 01/09/2025 12:49 PM EDT [address] Urobilinogen, Urine 0.2 0.2, 1.0 mg/dL 01/09/2025 12:49 PM EDT [address] Nitrite, Urine Negative Negative 01/09/2025 12:49 PM EDT [address] Esterase, Urine Negative Negative 01/09/2025 12:49 PM EDT [address] RBC, Urine 0-2 0 - 2 /HPF 01/09/2025 12:49 PM EDT [address] WBC, Urine 0-2 0 - 2 /HPF 01/09/2025 12:49 PM EDT [address] Bacteria, Urine 0-25 0 - 25 /HPF 01/09/2025 12:49 PM EDT [address] Hyaline, Cast, Urine 10-19(A) None /LPF 01/09/2025 12:49 PM EDT [address] Culture, Urine 01/09/2025 12:49 PM EDT [address] Comment:Culture not indicate d by urinalysis results Urine Urine specimen obtained by clean catch procedure / Unknown Non-blood Collection / Unknown 01/09/2025 12:03 PM EDT 01/09/2025 12:03 PM EDT Kenny Alvarado MD LAB URINE ORDERABLES Fin al Result [address] [place] [address] * URINALYSIS, REFLEX TO CULTURE (CUP ONLY) (01/09/2025 12:03 PM EDT) Urinalysis, Reflex to Culture Specimen Specimen collected and received 01/09/2025 2:01 PM EDT [place] [address] Urine Urine specimen obtained by clean catch procedure / Unknown Non-blood Collection / Unknown 01/09/2025 12:03 PM EDT 01/09/2025 12:03 PM EDT Kenny Alvarado MD LAB URINE ORDERABLES Fin al Result [facility] [address]- [address] [place] [address] * (ABNORMAL) DIFFERENTIAL, AUTOMATED (01/09/2025 11:52 AM EDT) WBC 13.20(H) 4.00 - 10.80 K/uL 01/09/2025 12:09 PM EDT [facility] 56- Neutrophils % 83.2(H) 40.0 - 75.0 % 01/09/2025 12:09 PM EDT [facility] 56- Lymphocytes % 8.9(L) 18.0 - 42.0 % 01/09/2025 12:09 PM EDT [facility] 56- Monocytes % 6.9 1.0 - 11.0 % 01/09/2025 12:09 PM EDT [facility] 56- Eosinophils % 0.8 0.0 - 6.0 % 01/09/2025 12:09 PM EDT [facility] 56-02 Basophils % 0.2 0.0 - 2.0 % 01/09/2025 12:09 PM EDT [facility] 56- Absolute Neutrophils 10.99(H) 1.80 - 7.70 K/uL 01/09/2025 12:09 PM EDT [facility] 56-02 Absolute Lymphocytes 1.18 1.00 - 4.80 K/ul 01/09/2025 12:09 PM EDT [facility] 56-02 Absolute Monocytes 0.91 0.00 - 1.10 K/uL 01/09/2025 12:09 PM EDT [facility] 56-02 Absolute Eosinophils 0.10 0.00 - 0.70 K/uL 01/09/2025 12:09 PM EDT [facility] 56-02 Absolute Basophils 0.02 0.00 - 0.20 K/uL 01/09/2025 12:09 PM EDT [facility] 56-02 Blood Venous blood specimen / Unknown Venipuncture / Unknown 01/09/2025 11:52 AM EDT 01/09/2025 11:52 AM EDT Kenny Alvarado MD LAB BLOOD ORDERABLES Fin al Result [facility] 56 [address] [place], [place] [id number] * (ABNORMAL) CBC (01/09/2025 11:52 AM EDT) [facility] WBC 13.20(H) 4.00 - 10.80 K/uL 01/09/2025 12:09 PM EDT [address] RBC 4.26 4.50 - 5.25 M/uL 01/09/2025 12:09 PM EDT [place] [address] HGB 13.1(L) 14.0 - 16.8 g/dL 01/09/2025 12:09 PM EDT [place] [address] HCT 40.6 40.0 - 48.4 % 01/09/2025 12:09 PM EDT [address] MCV 95.3 82.0 - 99.5 fL 01/09/2025 12:09 PM EDT [address] MCH 30.8 27.0 - 34.0 pg 01/09/2025 12:09 PM EDT [place] [address] MCHC 32.3 32.0 - 36.0 g/dL 01/09/2025 12:09 PM EDT [place] [address] RDW 14.4 11.5 - 15.5 % 01/09/2025 12:09 PM EDT [facility] 56 PLT 349 140 - 400 K/uL 01/09/2025 12:09 PM EDT [place] [address] MPV 10.6 6.6 - 11.1 fL 01/09/2025 12:09 PM EDT [facility] Blood Venous blood specimen / Unknown Venipuncture / Unknown 01/09/2025 11:52 AM EDT 01/09/2025 11:52 AM EDT Kenny Alvarado MD LAB BLOOD ORDERABLES Fin al Result [facility] 56 [address] [facility] [place] [id number] * (ABNORMAL) HEPATIC FUNCTION PANEL (01/09/2025 11:52 AM EDT) Albumin 3.1(L) 3.8 - 5.0 g/dL 01/09/2025 12:25 PM EDT [facility] 56 AST 58(H) 10 - 50 U/L 01/09/2025 12:25 PM EDT [address] Alkaline Phosphatase 148(H) 35 - 130 U/L 01/09/2025 12:25 PM EDT [facility] 56 ALT 60(H) 10 - 50 U/L 01/09/2025 12:25 PM EDT [address] Bilirubin, Total 0.6 <=1.2 mg/dL 01/09/2025 12:25 PM EDT [address] Bilirubin, Direct 0.2 0.0 - 0.3 mg/dL 01/09/2025 12:25 PM EDT [address] Protein 7.6 6.0 - 8.3 g/dL 01/09/2025 12:25 PM EDT [facility] 56 Blood Venous blood specimen / Unknown Venipuncture / Unknown 01/09/2025 11:52 AM EDT 01/09/2025 11:52 AM EDT us Kenny Alvarado MD LAB BLOOD ORDERABLES Fin al Result [facility] 56 [address] [place] [address] * (ABNORMAL) BASIC METABOLIC PANEL (01/09/2025 11:52 AM EDT) BUN 23(H) 6 - 20 mg/dL 01/09/2025 12:25 PM EDT [facility] 56 CREATININE 1.0 0.6 - 1.2 mg/dL 01/09/2025 12:25 PM EDT [facility] 56 EGFR 75 >=60 mL/min 01/09/2025 12:25 PM EDT [facility] 56- Comment:eGFR is calculated b ased on the CKD-EPI 2020 equation. SODIUM 136 135 - 146 mmol/L 01/09/2025 12:25 PM EDT [facility] 56 POTASSIUM 4.5 3.5 - 5.1 mmol/L 01/09/2025 12:25 PM EDT [facility] 56 CHLORIDE 99 98 - 107 mmol/L 01/09/2025 12:25 [address] EDT [address] CO2 26 22 - 32 mmol/L 01/09/2025 12:25 PM EDT [address] ANION GAP 11 7 - 15 mmol/L 01/09/2025 12:25 PM EDT [address] GLUCOSE 146(H) 70 - 120 mg/dL 01/09/2025 12:25 PM EDT [address] CALCIUM 9.8 8.4 - 10.2 mg/dL 01/09/2025 12:25 PM EDT [address] Blood Venous blood specimen / Unknown Venipuncture / Unknown 01/09/2025 11:52 AM EDT 01/09/2025 11:52 AM EDT us Kenny Alvarado MD LAB BLOOD ORDERABLES Fin al Result Performing Organization Address City/State/[facility] Co de Phone Number [place] [address] [address] [place] [address] documented in this encounter Visit Diagnoses Diagnosis ENMA (acute kidney injury) (HCC) Acute kidney failure, unspecified Acute UTI Urinary tract infection, site not specified documented in this encounter Care Teams Siphon Operator Relationship Specialty Start Date End Date Kenny Alvarado MD [address] [facility] [place] [address] PCP - General Internal Medicine 07/30/21 documented as of this encounter
--- OUTSIDE RECORDS SUMMARY | 2025-01-10 22:58 | External Medical Summary ---
Author Name Unknown Address Unknown Organization [facility]- [address] [place] [address] Laboratory Report Ordering Provider Test Date Status TIANNA MAKI 01/09/2025 12:03:14 Final Observation Date Value Abnormality Reference (Units ) Status Color of Urine by Auto 01/09/2025 12:03:14 Dark Yellow Light Yellow, Yellow, Dark Yellow Final Clarity, Urine 01/09/2025 12:03:14 Slightly Cloudy Abnormal Clear Final Glucose [Mass/volume] in Urine by Automated test strip 01/09/2025 12:03:14 Negative Negative (mg/dL) Final Bilirubin.total [Presence] in Urine by Automated test strip 01/09/2025 12:03:14 Small Abnormal Negative Final Ketones [Mass/volume] in Urine by Automated test strip 01/09/2025 12:03:14 15 Abnormal Negative (mg/dL) Final Specific gravity, Urine 01/09/2025 12:03:14 1.025 1.003-1.030 Final Hemoglobin [Presence] in Urine by Automated test strip 01/09/2025 12:03:14 Negative Negative Final pH, Urine 01/09/2025 12:03:14 5.0 5.0-7.5 (Units) Final Protein [Mass/volume] in Urine by Automated test strip 01/09/2025 12:03:14 30 Abnormal Negative (mg/dL) Final Urobilinogen [Mass/volume] in Urine by Automated test strip 01/09/2025 12:03:14 0.2 0.2, 1.0 (mg/dL) Final Nitrite [Presence] in Urine by Automated test strip 01/09/2025 12:03:14 Negative Negative Final Leukocyte esterase [Presence] in Urine by Automated test strip 01/09/2025 12:03:14 Negative Negative Final RBC, Urine 01/09/2025 12:03:14 0-2 0-2 (/HPF) Final WBC, Urine 01/09/2025 12:03:14 0-2 0-2 (/HPF) Final Bacteria [#/area] in Urine sediment by Microscopy high power field 01/09/2025 12:03:14 0-25 0-25 (/HPF) Final Hyaline casts, Urine 01/09/2025 12:03:14 10-19 Abnormal None (/LPF) Final CULTURE, URINE - [facility] 01/09/2025 12:03:14 Final Culture not indicated by uri nalysis results\X09\ Performing Location [facility] [address] [place] [address]
--- OUTSIDE RECORDS SUMMARY | 2025-01-10 22:58 | External Medical Summary ---
Author Name Unknown Address Unknown Organization [facility] [place] [address] Laboratory Report Ordering Provider Test Date Status TIANNA MAKI 01/09/2025 11:52:01 Final Observation Date Value Abnormality Reference (Units ) Status BUN 01/09/2025 11:52:01 23 Above high normal 6-20 (mg/dL) Final Creatinine 01/09/2025 11:52:01 1.0 0.6-1.2 (mg/dL) Final Glomerular filtration rate/1.73 sq M.predicted [Volume Rate/Area] in Serum, Plasma or Blood by Creatinine-based formula (CKD-EPI) 01/09/2025 11:52:01 75 >=60 (mL/min) Final eGFR is calculated based on the CKD-EPI 2020 equation. Sodium 01/09/2025 11:52:01 136 135-146 (m mol/L) Final Potassium 01/09/2025 11:52:01 4.5 3.5-5.1 (m mol/L) Final Cl 01/09/2025 11:52:01 99 98-107 (mm ol/L) Final CO2 01/09/2025 11:52:01 26 22-32 (mmo l/L) Final Anion gap 01/09/2025 11:52:01 11 7-15 (mmol /L) Final Glucose 01/09/2025 11:52:01 146 Above high normal 70 -120 (mg/dL) Final Calcium 01/09/2025 11:52:01 9.8 8.4-10.2 ( mg/dL) Final Performing Location [place] [place] [address]
--- OUTSIDE RECORDS SUMMARY | 2025-01-10 22:58 | External Medical Summary ---
Author Name Unknown Address Unknown Organization [facility] [address] [place] [address] Laboratory Report Ordering Provider Test Date Status TIANNA MAKI 01/09/2025 11:52:01 Final Observation Date Value Abnormality Reference (Units ) Status Albumin 01/09/2025 11:52:01 3.1 Below low normal 3.8-5.0 (g/dL) Final AST (Aspartate aminotransferase) 01/09/2025 11:52:01 58 Above high normal 10-50 (U/L) Final Alk Phos 01/09/2025 11:52:01 148 Above high normal 35-130 (U/L) Final ALT (Alanine aminotransferase) 01/09/2025 11:52:01 60 Above high normal 10-50 (U/L) Final Bilirubin, Total 01/09/2025 11:52:01 0.6 <=1.2 (mg/dL) Final Bilirubin, Direct 01/09/2025 11:52:01 0.2 0.0-0.3 (mg/dL) Final Protein 01/09/2025 11:52:01 7.6 6.0-8.3 (g/dL) Final Performing Location [facility] [address] [place] [address]
--- OUTSIDE RECORDS SUMMARY | 2025-01-10 22:58 | External Medical Summary | Summary of Care ---
Author Name Unknown Organization [facility] Address [address] [place] [address] Phone [phone] Care Team Providers Care Lockstitch Coat Joiner Name Role Phone Kenny Wynn MD Primary Care Provider + Reason for Referral * Precert (Within 24 hrs (call dept; emergent)) - Pending Review Specialty Diagnoses / Procedures Referred By Contac t Referred To Contact Radiology Diagnoses Generalized abdominal pain Generalized weakness Procedures CT ABD/PELVIS W IV AND W ORAL CONTRAST Kenny Wynn MD [address] [place] [address] Phone: tel: fax: Referral ID Status Reason Start Date Expiration Date V isits Requested Visits Authorized [id number] Pending Review 01/09/2025 999 999 * Evaluate & Treat - Unlimited Visits (Within 10 days (routine)) - Authorized Specialty Diagnoses / Procedures Referred By Contact Referred To Contact Cardiovascular Medicine / Cardiology Diagnoses Sinus pause Bradycardia Kenny Wynn MD [address] [place] [address] Phone: tel: fax: Referral ID Status Reason Start Date Expiration Date Visits Requested Visits Authorized [id number] Authorized Specialty Services Required 01/09/2025 999 999 Question Answer Referral Priority Within 10 days (routine) Where should this appointment be scheduled? [facility] For which of the following conditions are you referring? Other Condition Not Listed Other Condition: bradycardia Reason for Visit * Reason Onset Date Comments Hospital Follow-Up Patient prese nts for hospital follow up from [facility] for weakness, UTI, syncopal episode. Patient admitted [...] General Internal Medicine [place] [address] [facility] [place] [address] Kenny Wynn MD [address] [facility] [place] [address] Hospital discharge follow-up*; Acute UTI; ENMA (acute kidney injury) ([facility]); Generalized abdominal pain; Generalized weakness; Type 2 diabetes mellitus with hemoglobin A1c goal of less than 8.0% ([facility]); Sinus pause; Bradycardia; Elevated LFTs Allergies No known active allergiesdocumented as of this encounter (statuses as of 01/09/2025) Medications ASPIRIN 81 MG PO TABS one tab by mouth daily 02/17/20 07 Active CENTRUM SILVER PO TABS one tab daily 03/22/20 13 Active Glucose Blood (ONETOUCH ULTRA BLUE) STRPIndications: Type 2 diabetes mellitus with hemoglobin A1c goal of less than 8.0% ([facility]) Use fasting daily. E11.9 [...] 30 Mcg, IM, 12 yrs and above (LFS ([employer])) 07/05/2022 Pneumococcal Conjugate Vacc, 13 Valent (Prevnar) [...] Patient presents for hospital follow up from [facility] for weakness, UTI, syncopal episode. Patient admitted [...] up. Admitted12/28-01/03/25 for weakness, rlq pain, syncope. [place] to have uti causing enma and weakness. [...] hemoglobin A1c goal of less than 8.0% ([facility]) Bradycardia, sinus Primary open angle glaucoma (POAG) of both eyes NSVT (nonsustained ventricular tachycardia) ([facility]) Nocturia Urinary frequency Phimosis Current Outpatient Medications [...] St Oral Capsule 1 Capsule. Glucose Blood ([employer] ULTRA BLUE) STRP Use fasting daily. E11.9 [...] to wall, 5 years Work environment: [employer] Radon exposure: No Social Needs Financial Resource [...] DIAGNOSTIC performed by Lucho Sandhu MD at [facility], benign polyp repeat colonoscopy in 5 year [...] performed by Lucho Sandhu MD at [facility], benign polyp repeat colonoscopy in 5 years COLONOSCOPY, DIAGNOSTIC (RECTUM) 03/13/2018 adenomatous polyp, repeat 5 yrs/COLONOSCOPY FLEXIBLE PROXIMAL DIAGNOSTIC performed by Bryce Chu MD at ENDOSCOPY [facility] CYSTOSCOPY 09/03/2015 INCISION OF EYE FOR GLAUCOMA [...] in this encounter Nursing Notes * Bay Garcia RN - 01/09/2025 11:23 AM EDT Chief Complaint Patient presents with Hospital Follow-Up Patient presents for hospital follow up from [facility] for weakness, UTI, syncopal episode. Patient admitted [...] Office Visit General Internal Medicine [address] [place] [address] [facility] [place] [address] Kenny Wynn MD [address] [facility] [place] [address] 07/03/2025 8:30 AM EDT Office Visit Urology, [facility] [address] [place] [address] Hung Horowitz MD [address] [place] [address] Scheduled Orders Name Type Priority Associated Diagnoses [...] FUNCTION PANEL (01/09/2025 11:52 AM EDT) Pathologist [facility] Albumin 3.1(L) 3.8 - 5.0 g/dL 01/09/2025 [...] MD LAB BLOOD ORDERABLES Fin al Result [facility] 56 [address] [place] [address] * (ABNORMAL) BASIC METABOLIC PANEL (01/09/2025 11:52 AM EDT) BUN 23(H) 6 - 20 mg/dL 01/09/2025 12:[address]T [address] CREATININE 1.0 0.6 - 1.2 mg/dL 01/09/2025 12:25 PM EDT [address] EGFR 75 >=60 mL/min 01/09/2025 12:25 PM EDT [facility] 56 Comment:eGFR is calculated b ased on the CKD-EPI 2020 equation. SODIUM 136 135 - 146 mmol/L 01/09/2025 12:25 PM EDT [facility] 56 POTASSIUM 4.5 3.5 - 5.1 mmol/L 01/09/2025 12:25 PM EDT [facility] 56 CHLORIDE 99 98 - 107 mmol/L 01/09/2025 12:25 PM EDT [facility] 56 CO2 26 22 - 32 mmol/L 01/09/2025 12:25 PM EDT [facility] 56 ANION GAP 11 7 - 15 mmol/L 01/09/2025 12:25 PM EDT [facility] 56 GLUCOSE 146(H) 70 - 120 mg/dL 01/09/2025 12:25 PM EDT [facility] 56 CALCIUM 9.8 8.4 - 10.2 mg/dL 01/09/2025 12:25 PM EDT [facility] 56 Blood Venous blood specimen / Unknown Venipuncture / Unknown 01/09/2025 11:52 AM EDT 01/09/2025 11:52 AM EDT Kenny Wynn MD LAB BLOOD ORDERABLES Fin al Result [facility] [address] [place] [id number] documented in this encounter Visit Diagnoses Diagnosis [...] chemistry documented in this encounter Care Teams Lockstitch Coat Joiner Relationship Specialty Start Date End Date Kenny Wynn MD [address] [place] [address] PCP - General Internal Medicine 07/30/21 documented as of this encounter"
--- OUTSIDE RECORDS SUMMARY | 2025-01-10 22:58 | External Medical Summary | Summary of Care ---
Author Name Unknown Organization [facility] Address [address] [place] [address] Phone [phone] Care Team Providers Care Building Engineer Name Role Phone Kenny Alvarado MD Primary Care Provider + Reason for Visit * Reason Comments Outpatient Testing Encounter Details Date Type Department Care Team (Late st Contact Info) Description 01/09/2025 12:00 PM EDT Laboratory Laboratory [facility] [address] [place] [id number] [facility] [address] [facility] [place] [address] ENMA (acute kidney injury) ([facility]); [...] PM EDT Office Visit General Internal Medicine [facility] [address] [facility] [place] [address] Kenny Alvarado MD [address] [facility] [place] [address] 07/03/2025 8:30 AM EDT Office Visit Urology, [facility] [address] [place] [phone] Hung [...] Dark Yellow 01/09/2025 12:49 PM EDT [facility] [place] [facility] Clarity, Urine Slightly Cloudy(A) Clear 01/09/2025 12:49 PM EDT [facility] [place] [facility]02 Glucose, Urine Negative Negative mg/dL 01/09/2025 12:49 PM EDT [facility] [place] [facility] Bilirubin, Urine Small(A) Negative 01/09/2025 12:49 PM EDT [facility] [place] [facility]02 Ketone, Urine 15(A) Negative mg/dL 01/09/2025 12:49 PM EDT [facility] [place] [facility]02 Specific [place], Urine 1.025 1.003 - 1.030 01/09/2025 12:49 PM EDT [facility] [place] [facility] Blood, Urine Negative Negative 01/09/2025 12:49 PM EDT [facility] [place] [facility] pH, Urine 5.0 5.0 - 7.5 Units 01/09/2025 12:49 PM EDT [facility] [place] [facility]02 Protein, Urine 30(A) Negative mg/dL 01/09/2025 12:49 PM EDT [address] Urobilinogen, Urine 0.2 0.2, 1.0 mg/dL 01/09/2025 12:49 PM EDT [address] Nitrite, Urine Negative Negative 01/09/2025 12:49 PM EDT [address] Esterase, Urine Negative Negative 01/09/2025 12:49 PM EDT [address] RBC, Urine 0-2 0 - 2 /HPF 01/09/2025 12:49 PM EDT [address] WBC, Urine 0-2 0 - 2 /HPF 01/09/2025 12:49 PM EDT [address] Bacteria, Urine 0-25 0 - 25 /HPF 01/09/2025 12:49 PM EDT [address] Hyaline, Cast, Urine 10-19(A) None /LPF 01/09/2025 12:49 PM EDT [address] Culture, Urine 01/09/2025 12:49 PM EDT [address] Comment:Culture not indicate d by urinalysis results Urine Urine specimen obtained by clean catch procedure / Unknown Non-blood Collection / Unknown 01/09/2025 12:03 PM EDT 01/09/2025 12:03 PM EDT Kenny Alvarado MD LAB URINE ORDERABLES Fin al Result [address] [place] [address] * URINALYSIS, REFLEX TO CULTURE (CUP ONLY) (01/09/2025 12:03 PM EDT) Urinalysis, Reflex to Culture Specimen Specimen collected and received 01/09/2025 2:01 PM EDT [place] [address] Urine Urine specimen obtained by clean catch procedure / Unknown Non-blood Collection / Unknown 01/09/2025 12:03 PM EDT 01/09/2025 12:03 PM EDT Kenny Alvarado MD LAB URINE ORDERABLES Fin al Result [facility] 56- [address] [place] [address] * (ABNORMAL) DIFFERENTIAL, AUTOMATED (01/09/2025 11:52 AM EDT) WBC 13.20(H) 4.00 - 10.80 K/uL 01/09/2025 12:09 PM EDT [facility] 56- Neutrophils % 83.2(H) 40.0 - 75.0 % 01/09/2025 12:09 PM EDT [facility] 56- Lymphocytes % 8.9(L) 18.0 - 42.0 % 01/09/2025 12:09 PM EDT [facility] 56- Monocytes % 6.9 1.0 - 11.0 % 01/09/2025 12:09 PM EDT [facility] 56- Eosinophils % 0.8 0.0 - 6.0 % 01/09/2025 12:09 PM EDT [facility] 56-02 Basophils % 0.2 0.0 - 2.0 % 01/09/2025 12:09 PM EDT [facility] 56- Absolute Neutrophils 10.99(H) 1.80 - 7.70 K/uL 01/09/2025 12:09 PM EDT [facility] 56-02 Absolute Lymphocytes 1.18 1.00 - 4.80 K/ul 01/09/2025 12:09 PM EDT [facility] 56-02 Absolute Monocytes 0.91 0.00 - 1.10 K/uL 01/09/2025 12:09 PM EDT [facility] 56-02 Absolute Eosinophils 0.10 0.00 - 0.70 K/uL 01/09/2025 12:09 PM EDT [facility] 56-02 Absolute Basophils 0.02 0.00 - 0.20 K/uL 01/09/2025 12:09 PM EDT [facility] 56-02 Blood Venous blood specimen / Unknown Venipuncture / Unknown 01/09/2025 11:52 AM EDT 01/09/2025 11:52 AM EDT Kenny Alvarado MD LAB BLOOD ORDERABLES Fin al Result [facility] 56 [address] [place], [place] [id number] * (ABNORMAL) CBC (01/09/2025 11:52 AM EDT) [facility] WBC 13.20(H) 4.00 - 10.80 K/uL 01/09/2025 12:09 PM EDT [address] RBC 4.26 4.50 - 5.25 M/uL 01/09/2025 12:09 PM EDT [place] [address] HGB 13.1(L) 14.0 - 16.8 g/dL 01/09/2025 12:09 PM EDT [place] [address] HCT 40.6 40.0 - 48.4 % 01/09/2025 12:09 PM EDT [address] MCV 95.3 82.0 - 99.5 fL 01/09/2025 12:09 PM EDT [address] MCH 30.8 27.0 - 34.0 pg 01/09/2025 12:09 PM EDT [place] [address] MCHC 32.3 32.0 - 36.0 g/dL 01/09/2025 12:09 PM EDT [place] [address] RDW 14.4 11.5 - 15.5 % 01/09/2025 12:09 PM EDT [facility] 56 PLT 349 140 - 400 K/uL 01/09/2025 12:09 PM EDT [place] [address] MPV 10.6 6.6 - 11.1 fL 01/09/2025 12:09 PM EDT [facility] Blood Venous blood specimen / Unknown Venipuncture / Unknown 01/09/2025 11:52 AM EDT 01/09/2025 11:52 AM EDT Kenny Alvarado MD LAB BLOOD ORDERABLES Fin al Result [facility] 56 [address] [facility] [place] [id number] * (ABNORMAL) HEPATIC FUNCTION PANEL (01/09/2025 11:52 AM EDT) Albumin 3.1(L) 3.8 - 5.0 g/dL 01/09/2025 12:25 PM EDT [facility] 56 AST 58(H) 10 - 50 U/L 01/09/2025 12:25 PM EDT [address] Alkaline Phosphatase 148(H) 35 - 130 U/L 01/09/2025 12:25 PM EDT [facility] 56 ALT 60(H) 10 - 50 U/L 01/09/2025 12:25 PM EDT [address] Bilirubin, Total 0.6 <=1.2 mg/dL 01/09/2025 12:25 PM EDT [address] Bilirubin, Direct 0.2 0.0 - 0.3 mg/dL 01/09/2025 12:25 PM EDT [address] Protein 7.6 6.0 - 8.3 g/dL 01/09/2025 12:25 PM EDT [facility] 56 Blood Venous blood specimen / Unknown Venipuncture / Unknown 01/09/2025 11:52 AM EDT 01/09/2025 11:52 AM EDT us Kenny Alvarado MD LAB BLOOD ORDERABLES Fin al Result [facility] 56 [address] [place] [address] * (ABNORMAL) BASIC METABOLIC PANEL (01/09/2025 11:52 AM EDT) BUN 23(H) 6 - 20 mg/dL 01/09/2025 12:25 PM EDT [facility] 56 CREATININE 1.0 0.6 - 1.2 mg/dL 01/09/2025 12:25 PM EDT [facility] 56 EGFR 75 >=60 mL/min 01/09/2025 12:25 PM EDT [facility] 56- Comment:eGFR is calculated b ased on the CKD-EPI 2020 equation. SODIUM 136 135 - 146 mmol/L 01/09/2025 12:25 PM EDT [facility] 56 POTASSIUM 4.5 3.5 - 5.1 mmol/L 01/09/2025 12:25 PM EDT [facility] 56 CHLORIDE 99 98 - 107 mmol/L 01/09/2025 12:25 PM EDT [address] CO2 26 22 - 32 mmol/L 01/09/2025 12:25 PM EDT [address] ANION GAP 11 7 - 15 mmol/L 01/09/2025 12:25 PM EDT [address] GLUCOSE 146(H) 70 - 120 mg/dL 01/09/2025 12:25 PM EDT [address] CALCIUM 9.8 8.4 - 10.2 mg/dL 01/09/2025 12:25 PM EDT [address] Blood Venous blood specimen / Unknown Venipuncture / Unknown 01/09/2025 11:52 AM EDT 01/09/2025 11:52 AM EDT us Kenny Alvarado MD LAB BLOOD ORDERABLES Fin al Result Performing Organization Address City/State/[facility] Co de Phone Number [place] [address] [address] [place] [address] documented in this encounter Visit Diagnoses Diagnosis ENMA (acute kidney injury) (HCC) Acute kidney failure, unspecified Acute UTI Urinary tract infection, site not specified documented in this encounter Care Teams Building Engineer Relationship Specialty Start Date End Date Kenny Alvarado MD [address] [place] [address] PCP - General Internal Medicine 07/30/21 documented as of this encounter
[2025-01-11] MEDS: INSULIN ASPART PER UNIT CHARGE SC SCH ×2 (02:02→20:16)
[2025-01-11] MEDS: PIPERACILLIN/TAZOBACTAM 4.5 GM/100 ML BAG IV SCH (02:40)
[2025-01-11] MEDS: oxyCODONE HCL IR 5 MG TAB (IMMEDIATE RELEASE) PO STA (06:34)
[2025-01-11 07:19] LABS: Basophils # (auto) 0.04 K/uL (0.00-0.20); Basophils % (auto) 0.3 %; Eosinophils # (auto) 0.15 K/uL (0.00-0.50); Eosinophils % (auto) 1.2 %; Hematocrit (blood only) 38.6 % (42.0-52.0); Hemoglobin 12.8 g/dl (14.0-18.0); Immature Granulocytes # (auto) 0.08 K/uL (0.01-0.20); Immature Granulocytes % (auto) 0.6 %; Lymphocytes # (auto) 1.25 K/uL (1.20-3.40); Lymphocytes % (auto) 10.1 %; Mean Corpuscular Hemoglobin 30.1 pg (25.0-34.0); Mean Corpuscular Hgb Conc 33.2 g/dL (32.0-36.0); Mean Corpuscular Volume 90.8 fL (80.0-100.0); Mean Platelet Volume 10.5 fL (9.4-12.4); Monocytes # (auto) 1.08 K/uL (0.11-0.59); Monocytes % (auto) 8.7 %; Neutrophils # (auto) 9.78 K/uL (1.40-6.50); Neutrophils % (auto) 79.1 %; Platelet Count 325 K/uL (130-400); RDW Coefficient of Variation 14.1 % (11.5-14.5); RDW Standard Deviation 46.2 fL (36.4-46.3); Red Blood Count 4.25 M/uL (4.70-6.10); White Blood Count 12.38 K/ul (4.8-10.8)
[2025-01-11 07:20] LABS: Lymphocytes, Fluid 25 %; Mono,Macrophage,Mesothelial 66 %; Neutrophils, Fluid 9 %
[2025-01-11 07:41] LABS: Albumin Globulin Ratio 0.7 (0.9-2); BUN Creatinine Ratio 29.4 (10-20); Bilirubin,Total 0.9 mg/dl (0.2-1.0); Calcium 9.3 mg/dl (8.6-10.3); Creatinine Clr Calc Pharmacy 75.7 ml/min; Globulin 4.1 gm/dl (2.5-4.0); Potassium 4.6 mmol/L (3.5-5.1); Total Protein 7.1 gm/dl (6.0-8.3)
[2025-01-11 07:54] LABS: Prothrombin Time 11.3 Seconds (9.0-12.0)
[2025-01-11] MEDS: OXYBUTYNIN CHLORIDE XL 5 MG TABCR PO SCH (08:13)
[2025-01-11] MEDS: CEROVITE ADV FORMULA TAB PO SCH (08:13)
[2025-01-11] MEDS: ADVANCED PROBIOTIC 625 MG CAPSULE PO SCH (08:13)
[2025-01-11] MEDS: allopurinoL 300 MG TAB PO SCH (08:13)
[2025-01-11] MEDS: FINASTERIDE 5 MG TAB PO SCH (08:13)
[2025-01-11] MEDS: ROSUVASTATIN CALCIUM 10 MG TAB PO SCH (08:13)
[2025-01-11] MEDS: TIMOLOL MALEATE 0.5% OP SOLN 5 ML BTL OPB SCH (08:14)
[2025-01-11 08:50] LABS: Estimated Average Glucose 157 mg/dl; Hemoglobin A1C 7.1 % (4.5-5.6)
--- NOTE | 2025-01-11 09:08 | Pharmacy Report ---
Pharmacy Glycemic Short Note 2 - Date of Service January 11, 2025 - Glycemic Short BSG Results (Last 24 hours): 01/10/25 01/10/25 01/11/25 15:03 21:31 01:56 Glucose 122 H POC Glucose 113 H 98 01/11/25 01/11/25 05:59 06:41 Glucose 106 H POC Glucose 107 H OUTPATIENT ANTIDIABETIC REGIMEN: * No anti-diabetic home medications HbA1c: * 7.1% (01/11/25) ASSESSMENT: * 84 yo M admitted on 01/10/25 secondary to possible cholecystitis. Pharmacy has been consulted to assist with inpatient glycemic management. Patient is a Type 2 diabetic as an outpatient. Please refer to outpatient regimen and most recent HbA1c above. * Patient is currently NPO, but, per surgical consult, unlikely to require OR for cholecystectomy. Diet may be resumed today. Will follow to see if patient tolerates. * Continue to hold basal insulin at this time. BSGs since admission have been: 122-113-98 mg/dL. Fasting BSG 107 mg/dL this AM. * Continue with Novolog only. No changes. PLAN FOR INPATIENT GLYCEMIC CONTROL: * Basal insulin * None * Bolus insulin * NovoLog per scale ACHS or Q6hrs while NPO * Goal Range: Low 110 mg/dL - High 140 mg/dL * Correction Factor: 25 mg/dL/unit * Nutritional / Prandial insulin per carb ratio of 1 unit per 9 grams CHO consumed
--- NOTE | 2025-01-11 11:13 | Gastrointestinal Consultation ---
Date of Consultation January 11, 2025 Assessment & Plan (1) Ascites: Plan Patient admitted with concerns for gallbladder disease and ascites. GI consulted to evaluate ascites. Patient is status post paracentesis and admits that he feels somewhat better since this. He has no signs of cirrhosis and as such I do not feel like this is related to an underlying liver issue. -Would recommend non GI causes be looked into for his ascites given the lack of liver etiology. - start protonix 40mg once daily in case some of his symptoms are related to an acid component. - Will discuss case further with Dr. Dubois. Further recommendations to follow. Supervising Physician Co-Signing Physician Notes I saw and examined this patient with our nurse practitioner and agree with her assessment and plan. New onset ascites unclear etiology. Paracentesis today with fluid analysis. SAG gradient 0.7 not consistent with portal hypertension. Need to be concerned about possible underlying malignancy. Await cultures and cytology. If unrevealing may need to consider laparoscopy for further evaluation. History of Present Illness Reason for Consultation: new ascites Requesting Physician: Matty Garcia MD Attending Physician: Diaz Bustamante MD History of Present Illness Patient is an 84 year old male who presented to the ED on 01/10/25 due to concern for abnormal outpatient CT report that he was told may show some sort of gallbladder disease with moderate volume ascites. The patient was in pain at that time which he describe as diffusely throughout his abdomen. The patient has been taking Tylenol every 4 hours which does take the edge off. He denies any chest pains or shortness of breath. He has a history of chronic lower extremity edema. GI has been asked to evaluate for ascites. He did undergo a paracentesis since admission. he feels this was helpful for his pain, though does still admit to some diffuse discomfort. no signs of SBP on fluid. patient is somewhat of a poor historian. rest of GI ros are unremarkable. US 01/10/25 Cholelithiasis without definite acute cholecystitis. Moderate amount of ascites. Fatty infiltration of the liver. 01/11/25 LFTs unremarkable except alk phos 125. Allergies Allergy/AdvReac Type Severity Reaction Status Date / Time Blackening Seasoning Allergy Intermediate Swelling Uncoded 07/28/23 09:00 of Lip/Tongue/Throat Home Medications Medication Instructions Recorded Confirmed Type allopurinol 300 mg tablet 300 mg PO Q2D 05/19/19 01/10/25 History aspirin 81 mg tablet,delayed 81 mg PO HS 05/19/19 01/10/25 History release finasteride 5 mg tablet 5 mg PO QAM 05/19/19 01/10/25 History hydrochlorothiazide 25 mg tablet 25 mg PO QAM 05/19/19 01/10/25 History lisinopril 10 mg tablet 10 mg PO QAM 05/19/19 01/10/25 History hxqogzah-qa-hxbjp 300 mcg-K 60 1 tab PO QAM 05/19/19 01/10/25 History mcg-lycop 600 mcg-lutein 300 mcg tablet (Centrum Silver Men) rosuvastatin 10 mg tablet 10 mg PO QAM 05/19/19 01/10/25 History tamsulosin 0.4 mg capsule 0.8 mg PO HS 05/19/19 01/10/25 History brimonidine 0.2 % eye drops 1 drp OPL UD 07/28/23 01/10/25 History dorzolamide 2 % eye drops 1 drp OPL BID 07/28/23 01/10/25 History latanoprost (PF) 0.005 % eye drops 1 drp OPL HS 07/28/23 01/10/25 History in a dropperette oxybutynin chloride 10 mg 10 mg PO DAILY 07/28/23 01/10/25 History tablet,extended release 24 hr timolol maleate 0.5 % eye drops 1 drp OPB BID 07/28/23 01/10/25 History L.acidop,casei,lactis,rham-B.lact,zahraa 1 cap PO DAILY #10 caps 01/03/25 01/10/25 Rx 625 mg (10 billion cell) capsule (Advanced Probiotic) Patient History Medical History Gout BPH (benign prostatic hyperplasia) RBBB LBBB (left bundle branch block) NSVT (nonsustained ventricular tachycardia) Dyslipidemia Diabetes mellitus, type II Hypertension Surgical History History of colonoscopy Hx of tonsillectomy History of appendectomy Family History Other Cancer Diabetes Social History Smoking Status: Never smoker Second Hand Exposure: No; Do You Dip or Chew Tobacco: No; Hx Alcohol Use: No Hx Substance Use: No Preferred Language: Cypriot Communication Ability: Effective Government Contracts Manager Required: No Beliefs That Will Affect Care: None marital status: Current Living Situation: Spouse Current Living Situation Comment: home with current occupational status: retired Other Information That Helps Us Care for You: No Feels Safe at Home: Yes Safety Concerns: Feels Safe At This Time Assistive Devices: Walker Review of Systems Review of Systems: All systems reviewed & are unremarkable except as noted in HPI & below Physical Exam Constitutional: WD/WN, vitals as above Respiratory: normal respiratory effort, lungs clear to auscultation Cardiovascular: Rate/Rhythm: regular rate and regular rhythm Psychiatric: Orientation: alert and oriented x 3 Results & Data Vital Signs (Past 12 Hours) Vital Signs Temp Pulse Pulse Pulse Resp BP Pulse Ox 01/11/25 08:29 79 01/11/25 07:50 97.7 F 86 24 123/70 94 01/11/25 07:35 01/11/25 02:16 97.3 F L 80 22 108/64 95 O2 Del Method 01/11/25 08:29 01/11/25 07:50 Room Air 01/11/25 07:35 Room Air 01/11/25 02:16 Room Air Laboratory Results Laboratory Results - last 48 hr 01/10/25 01/10/25 01/10/25 15:03 18:37 21:31 WBC 12.76 H RBC 4.17 L Hgb 12.6 L Hct 38.5 L MCV 92.3 MCH 30.2 MCHC 32.7 RDW Std Deviation 48.0 H RDW Coeff of Hilda 14.1 Plt Count 342 MPV 10.6 Immature Gran % (Auto) 0.8 Neut % (Auto) 79.3 Lymph % (Auto) 10.1 [place] % (Auto) 8.2 Eos % (Auto) 1.3 Baso % (Auto) 0.3 Neut # (Auto) 10.13 H Lymph # (Auto) 1.29 [place] # (Auto) 1.04 H Eos # (Auto) 0.16 Baso # (Auto) 0.04 Immature Gran # (Auto) 0.10 PT INR Sodium 136 Potassium 4.9 Chloride 100 Carbon Dioxide 30 Anion Gap 6 BUN 24 H Creatinine 0.87 Est Cr Clr Drug Dosing Not Reportable eGFR 84.03 BUN/Creatinine Ratio 27.6 H Glucose 122 H POC Glucose 113 H Estimat Average Glucose Hemoglobin A1c Calcium 9.5 Total Bilirubin 0.7 AST 39 ALT 48 Alkaline Phosphatase 126 H Total Protein 7.4 Albumin 3.1 L Globulin 4.3 H Albumin/Globulin Ratio 0.7 L Lipase 13 Urine Color Yellow Urine Appearance Slightly Cloudy Urine pH 5.5 Ur Specific [place] 1.010 Urine Protein Trace H Urine Glucose (UA) Negative Urine Ketones Negative Urine Blood Negative Urine Nitrite Negative Urine Bilirubin Negative Urine Urobilinogen Negative Ur Leukocyte Esterase Trace H Urine RBC 0-2 Urine WBC 21-50 H Ur Epithelial Cells 6-10 H Urine Bacteria None Seen Fluid Neutrophils % 9 Fluid Lymphocytes % 25 Fluid Meso/Macro/[place] % 66 Fluid Slide Review Fluid Comment Peritoneal Color Pale Yellow Peritoneal Appearance Slightly Hazy Peritoneal WBC (Auto) 590 H Peritoneal RBC (Auto) 4000 Peritoneal Tot Protein 4.3 Peritoneal Albumin 2.3 01/11/25 01/11/25 01/11/25 01:56 05:59 06:41 WBC 12.38 H RBC 4.25 L Hgb 12.8 L Hct 38.6 L MCV 90.8 MCH 30.1 MCHC 33.2 RDW Std Deviation 46.2 RDW Coeff of Hilda 14.1 Plt Count 325 MPV 10.5 Immature Gran % (Auto) 0.6 Neut % (Auto) 79.1 Lymph % (Auto) 10.1 [place] % (Auto) 8.7 Eos % (Auto) 1.2 Baso % (Auto) 0.3 Neut # (Auto) 9.78 H Lymph # (Auto) 1.25 [place] # (Auto) 1.08 H Eos # (Auto) 0.15 Baso # (Auto) 0.04 Immature Gran # (Auto) 0.08 PT 11.3 INR 1.0 Sodium 135 L Potassium 4.6 Chloride 101 Carbon Dioxide 26 Anion Gap 8 BUN 25 H Creatinine 0.85 Est Cr Clr Drug Dosing 75.7 eGFR 84.62 BUN/Creatinine Ratio 29.4 H Glucose 106 H POC Glucose 98 107 H Estimat Average Glucose 157 Hemoglobin A1c 7.1 H Calcium 9.3 Total Bilirubin 0.9 AST 38 ALT 43 Alkaline Phosphatase 125 H Total Protein 7.1 Albumin 3.0 L Globulin 4.1 H Albumin/Globulin Ratio 0.7 L Lipase Urine Color Urine Appearance Urine pH Ur Specific [place] Urine Protein Urine Glucose (UA) Urine Ketones Urine Blood Urine Nitrite Urine Bilirubin Urine Urobilinogen Ur Leukocyte Esterase Urine RBC Urine WBC Ur Epithelial Cells Urine Bacteria Fluid Neutrophils % Fluid Lymphocytes % Fluid Meso/Macro/[place] % Fluid Slide Review Fluid Comment Peritoneal Color Peritoneal Appearance Peritoneal WBC (Auto) Peritoneal RBC (Auto) Peritoneal Tot Protein Peritoneal Albumin 01/11/25 01/11/25 12:04 Unknown WBC RBC Hgb Hct MCV MCH MCHC RDW Std Deviation RDW Coeff of Hilda Plt Count MPV Immature Gran % (Auto) Neut % (Auto) Lymph % (Auto) [place] % (Auto) Eos % (Auto) Baso % (Auto) Neut # (Auto) Lymph # (Auto) [place] # (Auto) Eos # (Auto) Baso # (Auto) Immature Gran # (Auto) PT INR Sodium Potassium Chloride Carbon Dioxide Anion Gap BUN Creatinine Est Cr Clr Drug Dosing eGFR BUN/Creatinine Ratio Glucose POC Glucose 123 H Estimat Average Glucose Hemoglobin A1c Calcium Total Bilirubin AST ALT Alkaline Phosphatase Total Protein Albumin Globulin Albumin/Globulin Ratio Lipase Urine Color Urine Appearance Urine pH Ur Specific [place] Urine Protein Urine Glucose (UA) Urine Ketones Urine Blood Urine Nitrite Urine Bilirubin Urine Urobilinogen Ur Leukocyte Esterase Urine RBC Urine WBC Ur Epithelial Cells Urine Bacteria Fluid Neutrophils % Fluid Lymphocytes % Fluid Meso/Macro/[place] % Fluid Slide Review Fluid Comment Peritoneal Color Peritoneal Appearance Peritoneal WBC (Auto) Peritoneal RBC (Auto) Peritoneal Tot Protein Peritoneal Albumin Diagnostic Findings Gallbladder Ultrasound 01/10/25 16:16 Clinical history: Right upper quadrant pain Technique: Sonography was performed of the right upper quadrant of the abdomen Findings: There is fatty infiltration of the liver. No definite liver mass is seen There are multiple gallstones as well as apparent gallbladder sludge. The gallbladder wall is mildly thickened, measuring 4 mm. The gallbladder appears decompressed. No definite sonographic Ward sign was detected There is no intrahepatic or extrahepatic bile duct dilatation. The common bile duct measures 4 mm The right kidney measures 11.5 cm in length. There is no hydronephrosis. No definite renal calculus or mass is seen. There is a large simple appearing right renal cyst, measuring 8.1 x 6 x 5.9 cm The visualized pancreas, aorta, and IVC appear unremarkable. There is a moderate amount of ascites Impression: 1. Cholelithiasis without definite acute cholecystitis 2. Moderate amount of ascites 3. Fatty infiltration of the liver 4. Large right renal cyst Electronically signed by Maurilio Samayoa 01-10-2025 5:16 PM Paracentesis Ultrasound 01/11/25 00:00 ULTRASOUND GUIDED PARACENTESIS CLINICAL HISTORY: moderate ascites COMPARISON STUDY: 01/10/2025 PROCEDURE: The risks, benefits, and alternatives to the procedure were discussed with the patient including the risk of bleeding, infection and injury to adjacent structures. The patient agreed to the procedure and informed written consent was obtained. Following real-time ultrasound localization, the skin was prepped and draped. Following local anesthesia with Xylocaine, the sheath paracentesis needle was inserted and approximately 5 liters of straw-colored fluid was removed by vacuum suction. The patient tolerated the procedure well and no immediate complications were evident. IMPRESSION: Ultrasound-guided paracentesis with removal of 5 liters of ascites. ACT 112: Negative or not required by law. Electronically signed by: Rigo Roque M.D. 01/11/2025 4:06 PM Coding Level of Care Code 90501 INT INP/OBS CARE 2/55MIN Diagnoses Ascites R18.8
[2025-01-11] MEDS: PANTOprazole 40 MG TAB PO SCH (12:40)
--- NOTE | 2025-01-11 13:18 | Hospitalist Progress Note ---
Date of Service January 11, 2025 Assessment & Plan (1) Ascites: Plan: Assessment/plan Possible acute cholecystitis - ruled out New onset ascites Patient was referred to the ED after outpatient CT abdomen showed possibility of acute cholecystitis, moderate volume ascites and peritoneal enhancement CT abdomen pelvis from 12/31 also showed moderate abdominal and pelvic ascites. Leukocytosis present AST/ALT within normal limits ALP elevated to 126 Lipase within normal limits Started on Zosyn on admission for possible acute cholecystitis General surgery consulted - at this time do not feel findings consistent w/ cholecystis and recommend GI evaluation for ascites S/p diagnostic paracentesis performed in the ED to rule out SBP. Pathology shows Rare atypical cells present highly suspicious for malignancy. Oncology (Dr. Green) consulted Plan for therapeutic paracentesis today given patient's report of shortness of breath while lying flat. GI consulted given new onset of ascites - do not believe secondary to liver disease, concerned about poss. malignancy Chronic conditions Hypertensionhold lisinopril and hydrochlorothiazide for now Sinus bradycardia with pauses -evaluated by cardiology last admission; metoprolol discontinued. Continue monitor on telemetry Hyperlipidemiacontinue on rosuvastatin Type 2 diabetes mellituscontinue on sliding scale insulin Gout continue on allopurinol BPHcontinue on tamsulosin, finasteride oxybutynin DNR/DNI DVT prophylaxis on hold for possible surgery Admission and Anticipated Discharge Date Admission Date: January 10, 2025 Subjective Pt seen in follow up of ascites, poss. cholecystitis Currently sitting up in chair in NAD, pt's present at the bedside Pt reports abdominal distention and discomfort - plan for paracentesis today pt had diagnostic paracentesis in ED no fever, chills, chest pain or shortness of breath Review of Systems Review of Systems: All systems reviewed & are unremarkable except as noted in Subjective Physical Exam Physical Exam: General: Alert oriented x 3; not in distress. Respiratory: normal respiratory effort, decreased breath sounds, no wheezing Cardiovascular: RRR, no murmur Abdomen: Distended, mild tenderness in periumbilical region. no rigidity Musculoskeletal: Bilateral 2+ pitting edema present Skin: no rashes, warm and dry Neurologic: PERRL, EOMI, no face palsy, no dysarthria, moves all extremities Psychiatric: A+Ox3, euthymic affect Results & Data Results & Data Vital Signs (Past 12 Hours) Vital Signs Temp Pulse Pulse Pulse Resp BP Pulse Ox 04/11/25 12:15 36.4 C L 85 20 109/71 94 01/11/25 08:29 79 01/11/25 07:50 36.5 C 86 24 123/70 94 01/11/25 07:35 01/11/25 02:16 36.3 C L 80 22 108/64 95 O2 Del Method 01/11/25 12:15 Room Air 01/11/25 08:29 01/11/25 07:50 Room Air 01/11/25 07:35 Room Air 01/11/25 02:16 Room Air Laboratory Results 01/11/25 01/11/25 01/11/25 Range/Units 12:04 06:41 05:59 WBC 12.38 H (4.8-10.8) K/ul RBC 4.25 L (4.70-6.10) M/uL Hgb 12.8 L (14.0-18.0) g/dl Hct 38.6 L (42.0-52.0) % MCV 90.8 (80.0-100.0) fL MCH 30.1 (25.0-34.0) pg MCHC 33.2 (32.0-36.0) g/dL RDW Std Deviation 46.2 (36.4-46.3) fL RDW Coeff of Hilda 14.1 (11.5-14.5) % Plt Count 325 (130-400) K/uL MPV 10.5 (9.4-12.4) fL Immature Gran % (Auto) 0.6 % Neut % (Auto) 79.1 % Lymph % (Auto) 10.1 % [place] % (Auto) 8.7 % Eos % (Auto) 1.2 % Baso % (Auto) 0.3 % Neut # (Auto) 9.78 H (1.40-6.50) K/uL Lymph # (Auto) 1.25 (1.20-3.40) K/uL [place] # (Auto) 1.08 H (0.11-0.59) K/uL Eos # (Auto) 0.15 (0.00-0.50) K/uL Baso # (Auto) 0.04 (0.00-0.20) K/uL Immature Gran # (Auto) 0.08 (0.01-0.20) K/uL PT 11.3 (9.0-12.0) Seconds INR 1.0 (0.9-1.1) Sodium 135 L (136-145) mmol/L Potassium 4.6 (3.5-5.1) mmol/L Chloride 101 (98-107) mmol/L Carbon Dioxide 26 (21-32) mmol/L Anion Gap 8 (3-11) BUN 25 H (6-23) mg/dl Creatinine 0.85 (0.6-1.4) mg/dl Est Cr Clr Drug Dosing 75.7 eGFR 84.62 BUN/Creatinine Ratio 29.4 H (10-20) Glucose 106 H (70-99(Fasting)) mg/dl POC Glucose 123 H 107 H (70-99) mg/dl Estimat Average Glucose 157 mg/dl Hemoglobin A1c 7.1 H (4.5-5.6) % Calcium 9.3 (8.6-10.3) mg/dl Total Bilirubin 0.9 (0.2-1.0) mg/dl AST 38 (13-39) U/L ALT 43 (7-52) U/L Alkaline Phosphatase 125 H (34-104) U/L Total Protein 7.1 (6.0-8.3) gm/dl Albumin 3.0 L (3.4-5.0) gm/dl Globulin 4.1 H (2.5-4.0) gm/dl Albumin/Globulin Ratio 0.7 L (0.9-2) Lipase (11-82) U/L Urine Color Urine Appearance (Clear) Urine pH (4.5-7.5) Ur Specific [place] (1.000-1.030) Urine Protein (Negative) Urine Glucose (UA) (Negative) Urine Ketones (Negative) Urine Blood (Negative) Urine Nitrite (Negative) Urine Bilirubin (Negative) Urine Urobilinogen (Negative) Ur Leukocyte Esterase (Negative) Urine RBC (0-2) /hpf Urine WBC (0-5) /hpf Ur Epithelial Cells (0-2) /hpf Urine Bacteria (None Seen) Fluid Neutrophils % % Fluid Lymphocytes % % Fluid Meso/Macro/[place] % % Fluid Slide Review Fluid Comment Peritoneal Color Peritoneal Appearance Peritoneal WBC (Auto) (0-300) /ul Peritoneal RBC (Auto) /uL Peritoneal Tot Protein gm/dl Peritoneal Albumin gm/dl 01/11/25 01/10/25 01/10/25 Range/Units 01:56 21:31 18:37 WBC (4.8-10.8) K/ul RBC (4.70-6.10) M/uL Hgb (14.0-18.0) g/dl Hct (42.0-52.0) % MCV (80.0-100.0) fL MCH (25.0-34.0) pg MCHC (32.0-36.0) g/dL RDW Std Deviation (36.4-46.3) fL RDW Coeff of Hilda (11.5-14.5) % Plt Count (130-400) K/uL MPV (9.4-12.4) fL Immature Gran % (Auto) % Neut % (Auto) % Lymph % (Auto) % [place] % (Auto) % Eos % (Auto) % Baso % (Auto) % Neut # (Auto) (1.40-6.50) K/uL Lymph # (Auto) (1.20-3.40) K/uL [place] # (Auto) (0.11-0.59) K/uL Eos # (Auto) (0.00-0.50) K/uL Baso # (Auto) (0.00-0.20) K/uL Immature Gran # (Auto) (0.01-0.20) K/uL PT (9.0-12.0) Seconds INR (0.9-1.1) Sodium (136-145) mmol/L Potassium (3.5-5.1) mmol/L Chloride (98-107) mmol/L Carbon Dioxide (21-32) mmol/L Anion Gap (3-11) BUN (6-23) mg/dl Creatinine (0.6-1.4) mg/dl Est Cr Clr Drug Dosing eGFR BUN/Creatinine Ratio (10-20) Glucose (70-99(Fasting)) mg/dl POC Glucose 98 113 H (70-99) mg/dl Estimat Average Glucose mg/dl Hemoglobin A1c (4.5-5.6) % Calcium (8.6-10.3) mg/dl Total Bilirubin (0.2-1.0) mg/dl AST (13-39) U/L ALT (7-52) U/L Alkaline Phosphatase (34-104) U/L Total Protein (6.0-8.3) gm/dl Albumin (3.4-5.0) gm/dl Globulin (2.5-4.0) gm/dl Albumin/Globulin Ratio (0.9-2) Lipase (11-82) U/L Urine Color Urine Appearance (Clear) Urine pH (4.5-7.5) Ur Specific [place] (1.000-1.030) Urine Protein (Negative) Urine Glucose (UA) (Negative) Urine Ketones (Negative) Urine Blood (Negative) Urine Nitrite (Negative) Urine Bilirubin (Negative) Urine Urobilinogen (Negative) Ur Leukocyte Esterase (Negative) Urine RBC (0-2) /hpf Urine WBC (0-5) /hpf Ur Epithelial Cells (0-2) /hpf Urine Bacteria (None Seen) Fluid Neutrophils % 9 % Fluid Lymphocytes % 25 % Fluid Meso/Macro/[place] % 66 % Fluid Slide Review Fluid Comment Peritoneal Color Pale Yellow Peritoneal Appearance Slightly Hazy Peritoneal WBC (Auto) 590 H (0-300) /ul Peritoneal RBC (Auto) 4000 /uL Peritoneal Tot Protein 4.3 gm/dl Peritoneal Albumin 2.3 gm/dl 01/10/25 Range/Units 15:03 WBC 12.76 H (4.8-10.8) K/ul RBC 4.17 L (4.70-6.10) M/uL Hgb 12.6 L (14.0-18.0) g/dl Hct 38.5 L (42.0-52.0) % MCV 92.3 (80.0-100.0) fL MCH 30.2 (25.0-34.0) pg MCHC 32.7 (32.0-36.0) g/dL RDW Std Deviation 48.0 H (36.4-46.3) fL RDW Coeff of Hilda 14.1 (11.5-14.5) % Plt Count 342 (130-400) K/uL MPV 10.6 (9.4-12.4) fL Immature Gran % (Auto) 0.8 % Neut % (Auto) 79.3 % Lymph % (Auto) 10.1 % [place] % (Auto) 8.2 % Eos % (Auto) 1.3 % Baso % (Auto) 0.3 % Neut # (Auto) 10.13 H (1.40-6.50) K/uL Lymph # (Auto) 1.29 (1.20-3.40) K/uL [place] # (Auto) 1.04 H (0.11-0.59) K/uL Eos # (Auto) 0.16 (0.00-0.50) K/uL Baso # (Auto) 0.04 (0.00-0.20) K/uL Immature Gran # (Auto) 0.10 (0.01-0.20) K/uL PT (9.0-12.0) Seconds INR (0.9-1.1) Sodium 136 (136-145) mmol/L Potassium 4.9 (3.5-5.1) mmol/L Chloride 100 (98-107) mmol/L Carbon Dioxide 30 (21-32) mmol/L Anion Gap 6 (3-11) BUN 24 H (6-23) mg/dl Creatinine 0.87 (0.6-1.4) mg/dl Est Cr Clr Drug Dosing Not Reportable eGFR 84.03 BUN/Creatinine Ratio 27.6 H (10-20) Glucose 122 H (70-99(Fasting)) mg/dl POC Glucose (70-99) mg/dl Estimat Average Glucose mg/dl Hemoglobin A1c (4.5-5.6) % Calcium 9.5 (8.6-10.3) mg/dl Total Bilirubin 0.7 (0.2-1.0) mg/dl AST 39 (13-39) U/L ALT 48 (7-52) U/L Alkaline Phosphatase 126 H (34-104) U/L Total Protein 7.4 (6.0-8.3) gm/dl Albumin 3.1 L (3.4-5.0) gm/dl Globulin 4.3 H (2.5-4.0) gm/dl Albumin/Globulin Ratio 0.7 L (0.9-2) Lipase 13 (11-82) U/L Urine Color Yellow Urine Appearance Slightly Cloudy (Clear) Urine pH 5.5 (4.5-7.5) Ur Specific [place] 1.010 (1.000-1.030) Urine Protein Trace H (Negative) Urine Glucose (UA) Negative (Negative) Urine Ketones Negative (Negative) Urine Blood Negative (Negative) Urine Nitrite Negative (Negative) Urine Bilirubin Negative (Negative) Urine Urobilinogen Negative (Negative) Ur Leukocyte Esterase Trace H (Negative) Urine RBC 0-2 (0-2) /hpf Urine WBC 21-50 H (0-5) /hpf Ur Epithelial Cells 6-10 H (0-2) /hpf Urine Bacteria None Seen (None Seen) Fluid Neutrophils % % Fluid Lymphocytes % % Fluid Meso/Macro/[place] % % Fluid Slide Review Fluid Comment Peritoneal Color Peritoneal Appearance Peritoneal WBC (Auto) (0-300) /ul Peritoneal RBC (Auto) /uL Peritoneal Tot Protein gm/dl Peritoneal Albumin gm/dl Medications Administered Current Inpatient Medications Acetaminophen (Acetaminophen 325 Mg Tab) 650 mg PO Q4H PRN PRN Reason: Pain or Fever Stop: 02/09/25 18:56 Last Admin: 01/11/25 02:20 Dose: 650 mg Al Hydrox/Mg Hydrox/Simethicone (Aluminum/Magnesium Susp 30 Ml Udc) 15 ml PO Q4H PRN PRN Reason: Dyspepsia Stop: 02/09/25 18:56 Allopurinol (Allopurinol 300 Mg Tab) 300 mg PO Q48H ALEX Stop: 02/10/25 08:59 Last Admin: 01/11/25 08:13 Dose: 300 mg Aspirin (Aspirin 81 Mg Ectab) 81 mg PO HS ALEX Stop: 02/09/25 21:30 Last Admin: 01/10/25 22:07 Dose: 81 mg Brimonidine Tartrate (Brimonidine Tartrate 0.2% 5ml) 1 drops OPL BID ALEX Stop: 02/09/25 21:30 Last Admin: 01/11/25 08:13 Dose: 1 drops Dextrose (Dextrose 50% 50 Ml Syringe) 25 - 50 ml IV UD PRN; Protocol PRN Reason: Hypoglycemia Protocol Stop: 02/09/25 18:56 Dorzolamide HCl (Dorzolamide Hcl 2% Oph Soln 10 Ml Btl) 1 drops OPL BID ALEX Stop: 02/09/25 21:30 Last Admin: 01/11/25 08:13 Dose: 1 drops Finasteride (Finasteride 5 Mg Tab) 5 mg PO QAM ALEX Stop: 02/10/25 08:59 Last Admin: 01/11/25 08:13 Dose: 5 mg Glucagon (Glucagon For Inj 1 Mg Vial) 1 mg SQ UD PRN; Protocol PRN Reason: Hypoglycemia Protocol Stop: 02/09/25 18:56 Glucose (Glucose 40% Gel 15 Gm Tube) 15 - 30 gm PO UD PRN; Protocol PRN Reason: Hypoglycemia Protocol Stop: 02/09/25 18:56 Glucose (Glucose 10 Tab/Tube) 4 - 8 tab PO UD PRN; Protocol PRN Reason: Hypoglycemia Protocol Stop: 02/09/25 18:56 Piperacillin Sod/Tazobactam Sod (Zosyn) 4.5 gm in 100 mls @ 25 mls/hr IV Q8H ALEX; Protocol Stop: 01/21/25 01:59 Last Admin: 01/11/25 09:56 Dose: 25 mls/hr Insulin Aspart (Insulin Aspart Per Unit Charge) 0 units SC Q6 ALEX Stop: 02/10/25 00:00 Last Admin: 01/11/25 12:40 Dose: Not Given Lactobacillus Acidophilus (Advanced Probiotic 625 Mg Capsule) 1,250 mg PO DAILY ALEX Stop: 02/10/25 08:59 Last Admin: 01/11/25 08:13 Dose: 1,250 mg Latanoprost (Latanoprost 0.005% Op Soln 2.5 Ml Btl) 1 drops OP HS [facility] Stop: 02/10/25 20:59 Miscellaneous (Carbohydrates For Hypoglycemia ) 15 - 30 gm PO UD PRN PRN Reason: Hypoglycemia Protocol Stop: 02/09/25 18:56 Miscellaneous Information (Pharmacy Glycemic Mgmt Consult) 1 each N/A UD PRN PRN Reason: Consult Stop: 02/09/25 18:56 Multivitamins/Minerals (Cerovite Adv Formula Tab) 1 tab PO QAM ALEX Stop: 02/10/25 08:59 Last Admin: 01/11/25 08:13 Dose: 1 tab Oxybutynin Chloride (Oxybutynin Chloride Xl 5 Mg Tabcr) 10 mg PO DAILY [facility] Stop: 02/10/25 08:59 Last Admin: 01/11/25 08:13 Dose: 10 mg Pantoprazole Sodium (Pantoprazole 40 Mg Tab) 40 mg PO QAM [facility] Stop: 02/10/25 11:44 Last Admin: 01/11/25 12:40 Dose: 40 mg Polyethylene Glycol (Polyethylene (Miralax) 17 Gm Pack) 17 gm PO DAILY PRN PRN Reason: Constipation Stop: 02/09/25 18:56 Rosuvastatin Calcium (Rosuvastatin Calcium 10 Mg Tab) 10 mg PO QAM [facility] Stop: 02/10/25 08:59 Last Admin: 01/11/25 08:13 Dose: 10 mg Tamsulosin HCl (Tamsulosin Hcl 0.4 Mg Cap) 0.8 mg PO HS [facility] Stop: 02/09/25 21:30 Last Admin: 01/10/25 22:07 Dose: 0.8 mg Timolol Maleate (Timolol Maleate 0.5% Op Soln 5 Ml Btl) 1 drops OPB BID [facility] Stop: 02/10/25 08:59 Last Admin: 01/11/25 08:14 Dose: 1 drops
[2025-01-11] MEDS: ALBUMIN 25% 25 GM/100 ML VIAL IV SCH (16:01)
--- NOTE | 2025-01-11 16:07 | Ultrasound Report ---
ULTRASOUND GUIDED PARACENTESIS CLINICAL HISTORY: moderate ascites COMPARISON STUDY: 01/10/2025 PROCEDURE: The risks, benefits, and alternatives to the procedure were discussed with the patient inc luding the risk of bleeding, infection and injury to adjacent structures. The patient agreed to the procedure and informed written consent was obtained. Following real-time ultrasound localization, the skin was prepped and draped. Following local anesthesia with Xylocaine, the sheath paracentesis need le was inserted and approximately 5 liters of straw-colored fluid was removed by vacuum suction. The patient tolerated the procedure well and no immediate complications were evident. IMPRESSION: Ultrasound-guided paracentesis with removal of 5 liters of ascites. ACT 112: Negative or not required by law. Electronically signed by: Rigo Roque M.D. 01/11/2025 4:06 PM
[2025-01-11 16:55] LABS: Albumin Peritoneal Fluid 2.2 gm/dl
[2025-01-11 17:00] LABS: Appearance Peritoneal Fluid Slightly Hazy; Color Peritoneal Fluid Yellow; RBC Peritoneal Fluid Auto < 2000 /uL; Total Protein Peritoneal Fluid 4.5 gm/dl; WBC Peritoneal Fluid Auto 636 /ul (0-300)
[2025-01-11] MEDS ORDERED: Nursing to Pharmacy Communication SCH ×2 (19:15)
[2025-01-11] MEDS: LATANOPROST 0.005% OP SOLN 2.5 ML BTL OP SCH (20:34)
[2025-01-12 08:10] LABS: Lymphocytes, Fluid 29 %; Mono,Macrophage,Mesothelial 68 %; Neutrophils, Fluid 3 %
[2025-01-12 09:29] LABS: Basophils # (auto) 0.03 K/uL (0.00-0.20); Basophils % (auto) 0.3 %; Eosinophils # (auto) 0.16 K/uL (0.00-0.50); Eosinophils % (auto) 1.6 %; Hematocrit (blood only) 34.7 % (42.0-52.0); Hemoglobin 11.4 g/dl (14.0-18.0); Immature Granulocytes # (auto) 0.07 K/uL (0.01-0.20); Immature Granulocytes % (auto) 0.7 %; Lymphocytes # (auto) 1.11 K/uL (1.20-3.40); Lymphocytes % (auto) 10.9 %; Mean Corpuscular Hemoglobin 30.3 pg (25.0-34.0); Mean Corpuscular Hgb Conc 32.9 g/dL (32.0-36.0); Mean Corpuscular Volume 92.3 fL (80.0-100.0); Mean Platelet Volume 10.7 fL (9.4-12.4); Monocytes # (auto) 1.07 K/uL (0.11-0.59); Monocytes % (auto) 10.5 %; Neutrophils # (auto) 7.75 K/uL (1.40-6.50); Platelet Count 297 K/uL (130-400); RDW Standard Deviation 47.2 fL (36.4-46.3); Red Blood Count 3.76 M/uL (4.70-6.10); White Blood Count 10.19 K/ul (4.8-10.8)
--- NOTE | 2025-01-12 09:29 | Oncology Consultation ---
Date of Consultation January 12, 2025 Assessment & Plan (1) Ascites: (2) RLQ abdominal pain: Plan -Need further tissue sampling to confirm diagnosis of malignancy since cytology was inconclusive. Recommend CT Chest for staging as well as to identify accessible lesion. If no obvious lesions are seen on chest imaging, would benefit from upper endoscopy/colonoscopy or repeat paracentesis to see if more malignant cells woud be present. History of Present Illness Reason for Consultation: Abnormal cytology on peritoneal fluid Attending Physician: Diaz Bustamante MD History of Present Illness 84 year old who was admitted with abdominal pain and abnormal CT A/P which showed moderate volume ascites and peritoneal enhancement, nonspecific mild gallbladder wall thickening, small pericardial effusion, small bilateral pleural effusion. Paracentesis was performed on 01/10/2025 with cytology revealing rare atypical cells highly suspicious for malignancy possibly metastatic adenocarcinoma but IHC could not be performed. Allergies Allergy/AdvReac Type Severity Reaction Status Date / Time Blackening Seasoning Allergy Intermediate Swelling Uncoded 07/28/23 09:00 of Lip/Tongue/Throat Home Medications Medication Instructions Recorded Confirmed Type allopurinol 300 mg tablet 300 mg PO Q2D 05/19/19 01/10/25 History aspirin 81 mg tablet,delayed 81 mg PO HS 05/19/19 01/10/25 History release finasteride 5 mg tablet 5 mg PO QAM 05/19/19 01/10/25 History hydrochlorothiazide 25 mg tablet 25 mg PO QAM 05/19/19 01/10/25 History lisinopril 10 mg tablet 10 mg PO QAM 05/19/19 01/10/25 History adceiqaw-vn-isyxv 300 mcg-K 60 1 tab PO QAM 05/19/19 01/10/25 History mcg-lycop 600 mcg-lutein 300 mcg tablet (Centrum Silver Men) rosuvastatin 10 mg tablet 10 mg PO QAM 05/19/19 01/10/25 History tamsulosin 0.4 mg capsule 0.8 mg PO HS 05/19/19 01/10/25 History brimonidine 0.2 % eye drops 1 drp OPL UD 07/28/23 01/10/25 History dorzolamide 2 % eye drops 1 drp OPL BID 07/28/23 01/10/25 History latanoprost (PF) 0.005 % eye drops 1 drp OPL HS 07/28/23 01/10/25 History in a dropperette oxybutynin chloride 10 mg 10 mg PO DAILY 07/28/23 01/10/25 History tablet,extended release 24 hr timolol maleate 0.5 % eye drops 1 drp OPB BID 07/28/23 01/10/25 History L.acidop,casei,lactis,rham-B.lact,zahraa 1 cap PO DAILY #10 caps 01/03/25 01/10/25 Rx 625 mg (10 billion cell) capsule (Advanced Probiotic) Patient History Medical History Gout BPH (benign prostatic hyperplasia) RBBB LBBB (left bundle branch block) NSVT (nonsustained ventricular tachycardia) Dyslipidemia Diabetes mellitus, type II Hypertension Surgical History History of colonoscopy Hx of tonsillectomy History of appendectomy Family History Other Cancer Diabetes Social History Smoking Status: Never smoker Second Hand Exposure: No; Do You Dip or Chew Tobacco: No; Hx Alcohol Use: No Hx Substance Use: No Preferred Language: Romanian Communication Ability: Effective [employer] Football [employer] Required: No Beliefs That Will Affect Care: None marital status: Current Living Situation: Spouse Current Living Situation Comment: home with current occupational status: retired Other Information That Helps Us Care for You: No Feels Safe at Home: Yes Safety Concerns: Feels Safe At This Time Assistive Devices: Walker Results & Data Vital Signs (Past 12 Hours) Vital Signs Temp Pulse Pulse Resp BP Pulse Ox O2 Del Method 01/12/25 02:55 36.3 C L 64 18 124/76 98 Room Air 01/11/25 22:27 36.3 C L 64 18 119/75 97 Room Air 01/11/25 22:19 64 01/11/25 19:55 36.3 C L 82 18 100/64 95 Room Air 01/11/25 19:45 Room Air
[2025-01-12 09:46] LABS: Albumin Level 3.3 gm/dl (3.4-5.0); BUN Creatinine Ratio 31.6 (10-20); Calcium 9.1 mg/dl (8.6-10.3); Creatinine Clr Calc Pharmacy 79.3 ml/min; Globulin 3.4 gm/dl (2.5-4.0); Magnesium 2.1 mg/dl (1.7-2.4); Phosphorus 3.2 mg/dl (2.5-4.9); Potassium 4.3 mmol/L (3.5-5.1); Total Protein 6.7 gm/dl (6.0-8.3)
--- NOTE | 2025-01-12 16:33 | Hospitalist Progress Note ---
Date of Service January 12, 2025 Assessment & Plan (1) Ascites: Plan: Assessment/plan Possible acute cholecystitis - ruled out New onset ascites Patient was referred to the ED after outpatient CT abdomen showed possibility of acute cholecystitis, moderate volume ascites and peritoneal enhancement CT abdomen pelvis from 12/31 also showed moderate abdominal and pelvic ascites. Leukocytosis present AST/ALT within normal limits ALP elevated to 126 Lipase within normal limits Started on Zosyn on admission for possible acute cholecystitis General surgery consulted - at this time do not feel findings consistent w/ cholecystis and recommend GI evaluation for ascites S/p diagnostic paracentesis performed in the ED to rule out SBP. Pathology shows Rare atypical cells present highly suspicious for malignancy. S/p therapeutic paracentesis yesterday (01/11) yielding 5L of fluid GI consulted given new onset of ascites - do not believe secondary to liver disease, concerned about poss. malignancy Oncology (Dr. Green) consulted and discussed with - will obtain CT chest w/ con Chronic conditions Hypertensionhold lisinopril and hydrochlorothiazide for now Sinus bradycardia with pauses -evaluated by cardiology last admission; metoprolol discontinued. Continue monitor on telemetry Hyperlipidemiacontinue on rosuvastatin Type 2 diabetes mellituscontinue on sliding scale insulin Gout continue on allopurinol BPHcontinue on tamsulosin, finasteride oxybutynin DNR/DNI DVT prophylaxis on hold for procedure Admission and Anticipated Discharge Date Admission Date: January 10, 2025 Subjective Pt seen in follow up of ascites, poss. cholecystitis Underwent paracentesis yielding 5Lof fluid yesterday had diagnostic para in ED - cytology concerning for malignant cells Currently pt is lying in bed in NAD, overall feeling better after having paracentesis done 2 sons present at the bedside and updated no fever, chills, chest pain or shortness of breath Review of Systems Review of Systems: All systems reviewed & are unremarkable except as noted in Subjective Physical Exam Physical Exam: General: Alert oriented x 3; not in distress. Respiratory: normal respiratory effort, decreased breath sounds, no wheezing Cardiovascular: RRR, no murmur Abdomen: soft, nontender Musculoskeletal: Bilateral 2+ pitting edema present Skin: no rashes, warm and dry Neurologic: PERRL, EOMI, no face palsy, no dysarthria, moves all extremities Psychiatric: A+Ox3, euthymic affect Results & Data Results & Data Vital Signs (Past 12 Hours) Vital Signs Temp Pulse Pulse Pulse Resp BP Pulse Ox 01/12/25 11:58 36.4 C L 62 16 124/79 96 01/12/25 11:38 36.4 C L 63 16 115/71 93 01/12/25 08:19 36.4 C L 65 16 114/77 97 01/12/25 07:57 36.4 C L 69 16 135/81 95 01/12/25 07:32 87 01/12/25 07:28 O2 Del Method 01/12/25 11:58 Room Air 01/12/25 11:38 Room Air 01/12/25 08:19 Room Air 01/12/25 07:57 Room Air 01/12/25 07:32 01/12/25 07:28 Room Air Laboratory Results 01/12/25 01/12/25 01/12/25 Range/Units 12:31 12:13 08:35 WBC 10.19 (4.8-10.8) K/ul RBC 3.76 L (4.70-6.10) M/uL Hgb 11.4 L (14.0-18.0) g/dl Hct 34.7 L (42.0-52.0) % MCV 92.3 (80.0-100.0) fL MCH 30.3 (25.0-34.0) pg MCHC 32.9 (32.0-36.0) g/dL RDW Std Deviation 47.2 H (36.4-46.3) fL RDW Coeff of Hilda 14.0 (11.5-14.5) % Plt Count 297 (130-400) K/uL MPV 10.7 (9.4-12.4) fL Immature Gran % (Auto) 0.7 % Neut % (Auto) 76.0 % Lymph % (Auto) 10.9 % Deuel % (Auto) 10.5 % Eos % (Auto) 1.6 % Baso % (Auto) 0.3 % Neut # (Auto) 7.75 H (1.40-6.50) K/uL Lymph # (Auto) 1.11 L (1.20-3.40) K/uL Deuel # (Auto) 1.07 H (0.11-0.59) K/uL Eos # (Auto) 0.16 (0.00-0.50) K/uL Baso # (Auto) 0.03 (0.00-0.20) K/uL Immature Gran # (Auto) 0.07 (0.01-0.20) K/uL Sodium 137 (136-145) mmol/L Potassium 4.3 (3.5-5.1) mmol/L Chloride 102 (98-107) mmol/L Carbon Dioxide 29 (21-32) mmol/L Anion Gap 6 (3-11) BUN 25 H (6-23) mg/dl Creatinine 0.79 (0.6-1.4) mg/dl Est Cr Clr Drug Dosing 79.3 ml/min eGFR 86.52 BUN/Creatinine Ratio 31.6 H (10-20) Glucose 95 (70-99(Fasting)) mg/dl POC Glucose 108 H 113 H (70-99) mg/dl Calcium 9.1 (8.6-10.3) mg/dl Phosphorus 3.2 (2.5-4.9) mg/dl Magnesium 2.1 (1.7-2.4) mg/dl Total Bilirubin 1.0 (0.2-1.0) mg/dl AST 26 (13-39) U/L ALT 29 (7-52) U/L Alkaline Phosphatase 99 (34-104) U/L Total Protein 6.7 (6.0-8.3) gm/dl Albumin 3.3 L (3.4-5.0) gm/dl Globulin 3.4 (2.5-4.0) gm/dl Albumin/Globulin Ratio 1.0 (0.9-2) Carcinoembryonic Ag 3.0 H (0-2.5) ng/ml Fluid Neutrophils % % Fluid Lymphocytes % % Fluid Meso/Macro/Deuel % % Peritoneal Color Peritoneal Appearance Peritoneal WBC (Auto) (0-300) /ul Peritoneal RBC (Auto) /uL Peritoneal Tot Protein gm/dl Peritoneal Albumin gm/dl 01/12/25 01/11/25 01/11/25 Range/Units 08:07 Unknown 19:57 WBC (4.8-10.8) K/ul RBC (4.70-6.10) M/uL Hgb (14.0-18.0) g/dl Hct (42.0-52.0) % MCV (80.0-100.0) fL MCH (25.0-34.0) pg MCHC (32.0-36.0) g/dL RDW Std Deviation (36.4-46.3) fL RDW Coeff of Hilda (11.5-14.5) % Plt Count (130-400) K/uL MPV (9.4-12.4) fL Immature Gran % (Auto) % Neut % (Auto) % Lymph % (Auto) % Deuel % (Auto) % Eos % (Auto) % Baso % (Auto) % Neut # (Auto) (1.40-6.50) K/uL Lymph # (Auto) (1.20-3.40) K/uL Deuel # (Auto) (0.11-0.59) K/uL Eos # (Auto) (0.00-0.50) K/uL Baso # (Auto) (0.00-0.20) K/uL Immature Gran # (Auto) (0.01-0.20) K/uL Sodium (136-145) mmol/L Potassium (3.5-5.1) mmol/L Chloride (98-107) mmol/L Carbon Dioxide (21-32) mmol/L Anion Gap (3-11) BUN (6-23) mg/dl Creatinine (0.6-1.4) mg/dl Est Cr Clr Drug Dosing ml/min eGFR BUN/Creatinine Ratio (10-20) Glucose (70-99(Fasting)) mg/dl POC Glucose 100 H 118 H (70-99) mg/dl Calcium (8.6-10.3) mg/dl Phosphorus (2.5-4.9) mg/dl Magnesium (1.7-2.4) mg/dl Total Bilirubin (0.2-1.0) mg/dl AST (13-39) U/L ALT (7-52) U/L Alkaline Phosphatase (34-104) U/L Total Protein (6.0-8.3) gm/dl Albumin (3.4-5.0) gm/dl Globulin (2.5-4.0) gm/dl Albumin/Globulin Ratio (0.9-2) Carcinoembryonic Ag (0-2.5) ng/ml Fluid Neutrophils % 3 % Fluid Lymphocytes % 29 % Fluid Meso/Macro/Deuel % 68 % Peritoneal Color Yellow Peritoneal Appearance Slightly Hazy Peritoneal WBC (Auto) 636 H (0-300) /ul Peritoneal RBC (Auto) < 2000 /uL Peritoneal Tot Protein 4.5 gm/dl Peritoneal Albumin 2.2 gm/dl 01/11/25 Range/Units 17:27 WBC (4.8-10.8) K/ul RBC (4.70-6.10) M/uL Hgb (14.0-18.0) g/dl Hct (42.0-52.0) % MCV (80.0-100.0) fL MCH (25.0-34.0) pg MCHC (32.0-36.0) g/dL RDW Std Deviation (36.4-46.3) fL RDW Coeff of Hilda (11.5-14.5) % Plt Count (130-400) K/uL MPV (9.4-12.4) fL Immature Gran % (Auto) % Neut % (Auto) % Lymph % (Auto) % Deuel % (Auto) % Eos % (Auto) % Baso % (Auto) % Neut # (Auto) (1.40-6.50) K/uL Lymph # (Auto) (1.20-3.40) K/uL Deuel # (Auto) (0.11-0.59) K/uL Eos # (Auto) (0.00-0.50) K/uL Baso # (Auto) (0.00-0.20) K/uL Immature Gran # (Auto) (0.01-0.20) K/uL Sodium (136-145) mmol/L Potassium (3.5-5.1) mmol/L Chloride (98-107) mmol/L Carbon Dioxide (21-32) mmol/L Anion Gap (3-11) BUN (6-23) mg/dl Creatinine (0.6-1.4) mg/dl Est Cr Clr Drug Dosing ml/min eGFR BUN/Creatinine Ratio (10-20) Glucose (70-99(Fasting)) mg/dl POC Glucose 115 H (70-99) mg/dl Calcium (8.6-10.3) mg/dl Phosphorus (2.5-4.9) mg/dl Magnesium (1.7-2.4) mg/dl Total Bilirubin (0.2-1.0) mg/dl AST (13-39) U/L ALT (7-52) U/L Alkaline Phosphatase (34-104) U/L Total Protein (6.0-8.3) gm/dl Albumin (3.4-5.0) gm/dl Globulin (2.5-4.0) gm/dl Albumin/Globulin Ratio (0.9-2) Carcinoembryonic Ag (0-2.5) ng/ml Fluid Neutrophils % % Fluid Lymphocytes % % Fluid Meso/Macro/Deuel % % Peritoneal Color Peritoneal Appearance Peritoneal WBC (Auto) (0-300) /ul Peritoneal RBC (Auto) /uL Peritoneal Tot Protein gm/dl Peritoneal Albumin gm/dl Medications Administered Current Inpatient Medications Acetaminophen (Acetaminophen 325 Mg Tab) 650 mg PO Q4H PRN PRN Reason: Pain or Fever Stop: 02/09/25 18:56 Last Admin: 01/12/25 13:38 Dose: 650 mg Al Hydrox/Mg Hydrox/Simethicone (Aluminum/Magnesium Susp 30 Ml Udc) 15 ml PO Q4H PRN PRN Reason: Dyspepsia Stop: 02/09/25 18:56 Allopurinol (Allopurinol 300 Mg Tab) 300 mg PO Q48H [facility] Stop: 02/10/25 08:59 Last Admin: 01/11/25 08:13 Dose: 300 mg Aspirin (Aspirin 81 Mg Ectab) 81 mg PO HS [facility] Stop: 02/09/25 21:30 Last Admin: 01/11/25 20:34 Dose: 81 mg Brimonidine Tartrate (Brimonidine Tartrate 0.2% 5ml) 1 drops OPL BID [facility] Stop: 02/09/25 21:30 Last Admin: 01/12/25 08:19 Dose: 1 drops Dextrose (Dextrose 50% 50 Ml Syringe) 25 - 50 ml IV UD PRN; Protocol PRN Reason: Hypoglycemia Protocol Stop: 02/09/25 18:56 Dorzolamide HCl (Dorzolamide Hcl 2% Oph Soln 10 Ml Btl) 1 drops OPL BID [facility] Stop: 02/09/25 21:30 Last Admin: 01/12/25 08:19 Dose: 1 drops Finasteride (Finasteride 5 Mg Tab) 5 mg PO QAM [facility] Stop: 02/10/25 08:59 Last Admin: 01/12/25 08:19 Dose: 5 mg Glucagon (Glucagon For Inj 1 Mg Vial) 1 mg SQ UD PRN; Protocol PRN Reason: Hypoglycemia Protocol Stop: 02/09/25 18:56 Glucose (Glucose 40% Gel 15 Gm Tube) 15 - 30 gm PO UD PRN; Protocol PRN Reason: Hypoglycemia Protocol Stop: 02/09/25 18:56 Glucose (Glucose 10 Tab/Tube) 4 - 8 tab PO UD PRN; Protocol PRN Reason: Hypoglycemia Protocol Stop: 02/09/25 18:56 Piperacillin Sod/Tazobactam Sod (Zosyn) 4.5 gm in 100 mls @ 25 mls/hr IV Q8H [facility]; Protocol Stop: 01/21/25 01:59 Last Infusion: 01/12/25 14:17 Dose: Infused Albumin Human (Albumin 25%) 25 gm in 100 mls @ 50 mls/hr IV Q8H [facility] Stop: 01/14/25 15:29 Last Admin: 01/12/25 15:36 Dose: 50 mls/hr Insulin Aspart (Insulin Aspart Per Unit Charge) 0 units SC ACHS [facility] Stop: 02/10/25 00:00 Last Admin: 01/12/25 13:01 Dose: 2 units Lactobacillus Acidophilus (Advanced Probiotic 625 Mg Capsule) 1,250 mg PO DAILY [facility] Stop: 02/10/25 08:59 Last Admin: 01/12/25 08:19 Dose: 1,250 mg Latanoprost (Latanoprost 0.005% Op Soln 2.5 Ml Btl) 1 drops OP HS [facility] Stop: 02/10/25 20:59 Last Admin: 01/11/25 20:34 Dose: 1 drops Miscellaneous (Carbohydrates For Hypoglycemia ) 15 - 30 gm PO UD PRN PRN Reason: Hypoglycemia Protocol Stop: 02/09/25 18:56 Miscellaneous Information (Pharmacy Glycemic Mgmt Consult) 1 each N/A UD PRN PRN Reason: Consult Stop: 02/09/25 18:56 Multivitamins/Minerals (Cerovite Adv Formula Tab) 1 tab PO QAM [facility] Stop: 02/10/25 08:59 Last Admin: 01/12/25 08:19 Dose: 1 tab Oxybutynin Chloride (Oxybutynin Chloride Xl 5 Mg Tabcr) 10 mg PO DAILY [facility] Stop: 02/10/25 08:59 Last Admin: 01/12/25 08:19 Dose: 10 mg Pantoprazole Sodium (Pantoprazole 40 Mg Tab) 40 mg PO QAM [facility] Stop: 02/10/25 11:44 Last Admin: 01/12/25 08:19 Dose: 40 mg Polyethylene Glycol (Polyethylene (Miralax) 17 Gm Pack) 17 gm PO DAILY PRN PRN Reason: Constipation Stop: 02/09/25 18:56 Rosuvastatin Calcium (Rosuvastatin Calcium 10 Mg Tab) [facility] [place] Stop: 02/10/25 08:59 Last Admin: 01/12/25 08:19 Dose: 10 mg Tamsulosin HCl (Tamsulosin Hcl 0.4 Mg Cap) 0.8 mg PO HS [facility] Stop: 02/09/25 21:30 Last Admin: 01/11/25 20:34 Dose: 0.8 mg Timolol Maleate (Timolol Maleate 0.5% Op Soln 5 Ml Btl) 1 drops OPB BID [facility] Stop: 02/10/25 08:59 Last Admin: 01/12/25 08:19 Dose: 1 drops
[2025-01-12] MEDS: OPTIRAY 320 100ml IV ONE (17:12)
--- NOTE | 2025-01-12 18:18 | CT Scan Report ---
EXAM: CT chest diagnostic with intravenous contrast. PROVIDED HISTORY: Possible malignancy COMPARISON: Portable chest 12/28/2024 TECHNIQUE: Helical CT imaging of the chest was performed. Images are presented in axial, sagittal, and coronal reformats. Axial MIP reconstructions are also provided. 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 Otherwise, no dominant nodule, infiltrate or mass lesion is identified at this time. Pleura: Small bilateral pleural effusions are seen with some tracking into the right oblique fissure. HEART/MEDIASTINUM:The heart is mildly enlarged.No significant abnormal hilar or mediastinal mass or adenopathy is seen at this time. Trace pericardial effusion is present. Moderately severe coronary artery calcifications are present. UPPER ABDOMEN/SOFT TISSUES: Large amount of ascites is seen in the upper abdomen. Diffuse fatty infiltrate seen in the examined portion of the liver with a small hepatic calcification present. BONES:No suspicious osseous lesions are identified. IMPRESSION: 1. 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 2. Trace bilateral pleural effusions. 3. Moderate coronary artery calcifications with mild cardiomegaly and trace pericardial effusion. 4. Large amount of abdominal ascites. Further evaluation with CT of the abdomen/pelvis might provide further useful information. Electronically signed by Rigo Up 01-12-2025 6:16 PM
[2025-01-13 08:08] LABS: Hemoglobin 11.2 g/dl (14.0-18.0); Mean Corpuscular Hemoglobin 30.4 pg (25.0-34.0); Mean Corpuscular Hgb Conc 32.9 g/dL (32.0-36.0); Mean Corpuscular Volume 92.1 fL (80.0-100.0); Mean Platelet Volume 10.8 fL (9.4-12.4); Platelet Count 284 K/uL (130-400); RDW Standard Deviation 46.6 fL (36.4-46.3); Red Blood Count 3.69 M/uL (4.70-6.10); White Blood Count 10.07 K/ul (4.8-10.8)
[2025-01-13 08:16] LABS: Albumin Level 3.2 gm/dl (3.4-5.0); BUN Creatinine Ratio 22.2 (10-20); Bilirubin,Total 1.1 mg/dl (0.2-1.0); Creatinine Clr Calc Pharmacy 77.6 ml/min; Globulin 3.3 gm/dl (2.5-4.0); Magnesium 2.1 mg/dl (1.7-2.4); Phosphorus 2.5 mg/dl (2.5-4.9); Potassium 4.2 mmol/L (3.5-5.1); Total Protein 6.5 gm/dl (6.0-8.3)
[2025-01-13] MEDS: POLYETHYLENE (MIRALAX) 17 GM PACK PO ONE (11:32)
--- NOTE | 2025-01-13 11:43 | Hospitalist Progress Note ---
Date of Service January 13, 2025 Assessment & Plan (1) Ascites: Plan: Assessment/plan Possible acute cholecystitis - ruled out New onset ascites Patient was referred to the ED after outpatient CT abdomen showed possibility of acute cholecystitis, moderate volume ascites and peritoneal enhancement CT abdomen pelvis from 12/31 also showed moderate abdominal and pelvic ascites. Leukocytosis present AST/ALT within normal limits ALP elevated to 126 Lipase within normal limits Started on Zosyn on admission for possible acute cholecystitis General surgery consulted - at this time do not feel findings consistent w/ cholecystis and recommend GI evaluation for ascites S/p diagnostic paracentesis performed in the ED to rule out SBP. Pathology shows Rare atypical cells present highly suspicious for malignancy. S/p therapeutic paracentesis on (01/11) yielding 5L of fluid GI consulted given new onset of ascites - do not believe secondary to liver disease, concerned about poss. malignancy Oncology (Dr. Green) consulted and discussed with -> recommended to obtain CT chest w/ con - 1. 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 2. Trace bilateral pleural effusions. 3. Moderate coronary artery calcifications with mild cardiomegaly and trace pericardial effusion. 4. Large amount of abdominal ascites. Further evaluation with CT of the abdomen/pelvis might provide further useful information. CT chest w/o any mass -> contacted GI for poss. EGD/colonoscopy Chronic conditions Hypertensionhold lisinopril and hydrochlorothiazide for now Sinus bradycardia with pauses -evaluated by cardiology last admission; metoprolol discontinued. Continue monitor on telemetry Hyperlipidemiacontinue on rosuvastatin Type 2 diabetes mellituscontinue on sliding scale insulin Gout continue on allopurinol BPHcontinue on tamsulosin, finasteride oxybutynin DNR/DNI DVT prophylaxis on hold for procedure Admission and Anticipated Discharge Date Admission Date: January 10, 2025 Subjective Pt seen in follow up of ascites, poss. cholecystitis Underwent paracentesis yielding 5Lof fluid had diagnostic para in ED - cytology concerning for malignant cells Currently pt is sitting up in chair in NAD, overall feeling better after having paracentesis done present at the bedside and updated no fever, chills, chest pain or shortness of breath Review of Systems Review of Systems: All systems reviewed & are unremarkable except as noted in Subjective Physical Exam Physical Exam: General: Alert oriented x 3; not in distress. Respiratory: normal respiratory effort, decreased breath sounds, no wheezing Cardiovascular: RRR, no murmur Abdomen: soft, nontender Musculoskeletal: Bilateral 2+ pitting edema present Skin: no rashes, warm and dry Neurologic: PERRL, EOMI, no face palsy, no dysarthria, moves all extremities Psychiatric: A+Ox3, euthymic affect Results & Data Results & Data Vital Signs (Past 12 Hours) Vital Signs Temp Pulse Pulse Resp BP Pulse Ox O2 Del Method 01/13/25 07:53 36.5 C 68 16 113/75 93 Room Air 01/13/25 07:09 63 01/13/25 07:09 Room Air 01/13/25 02:54 36.4 C L 65 18 125/73 93 Room Air Laboratory Results 01/13/25 01/13/25 01/12/25 Range/Units 08:08 06:56 20:17 WBC 10.07 (4.8-10.8) K/ul RBC 3.69 L (4.70-6.10) M/uL Hgb 11.2 L (14.0-18.0) g/dl Hct 34.0 L (42.0-52.0) % MCV 92.1 (80.0-100.0) fL MCH 30.4 (25.0-34.0) pg MCHC 32.9 (32.0-36.0) g/dL RDW Std Deviation 46.6 H (36.4-46.3) fL RDW Coeff of Hilda 14.0 (11.5-14.5) % Plt Count 284 (130-400) K/uL MPV 10.8 (9.4-12.4) fL Sodium 137 (136-145) mmol/L Potassium 4.2 (3.5-5.1) mmol/L Chloride 102 (98-107) mmol/L Carbon Dioxide 29 (21-32) mmol/L Anion Gap 6 (3-11) BUN 18 (6-23) mg/dl Creatinine 0.81 (0.6-1.4) mg/dl Est Cr Clr Drug Dosing 77.6 ml/min eGFR 85.87 BUN/Creatinine Ratio 22.2 H (10-20) Glucose 98 (70-99(Fasting)) mg/dl POC Glucose 102 H 117 H (70-99) mg/dl Calcium 9.0 (8.6-10.3) mg/dl Phosphorus 2.5 (2.5-4.9) mg/dl Magnesium 2.1 (1.7-2.4) mg/dl Total Bilirubin 1.1 H (0.2-1.0) mg/dl AST 23 (13-39) U/L ALT 24 (7-52) U/L Alkaline Phosphatase 93 (34-104) U/L Total Protein 6.5 (6.0-8.3) gm/dl Albumin 3.2 L (3.4-5.0) gm/dl Globulin 3.3 (2.5-4.0) gm/dl Albumin/Globulin Ratio 1.0 (0.9-2) 01/12/25 01/12/25 01/12/25 Range/Units 17:22 12:31 12:13 WBC (4.8-10.8) K/ul RBC (4.70-6.10) M/uL Hgb (14.0-18.0) g/dl Hct (42.0-52.0) % MCV (80.0-100.0) fL MCH (25.0-34.0) pg MCHC (32.0-36.0) g/dL RDW Std Deviation (36.4-46.3) fL RDW Coeff of Hilda (11.5-14.5) % Plt Count (130-400) K/uL MPV (9.4-12.4) fL Sodium (136-145) mmol/L Potassium (3.5-5.1) mmol/L Chloride (98-107) mmol/L Carbon Dioxide (21-32) mmol/L Anion Gap (3-11) BUN (6-23) mg/dl Creatinine (0.6-1.4) mg/dl Est Cr Clr Drug Dosing ml/min eGFR BUN/Creatinine Ratio (10-20) Glucose (70-99(Fasting)) mg/dl POC Glucose 101 H 108 H 113 H (70-99) mg/dl Calcium (8.6-10.3) mg/dl Phosphorus (2.5-4.9) mg/dl Magnesium (1.7-2.4) mg/dl Total Bilirubin (0.2-1.0) mg/dl AST (13-39) U/L ALT (7-52) U/L Alkaline Phosphatase (34-104) U/L Total Protein (6.0-8.3) gm/dl Albumin (3.4-5.0) gm/dl Globulin (2.5-4.0) gm/dl Albumin/Globulin Ratio (0.9-2) Medications Administered Current Inpatient Medications Acetaminophen (Acetaminophen 325 Mg Tab) 650 mg PO Q4H PRN PRN Reason: Pain or Fever Stop: 02/09/25 18:56 Last Admin: 01/12/25 21:19 Dose: 650 mg Al Hydrox/Mg Hydrox/Simethicone (Aluminum/Magnesium Susp 30 Ml Udc) 15 ml PO Q4H PRN PRN Reason: Dyspepsia Stop: 02/09/25 18:56 Allopurinol (Allopurinol 300 Mg Tab) 300 mg PO Q48H [facility] Stop: 02/10/25 08:59 Last Admin: 01/13/25 08:19 Dose: 300 mg Aspirin (Aspirin 81 Mg Ectab) 81 mg PO HS [facility] Stop: 02/09/25 21:30 Last Admin: 01/12/25 21:10 Dose: 81 mg Brimonidine Tartrate (Brimonidine Tartrate 0.2% 5ml) 1 drops OPL BID [facility] Stop: 02/09/25 21:30 Last Admin: 01/13/25 08:19 Dose: 1 drops Dextrose (Dextrose 50% 50 Ml Syringe) 25 - 50 ml IV UD PRN; Protocol PRN Reason: Hypoglycemia Protocol Stop: 02/09/25 18:56 Dorzolamide HCl (Dorzolamide Hcl 2% Oph Soln 10 Ml Btl) 1 drops OPL BID [facility] Stop: 02/09/25 21:30 Last Admin: 01/13/25 08:19 Dose: 1 drops Finasteride (Finasteride 5 Mg Tab) 5 mg PO QAM [facility] Stop: 02/10/25 08:59 Last Admin: 01/13/25 08:19 Dose: 5 mg Glucagon (Glucagon For Inj 1 Mg Vial) 1 mg SQ UD PRN; Protocol PRN Reason: Hypoglycemia Protocol Stop: 02/09/25 18:56 Glucose (Glucose 40% Gel 15 Gm Tube) 15 - 30 gm PO UD PRN; Protocol PRN Reason: Hypoglycemia Protocol Stop: 02/09/25 18:56 Glucose (Glucose 10 Tab/Tube) 4 - 8 tab PO UD PRN; Protocol PRN Reason: Hypoglycemia Protocol Stop: 02/09/25 18:56 Piperacillin Sod/Tazobactam Sod (Zosyn) 4.5 gm in 100 mls @ 25 mls/hr IV Q8H [facility]; Protocol Stop: 01/21/25 01:59 Last Admin: 01/13/25 09:02 Dose: 25 mls/hr Insulin Aspart (Insulin Aspart Per Unit Charge) 0 units SC ACHS [facility] Stop: 02/10/25 00:00 Last Admin: 01/13/25 08:58 Dose: 3 units Lactobacillus Acidophilus (Advanced Probiotic 625 Mg Capsule) 1,250 mg PO DAILY [facility] Stop: 02/10/25 08:59 Last Admin: 01/13/25 08:19 Dose: 1,250 mg Latanoprost (Latanoprost 0.005% Op Soln 2.5 Ml Btl) 1 drops OP HS [facility] Stop: 02/10/25 20:59 Last Admin: 01/12/25 21:10 Dose: 1 drops Miscellaneous (Carbohydrates For Hypoglycemia ) 15 - 30 gm PO UD PRN PRN Reason: Hypoglycemia Protocol Stop: 02/09/25 18:56 Miscellaneous Information (Pharmacy Glycemic Mgmt Consult) 1 each N/A UD PRN PRN Reason: Consult Stop: 02/09/25 18:56 Multivitamins/Minerals (Cerovite Adv Formula Tab) 1 tab PO QAM [facility] Stop: 02/10/25 08:59 Last Admin: 01/13/25 08:19 Dose: 1 tab Oxybutynin Chloride (Oxybutynin Chloride Xl 5 Mg Tabcr) 10 mg PO DAILY [facility] Stop: 02/10/25 08:59 Last Admin: 01/13/25 08:20 Dose: 10 mg Pantoprazole Sodium (Pantoprazole 40 Mg Tab) 40 mg PO QAM [facility] Stop: 02/10/25 11:44 Last Admin: 01/13/25 08:20 Dose: 40 mg Polyethylene Glycol (Polyethylene (Miralax) 17 Gm Pack) 17 gm PO DAILY PRN PRN Reason: Constipation Stop: 02/09/25 18:56 Rosuvastatin Calcium (Rosuvastatin Calcium 10 Mg Tab) 10 mg PO QAM [facility] Stop: 02/10/25 08:59 Last Admin: 01/13/25 08:20 Dose: 10 mg Tamsulosin HCl (Tamsulosin Hcl 0.4 Mg Cap) 0.8 mg PO HS [facility] Stop: 02/09/25 21:30 Last Admin: 01/12/25 21:10 Dose: 0.8 mg Timolol Maleate (Timolol Maleate 0.5% Op Soln 5 Ml Btl) 1 drops OPB BID [facility] Stop: 02/10/25 08:59 Last Admin: 01/13/25 08:20 Dose: 1 drops
--- NOTE | 2025-01-13 13:10 | Gastroenterology Progress Note ---
Date of Service January 13, 2025 Assessment & Plan (1) Ascites: Plan: Suspected malignant ascites. EGD and colonoscopy as a part of the evaluation to rule out gastrointestinal source of malignancy. Admission and Anticipated Discharge Date Admission Date: January 10, 2025 Subjective Suspected malignant ascites. Cytology from obtained ascitic fluid showed atypical cells suspicious for malignancy. Ascitic fluid to serum albumin gradient was 0.8 which is not consistent with portal hypertension. Medical oncology suggested endoscopic evaluation with EGD and colonoscopy. Patient's brother had history of colon cancer in his 60s. The patient has history of colonic polyps but the last colonoscopy was more than 10 years ago. He has no other GI symptoms except for excessive belching. His recent CAT scans of the abdomen and pelvis were reviewed. The liver appears normal. There was no evidence of portal hypertension. Grossly there are no suspicious masses and no significant adenopathy. The patient is agreeable to having EGD and colonoscopy as a part of the evaluation. Review of Systems Review of Systems: Constitutional: Denies chills, fever, complains of fatigue. Respiratory: Denies cough, denies shortness of breath. Cardiovascular: Denies chest pain and palpitations. Gastrointestinal: Denies nausea, vomiting, diarrhea, constipation, abdominal pain. Physical Exam Physical Exam: Constitutional: WD/WN, vitals as above Respiratory: normal respiratory effort, lungs clear to auscultation Cardiovascular: RRR, no murmur, no edema Gastrointestinal (Abdomen): normal bowel sounds, soft, nontender, no hepatosplenomegaly. Neurological: Oriented x 3, grossly no focal abnormalities, speech is intact. Results & Data Results & Data Vital Signs (Past 12 Hours) Vital Signs Temp Pulse Pulse Resp BP Pulse Ox O2 Del Method 01/13/25 12:01 36.3 C L 66 20 115/74 95 Room Air 01/13/25 07:53 36.5 C 68 16 113/75 93 Room Air 01/13/25 07:09 63 01/13/25 07:09 Room Air 01/13/25 02:54 36.4 C L 65 18 125/73 93 Room Air PG Care Time/CCT Total # of Minutes Spent Total Time Spent with Patient: Total time spent is greater than 50% in coordination of care (as documented) at patient's floor/unit and/or counseling patient: Coding Level of Care Code 89346 SUB INP/OBS CARE 2/35MIN Diagnoses Ascites R18.8
[2025-01-13] MEDS: bisacodyL 5 MG TABEC PO ONE ×2 (14:24→17:08)
[2025-01-13] MEDS: LAVAGE SOLUTION 4000ML PO SCH (17:07)
[2025-01-14 07:05] LABS: Hematocrit (blood only) 37.8 % (42.0-52.0); Hemoglobin 12.5 g/dl (14.0-18.0); Mean Corpuscular Hemoglobin 30.1 pg (25.0-34.0); Mean Corpuscular Hgb Conc 33.1 g/dL (32.0-36.0); Mean Corpuscular Volume 91.1 fL (80.0-100.0); Mean Platelet Volume 10.7 fL (9.4-12.4); Platelet Count 314 K/uL (130-400); RDW Coefficient of Variation 13.8 % (11.5-14.5); RDW Standard Deviation 46.4 fL (36.4-46.3); Red Blood Count 4.15 M/uL (4.70-6.10)
[2025-01-14 07:25] LABS: Calcium 8.8 mg/dl (8.6-10.3); Creatinine Clr Calc Pharmacy 70.6 ml/min; Magnesium 2.1 mg/dl (1.7-2.4); Phosphorus 2.7 mg/dl (2.5-4.9); Potassium 4.3 mmol/L (3.5-5.1)
--- NOTE | 2025-01-14 09:36 | Anesthesiology Consultation ---
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 Cynthia Marie MD Height/Weight Height: 5 ft 8 in Weight: 106.8 kg Allergies Allergy/AdvReac Type Severity Reaction Status Date / Time Blackening Seasoning Allergy Intermediate Swelling Uncoded 07/28/23 09:00 of Lip/Tongue/Throat Medications Home Medications Medication Instructions Recorded Confirmed Last Taken allopurinol 300 mg tablet 300 mg PO Q2D 05/19/19 01/10/25 07/27/23 aspirin 81 mg tablet,delayed 81 mg PO 05/19/19 01/10/25 07/26/23 release finasteride 5 mg tablet 5 mg PO QAM 05/19/19 01/10/25 07/27/23 hydrochlorothiazide 25 mg tablet 25 mg PO QAM 05/19/19 01/10/25 07/27/23 lisinopril 10 mg tablet 10 mg PO QAM 05/19/19 01/10/25 07/27/23 meyjlkzm-iw-zbomd 300 mcg-K 60 1 tab PO QAM 05/19/19 01/10/25 07/27/23 mcg-lycop 600 mcg-lutein 300 mcg tablet (Centrum Silver Men) rosuvastatin 10 mg tablet 10 mg PO QAM 05/19/19 01/10/25 07/27/23 tamsulosin 0.4 mg capsule 0.8 mg PO HS 05/19/19 01/10/25 07/27/23 brimonidine 0.2 % eye drops 1 drp OPL UD 07/28/23 01/10/25 07/27/23 am dose dorzolamide 2 % eye drops 1 drp OPL BID 07/28/23 01/10/25 07/27/23 am dose latanoprost (PF) 0.005 % eye drops 1 drp OPL HS 07/28/23 01/10/25 07/26/23 in a dropperette oxybutynin chloride 10 mg 10 mg PO DAILY 07/28/23 01/10/25 07/27/23 tablet,extended release 24 hr timolol maleate 0.5 % eye drops 1 drp OPB BID 07/28/23 01/10/25 07/27/23 am dose L.acidop,casei,lactis,rham-B.lact,zahraa 1 cap PO DAILY #10 caps 01/03/25 01/10/25 Unknown 625 mg (10 billion cell) capsule (Advanced Probiotic) Active Medications Generic Name Dose Route Start Last Admin Trade Name Freq PRN Reason Stop Dose Admin Acetaminophen 650 mg 01/10/25 18:57 01/12/25 21:19 Acetaminophen 325 Mg Tab PO 02/09/25 18:56 650 mg Q4H PRN Administration Pain or Fever Allopurinol 300 mg 01/11/25 09:00 01/13/25 08:19 Allopurinol 300 Mg Tab PO 02/10/25 08:59 300 mg Q48H ALEX Administration Aspirin 81 mg 01/10/25 21:31 01/13/25 20:14 Aspirin 81 Mg Ectab PO 02/09/25 21:30 81 mg HS ALEX Administration Brimonidine Tartrate 1 drops 01/10/25 21:31 01/14/25 07:58 Brimonidine Tartrate 0.2% 5ml OPL 02/09/25 21:30 1 drops BID ALEX Administration Dorzolamide HCl 1 drops 01/10/25 21:31 01/14/25 07:58 Dorzolamide Hcl 2% Oph Soln 10 Ml Btl OPL 02/09/25 21:30 1 drops BID ALEX Administration Finasteride 5 mg 01/11/25 09:00 01/14/25 08:00 Finasteride 5 Mg Tab PO 02/10/25 08:59 5 mg QAM ALEX Administration Insulin Aspart 0 units 01/11/25 21:00 01/14/25 09:06 Insulin Aspart Per Unit Charge SC 02/10/25 00:00 Not Given ACHS ALEX Lactobacillus Acidophilus 1,250 mg 01/11/25 09:00 01/14/25 08:00 Advanced Probiotic 625 Mg Capsule PO 02/10/25 08:59 1,250 mg DAILY ALEX Administration Latanoprost 1 drops 01/11/25 21:00 01/13/25 20:14 Latanoprost 0.005% Op Soln 2.5 Ml Btl OP 02/10/25 20:59 1 drops HS ALEX Administration Multivitamins/Minerals 1 tab 01/11/25 09:00 01/14/25 08:00 Cerovite Adv Formula Tab PO 02/10/25 08:59 1 tab QAM ALEX Administration Oxybutynin Chloride 10 mg 01/11/25 09:00 01/14/25 08:00 Oxybutynin Chloride Xl 5 Mg Tabcr PO 02/10/25 08:59 10 mg DAILY ALEX Administration Pantoprazole Sodium 40 mg 01/11/25 11:45 01/14/25 08:00 Pantoprazole 40 Mg Tab PO 02/10/25 11:44 40 mg QAM ALEX Administration Rosuvastatin Calcium 10 mg 01/11/25 09:00 01/14/25 08:00 Rosuvastatin Calcium 10 Mg Tab PO 02/10/25 08:59 10 mg QAM ALEX Administration Tamsulosin HCl 0.8 mg 01/10/25 21:31 01/13/25 20:14 Tamsulosin Hcl 0.4 Mg Cap PO 02/09/25 21:30 0.8 mg HS ALEX Administration Timolol Maleate 1 drops 01/11/25 09:00 01/14/25 08:01 Timolol Maleate 0.5% Op Soln 5 Ml Btl OPB 02/10/25 08:59 1 drops BID ALEX Administration Past Medical History Medical History Gout BPH (benign prostatic hyperplasia) RBBB LBBB (left bundle branch block) NSVT (nonsustained ventricular tachycardia) Dyslipidemia Diabetes mellitus, type II Hypertension Past Family History Family History Other Cancer Diabetes Past Surgical History Surgical History History of colonoscopy Hx of tonsillectomy History of appendectomy Social History Smoking Status: Never smoker Do You Dip or Chew Tobacco: No Hx Alcohol Use: No Alcohol type: beer alcohol intake frequency: holidays/special occasions only Hx Substance Use: No substance use type: does not use Physical Exam Vital Signs Last Vital Signs Temp 36.6 C 01/14/25 03:39 Pulse 85 01/14/25 03:39 Resp 18 01/14/25 03:39 BP 125/73 01/14/25 03:39 Pulse Ox 90 01/14/25 03:39 O2 Del Method Room Air 01/14/25 03:39 Testing Laboratory Results 01/14/25 06:23 01/14/25 06:23 PT 11.3 Seconds (9.0-12.0) 01/11/25 06:41 INR 1.0 (0.9-1.1) 01/11/25 06:41 Hemoglobin A1c 7.1 % (4.5-5.6) H 01/11/25 06:41 Urine Color Yellow 01/10/25 15:03 Urine Appearance Slightly Cloudy (Clear) 01/10/25 15:03 Urine pH 5.5 (4.5-7.5) 01/10/25 15:03 Ur Specific [place] 1.010 (1.000-1.030) 01/10/25 15:03 Urine Protein Trace (Negative) H 01/10/25 15:03 Urine Glucose (UA) Negative (Negative) 01/10/25 15:03 Urine Ketones Negative (Negative) 01/10/25 15:03 Urine Nitrite Negative (Negative) 01/10/25 15:03 Ur Leukocyte Esterase Trace (Negative) H 01/10/25 15:03 Urine RBC 0-2 /hpf (0-2) 01/10/25 15:03 Urine WBC 21-50 /hpf (0-5) H 01/10/25 15:03 Ur Epithelial Cells 6-10 /hpf (0-2) H 01/10/25 15:03 01/11/25 Unknown Gram Stain - Final Peritoneal Fluid Aerobic and Anaerobic Culture - Preliminary No growth to date. 01/10/25 15:03 Urine Culture - Final Urine,Clean Catch Pseudomonas aeruginosa 01/10/25 18:37 Gram Stain - Final Abdomen Aerobic and Anaerobic Culture - Preliminary No growth to date. 01/14/25 08:14 POC Glucose 105 H Electrocardiogram Date: 12/31/24 Test Reason : Blood Pressure : */* mmHG Vent. Rate : 62 BPM Atrial Rate : 62 BPM P-R Int : 198 ms QRS Dur : 144 ms QT Int : 422 ms P-R-T Axes : 40 -55 38 degrees QTcB Int : 428 ms Normal sinus rhythm Left axis deviation Non-specific intra-ventricular conduction block Possible Old Anterolateral infarct Abnormal ECG When compared with ECG of 28-Dec-2024 13:15, No significant change Confirmed by Brett Webber ([id number]) on 01/01/2025 7:59:24 AM Chest X-Ray Date: 12/28/24 CLINICAL HISTORY: weakness COMPARISON STUDY: 10/25/2024 FINDINGS: Stable calcified left mediastinal lymph node. Stable cardiomegaly without pulmonary vascular congestion. Inspiration is shallow which limits the exam. Stable mild elevation of the right hemidiaphragm. Evaluation of the left lung base is limited by the overlying cardiac silhouette. No definite consolidation or pleural effusion. No pneumothorax. IMPRESSION: Shallow inspiration with no acute findings seen.
--- NOTE | 2025-01-14 10:16 | History & Physical Bridge Note ---
Date of Service January 14, 2025 History & Physical Bridge Note I have examined the patient, reviewed the History & Physical and in the interval since the performance of the History & Physical I have noted the following changes of clinical significance: no changes noted Patient completed a bowel prep and is passing liquid stools. No GI bleeding. Patient has not had anything by mouth other than his prep since prior to midnight. Keep NPO & proceed with EGD & colonoscopy today. Supervising Physician Co-Signing Physician Notes I examined the patient and reviewed patient's chart , laboratory data and imaging studies. I agree with with assessment and plan of care as suggested by advanced practice provider
--- NOTE | 2025-01-14 10:26 | Hospitalist Progress Note ---
Date of Service January 14, 2025 Assessment & Plan (1) Ascites: Plan: Assessment/plan Possible acute cholecystitis - ruled out New onset ascites Patient was referred to the ED after outpatient CT abdomen showed possibility of acute cholecystitis, moderate volume ascites and peritoneal enhancement CT abdomen pelvis from 12/31 also showed moderate abdominal and pelvic ascites. Leukocytosis present AST/ALT within normal limits ALP elevated to 126 Lipase within normal limits Started on Zosyn on admission for possible acute cholecystitis General surgery consulted - at this time do not feel findings consistent w/ cholecystis and recommend GI evaluation for ascites S/p diagnostic paracentesis performed in the ED to rule out SBP. Pathology shows Rare atypical cells present highly suspicious for malignancy. S/p therapeutic paracentesis on (01/11) yielding 5L of fluid GI consulted given new onset of ascites - do not believe secondary to liver disease, concerned about poss. malignancy Oncology (Dr. Green) consulted and discussed with -> recommended to obtain CT chest w/ con - 1. 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 2. Trace bilateral pleural effusions. 3. Moderate coronary artery calcifications with mild cardiomegaly and trace pericardial effusion. 4. Large amount of abdominal ascites. Further evaluation with CT of the abdomen/pelvis might provide further useful information. CT chest w/o any mass -> contacted GI for poss. EGD/colonoscopy 01/14 Plan for endoscopy today Chronic conditions Hypertensionhold lisinopril and hydrochlorothiazide for now Sinus bradycardia with pauses -evaluated by cardiology last admission; metoprolol discontinued. Continue monitor on telemetry Hyperlipidemiacontinue on rosuvastatin Type 2 diabetes mellituscontinue on sliding scale insulin Gout continue on allopurinol BPHcontinue on tamsulosin, finasteride oxybutynin DNR/DNI DVT prophylaxis on hold for procedure Admission and Anticipated Discharge Date Admission Date: January 10, 2025 Subjective Pt seen in follow up of ascites, poss. cholecystitis Underwent paracentesis yielding 5Lof fluid had diagnostic para in ED - cytology concerning for malignant cells Currently pt is sitting up in chair in NAD, overall feeling better after having paracentesis done no fever, chills, chest pain or shortness of breath oncology consulted GI consulted - plan for endoscopy today Review of Systems Review of Systems: All systems reviewed & are unremarkable except as noted in Subjective Physical Exam Physical Exam: General: Alert oriented x 3; not in distress. Respiratory: normal respiratory effort, decreased breath sounds, no wheezing Cardiovascular: RRR, no murmur Abdomen: soft, nontender Musculoskeletal: Bilateral 2+ pitting edema present Skin: no rashes, warm and dry Neurologic: PERRL, EOMI, no face palsy, no dysarthria, moves all extremities Psychiatric: A+Ox3, euthymic affect Results & Data Results & Data Vital Signs (Past 12 Hours) Vital Signs Temp Pulse Pulse Pulse Resp BP Pulse Ox 01/14/25 09:49 67 01/14/25 03:39 36.6 C 85 18 125/73 90 01/13/25 23:21 36.3 C L 76 18 158/81 H 95 O2 Del Method 01/14/25 09:49 01/14/25 03:39 Room Air 01/13/25 23:21 Room Air Laboratory Results 01/14/25 01/14/25 01/13/25 Range/Units 08:14 06:23 20:05 WBC 11.30 H (4.8-10.8) K/ul RBC 4.15 L (4.70-6.10) M/uL Hgb 12.5 L (14.0-18.0) g/dl Hct 37.8 L (42.0-52.0) % MCV 91.1 (80.0-100.0) fL MCH 30.1 (25.0-34.0) pg MCHC 33.1 (32.0-36.0) g/dL RDW Std Deviation 46.4 H (36.4-46.3) fL RDW Coeff of Hilda 13.8 (11.5-14.5) % Plt Count 314 (130-400) K/uL MPV 10.7 (9.4-12.4) fL Sodium 136 (136-145) mmol/L Potassium 4.3 (3.5-5.1) mmol/L Chloride 99 (98-107) mmol/L Carbon Dioxide 31 (21-32) mmol/L Anion Gap 6 (3-11) BUN 16 (6-23) mg/dl Creatinine 0.89 (0.6-1.4) mg/dl Est Cr Clr Drug Dosing 70.6 ml/min eGFR 83.46 BUN/Creatinine Ratio 18.0 (10-20) Glucose 117 H (70-99(Fasting)) mg/dl POC Glucose 105 H 121 H (70-99) mg/dl Calcium 8.8 (8.6-10.3) mg/dl Phosphorus 2.7 (2.5-4.9) mg/dl Magnesium 2.1 (1.7-2.4) mg/dl 01/13/25 01/13/25 Range/Units 16:54 12:10 WBC (4.8-10.8) K/ul RBC (4.70-6.10) M/uL Hgb (14.0-18.0) g/dl Hct (42.0-52.0) % MCV (80.0-100.0) fL MCH (25.0-34.0) pg MCHC (32.0-36.0) g/dL RDW Std Deviation (36.4-46.3) fL RDW Coeff of Hilda (11.5-14.5) % Plt Count (130-400) K/uL MPV (9.4-12.4) fL Sodium (136-145) mmol/L Potassium (3.5-5.1) mmol/L Chloride (98-107) mmol/L Carbon Dioxide (21-32) mmol/L Anion Gap (3-11) BUN (6-23) mg/dl Creatinine (0.6-1.4) mg/dl Est Cr Clr Drug Dosing ml/min eGFR BUN/Creatinine Ratio (10-20) Glucose (70-99(Fasting)) mg/dl POC Glucose 108 H 127 H (70-99) mg/dl Calcium (8.6-10.3) mg/dl Phosphorus (2.5-4.9) mg/dl Magnesium (1.7-2.4) mg/dl Medications Administered Current Inpatient Medications Acetaminophen (Acetaminophen 325 Mg Tab) 650 mg PO Q4H PRN PRN Reason: Pain or Fever Stop: 02/09/25 18:56 Last Admin: 01/12/25 21:19 Dose: 650 mg Al Hydrox/Mg Hydrox/Simethicone (Aluminum/Magnesium Susp 30 Ml Udc) 15 ml PO Q4H PRN PRN Reason: Dyspepsia Stop: 02/09/25 18:56 Allopurinol (Allopurinol 300 Mg Tab) 300 mg PO Q48H ALEX Stop: 02/10/25 08:59 Last Admin: 01/13/25 08:19 Dose: 300 mg Aspirin (Aspirin 81 Mg Ectab) 81 mg PO HS ALEX Stop: 02/09/25 21:30 Last Admin: 01/13/25 20:14 Dose: 81 mg Brimonidine Tartrate (Brimonidine Tartrate 0.2% 5ml) 1 drops OPL BID ALEX Stop: 02/09/25 21:30 Last Admin: 01/14/25 07:58 Dose: 1 drops Dextrose (Dextrose 50% 50 Ml Syringe) 25 - 50 ml IV UD PRN; Protocol PRN Reason: Hypoglycemia Protocol Stop: 02/09/25 18:56 Dorzolamide HCl (Dorzolamide Hcl 2% Oph Soln 10 Ml Btl) 1 drops OPL BID ALEX Stop: 02/09/25 21:30 Last Admin: 01/14/25 07:58 Dose: 1 drops Finasteride (Finasteride 5 Mg Tab) 5 mg PO QAM ALEX Stop: 02/10/25 08:59 Last Admin: 01/14/25 08:00 Dose: 5 mg Glucagon (Glucagon For Inj 1 Mg Vial) 1 mg SQ UD PRN; Protocol PRN Reason: Hypoglycemia Protocol Stop: 02/09/25 18:56 Glucose (Glucose 40% Gel 15 Gm Tube) 15 - 30 gm PO UD PRN; Protocol PRN Reason: Hypoglycemia Protocol Stop: 02/09/25 18:56 Glucose (Glucose 10 Tab/Tube) 4 - 8 tab PO UD PRN; Protocol PRN Reason: Hypoglycemia Protocol Stop: 02/09/25 18:56 Insulin Aspart (Insulin Aspart Per Unit Charge) 0 units SC ACHS ALEX Stop: 02/10/25 00:00 Last Admin: 01/14/25 09:06 Dose: Not Given Lactobacillus Acidophilus (Advanced Probiotic 625 Mg Capsule) 1,250 mg PO DAILY ALEX Stop: 02/10/25 08:59 Last Admin: 01/14/25 08:00 Dose: 1,250 mg Latanoprost (Latanoprost 0.005% Op Soln 2.5 Ml Btl) 1 drops OP HS ALEX Stop: 02/10/25 20:59 Last Admin: 01/13/25 20:14 Dose: 1 drops Miscellaneous (Carbohydrates For Hypoglycemia ) 15 - 30 gm PO UD PRN PRN Reason: Hypoglycemia Protocol Stop: 02/09/25 18:56 Miscellaneous Information (Pharmacy Glycemic Mgmt Consult) 1 each N/A UD PRN PRN Reason: Consult Stop: 02/09/25 18:56 Multivitamins/Minerals (Cerovite Adv Formula Tab) 1 tab PO QAM [facility] Stop: 02/10/25 08:59 Last Admin: 01/14/25 08:00 Dose: 1 tab Oxybutynin Chloride (Oxybutynin Chloride Xl 5 Mg Tabcr) 10 mg PO DAILY ALEX Stop: 02/10/25 08:59 Last Admin: 01/14/25 08:00 Dose: 10 mg Pantoprazole Sodium (Pantoprazole 40 Mg Tab) 40 mg PO QAM [facility] Stop: 02/10/25 11:44 Last Admin: 01/14/25 08:00 Dose: 40 mg Polyethylene Glycol (Polyethylene (Miralax) 17 Gm Pack) 17 gm PO DAILY PRN PRN Reason: Constipation Stop: 02/09/25 18:56 Rosuvastatin Calcium (Rosuvastatin Calcium 10 Mg Tab) 10 mg PO QAM [facility] Stop: 02/10/25 08:59 Last Admin: 01/14/25 08:00 Dose: 10 mg Tamsulosin HCl (Tamsulosin Hcl 0.4 Mg Cap) 0.8 mg PO HS [facility] Stop: 02/09/25 21:30 Last Admin: 01/13/25 20:14 Dose: 0.8 mg Timolol Maleate (Timolol Maleate 0.5% Op Soln 5 Ml Btl) 1 drops OPB BID [facility] Stop: 02/10/25 08:59 Last Admin: 01/14/25 08:01 Dose: 1 drops
--- NOTE | 2025-01-14 10:33 | Pharmacy Report ---
Pharmacy Glycemic Short Note 2 - Date of Service January 14, 2025 - Glycemic Short BSG Results (Last 24 hours): 01/13/25 01/13/25 01/13/25 12:10 16:54 20:05 Glucose POC Glucose 127 H 108 H 121 H 01/14/25 01/14/25 06:23 08:14 Glucose 117 H POC Glucose 105 H OUTPATIENT ANTIDIABETIC REGIMEN: * No anti-diabetic home medications HbA1c: * 7.1% (01/11/25) ASSESSMENT: 01/14/25: * Blood sugars remain well-controlled with minimal bolus insulin only * Cytology of peritoneal fluid concerning for malignancy * Clear liquid diet ordered * Do not anticipate any changes to current regimen 01/11/25: * 84 yo M admitted on 01/10/25 secondary to possible cholecystitis. Pharmacy has been consulted to assist with inpatient glycemic management. Patient is a Type 2 diabetic as an outpatient. Please refer to outpatient regimen and most recent HbA1c above. * Patient is currently NPO, but, per surgical consult, unlikely to require OR for cholecystectomy. Diet may be resumed today. Will follow to see if patient tolerates. * Continue to hold basal insulin at this time. BSGs since admission have been: 122-113-98 mg/dL. Fasting BSG 107 mg/dL this AM. * Continue with Novolog only. No changes. PLAN FOR INPATIENT GLYCEMIC CONTROL: * Basal insulin * None * Bolus insulin * NovoLog per scale ACHS or Q6hrs while NPO * Goal Range: Low 110 mg/dL - High 140 mg/dL * Correction Factor: 30 mg/dL/unit * Nutritional / Prandial insulin per carb ratio of 1 unit per 10 grams CHO consumed
[2025-01-14] MEDS ORDERED: PROPOFOL IV EMULSION 10 MG/ML 20 ML VIAL IV ONE (15:46)
[2025-01-14] MEDS ORDERED: LIDOCAINE 2% 2 ML VIAL/AMP(20MG/ML) INFIL ONE (15:46)
[2025-01-14] MEDS ORDERED: ePHEDrine sulfate 50 MG/5 ML SYR ONE (16:37)
--- NOTE | 2025-01-14 17:00 | GI REPORT ---
[facility] Patient: SHASHA ROTHMAN : 1940 Sex at : Male Age: 84 Years Procedure: Upper GI endoscopy Date: 01/14/2025 Attending Physician: Louis Marie MD Referring MD: Kenny Alvarado; Diaz Bustamante Md Indications: - Suspected malignant ascites. Medications: - Monitored Anesthesia Care Complications: - No immediate complications. Estimated Blood Loss: - Estimated blood loss: None. Procedure: - The egd scope was introduced through the mouth and advanced to the second part of the duodenum. - The upper GI endoscopy was accomplished without difficulty. - The patient tolerated the procedure well. Findings: - The Z-line was regular and was found 40 cm from the incisors. - A non-obstructing Schatzki ring was found at the gastroesophageal junction. The ring was disrupted with cold biopsy forceps x 3. - The exam of the esophagus was otherwise normal. There was no evidence of varices. - A 3 cm hiatal hernia was present. - Patchy mild inflammation characterized by erosions and erythema was found in the gastric antrum. Biopsies were taken with a cold forceps for Helicobacter pylori testing. - The exam of the stomach was otherwise normal. There was no evidence of gastric varices or portal hypertensive gastropathy. - There was no evidence of ulcer, mass or tumor in the stomach. - One non-bleeding cratered duodenal ulcer with no stigmata of bleeding was found in the duodenal bulb. The lesion was 10 mm in largest dimension. - The exam of the duodenum was otherwise normal. Impression: - There was no evidence of ulcer, mass or tumor in the stomach. - Z-line regular, 40 cm from the incisors. - Non-obstructing Schatzki ring. - 3 cm hiatal hernia. - Gastritis, characterized by erosions and erythema. Biopsied. - Non-bleeding duodenal ulcer with no stigmata of bleeding. Recommendation: - Await pathology results. - Observe patient's clinical course. - Pantoprazole 40 mg once a day. Procedure Code(s): - 30767, Esophagogastroduodenoscopy, flexible, transoral; with biopsy, single or multiple Diagnosis Code(s): - K22.2, Esophageal obstruction - K44.9, Diaphragmatic hernia without obstruction or gangrene - K29.70, Gastritis, unspecified, without bleeding - K26.9, Duodenal ulcer, unspecified as acute or chronic, without hemorrhage or perforation CPT(R) - 2023 copyright [employer]. All Rights Reserved. The CPT codes, CCI edits and ICD codes generated are intended as suggestions and were generated based on input data. These codes are preliminary and upon medical biller/coder review may be revised to meet current compliance and payer requirements. The provider is responsible for the final determination of appropriate codes, and modifiers. Louis Marie M.D. , This document has been electronically signed. Note Initiated:01/14/2025 Note Completed:01/14/2025 4:59 PM [email or web address]\Results\[email or web address]\[id number]
--- NOTE | 2025-01-14 17:05 | GI REPORT ---
[facility] Patient: SHASHA ROTHMAN : 1940 Sex at : Male Age: 84 Years Procedure: Colonoscopy Date: 01/14/2025 Attending Physician: Louis Marie MD Referring MD: Kenny Alvarado; Diaz Bustamante Md Indications: - Malignant ascites, rule out primary colon cancer. Medications: - Monitored Anesthesia Care Complications: - No immediate complications. Estimated Blood Loss: - Estimated blood loss: None. Procedure: - The pediatric colonoscope was introduced through the anus and advanced to the cecum, identified by appendiceal orifice and ileocecal valve. - The colonoscopy was performed without difficulty. - The patient tolerated the procedure well. - The quality of the bowel preparation was fair except the cecum was unsatisfactory, the rectum was good, the sigmoid colon was good, the descending colon was good, the transverse colon was good and the ascending colon was good. Findings: - The perianal examination was normal. - Prostate moderately enlarged without nodules. - A 10 mm polyp was found in the ascending colon. The polyp was sessile. The polyp was removed with a hot snare. Resection was complete, and retrieval was complete. - Multiple medium-mouthed diverticula were found in the sigmoid colon and descending colon. - Internal hemorrhoids were found during retroflexion. The hemorrhoids were small. - The exam was otherwise without abnormality. - No evidence of colonic mass. Impression: - Prostate moderately enlarged without nodules. - No evidence of colonic mass. - One 10 mm polyp in the ascending colon, removed with a hot snare. Resected and retrieved. - Diverticulosis in the sigmoid colon and in the descending colon. - Internal hemorrhoids. - The examination was otherwise normal. Recommendation: - Await pathology results. Procedure Code(s): - 83638, Colonoscopy, flexible; with removal of tumor(s), polyp(s), or other lesion(s) by snare technique Diagnosis Code(s): - D12.2, Benign neoplasm of ascending colon - K64.8, Other hemorrhoids - K57.30, Diverticulosis of large intestine without perforation or abscess without bleeding CPT(R) - 2023 copyright [employer] [place] [employer] [employer]. All Rights Reserved. The CPT codes, CCI edits and ICD codes generated are intended as suggestions and were generated based on input data. These codes are preliminary and upon treasury associate review may be revised to meet current compliance and payer requirements. The provider is responsible for the final determination of appropriate codes, and modifiers. Loius Marie M.D., MD This document has been electronically signed. Note Initiated:01/14/2025 Note Completed:01/14/2025 5:04 PM [email or web address]\[email or web address]\Results\[email or web address]\[id number]
--- NOTE | 2025-01-14 17:07 | Communication Note ---
Date of Service: January 14, 2025 EGD: Nonobstructive Schatzki's ring, small hiatal hernia, mild erosive gastritis entered about 1 cm ulcer in the duodenal bulb. There was no visible vessel and no bleeding. Biopsy for Helicobacter pylori was obtained from the gastric antrum. There was no evidence of tumor or mass to explain malignant ascites. Colonoscopy: Cecum was not well-visualized due to inadequate bowel prep. There was about 1 cm sessile polyp in the ascending colon, removed with hot snare polypectomy. There were multiple diverticula. There were small internal hemorrhoids. Otherwise the colon was unremarkable without evidence of mass or tumor to explain malignant ascites. Recommend to hold aspirin and continue pantoprazole.
--- NOTE | 2025-01-14 17:40 | Anesthesiology Progress Note ---
Date of Service January 14, 2025 Anesthesia Post Procedure Vital Signs Vital Signs: Temp Pulse Pulse Pulse Resp BP Pulse Ox 01/14/25 17:24 77 16 144/80 H 100 01/14/25 17:09 68 16 129/79 95 01/14/25 16:54 55 L 16 96/56 L 96 01/14/25 15:09 36.4 C L 58 L 16 127/77 98 01/14/25 14:22 61 01/14/25 11:27 36.4 C L 68 20 117/77 95 01/14/25 09:49 67 01/14/25 03:39 36.6 C 85 18 125/73 90 01/13/25 23:21 36.3 C L 76 18 158/81 H 95 01/13/25 22:01 78 01/13/25 19:39 36.5 C 69 18 120/63 97 O2 Del Method 01/14/25 17:24 Room Air 01/14/25 17:09 Room Air 01/14/25 16:54 Room Air 01/14/25 15:09 Room Air 01/14/25 14:22 01/14/25 11:27 Room Air 01/14/25 09:49 01/14/25 03:39 Room Air 01/13/25 23:21 Room Air 01/13/25 22:01 01/13/25 19:39 Room Air Pain Intensity Abdomen: Pain Intensity: 1 Transfer of Care Handoff Completed per policy Notes Mental Status: alert / awake / arousable Patient Amnestic to Procedure: Yes Nausea / Vomiting: adequately controlled Pain: adequately controlled Airway Patency, RR, SpO2: stable & adequate BP & HR: stable & adequate Hydration State: stable & adequate Anesthetic Complications: no major complications apparent
[2025-01-14 23:46] VITALS: RESP 18
[2025-01-15 10:04] LABS: Hematocrit (blood only) 36.7 % (42.0-52.0); Hemoglobin 12.2 g/dl (14.0-18.0); Mean Corpuscular Hemoglobin 30.1 pg (25.0-34.0); Mean Corpuscular Hgb Conc 33.2 g/dL (32.0-36.0); Mean Corpuscular Volume 90.6 fL (80.0-100.0); Mean Platelet Volume 10.2 fL (9.4-12.4); Platelet Count 291 K/uL (130-400); RDW Coefficient of Variation 13.9 % (11.5-14.5); RDW Standard Deviation 46.2 fL (36.4-46.3); Red Blood Count 4.05 M/uL (4.70-6.10); White Blood Count 11.25 K/ul (4.8-10.8)
[2025-01-15 10:24] LABS: Calcium 8.5 mg/dl (8.6-10.3); Potassium 3.7 mmol/L (3.5-5.1)
[2025-01-15 10:30] LABS: BUN Creatinine Ratio 19.1 (10-20); Creatinine Clr Calc Pharmacy 70.3 ml/min; Phosphorus 2.6 mg/dl (2.5-4.9)
--- NOTE | 2025-01-15 10:30 | Discharge Summary ---
Date of Service January 15, 2025 Admission HPI Per Admitting Provider History obtained from chart review and interview with the patient, Admitted recently from 12/28 to 01/03 for progressive weakness, UTI, constipation, ENMA. Patient followed up with his primary care doctor on 01/09/2025; reported severe mid epigastric abdominal pain, worse on laying flat. Patient underwent CT abdomen pelvis with IV and oral contrast on 01/10/2025; reported to be found with moderate volume ascites and peritoneal enhancement, nonspecific mild gallbladder wall thickening, small pericardial effusion, small bilateral pleural effusion. Patient was referred to the ED for further evaluation. Patient reports diffuse abdominal pain around periumbilical region He reports low appetite and energy as well He reports increased abdominal distention for last couple of weeks Reports short of breath and difficulty sleeping while lying flat due to abdominal discharge No fever, chills, urinary symptoms On presentation to the ED, he was normotensive, afebrile and saturating well on room air. WBC count was 12,000. BUN/creatinine within normal limits. Ultrasound of the gallbladder showed cholelithiasis without definitive acute cholecystitis, moderate amount of ascites. Patient was referred for further evaluation. Admission Exam Per Admitting Provider Constitutional: Alert oriented x 3; not in distress. Respiratory: normal respiratory effort, lungs clear to auscultation, no wheeze, rales, rhonchi. Normal insp/exp effort, no accessory muscle use Cardiovascular: RRR, no murmur, no edema Vessels: no JVD or carotid bruit Chest: normal inspection of chest Abdomen: Distended, mild tenderness in periumbilical region. no rigidity Musculoskeletal: Bilateral 2+ pitting edema present Skin: no rashes, warm and dry normal turgor Neurologic: PERRL, EOMI, accommodation nl, no face palsy, no dysarthria CN's II- XI intact bilaterally and moves all extremities Psychiatric: A+Ox3, euthymic affect Principal Diagnosis Ascites, malignant Discharge Exam General: Alert oriented x 3; not in distress. Respiratory: normal respiratory effort, decreased breath sounds, no wheezing Cardiovascular: RRR, no murmur Abdomen: soft, nontender Musculoskeletal: Bilateral 2+ pitting edema present Skin: no rashes, warm and dry Neurologic: PERRL, EOMI, no face palsy, no dysarthria, moves all extremities Psychiatric: A+Ox3, euthymic affect Discharge Data Allergies Allergy/AdvReac Type Severity Reaction Status Date / Time Blackening Seasoning Allergy Intermediate Swelling Uncoded 07/28/23 09:00 of Lip/Tongue/Throat Consultations 01/10/25 18:33 ED Decision to Admit Stat 01/10/25 18:57 Consult Gastroenterology Routine Consult General Surgery Routine 01/11/25 13:54 Consult Oncology Routine Procedures Performed Operation Date: 01/14/25 17:50 Actual Procedures p EGD Biopsy Cytology - Louis Marie MD s Colonoscopy Polypectomy - Louis Marie MD Ordered Studies 01/10/25 16:16 US gallbladder Stat Findings: There is fatty infiltration of the liver. No definite liver mass is seen There are multiple gallstones as well as apparent gallbladder sludge. The gallbladder wall is mildly thickened, measuring 4 mm. The gallbladder appears decompressed. No definite sonographic Ward sign was detected There is no intrahepatic or extrahepatic bile duct dilatation. The common bile duct measures 4 mm The right kidney measures 11.5 cm in length. There is no hydronephrosis. No definite renal calculus or mass is seen. There is a large simple appearing right renal cyst, measuring 8.1 x 6 x 5.9 cm The visualized pancreas, aorta, and IVC appear unremarkable. There is a moderate amount of ascites Impression: 1. Cholelithiasis without definite acute cholecystitis 2. Moderate amount of ascites 3. Fatty infiltration of the liver 4. Large right renal cyst 01/11/25 IR paracentesis abd w/img US Routine PROCEDURE: The risks, benefits, and alternatives to the procedure were discussed with the patient including the risk of bleeding, infection and injury to adjacent structures. The patient agreed to the procedure and informed written consent was obtained. Following real-time ultrasound localization, the skin was prepped and draped. Following local anesthesia with Xylocaine, the sheath paracentesis needle was inserted and approximately 5 liters of straw-colored fluid was removed by vacuum suction. The patient tolerated the procedure well and no immediate complications were evident. IMPRESSION: Ultrasound-guided paracentesis with removal of 5 liters of ascites. 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 Otherwise, no dominant nodule, infiltrate or mass lesion is identified at this time. Pleura: Small bilateral pleural effusions are seen with some tracking into the right oblique fissure. HEART/MEDIASTINUM:The heart is mildly enlarged.No significant abnormal hilar or mediastinal mass or adenopathy is seen at this time. Trace pericardial effusion is present. Moderately severe coronary artery calcifications are present. UPPER ABDOMEN/SOFT TISSUES: Large amount of ascites is seen in the upper abdomen. Diffuse fatty infiltrate seen in the examined portion of the liver with a small hepatic calcification present. BONES:No suspicious osseous lesions are identified. IMPRESSION: 1. 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 2. Trace bilateral pleural effusions. 3. Moderate coronary artery calcifications with mild cardiomegaly and trace pericardial effusion. 4. Large amount of abdominal ascites. Further evaluation with CT of the abdomen/pelvis might provide further useful information. Hospital Course (1) Ascites: Assessment/plan Possible acute cholecystitis - ruled out New onset ascites Patient was referred to the ED after outpatient CT abdomen showed possibility of acute cholecystitis, moderate volume ascites and peritoneal enhancement CT abdomen pelvis from 12/31 also showed moderate abdominal and pelvic ascites. Leukocytosis present AST/ALT within normal limits ALP elevated to 126 Lipase within normal limits Started on Zosyn on admission for possible acute cholecystitis General surgery consulted - at this time do not feel findings consistent w/ cholecystis and recommend GI evaluation for ascites S/p diagnostic paracentesis performed in the ED to rule out SBP. Pathology shows Rare atypical cells present highly suspicious for malignancy. S/p therapeutic paracentesis on (01/11) yielding 5L of fluid GI consulted given new onset of ascites - do not believe secondary to liver disease, concerned about poss. malignancy Oncology (Dr. Green) consulted and discussed with -> recommended to obtain CT chest w/ con - 1. 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 2. Trace bilateral pleural effusions. 3. Moderate coronary artery calcifications with mild cardiomegaly and trace pericardial effusion. 4. Large amount of abdominal ascites. Further evaluation with CT of the abdomen/pelvis might provide further useful information. CT chest w/o any mass -> contacted GI for poss. EGD/colonoscopy 01/14 Per GI- EGD: Nonobstructive Schatzki's ring, small hiatal hernia, mild erosive gastritis entered about 1 cm ulcer in the duodenal bulb. There was no visible vessel and no bleeding. Biopsy for Helicobacter pylori was obtained from the gastric antrum. There was no evidence of tumor or mass to explain malignant ascites. Colonoscopy: Cecum was not well-visualized due to inadequate bowel prep. There was about 1 cm sessile polyp in the ascending colon, removed with hot snare polypectomy. There were multiple diverticula. There were small internal hemorrhoids. Otherwise the colon was unremarkable without evidence of mass or tumor to explain malignant ascites. Recommend to hold aspirin and continue pantoprazole. Chronic conditions Hypertensionheld lisinopril and hydrochlorothiazide, cont. to hold lisinopril for now Sinus bradycardia with pauses -evaluated by cardiology last admission; metoprolol discontinued. Continue to monitor Hyperlipidemiacontinue on rosuvastatin Type 2 diabetes mellituscontinue on sliding scale insulin Gout continue on allopurinol BPHcontinue on tamsulosin, finasteride oxybutynin Total Time Total Time Spent Total Time Spent (In Minutes): 40 Discharge Plan Discharge Items Patient Disposition: Home - Self-Care Reason For Visit: ABD PAIN Discharge Diagnosis: Ascites, malignant Activity: Per Instructions section Non-emergency contact: Primary Care Provider, Specialist and Oncologist Call non-emergency contact if: you have any medication questions and your symptoms worsen Follow-up/Referrals: Kenny Alvarado MD [Primary Care Provider] - (Date & Time 01/22/2025 11:00 AM Provider: Kenny Alvarado MD General Internal Medicine [facility] ) Diet: Regular and Heart Healthy Addtl Attending Provider Instructions: Follow up with your primary care doctor and oncologist. Pathology results from your biopsy and from your paracentesis are currently pending. Pending Studies at Discharge: Yes Studies:: pathology from biopsy and from perit. fluid Stand-Alone Forms: My [facility] [place] myJambi, Smoking Cessation Medications and DC Order Prescriptions: New pantoprazole 40 mg Tablet,Delayed Release (Dr/Ec) 40 mg PO QAM Qty: 30 0RF polyethylene glycol 3350 [Miralax] 17 gram Powder In Packet 17 g PO DAILY PRN (Reason: constipation) Qty: 14 0RF Continued tamsulosin 0.4 mg capsule 0.8 mg PO HS allopurinol 300 mg tablet 300 mg PO Q2D hydrochlorothiazide 25 mg tablet 25 mg PO QAM Hold Instructions: Hold taking for 2 to 3 days as advised finasteride 5 mg tablet 5 mg PO QAM rosuvastatin 10 mg tablet 10 mg PO QAM Centrum Silver Men 300-600-300 mcg Tablet 1 tab PO QAM Rx Instructions: otc unable to verify oxybutynin chloride 10 mg tablet extended release 24hr 10 mg PO DAILY Rx Instructions: 10 mg po qam. last filled 07/28/24 90 day brimonidine 0.2 % drops 1 drp OPL UD Rx Instructions: 1 drp opl bid. 10/02/24 90 day supply timolol maleate 0.5 % drops 1 drp OPB BID dorzolamide 2 % drops 1 drp OPL BID latanoprost (PF) 0.005 % Dropperette 1 drp OPL HS Advanced Probiotic 625 mg (10 billion cell) Capsule 1 cap PO DAILY Qty: 10 0RF Held aspirin 81 mg Tablet,Delayed Release (Dr/Ec) 81 mg PO HS Hold Instructions: Resume on 01/17/25. Rx Instructions: otc unable to verify lisinopril 10 mg tablet 10 mg PO QAM Hold Instructions: Resume on 01/21/25. until seen by primary care doctor Discharge Orders: Discharge Order (Routine); Ordered 01/15/25 Ordered By: Diaz Mary/Other Patient Handouts: Managing Type 2 Diabetes Admission Data Admit Date/Time: 01/10/25 18:58 Attending Provider: Diaz Bustamante Admit Provider: Matty Garcia Primary Care Provider: Kenny Alvarado Other Providers: Matty Garcia; Arnulfo Dubois I; Matthieu Ragsdale; [place]; Shima Green Other Interventions: Discharge Summary Assessment (RN) Last Done: 01/14/25 17:26
[2025-01-15 11:20] VITALS: BP 102/67; PULSE 66; TEMP 97.9; O2SAT 94
== END 2025-01-15 14:10 | disposition home health service (06) | DRG 844 ==
LOC: ED 14:42 → SUATTDRO 18:58 → 2N 18:58

== ENCOUNTER 2025-01-24 06:37 | Inpatient (IN) ==
--- OUTSIDE RECORDS SUMMARY | 2025-01-24 06:41 | External Medical Summary | Summary of Care ---
Author Name Unknown Organization [facility] Address [address] [place] [address] Phone [phone] Care Team Providers Care Straddle Buggy Operator Name Role Phone Kenny Alvarado MD Primary Care Provider + Reason for Visit * Reason Onset Date Comments Test Results 01/23/2025 Encounter Details Date Type Department Care Team (Late st Contact Info) Description 01/23/2025 Telephone General Internal Medicine [facility] [address] [place] [address] Kenny Alvarado MD [address] [place] [address] Test Results Allergies No known active allergiesdocumented as of this encounter (statuses as of 01/24/2025) Medications ASPIRIN 81 MG PO TABS one tab by mouth daily 7 Active CENTRUM SILVER PO TABS one tab daily 3 Active Brimonidine Tartrate 0.2 % Ophthalmic Solution [...] St Oral Capsule 1 Capsule. 5 Active Pantoprazole Sodium 40 MG Oral Tablet Delayed Release (Protonix) Take 1 Tablet by mouth in the morning. 5 Active polyethylene glycol 3350 119 gram OR POWD Take 17 g by mouth daily as needed for Constipation. 5 Active Apixaban Starter Pack 5 MG Oral Tablet Therapy Pack (Eliquis DVT/PE Starter Pack)Indications :Acute deep vein thrombosis (DVT) of proximal vein of right lower extremity (HCC) Take 10 mg by mouth 2 times a day for 7 days, THEN 5 mg 2 times a day for 21 days. 74 Tablet 5 02/20/20 25 Active documented as of this encounter (statuses as of 01/24/2025) Active Problems Problem Noted Date Diagnosed Date [...] as of this encounter (statuses as of 01/24/2025) Resolved Problems Problem Noted Date Diagnosed Date [...] as of this encounter (statuses as of 01/24/2025) Immunizations Name Administration Dates Next Due COVID-19 [...] Packs/Day Years Used Date Smoking Tobacco: Never Passive Smoke Exposure: Never Smokeless Tobacco: Never Alcohol Use Standard [...] money to buy more. Never true 11/02/19 Within the past 12 months, t he [...] encounter Miscellaneous Notes * Telephone Encounter - Jeri Medellin LPN - 01/23/2025 4:29 PM EDT Patient's Samaria advised * Telephone Encounter - Kenny Alvarado MD - 01/23/2025 4:24 PM EDT Ok for pt as tolerated, but if symptoms worsen would strongly recommend ER as he has a lot of ascites, may need to be drained again and would be cautious doing outpatient given new dvt * Telephone Encounter - Bay Garcia RN - 01/23/2025 8:33 AM EDT Called and spoke with patient's spouse Samaria and informed her of Dr. Alvarado's previous message.She verbalized understanding of all information. Samaria spoke with the patient and he said the pain is tolerable when he takes Tylenol, states they will hold off on going to the ER for now. Samaria saidthe patient is still having a lot of burping, said taking Mylanta last night seemed to help a little. Samaria said the patient also has walking with PT, and that they are coming in this morning. She asked if it is ok for him to do the walking in addition to the stairs? Please advise. * Telephone Encounter - Bay Garcia RN - 01/23/2025 8:27 AM EDT ----- Message from Kenny Alvarado MD sent at 01/23/2025 8:19 AM EDT ----- Large amount of ascites again - how is his pain? If worsening or no better, suggest er as may need admission, tap which maybe harder in setting of dvt and on blood thinner documented in this encounter Plan of Treatment Upcoming Encounters Date Type Department Care Team (Late st Contact Info) Description 01/31/2025 12:30 PM EDT Office Visit Hematology/Oncology [facility] [address] [place] [phone] Jos Phelps MD [address] [facility] [place] [address] 06/10/2025 12:40 PM EDT Office Visit General Internal Medicine [facility] [address] [place] [address] Kenny Alvarado MD [address] [facility] [place] [address] 07/03/2025 8:30 AM EDT Office Visit Urology, [facility] [address] [place] [phone] Hung Horowitz MD [address] [place] [address] 11/01/2025 10:00 AM EST Office Visit Cardiology, [facility] [address] [place] [phone] Vianney Barrett PA-C [address] [facility] [place] [id number] Scheduled Procedures Name Priority Associated Diagnoses Date/Ti [...] 11/02/2022, 10/13/2021, Additional history exists Albumin/Creatinine Ratio 03/29/202503/29/2 024, 04/29/2023, 04/09/2022, Additional history exists HbA1c 05/08/2025 11/08/2024, 03/03, 04/29/2023, Additional history exists DTap/Tdap Vaccines (2 - Td or Tdap) 01/29/2029 01/29/2019 Pneumococcal Vaccine: 50+ Years Completed 04/23/2016, 09/30/2010, 07/31/2003 Zoster Vaccines Completed 08/18/2020, 05/03, 03/14/2012 Influenza Vaccine (FLU shot) Completed 06/27/2024, 06/20/2023, 06/11/2022, Additional history exists RETIRED - COLONOSCOPY-EVERY 5 YRS AGES 18-100 Discontinued 01/14/2025, 03/13/2018, 03/13/2018, Additional history exists HPV (Gardasil) Vaccine Aged [...] filedocumented as of this encounter Care Teams Straddle Buggy Operator Relationship Specialty Start Date End Date Kenny Alvarado MD [address] [place] [address] PCP - General Internal Medicine 07/30/21 documented as of this encounter
--- OUTSIDE RECORDS SUMMARY | 2025-01-24 06:41 | External Medical Summary | Summary of Care ---
Author Name Unknown Organization [facility] Address [address] [place] [address] Phone [phone] Care Team Providers Care Electronic Systems Technician Name Role Phone Kenny Alvarado MD Primary Care Provider + Reason for Visit * Reason Onset Date Comments Abnormal Test Results 01/22/2025 Encounter Details Date Type Department Care Team (Late st Contact Info) Description 01/22/2025 Telephone General Internal Medicine [facility] [address] [place] [address] Kenny Alvarado MD [address] [place] [address] Abnormal Test Results (/) Allergies No known active allergiesdocumented as of this encounter (statuses as of 01/23/2025) Medications ASPIRIN 81 MG PO TABS one [...] as of this encounter (statuses as of 01/23/2025) Active Problems Problem Noted Date Diagnosed Date [...] as of this encounter (statuses as of 01/23/2025) Resolved Problems Problem Noted Date Diagnosed Date [...] as of this encounter (statuses as of 01/23/2025) Immunizations Name Administration Dates Next Due COVID-19 [...] encounter Miscellaneous Notes * Telephone Encounter - Shefali Warner OSA - 01/23/2025 3:24 PM EDT Patient's is wanting to speak to nurse Campa, she has more questions regarding the earlier conversation is there an ER admit for the procedure that was talked about. Patient is on new medication & patient has a nose bleed. * Telephone Encounter - Dedra Lim LPN - 01/22/2025 2:51 PM EDT and Patient aware and verbalized understanding, will comply * Telephone Encounter - Emma Corbett OSA - 01/22/2025 2:43 PM EDT Reason for patient's call: Abnormal test results. Caller was transferred to [place] at the nurse line. * Telephone Encounter - Jeri Medellin LPN - 01/22/2025 2:04 PM EDT Left message for patient to call back, please transfer to dedicated nurse line Med sent, will need for at least 3 months. Ok for stairs * Telephone Encounter - Kenny Alvarado MD - 01/22/2025 1:44 PM EDT Med sent, will need for at least 3 months. Ok for stairs * Telephone Encounter - Bay Garcia RN - 01/22/2025 1:12 PM EDT Called and spoke with patient's spouse Samaria and informed her of Dr. Alvarado's previous message.She verbalized understanding of all information and is agreeable to all recommendations. Pharmacy confirmed. Samaria said the patient has been doing stairs and steps with physical therapy recently. She asked ifthis is ok for him to continue? Please advise. * Telephone Encounter - Kenny Alvarado MD - 01/22/2025 12:57 PM EDT Please call patient. He is +for dvt in right leg, likely cause of swelling. Need to start a blood thinner to help make sure clot doesn't increase. Would be eliquis 10 mg twice a day for a week then 5mg twice a day after that. Watch for bleeding, bruising on med. No nsaid (advil, aleve, etc) on blood thinner, tylenol is ok. If any cp, sob, flower to ER as risk of clot can move to lungs. documented in this encounter Plan of Treatment Upcoming Encounters Date Type Department Care Team (Late st Contact Info) Description 01/31/2025 12:30 PM EDT Office Visit Hematology/Oncology [facility] [address] [facility] [place] [phone] Jos Phelps MD [address] [facility] [place] [address] 06/10/2025 12:40 PM EDT Office Visit General Internal Medicine [facility] [address] [facility] [place] [address] Kenny Alvarado MD [address] [facility] [place] [address] 07/03/2025 8:30 AM EDT Office Visit Urology, [facility] [address] [place] [phone] Hung Horowitz MD [address] [facility] [place] [address] 11/01/2025 10:00 AM EST Office Visit Cardiology, [facility] [address] [place] [phone] Vianney Barrett PA-C [address] [facility] [place] [phone] Scheduled Procedures Name Priority Associated Diagnoses Date/Ti [...] of this encounter Visit Diagnoses Diagnosis Acute deep vein thrombosis (DVT) of proximal vein of right lower extremity (HCC)- Primary documented in this encounter Care Teams Electronic Systems Technician Relationship Specialty Start Date End Date Kenny Alvarado MD [address] [facility] [place] [address] PCP - General Internal Medicine 07/30/21 documented as of this encounter
--- OUTSIDE RECORDS SUMMARY | 2025-01-24 06:41 | External Medical Summary | Summary of Care ---
Author Name Unknown Organization [facility] Address [address] [place] [address] Phone [phone] Care Team Providers Care Passementerie Worker Name Role Phone Kenny Alvarado MD Primary Care Provider + Reason for Visit * Reason Onset Date Comments Other 01/21/2025 Encounter Details Date Type Department Care Team (Late st Contact Info) Description 01/21/2025 Telephone General Internal Medicine [facility] [address] [place] [address] Kenny Alvarado MD 200 [place] [address] Other Allergies No known active allergiesdocumented as of [...] Active Tamsulosin HCl 0.4 MG Oral Capsule (Flomax)Indicat ions: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 5 Active Glucose Blood ([employer] ULTRA BLUE) STRPIndications :Type 2 diabetes mellitus with hemoglobin A1c goal of less than 8.0% ([facility]) Use fasting daily. E11.9 100 Strip 5 8 01/23/20 25 Discontinu ed(Patient preference /discontin uation) documented as of this encounter (statuses as [...] encounter Miscellaneous Notes * Telephone Encounter - Kenny Alvarado MD - 01/22/2025 10:20 AM EDT Did not order this, came from [facility] hospitalist so they may need to do peer to peer. It also looks like it is past the date so can't do it now * Telephone Encounter - Bay Garcia RN - 01/21/2025 4:37 PM EDT Received fax from [employer] Peer to Peer Coordinator dated 01/15/2025 requesting Peer to Peer for direct intermediate services of an RN in the home health or hospice setting each 15 minutes. Also for services performed by a qualified physical therapist in the home health or hospice se tting, each 15 minutes, and finally for services performed by a qualified occupational therapist inthe home health or hospice setting, each 15 minutes. Fax states to call option 1 by 01/16/2025. Just received fax today and it is past the date. Please advise. documented in this encounter Plan of Treatment Upcoming Encounters Date Type Department Care Team (Late st Contact Info) Description 01/31/2025 12:30 PM EDT Office Visit Hematology/Oncology [facility] [address] [facility] [place] [phone] Jos Phelps MD [address] [facility] [place] [address] 06/10/2025 12:40 PM EDT Office Visit General Internal Medicine [facility] [address] [facility] [place] [address] Kenny Alvarado MD [address] [facility] [place] [address] 07/03/2025 8:30 AM EDT Office Visit Urology, [facility] [address] [place] [phone] Hung Horowitz MD 27 [facility] [place] [address] 11/01/2025 10:00 AM EST Office Visit Cardiology, [facility] [address] [place] [phone] Vianney Barrett PA-C 400 [facility] [place] [address] Scheduled Procedures Name Priority Associated Diagnoses [...] filedocumented as of this encounter Care Teams Passementerie Worker Relationship Specialty Start Date End Date Kenny Alvarado MD 200 [place] [address] PCP - General Internal Medicine 07/30/21 documented as of this encounter
--- OUTSIDE RECORDS SUMMARY | 2025-01-24 06:41 | External Medical Summary | Summary of Care ---
Author Name Unknown Organization [facility] Address [address] [place] [address] Phone [phone] Care Team Providers Care Geology Teacher Name Role Phone Kenny Alvarado MD Primary Care Provider + Reason for Visit * Reason Onset Date Comments Abnormal Test Results 01/22/2025 Encounter Details Date Type Department Care Team (Late st Contact Info) Description 01/22/2025 Telephone General Internal Medicine [facility] 200 [place] [address] Kenny Alvarado MD 200 [place] [address] Abnormal Test Results (/) Allergies No known [...] Abnormal test results. Caller was transferred to [place] at the nurse line. * Telephone Encounter [...] 01/31/2025 12:30 PM EDT Office Visit Hematology/Oncology [facility] [address] [facility] [place] [phone] Jos Phelps MD [address] [facility] [place] [address] 06/10/2025 12:40 PM EDT Office Visit General Internal Medicine [facility] [address] [facility] [place] [address] Kenny Alvarado MD [address] [facility] [place] [address] 07/03/2025 8:30 AM EDT Office Visit Urology, [facility] [address] [place] [phone] Hung Horowitz MD [address] [facility] [place] [address] 11/01/2025 10:00 AM EST Office Visit Cardiology, [facility] [address] [place] [phone] Vianney Barrett PA-C 400 [facility] [place] [phone] Scheduled Procedures Name Priority Associated Diagnoses Date/Ti [...] Primary documented in this encounter Care Teams Geology Teacher Relationship Specialty Start Date End Date Kenny Alvarado MD 200 [place] [address] PCP - General Internal Medicine 07/30/21 documented as of this encounter
--- OUTSIDE RECORDS SUMMARY | 2025-01-24 06:41 | External Medical Summary | Summary of Care ---
Author Name Unknown Organization [facility] Address [address] [place] [address] Phone [phone] Care Team Providers Care Supervisor Meter Repair Shop Name Role Phone Kenny Alvarado MD Primary Care Provider + Reason for Visit * Reason Comments Outpatient Testing Encounter Details Date Type Department Care Team (Late st Contact Info) Description 01/22/2025 11:40 AM EDT Laboratory Laboratory [facility] [address] [place] [phone] [facility] [address] [place] [address] Allergies No known active allergiesdocumented as of [...] daily as needed for Constipation. 5 Active documented as of this encounter [...] PM EDT Office Visit General Internal Medicine [facility] 200 [facility] [place] [address] Kenny [facility]ado MD 200 [facility] [address] 07/03/2025 8:30 AM EDT Office Visit Urology, [facility] [address] [phone] Hung Horowitz MD [address] [place] [address] 11/01/2025 10:00 AM EST Office Visit Cardiology, [facility] [address] [place] [phone] Vianney Barrett PA-C 400 [facility] [place] [address] Scheduled Procedures Name [...] filedocumented as of this encounter Care Teams Supervisor Meter Repair Shop Relationship Specialty Start Date End Date Kenny Alvarado MD [address] [place] [address] PCP - General Internal Medicine 07/30/21 documented as of this encounter
--- OUTSIDE RECORDS SUMMARY | 2025-01-24 06:42 | External Medical Summary | Summary of Care ---
Author Name Unknown Organization [facility] Address [address] [place] [address] Phone [phone] Care Team Providers Care General Labor Name Role Phone Kenny Alvarado MD Primary Care Provider + Reason for Visit * Reason Onset Date Comments Test Results Imaging Study 01/10/2025 Encounter Details Date Type Department Care Team (Late st Contact Info) Description 01/10/2025 Telephone General Internal Medicine [facility] 200 [place] [address] Kenny Alvarado MD 200 [place] [address] Test Results Imaging Study Allergies No known active allergiesdocumented as of this encounter (statuses as of 01/11/2025) Medications ASPIRIN 81 MG PO TABS one tab by mouth daily 7 Active CENTRUM SILVER PO TABS one tab daily 3 Active Glucose Blood (ONETOUCH ULTRA BLUE) STRPIndications: Type 2 diabetes mellitus with hemoglobin A1c goal of less than 8.0% ([facility]) Use fasting daily. E11.9 [...] St Oral Capsule 1 Capsule. 5 Active Hospital, Clinic, or Other Facility Administered Medication Ordered Dose Route Frequency Start Date End Date Status sodium chloride 0.9 % flush/inj 10 mL 10 mL IV PUSH ONCE 01/10/2025 01/11/2025 Active documented as of this encounter (statuses as of 01/11/2025) Active Problems Problem Noted Date Diagnosed Date [...] as of this encounter (statuses as of 01/11/2025) Resolved Problems Problem Noted Date Diagnosed Date [...] as of this encounter (statuses as of 01/11/2025) Immunizations Name Administration Dates Next Due COVID-19 [...] Telephone Encounter - Kenny Alvarado MD - 01/10/2025 2:20 PM EDT Noted, thank you * Telephone Encounter - Anel Cat PA-C - 01/10/2025 2:04 PM EDT Inboxologist Note: Called ed as there was a time crunch Spoke with charge nurse Cielo Gave her report of ov yesterday Wants ct and labs sent Faxing Anel Cat PA-C Inboxologist Note: * Telephone Encounter - Alicia Peoples CMA - 01/10/2025 1:49 PM EDT Spoke with patient's . I advised her of results, message and recommendations below. She states that she will take Jorge Luis to [facility] ED within the hour. She would appreciate provider calling the ED to explain emergence and necessity for patient's arrival because she is concerned that duringhis last visit, insurance "did not cover" because he "didn't need to be there." * Telephone Encounter - Alicia Peoples CMA - 01/10/2025 1:49 PM EDT ----- Message from Kenny Alvarado MD sent at 01/10/2025 1:44 PM EDT ----- Ct shows ascites with possible infection peritonium (peritonitis), suggest ER for possible infection, given his severe pain Also gallbladder thickening, maybe gallbladder infection, suggest er now If goes, let me know, I will call er documented in this encounter Plan of Treatment Upcoming Encounters Date Type Department Care Team (Late st Contact Info) Description 06/10/2025 12:40 PM EDT Office Visit General Internal Medicine [facility] 200 [facility] [place] [address] Kenny Alvarado MD 200 [facility] [place] [address] 07/03/2025 8:30 AM EDT Office Visit Urology, [facility] [address] [place] [phone] Hung Horowitz MD [address] [place] [phone] 11/01/2025 10:00 AM EST Office Visit Cardiology, [facility] [address] [place] [phone] Vianney Barrett PA-C [address] [place] [phone] Scheduled Procedures Name Priority Associated Diagnoses Date/Ti [...] filedocumented as of this encounter Care Teams General Labor Relationship Specialty Start Date End Date Kenny Alvarado MD 200 [place] [address] PCP - General Internal Medicine 07/30/21 documented as of this encounter
--- OUTSIDE RECORDS SUMMARY | 2025-01-24 06:42 | External Medical Summary | Summary of Care ---
Author Name Unknown Organization [facility] Address [address] [place] [address] Phone [phone] Care Team Providers Care Armed Guard Name Role Phone Kenny Alvarado MD Primary Care Provider + Reason for Visit * Reason Onset Date Comments Hospital Follow-Up 01/16/2025 [facility] d/c 01/15 Encounter Details Date Type Department Care Team (Late st Contact Info) Description 01/16/2025 Telephone General Internal Medicine [facility] [address] [place] [address] Rosalee Samayoa, RN Hospital Follow-Up ([facility] d/c 01/15) Allergies No known active allergiesdocumented as of this encounter (statuses as of 01/16/2025) Medications ASPIRIN 81 MG PO TABS one tab by mouth daily 7 Active CENTRUM SILVER PO TABS one tab daily 3 Active Glucose Blood (ONETOUCH ULTRA BLUE) STRPIndications: Type 2 diabetes mellitus with hemoglobin A1c goal of less than 8.0% ([facility]) Use fasting daily. E11.9 100 Strip [...] as of this encounter (statuses as of 01/16/2025) Active Problems Problem Noted Date Diagnosed Date [...] as of this encounter (statuses as of 01/16/2025) Resolved Problems Problem Noted Date Diagnosed Date [...] as of this encounter (statuses as of 01/16/2025) Immunizations Name Administration Dates Next Due COVID-19 [...] Telephone Encounter - Rosalee Samayoa RN - 01/16/2025 8:52 AM EDT Images from the original note were not included. Transitions of Care Note Reason for Referral:Recent Admission Phone visit for follow up: JAZLYN Admitted to: [facility], Date: 01/10 Discharged to: Home, Date: 01/15 Diagnosis driving hospitalization: malignant ascites, s/p EGD, colonoscopy without evidence of massor tumor ro explain malignant ascites. Need for further tissue sampling as cytology was inconclusive Source/Contact: Spouse SUBJECTIVE Consent: Verbal consent for review of hospital discharge: Yes REVIEW OF SYSTEMS Patient/Other Reports: Current patient/caregiver problems or concerns: constipation, taking miralax. Awaiting phone call from Dr. Green's office for follow up appt CV: Denies problems Pulmonary: Denies problems Chills/Sweats/Fever:Denies chills/sweats Denies fever Appetite:Denies problems such as nausea, vomiting, burning, decreased appetite Current diet: regular Bowel: constipation Bladder: denies problems Wound (If applicable): incision to abdomen from paracentesis Pain:Denies Sleep:Denies problems FUNCTIONAL STATUS: ADL'S: Needs Assistance With:N/A as pt is independent IADL'S: Needs Assistance With:N/A as pt is independent Cognitive and Mental Health: denies problems, alert and oriented x 3, and able to communicate, understand instructions, process information. MEDICATION RECONCILIATION Medications: Discharge med list reviewed with patient or caregiver New medication(s) filled since hospitalization- protonix, miralax. To hold aspirin and lisinopril for 2 days. ASSESSMENT Medication Risk Assessment: No risks identified Discharge instructions available for review? Yes PLAN Symptom Monitoring Interventions:Member/caregiver education - signs and symptoms to contact Primary[facility] (DO NOT DELETE-Three simeon symptoms patient is to report to PCP) 1. Return of swelling 2. SOB 3. Worsening constipation Literature ProfessorResearch Statistician of Care interventions/Action Plan: 5 - 7 day follow-up with PCP in place - Date: 01/22 Educated on role of JAZLYN completed with patient/caregiver. Educated patient/caregiver on patient right to have input on JAZLYN plan of care. Verification of Home Health/DME if indicated: Yes, [facility] Identified Care Gaps: Yes Care Gaps closed this call: Appointment made or confirmed, Medication optimization, Safety and selfcare issues addressed, and Transition of Care follow-up communication Re-evaluation of Plan of Care and progress towards goals achievement: Patient education this visit: Verbal, as above Plan to instructed to call Primary Care Provider with change in symptoms or as needed before next follow-up, discharge needs met, verbalizes understanding and agrees with plan. Rosalee Samayoa RN documented in this encounter Plan of Treatment Upcoming Encounters Date Type Department Care Team (Late st Contact Info) Description 01/22/2025 11:00 AM EDT Office Visit General Internal Medicine [facility] [address] [place] [address] Kenny Alvarado MD [address] [place] [address] 06/10/2025 12:40 PM EDT Office Visit General Internal Medicine [facility] [address] [place] [address] Kenny Alvarado MD [address] [place] [address] 07/03/2025 8:30 AM EDT Office Visit Urology, [facility] [address] [place] [phone] Hung Horowitz MD [address] [place] [address] 11/01/2025 10:00 AM EST Office Visit Cardiology, [facility] [address] [place] [phone] Vianney Barrett PA-C [address] [place] [place] [address] Scheduled Procedures Name Priority Associated Diagnoses Date/Ti [...] filedocumented as of this encounter Care Teams Armed Guard Relationship Specialty Start Date End Date Kenny Alvarado MD 200 [facility] [place] [address] PCP - General Internal Medicine 07/30/21 documented as of this encounter
--- OUTSIDE RECORDS SUMMARY | 2025-01-24 06:42 | External Medical Summary ---
Author Name Unknown Address Unknown Organization [id number] [place] [address] Laboratory Report Ordering Provider Test Date Status TIANNA MAKI 01/22/2025 11:26:18 Final Observation Date Value Abnormality Reference (Units ) Status WBC, Total 01/22/2025 11:26:18 10.72 4.00-10.8 0 (K/uL) Final RBC 01/22/2025 11:26:18 3.82 4.50-5.25 (M/uL) Final Hemoglobin 01/22/2025 11:26:18 11.6 Below low normal 14 .0-16.8 (g/dL) Final HCT 01/22/2025 11:26:18 36.4 Below low normal 40. 0-48.4 (%) Final MCV 01/22/2025 11:26:18 95.3 82.0-99.5 (fL) Final MCH 01/22/2025 11:26:18 30.4 27.0-34.0 (pg) Final MCHC 01/22/2025 11:26:18 31.9 32.0-36.0 (g/dL) Final RDW 01/22/2025 11:26:18 14.9 11.5-15.5 (%) Final Platelets 01/22/2025 11:26:18 281 140-400 (K /uL) Final MPV 01/22/2025 11:26:18 10.7 6.6-11.1 ( fL) Final Performing Location [facility] [place] [address]
--- OUTSIDE RECORDS SUMMARY | 2025-01-24 06:42 | External Medical Summary ---
Author Name Unknown Address Unknown Organization [id number] [place] [address] Laboratory Report Ordering Provider Test Date Status TIANNA MAKI 01/22/2025 11:26:18 Final Observation Date Value Abnormality Reference (Units ) Status SYNC LEUKOCYTES IN BLOOD BY AUTOMATED COUNT 01/22/2025 11:26:18 10.72 4.00-10.80 (K/uL) Final Segs 01/22/2025 11:26:18 80.1 Above high normal 40.0-75.0 (%) Final Lymphs % 01/22/2025 11:26:18 9.7 Below low normal 18.0-42.0 (%) Final Monos 01/22/2025 11:26:18 9.4 1.0-11.0 (%) Final Eosinophils 01/22/2025 11:26:18 0.7 0.0-6.0 (%) Final Basos 01/22/2025 11:26:18 0.1 0.0-2.0 (%) Final Absolute Segs 01/22/2025 11:26:18 8.58 Above high normal 1.80-7.70 (K/uL) Final Lymphs, absolute 01/22/2025 11:26:18 1.04 1.00-4.80 (K/ul) Final Monos, Abs 01/22/2025 11:26:18 1.01 0.00-1.10 (K/uL) Final Eos, Abs 01/22/2025 11:26:18 0.08 0.00-0.70 (K/uL) Final Basos, Abs 01/22/2025 11:26:18 0.01 0.00-0.20 (K/uL) Final Performing Location [facility] [place] [address]
--- OUTSIDE RECORDS SUMMARY | 2025-01-24 06:42 | External Medical Summary | Summary of Care ---
Author Name Unknown Organization [facility] Address [address] [place] [address] Phone [phone] Care Team Providers Care Academic Advising Director Name Role Phone Kenny Alvarado MD Primary Care Provider + Encounter Details Date Type Department Care Team (Late st Contact Info) Description 01/12/2025 Orders Only PATIENT PORTAL DO NOT DELETE THIS DEPT USED BY [place] [id number] Allergies No known active allergiesdocumented as of this encounter (statuses as of 01/12/2025) Medications ASPIRIN 81 MG PO TABS one tab by mouth daily 7 Active CENTRUM SILVER PO TABS one tab daily 3 Active Glucose Blood ([facility] ULTRA BLUE) STRPIndications: Type 2 diabetes mellitus with hemoglobin A1c goal of less than 8.0% ([facility]) Use fasting daily. E11.9 100 Strip 5 [...] as of this encounter (statuses as of 01/12/2025) Active Problems Problem Noted Date Diagnosed Date [...] as of this encounter (statuses as of 01/12/2025) Resolved Problems Problem Noted Date Diagnosed Date [...] as of this encounter (statuses as of 01/12/2025) Immunizations Name Administration Dates Next Due COVID-19 [...] PM EDT Office Visit General Internal Medicine [facility] 200 [facility] [place] [address] Kenny Alvarado MD 200 [facility] [place] [address] 07/03/2025 8:30 AM EDT Office Visit Urology, [facility] [address] [place] [phone] Hung Horowitz MD [address] [place] [address] 11/01/2025 10:00 AM EST Office Visit Cardiology, [facility] [address] [place] [phone] Vianney Barrett PA-C 400 [facility] [place] [address] Scheduled Procedures Name Priority [...] filedocumented as of this encounter Care Teams Academic Advising Director Relationship Specialty Start Date End Date Kenny Alvarado MD [address] [place] [address] PCP - General Internal Medicine 07/30/21 documented as of this encounter
--- OUTSIDE RECORDS SUMMARY | 2025-01-24 06:42 | External Medical Summary ---
Author Name Unknown Address Unknown Organization [facility] [address] [place] [address] Laboratory Report Ordering Provider Test Date Status TIANNA MAKI 01/22/2025 11:26:18 Final Observation Date Value Abnormality Reference (Units ) Status Bilirubin, Direct 01/22/2025 11:26:18 0.3 0. 0-0.3 (mg/dL) Final Performing Location [facility] [place] [address]
--- OUTSIDE RECORDS SUMMARY | 2025-01-24 06:42 | External Medical Summary | Summary of Care ---
Author Name Unknown Organization [facility] Address [address] [place] [address] Phone [phone] Care Team Providers Care Business Line Manager Name Role Phone Kenny Alvarado MD Primary Care Provider + Encounter Details Date Type Department Care Team (Late st Contact Info) Description 01/15/2025 Orders Only General Internal Medicine [facility] 200 [facility] [place] [address] Kenny Alvarado MD 200 [facility] [place] [address] Allergies No known active allergiesdocumented as of this encounter (statuses as of 01/15/2025) Medications ASPIRIN 81 MG PO TABS one tab by mouth daily 7 Active CENTRUM SILVER PO TABS one tab daily 3 Active Glucose Blood (ONETOUCH ULTRA BLUE) STRPIndications: Type 2 diabetes mellitus with hemoglobin A1c goal of less than 8.0% ([facility]) Use fasting daily. E11.9 100 [...] as of this encounter (statuses as of 01/15/2025) Active Problems Problem Noted Date Diagnosed Date [...] as of this encounter (statuses as of 01/15/2025) Resolved Problems Problem Noted Date Diagnosed Date [...] as of this encounter (statuses as of 01/15/2025) Immunizations Name Administration Dates Next Due COVID-19 [...] PM EDT Office Visit General Internal Medicine [facility] 200 [facility] [place] [address] Kenny Alvarado MD 200 [facility] [place] [address] 07/03/2025 8:30 AM EDT Office Visit Urology, [facility] [address] [place] [phone] Hung Horowitz MD [address] [place] [address] 11/01/2025 10:00 AM EST Office Visit Cardiology, [facility] [address] [place] [phone] Vianney Barrett PA-C [facility] [place] [phone] Scheduled Procedures Name Priority Associated Diagnoses Date/Ti [...] Procedure Name Priority Date/Time Associated Diagnosis Comments UPPER ENDOSCOPY, OUTSIDE PROCEDURE Routine 01/14/2025 COLONOSCOPY, OUTSIDE PROCEDURE Routine 01/14/2025 documented in this encounter Results * UPPER ENDOSCOPY, OUTSIDE PROCEDURE (01/14/2025) 01/14/2025 us Louis Marie MD GASTRO UPPER Final Res ult OUTSIDE LAB (SEE SCANNED REPORT) * COLONOSCOPY, OUTSIDE PROCEDURE (01/14/2025) 01/14/2025 us Louis Marie MD GASTRO LOWER Final Res ult Performing Organization Address City/[facility] de Phone Number OUTSIDE LAB (SEE SCANNED REPORT) documented in this encounter Care Teams Business Line Manager Relationship Specialty Start Date End Date Kenny Alvarado MD [address] [place] [address] PCP - General Internal Medicine 07/30/21 documented as of this encounter
--- OUTSIDE RECORDS SUMMARY | 2025-01-24 06:42 | External Medical Summary | Summary of Care ---
Author Name Unknown Organization [facility] Address [address] [place] [address] Phone [phone] Care Team Providers Care Archivist Name Role Phone Kenny Alvarado MD Primary Care Provider + Reason for Visit * Reason Onset Date Comments Abnormal Test Results 01/22/2025 Encounter Details Date Type Department Care Team (Late st Contact Info) Description 01/22/2025 Telephone General Internal Medicine [facility] [address] [place] [address] Kenny Alvarado MD [address] [place] [address] Abnormal Test Results (/) Allergies No known active allergiesdocumented as of this encounter (statuses as of 01/22/2025) Medications ASPIRIN 81 MG PO TABS one [...] as of this encounter (statuses as of 01/22/2025) Active Problems Problem Noted Date Diagnosed Date [...] as of this encounter (statuses as of 01/22/2025) Resolved Problems Problem Noted Date Diagnosed Date [...] as of this encounter (statuses as of 01/22/2025) Immunizations Name Administration Dates Next Due COVID-19 [...] encounter Miscellaneous Notes * Telephone Encounter - Dedra Lim LPN - 01/22/2025 2:51 PM EDT and Patient aware and verbalized understanding, will comply * Telephone Encounter - Emma Corbett OSA - 01/22/2025 2:43 PM EDT Reason for patient's call: Abnormal test results. Caller was transferred to Dedra at the nurse line. * Telephone Encounter [...] PM EDT Office Visit General Internal Medicine [employer] [address] [place] [address] Kenny Alvarado MD [address] [place] [address] 07/03/2025 8:30 AM EDT Office Visit Urology, [facility] [address] [place] [phone] Hung Horowitz MD [address] [place] [address] 11/01/2025 10:00 AM EST Office Visit Cardiology, [facility] [address] [place] [phone] Vianney Barrett PA-C [address] [facility] [place] [address] Scheduled Procedures Name Priority Associated Diagnoses Date/Ti [...] Primary documented in this encounter Care Teams Archivist Relationship Specialty Start Date End Date Kenny Alvarado MD [address] [facility] [place] [address] PCP - General Internal Medicine 07/30/21 documented as of this encounter
--- OUTSIDE RECORDS SUMMARY | 2025-01-24 06:42 | External Medical Summary ---
Author Name Unknown Address Unknown Organization [facility] [address] [place] [address] Laboratory Report Ordering Provider Test Date Status TIANNA MAKI 01/22/2025 11:26:18 Final Observation Date Value Abnormality Reference (Units ) Status BUN 01/22/2025 11:26:18 25 Above high normal 6-20 (mg/dL) Final Creatinine 01/22/2025 11:26:18 0.9 0.6-1.2 (mg/dL) Final Glomerular filtration rate/1.73 sq M.predicted [Volume Rate/Area] in Serum, Plasma or Blood by Creatinine-based formula (CKD-EPI) 01/22/2025 11:26:18 82 >=60 (mL/min) Final eGFR is calculated based on the CKD-EPI 2020 equation. Sodium 01/22/2025 11:26:18 137 135-146 (m mol/L) Final Potassium 01/22/2025 11:26:18 4.0 3.5-5.1 (m mol/L) Final Cl 01/22/2025 11:26:18 98 98-107 (mm ol/L) Final CO2 01/22/2025 11:26:18 25 22-32 (mmo l/L) Final Anion gap 01/22/2025 11:26:18 14 7-15 (mmol /L) Final Glucose 01/22/2025 11:26:18 154 Above high normal 70 -120 (mg/dL) Final Albumin 01/22/2025 11:26:18 3.0 Below low normal 3.8 -5.0 (g/dL) Final AST (Aspartate aminotransferase) 01/22/2025 11:26:18 37 10-50 (U/L) Fin al Alk Phos 01/22/2025 11:26:18 154 Above high normal 35 -130 (U/L) Final Bilirubin, Total 01/22/2025 11:26:18 0.6 <=1 .2 (mg/dL) Final Calcium 01/22/2025 11:26:18 9.3 8.4-10.2 ( mg/dL) Final Protein 01/22/2025 11:26:18 6.2 6.0-8.3 (g /dL) Final ALT (Alanine aminotransferase) 01/22/2025 11:26:18 30 10-50 (U/L) German hennessy Performing Location [facility] [address] [place] [address]
--- OUTSIDE RECORDS SUMMARY | 2025-01-24 06:42 | External Medical Summary | Summary of Care ---
Author Name Unknown Organization [facility] Address [address] [place] [address] Phone [phone] Care Team Providers Care General Cargo Clerk Name Role Phone Kenny Alvarado MD Primary Care Provider + Reason for Referral * Evaluate & Treat - Unlimited Visits (Within 3 days (urgent)) - Authorized Specialty Diagnoses / Procedures Referred By Contac t Referred To Contact Hematology/Oncology / Hematology Oncology Diagnoses Metastatic adenocarcinoma (HCC) Kenny Alvarado MD [address] [place] [address] Phone: tel: fax: Referral ID Status Reason Start Date Expiration Date Visits Requested Visits Authorized [id number] Authorized Specialty Services Required 01/22/2025 999 999 Question Answer Referral Priority Within 3 days (urgent) Where should this appointment be scheduled? [facility] Reason for Referral Malignant Oncology (Solid Organ Cancer) Comments Ascites, metastatic adenocarcinoma * (Within 10 days (routine)) - Authorized Specialty Diagnoses / Procedures Referred By Contac t Referred To Contact Radiology Diagnoses Other ascites Procedures US ABDOMEN LIMITED Kenny Alvarado MD [address] [place] [address] Phone: tel: fax: Referral ID Status Reason Start Date Expiration Date V isits Requested Visits Authorized [id number] Authorized 01/22/2025 999 999 Reason for Visit * Reason Comments Hospital Follow-Up Patient presents for hospital follow up from [facility] for ascites. Patient admitted on 01/10/2025 and discharged on 01/15/2025. Patient states he has constant belching, and if he cannot belch then he has pain. Patient states Tylenol is no longer helping his pain - states pain level is about a 7-8/10 to abdomen Outpatient Testing Encounter Details Date Type Department Care Team (Latest Contact Info) Description 01/22/2025 11:00 AM EDT Office Visit General Internal Medicine State Irvin Landa [address] [place] [id number] Kenny Alvarado MD [address] [facility] [place] [id number] Hospital discharge follow-up*; Metastatic adenocarcinoma (HCC); Gallstones; Other ascites; Belching; Type 2 diabetes mellitus with hemoglobin A1c goal of less than 8.0% (HCC); Essential hypertension with goal blood pressure less than 140/90; Localized edema; Chronic gastritis without bleeding, unspecified gastritis type; Elevated LFTs Allergies No known active allergiesdocumented [...] daily as needed for Constipation. 5 Active Glucose Blood ([employer] ULTRA BLUE) STRPIndications :Type 2 diabetes mellitus with hemoglobin A1c goal of less than 8.0% ([facility]) Use fasting daily. E11.9 100 Strip 5 [...] Passive Smoke Exposure: Never Smokeless Tobacco: Never Tobacco Cessation:Counseling Given: [...] Sign Reading Time Taken Comments Blood Pressure 105/86 01/22/2025 10:45 AM EDT Pulse 59 01/22/2025 10:45 AM EDT Temperature 35.6 °C (96 °F) 01/22/2025 10: 45 AM EDT Respiratory Rate 24 01/22/2025 10:4 5 AM EDT Oxygen Saturation - - Inhaled Oxygen Concentration - - Weight 109.5 kg (241 lb 6.4 oz) 025 10:45 AM EDT Height - - Body Mass Index 35.65 06/12/2024 9:35 AM EDT documented in this encounter Progress Notes * Kenny Alvarado MD - 01/22/2025 11:15 AM EDT Chief Complaint Patient presents with Hospital Follow-Up Patient presents for hospital follow up from [facility] for ascites. Patient admitted on 01/10/2025 and discharged on 01/15/2025. Patient states he has constant belching, and if he cannot belch then he haspain. Patient states Tylenol is no longer helping his pain - states pain level is about a 7-8/10 [facility] Hospital Follow-Up SUBJECTIVE: Jorge Luis Gutierrez is a 84 year old male with PMH as below who presents for hospital follow up. Admitted01/10-01/15/25 for abdominal distention, new onset ascites. Initially concerned for acute cholecystitis but surgery felt note. He was 5 L ascites drained, concerned for cancer, but CT C/A/P w/o lesion and EGD/c-scope w/o large mass. Sent home. Since then feels distension is worsening, more discomfortin abdomen. No fevers, chills and moving bowels. Tylenol helps a little as does belching. Is eating, but appetite down. Patient Active Problem List Diagnosis Gouty arthropathy [...] than 8.0% ([facility]) Bradycardia, sinus Primary open angle glaucoma (POAG) of both eyes NSVT (nonsustained ventricular tachycardia) ([facility]) Nocturia Urinary frequency Phimosis Current Outpatient Medications [...] Acidophilus Ex St Oral Capsule 1 Capsule. Pantoprazole Sodium 40 MG Oral Tablet Delayed Release (Protonix) Take 1 Tablet by mouth in the morning. polyethylene glycol 3350 119 gram OR POWD Take 17 g by mouth daily as needed for Constipation. No current facility-administered medications for this visit. Review of patient's allergies indicates: No Known Allergies Health Maintenance Due Topic Date Due Adult Wellness Visit 01/05/2014 COVID-19 Vaccine ( season) 2024 Diabetic Eye Exam 11/22/2024 Albumin/Creatinine Ratio 03/29/2025 ROS: CONSTITUTIONAL: No fevers, sweats, or chills PULMONARY: No cough, sputum, or hemoptysis, No wheezing, No rales, No shortness of breath, and No recent change in breathing CARDIOVASCULAR: No chest pain, No shortness of breath, No dyspnea on exertion, No orthopnea, No paroxysmal nocturnal dyspnea, No edema, No palpitations, and No syncope ALL OTHER SYSTEMS NEGATIVE I reviewed social, PMH, PSH, and family history and updated where needed. 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 Work environment: [employer] Radon exposure: No Social Needs Financial Resource [...] performed by Lucho Sandhu MD at [facility], benign polyp repeat colonoscopy in 5 year [...] performed by Lucho Sandhu MD at [facility], benign polyp repeat colonoscopy in 5 years COLONOSCOPY, DIAGNOSTIC (RECTUM) 03/13/2018 adenomatous polyp, repeat 5 yrs/COLONOSCOPY FLEXIBLE PROXIMAL DIAGNOSTIC performed by Bryce Chu MD at [facility]COPY [facility] CYSTOSCOPY 09/03/2015 INCISION OF EYE FOR GLAUCOMA Right 01/2022 stent placed REMOVAL OF APPENDIX 194 REMOVAL OF TONSILS, UNDER AGE 10 194 Family History Problem Relation Name Age of Onset Diabetes Mother Cancer Sister colon Cancer Brother colon Heart Disorder Brother OBJECTIVE: PHYSICAL EXAM: BP 105/86 (BP Site: Left Arm, BP Position: Sitting, BP Cuff Size: Large) | Pulse 59 | Temp 96 °F (35.6 °C) (Tympanic) | Resp 24 | Wt 241 lb 6.4 oz (109.5 kg) | BMI 35.65 kg/m² | BSA 2.31 m² General: alert, healthy, and no distress Head: Normocephalic, No masses, lesions, or abnormalities Eye Exam: conjunctiva are pink and non-injected, sclera clear Heart: regular rate & rhythm, no murmur, no gallops, PMI non-displaced, S-1 normal, and S-2 normal Lungs: normal respiratory rate and rhythm, lungs clear to auscultation Abdomen: abdomen soft, non-tender, obese, and distended Psych: normal affect, no flight of ideas or tangential thought, good eye contact, no pressured speech Ext: +rle edema in calf, no pain or warmth D/C Summary: (1) Ascites: Assessment/plan Possible acute cholecystitis - ruled out New onset ascites Patient was referred to the ED after outpatient CT abdomen showed possibility of acute cholecystitis, moderate volume ascites and peritoneal enhancement CT abdomen pelvis from 12/31 also showed moderate abdominal and pelvic ascites. Leukocytosis present AST/ALT within normal limits ALP elevated to 126 Lipase within normal limits Started on Zosyn on admission for possible acute cholecystitis General surgery consulted - at this time do not feel findings consistent w/ cholecystis and recommend GI evaluation for ascites S/p diagnostic paracentesis performed in the ED to rule out SBP. Pathology shows Rare atypical cells present highly suspicious for malignancy. S/p therapeutic paracentesis on (01/11) yielding 5L of fluid GI consulted given new onset of ascites - do not believe secondary to liver disease, concerned about poss. malignancy Oncology (Dr. Green) consulted and discussed with -> recommended to obtain CT chest w/ con - 1. 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 2. Trace bilateral pleural effusions. 3.Moderate coronary artery calcifications with mild cardiomegaly and trace pericardial effusion. 4. Large amount of abdominal ascites. Further evaluation with CT of the abdomen/pelvis might provide further useful information. CT chest w/o any mass -> contacted GI for poss. EGD/colonoscopy 01/14 Per GI- EGD: Nonobstructive Schatzki's ring, small hiatal hernia, mild erosive gastritis entered about 1 cmulcer in the duodenal bulb. There was no visible vessel and no bleeding. Biopsy for Helicobacter pylori was obtained from the gastric antrum. There was no evidence of tumor or mass to explain malignant ascites. Colonoscopy: Cecum was not well-visualized due to inadequate bowel prep. There was about 1 cm sessile polyp in the ascending colon, removed with hot snare polypectomy. There were multiple diverticula. There were small internal hemorrhoids. Otherwise the colon was unremarkable without evidence of mass or tumor to explain malignant ascites. Recommend to hold aspirin and continue pantoprazole. Chronic conditions Hypertension-held lisinopril and hydrochlorothiazide, cont. to hold lisinopril for now Sinus bradycardia with pauses -evaluated by cardiology last admission; metoprolol discontinued. Continue to monitor Hyperlipidemia-continue on rosuvastatin Type 2 diabetes mellitus-continue on sliding scale insulin Gout continue on allopurinol BPH-continue on tamsulosin, finasteride oxybutynin Chest CT: 1. 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 2. Trace bilateral pleural effusions. 3. Moderate coronary artery calcifications with mild cardiomegaly and trace pericardial effusion. 4. Large amount of abdominal ascites. Further evaluation with CT of the abdomen/pelvis might provide further useful information. 01/10/25 ct a/p: 1. Moderate volume ascites and peritoneal enhancement, which may be seen in the setting of peritonitis. 2. Nonspecific mild gallbladder wall thickening. If there is clinical concern for acute cholecystitis, right upper quadrant abdominal ultrasound may be considered for further evaluation. 3. Small bilateral pleural effusions. 4. Small pericardial effusion. 5. The right pulmonary artery is dilated to 4 cm, which may be seen in the setting of pulmonary hypertension. 6. Small hiatal hernia. 7. Colonic diverticulosis without diverticulitis. 8. Focal ectasia of the infrarenal abdominal aorta to 2.5 cm, measuring approximately 2.2 cm above the ectatic level. Path fluid: - Metastatic adenocarcinoma is seen. ASSESSMENT: (Z09) Hospital discharge follow-up (primary encounter diagnosis) (C79.9) Metastatic adenocarcinoma (HCC) (K80.20) Gallstones (R18.8) Other ascites (R14.2) Belching (E11.9) Type 2 diabetes mellitus with hemoglobin A1c goal of less than 8.0% (HCC) (I10) Essential hypertension with goal blood pressure less than 140/90 (R60.0) Localized edema (K29.50) Chronic gastritis without bleeding, unspecified gastritis type PLAN: Hospital discharge follow-up (Primary) - DISCH MED RECON CUR MED LIS As below Metastatic adenocarcinoma (HCC) - COMPREHENSIVE METABOLIC PANEL; Future; Expected date: 01/22/2025 - CBC WITH WBC DIFFERENTIAL; Future; Expected date: 01/22/2025 - HEMATOLOGY/ONCOLOGY REFERRAL OP - VASC DUPLEX VENOUS LE UNILAT Discussed given path concern for cause of ascites. No primary seen, but will ask oncology aid on this and further evaul, work up Gallstones [place] to be no infection by surgery Other ascites - COMPREHENSIVE METABOLIC PANEL; Future; Expected date: 01/22/2025 - CBC WITH WBC DIFFERENTIAL; Future; Expected date: 01/22/2025 - US ABDOMEN LIMITED; Future; Expected date: 01/22/2025 As above Recheck u/s T/c gi for further tap if needed Belching Cont PPI given gastritis Asa on hold Type 2 diabetes mellitus with hemoglobin A1c goal of less than 8.0% (HCC) Follow Essential hypertension with goal blood pressure less than 140/90 Controlled Cont hold meds Localized edema - VASC DUPLEX VENOUS LE UNILAT To exclude dvt in setting of likely cancer Chronic gastritis without bleeding, unspecified gastritis type Appreciate GI aid Cont ppi Follow Up: Return if symptoms worsen or fail to improve, for Labs Today. | For: Labs Today | Check-out note: Pls see stat doppler! documented in this encounter Nursing Notes * Bay Garcia RN - 01/22/2025 10:47 AM EDT Chief Complaint Patient presents with Hospital Follow-Up Patient presents for hospital follow up from [facility] for ascites. Patient admitted on 01/10/2025 and discharged on 01/15/2025. Patient states he has constant belching, and if he cannot belch then he haspain. Patient states Tylenol is no longer helping his pain - states pain level is about a 7-8/10 toabdomen documented in this encounter Plan of Treatment Upcoming Encounters Date Type Department Care Team (Late st Contact Info) Description 06/10/2025 12:40 PM EDT Office Visit General Internal Medicine [address] [place] [address] [place] [address] Kenny Alvarado MD [address] [facility] [place] [address] 07/03/2025 8:30 AM EDT Office Visit Urology, [facility] [address] [phone] Hung Horowitz MD [address] [place] [address] 11/01/2025 10:00 AM EST Office Visit Cardiology, [facility] [address] [phone] Vianney Barrett PA-C [address] [facility] [place] [address] Scheduled Procedures Name Priority Associated Diagnoses Date/Ti me COLONOSCOPY FLEXIBLE PROXIMAL DIAGNOSTIC Recall History of colon polyps Scheduled Referrals Name Type Priority Associated Diagnoses Orde r Schedule HEMATOLOGY/ONCOLOG Y REFERRAL OP Referral Within 3 days (urgent) Metastatic adenocarcinoma (HCC) Ordered: 01/22/2025 Health Maintenance Due Date Last Done Comments [...] Procedure Name Priority Date/Time Associated Diagnosis Comments VASC DUPLEX VENOUS LE UNILAT STAT 01/22/2025 12:53 PM EDT Metastatic adenocarcinoma (HCC) Localized edema DIFFERENTIAL, AUTOMATED Routine 01/22/2025 11:26 AM EDT Elevated LFTs BILIRUBIN, DIRECT Routine 01/22/2025 11: 26 AM EDT Elevated LFTs COMPREHENSIVE METABOLIC PANEL Routine 01/22/2025 11:26 AM EDT Other ascites Metastatic adenocarcinoma (HCC) CBC Routine 01/22/2025 11:26 AM EDT Elevated LFTs CBC Routine 01/22/2025 11:26 AM EDT Elevated LFTs documented in this encounter Results * US ABDOMEN LIMITED (01/22/2025 12:53 PM EDT) Anatomical Region Laterality Modality Abdomen, Body Ultrasound 01/22/2025 1:11 PM EDT Impressions 01/22/2025 1:08 PM EDT IMPRESSION Moderate to large amount of ascites. Narrative 01/22/2025 1:08 PM EDT EXAM US ABDOMEN LIMITED-01/22/2025 12:53 pm HISTORY assess for ascites COMPARISON CT scan dated 01/10/2025 TECHNIQUE Survey imaging of the abdomen was performed to evaluate for ascites. FINDINGS There is a moderate to large amount of ascites. Procedure Note Cristian Fernández MD - 01/22/2025 EXAM US ABDOMEN LIMITED-01/22/2025 12:53 pm HISTORY assess for ascites COMPARISON CT scan dated 01/10/2025 TECHNIQUE Survey imaging of the abdomen was performed to evaluate for ascites. FINDINGS There is a moderate to large amount of ascites. IMPRESSION IMPRESSION Moderate to large amount of ascites. us Kenny Alvarado MD RAD ULTRASOUND Final Re sult * VASC DUPLEX VENOUS LE UNILAT (01/22/2025 12:53 PM EDT) Anatomical Region Laterality Modality Lower Extremity, Vascular Ultras ound 01/22/2025 1:10 PM EDT Impressions 01/22/2025 1:08 PM EDT IMPRESSION Acute appearing thrombus in the right proximal femoral vein. Narrative 01/22/2025 1:08 PM EDT EXAM VASC DUPLEX VENOUS LE UNILAT-01/22/2025 12:53 pm HISTORY Edema COMPARISON None TECHNIQUE The venous system of the right lower extremity was evaluated utilizing color- flow Doppler analysis and compression technique. FINDINGS There is acute appearing thrombus in the right proximal femoral vein. The remainder of the visualized veins of the deep venous system of the right lower extremity are within normal limits with regard to spontaneous flow, phasic flow, augmentation and compression. The superficial veins are within normal limits without venous thrombosis. The contralateral common femoral vein is without intraluminal thrombus. Edema is noted within the right calf. Procedure Note Cristian Fernández MD - 01/22/2025 EXAM VASC DUPLEX VENOUS LE UNILAT-01/22/2025 12:53 pm HISTORY Edema COMPARISON None TECHNIQUE The venous system of the right lower extremity was evaluated utilizingcolor-flow Doppler analysis and compression technique. FINDINGS There is acute appearing thrombus in the right proximal femoral vein. Theremainder of the visualized veins of the deep venous system of the rightlower extremity are within normal limits with regard to spontaneous flow,phasic flow, augmentation and compression. The superficial veins arewithin normal limits without venous thrombosis. The contralateral commonfemoral vein is without intraluminal thrombus. Edema is noted within theright calf. IMPRESSION IMPRESSION Acute appearing thrombus in the right proximal femoral vein. us Kenny Alvarado MD RAD VASCULAR Final Re sult * BILIRUBIN, DIRECT (01/22/2025 11:26 AM EDT) Pathologist [facility] Bilirubin, Direct 0.3 0.0 - 0.3 mg/dL 01/22/2025 12:34 PM EDT [facility] 56 Blood Venous blood specimen / Unknown Venipuncture / Unknown 01/22/2025 11:26 AM EDT 01/22/2025 11:26 AM EDT Kenny Alvarado MD LAB BLOOD ORDERABLES Fin al Result [facility] [address] [place] [address] * (ABNORMAL) DIFFERENTIAL, AUTOMATED (01/22/2025 11:26 AM EDT) Pathologist [facility] WBC 10.72 4.00 - 10.80 K/uL 01/22/2025 11:41 AM EDT [facility] 56 Neutrophils % 80.1(H) 40.0 - 75.0 % 01/22/2025 11:41 AM EDT [facility] Lymphocytes % 9.7(L) 18.0 - 42.0 % 01/22/2025 11:41 AM EDT [facility] 56 Monocytes % 9.4 1.0 - 11.0 % 01/22/2025 11:41 AM EDT [facility] 56- Eosinophils % 0.7 0.0 - 6.0 % 01/22/2025 11:41 AM EDT [facility] 56 Basophils % 0.1 0.0 - 2.0 % 01/22/2025 11:41 AM EDT [facility] 56 Absolute Neutrophils 8.58(H) 1.80 - 7.70 K/uL 01/22/2025 11:41 AM EDT [facility] 56 Absolute Lymphocytes 1.04 1.00 - 4.80 K/ul 01/22/2025 11:41 AM EDT [facility] 56 Absolute Monocytes 1.01 0.00 - 1.10 K/uL 01/22/2025 11:41 AM EDT [facility] 56 Absolute Eosinophils 0.08 0.00 - 0.70 K/uL 01/22/2025 11:41 AM EDT [facility] 56 Absolute Basophils 0.01 0.00 - 0.20 K/uL 01/22/2025 11:41 AM EDT [facility] 56 Blood Venous blood specimen / Unknown Venipuncture / Unknown 01/22/2025 11:26 AM EDT 01/22/2025 11:26 AM EDT us Kenny Alvarado MD LAB BLOOD ORDERABLES Fin al Result [facility] [address] [place] [address] * (ABNORMAL) CBC (01/22/2025 11:26 AM EDT) WBC 10.72 4.00 - 10.80 K/uL 01/22/2025 11:41 AM [facility] 56 RBC 3.82 4.50 - 5.25 M/uL 01/22/2025 11:41 AM [facility] 56 HGB 11.6(L) 14.0 - 16.8 g/dL 01/22/2025 11:41 AM [facility] HCT 36.4(L) 40.0 - 48.4 % 01/22/2025 11:41 AM T [facility] 56 MCV 95.3 82.0 - 99.5 fL 01/22/2025 11:41 AM [facility] 56 MCH 30.4 27.0 - 34.0 pg 01/22/2025 11:41 AM [facility] 56 MCHC 31.9 32.0 - 36.0 g/dL 01/22/2025 11:41 AM [facility] 56 RDW 14.9 11.5 - 15.5 % 01/22/2025 11:41 AM [facility] 56 PLT 281 140 - 400 K/uL 01/22/2025 11:41 AM EDT [facility] 56 MPV 10.7 6.6 - 11.1 fL 01/22/2025 11:41 AM EDT [facility] 56 Blood Venous blood specimen / Unknown Venipuncture / Unknown 01/22/2025 11:26 AM EDT 01/22/2025 11:26 AM EDT us Kenny Alvarado MD LAB BLOOD ORDERABLES Fin al Result [address] [place], [place] [id number] * (ABNORMAL) COMPREHENSIVE METABOLIC PANEL (01/22/2025 11:26 AM EDT) BUN 25(H) 6 - 20 mg/dL 01/22/2025 12:34 PM EDT [address] CREATININE 0.9 0.6 - 1.2 mg/dL 01/22/2025 12:34 PM EDT [address] EGFR 82 >=60 mL/min 01/22/2025 12:34 PM T [address] Comment:eGFR is calculated b ased on the CKD-EPI 2020 equation. SODIUM 137 135 - 146 mmol/L 01/22/2025 12:34 PM T [address] POTASSIUM 4.0 3.5 - 5.1 mmol/L 01/22/2025 12:34 PM EDT [facility] 56 CHLORIDE 98 98 - 107 mmol/L 01/22/2025 12:34 PM EDT [facility] 56 CO2 25 22 - 32 mmol/L 01/22/2025 12:34 PM EDT [facility] 56 ANION GAP 14 7 - 15 mmol/L 01/22/2025 12:34 PM EDT [facility] 56 GLUCOSE 154(H) 70 - 120 mg/dL 01/22/2025 12:34 PM EDT [facility] 56 Albumin 3.0(L) 3.8 - 5.0 g/dL 01/22/2025 12:34 PM EDT [place] [id number] AST 37 10 - 50 U/L 01/22/2025 12:34 PM EDT [facility] 56 Alkaline Phosphatase 154(H) 35 - 130 U/L 01/22/2025 12:34 PM EDT [facility] 56 Bilirubin, Total 0.6 <=1.2 mg/dL 01/22/2025 12:34 PM EDT [facility] 56 CALCIUM 9.3 8.4 - 10.2 mg/dL 01/22/2025 12:34 PM EDT [facility] 56 Protein 6.2 6.0 - 8.3 g/dL 01/22/2025 12:34 PM EDT [facility] 56 ALT 30 10 - 50 U/L 01/22/2025 12:34 PM EDT [facility] 56 Blood Venous blood specimen / Unknown Venipuncture / Unknown 01/22/2025 11:26 AM EDT 01/22/2025 11:26 AM EDT us Kenny Alvarado MD LAB BLOOD ORDERABLES Fin al Result [facility] [address] [facility] [id number] documented in this encounter Visit Diagnoses Diagnosis Hospital discharge follow-up- Primary Other follow-up examination Metastatic adenocarcinoma (HCC) Other malignant neoplasm without specification of site Gallstones Calculus of gallbladder without mention of cholecystitis or obstruction Other ascites Belching Flatulence, eructation, and gas pain Type 2 diabetes mellitus with hemoglobin A1c goal of less than 8.0% (HCC) Essential hypertension with goal blood pressure less than 140/90 Localized edema Edema Chronic gastritis without bleeding, unspecified gastritis type Elevated LFTs Other abnormal blood chemistry Other ascites documented in this encounter Care Teams General Cargo Clerk Relationship Specialty Start Date End Date [facility]ado [facility] [address] [facility] [address] [facility] - General Internal Medicine 07/30/21 documented as of this encounter"
--- OUTSIDE RECORDS SUMMARY | 2025-01-24 06:42 | External Medical Summary | Summary of Care ---
Author Name Unknown Organization [facility] Address [address] [place] [address] Phone [phone] Care Team Providers Care Armature Bander Name Role Phone Kenny Alvarado MD Primary Care Provider + Reason for Visit * Reason Comments Outpatient Testing Encounter Details Date Type Department Care Team (Late st Contact Info) Description 01/22/2025 11:40 AM EDT Laboratory Laboratory [facility] [address] [place] [id number] [facility] Lab [facility] [address] [facility] [place] [address] Arrived Allergies No known active allergiesdocumented as of [...] PM EDT Office Visit General Internal Medicine [facility] [address] [facility] [place] [address] Kenny Alvarado MD [address] [facility] [place] [address] 07/03/2025 8:30 AM EDT Office Visit Urology, [facility] [address] [place] [id number] Hung Horowitz MD [address] [place] [address] 11/01/2025 10:00 AM EST Office Visit Cardiology, [facility] [address] [place] [id number] Vianney Barrett PA-C [address] [facility] [place] [address] Scheduled Procedures Name [...] filedocumented as of this encounter Care Teams Armature Bander Relationship Specialty Start Date End Date Kenny Alvarado MD [address] [place], [place] [address] PCP - General Internal Medicine 07/30/21 documented as of this encounter
--- NOTE | 2025-01-24 07:11 | Emergency Department Note ---
Impression & Plan Weakness, DVT (deep venous thrombosis), Epistaxis, Malignant ascites, Anemia ED Provider Note NAME: SHASHA ROTHMAN AGE: 84 SEX: M : 1940 ARRIVES VIA: Walk-In INFORMANT: [Patient][family] ED PROVIDER(S): [Scott Escoto MD] CHIEF COMPLAINT: Nosebleed, DVT HISTORY OF PRESENT ILLNESS: The patient is an 84-year-old male with malignant ascites. He was discharged from our hospital 9 days ago. The patient states that 2 days ago, he had an ultrasound of his right lower extremity because of swelling. This showed a DVT. He was placed on Eliquis. The patient states that now that he is on the Eliquis, the right side of his nose continues to bleed. Additionally, he has redeveloped ascites. The patient does feel weak and more short of breath than normal. No fever, no increased cough, no urinary complaints. The patient's doctors office referred him to the ER for admission as his issues are quite complicated and will need to be managed inpatient. Possibly, he may require a Miguel Angel filter. PMHx/PSHx/Social Hx: See Below PHYSICAL EXAM: GENERAL: Patient is in no acute distress. HEENT: No acute trauma, normocephalic atraumatic, mucous membranes dry, no nasal congestion. There is a cotton swab in the right side of his nose. No active bleeding. There is a dried clot noted to the back of the right posterior pharynx. NECK: No stridor, no adenopathy, no meningismus, trachea is midline. LUNGS: Diminished breath sounds bilaterally with some scattered crackles bilaterally. No wheeze. No respiratory distress. HEART: No obvious murmur, irregular rhythm, normal rate. ABDOMEN: Soft, nontender, no peritonitis. EXTREMITIES: No cyanosis, full range of motion of all the joints without pain or difficulty. There is right lower extremity swelling compared to the left. No erythema or increased warmth. NEUROLOGIC: Oriented x 3, no acute motor or sensory deficits, no focal weakness. SKIN: No jaundice, no diaphoresis. DIFFERENTIAL DIAGNOSIS: DVT, coagulopathy, epistaxis, anemia, electrolyte imbalance, renal or liver failure, ascites, among others. EMERGENCY DEPARTMENT PROCEDURES: MEDICAL DECISION MAKING: There is a mild leukocytosis, this appears to lately, be more of a chronic issue. Patient does have some anemia but this is baseline looking back at previous testing. There is a normal platelet count. No bandemia. INR is slightly elevated at 1.2, likely from his Eliquis use. There was no renal failure or significant electrolyte abnormality. No concerning liver enzyme elevation. Patient appeared to be in a euthyroid state. No findings of pancreatitis. ECG showed a sinus rhythm, no obvious ST elevation. Cardiac enzyme testing x 1 was not consistent with acute cardiac injury. Ammonia level was not elevated. Urinalysis result is currently pending. Chest x-ray shows a poor inspiratory effort but the findings appear chronic, there was no pneumonia. On exam, patient did not have active epistaxis but had evidence for bleeding earlier. He appeared dehydrated, he appeared diffusely weak. Patient received IV Tylenol for some ongoing back pain. He received IV morphine for back pain, IV Zofran for nausea. The patient was referred to our ED for hospitalization. He has a complicated recent past history. He was just diagnosed with a DVT and started on Eliquis however, he is now suffering from epistaxis. His case is complicated, he may require a vena cava filter, his issues are best managed within the hospital. I spoke with the patient, I spoke with case management, the on-call hospitalist was consulted. Prior/Outside records/notes reviewed: Discharge summary note from 01/15/2025 describing his presentation, hospital care and plan outpatient. ECG per my interpretation: Indication was weakness. The ECG shows a sinus rhythm with PACs. The rate is 84. LVH is present. There is baseline artifact present and some nonspecific ST change diffusely. There is a potential old inferior infarct. There is a poor R wave progression. No ST elevation. QTc is 460. Continuous Cardiac Monitoring per my interpretation: An order was placed for continuous cardiac monitoring. The monitor shows a rate of 87 with sinus rhythm with PACs. Imaging/x-ray results per my interpretation: Chest x-ray showed a poor inspiratory effort with diffuse parenchymal congestion and some bilateral pleural effusions. The film appeared similar to previous. Chronic Medical/Social conditions affecting care: Advanced age, recent diagnosis of malignant ascites. Currently on Eliquis. Care/Management discussed with: Case management, the on-call hospitalist. Level of care consideration(s): After review of the information above and other included data: --I believe the patient requires escalation of care to admission DISPOSITION: Admission Past Med/Surg History Problem List (Updated 01/24/25 @ 09:19 by Scott Escoto MD) Anemia (Acute) Malignant ascites (Acute) Epistaxis (Acute) DVT (deep venous thrombosis) (Acute) Weakness (Acute) Encounter for pre-operative examination Ascites (Acute) Intraventricular conduction delay Sinus bradycardia RLQ abdominal pain (Acute) Leukocytosis (Acute) Weakness (Acute) Recent urinary tract infection Ambulatory dysfunction Generalized weakness (Acute) Acute UTI (Acute) Weakness (Acute) Hypercholesterolemia (Chronic) Pyelonephritis Pyelonephritis Urinary tract infection (Acute) Ventricular tachycardia Medical History Gout BPH (benign prostatic hyperplasia) RBBB LBBB (left bundle branch block) NSVT (nonsustained ventricular tachycardia) Dyslipidemia Diabetes mellitus, type II Hypertension Surgical History History of colonoscopy Hx of tonsillectomy History of appendectomy Family History Other Cancer Diabetes Social History Smoking Status: Never smoker Second Hand Exposure: No; Do You Dip or Chew Tobacco: No; Hx Alcohol Use: No Hx Substance Use: No Preferred Language: Senegalese Communication Ability: Effective Commercial Lines Insurance Agent Required: No Beliefs That Will Affect Care: None marital status: Current Living Situation: Spouse Current Living Situation Comment: home with current occupational status: retired Feels Safe at Home: Yes Assistive Devices: Walker Allergies Allergies Allergy/AdvReac Type Severity Reaction Status Date / Time Blackening Seasoning Allergy Intermediate Swelling Uncoded 07/28/23 09:00 of Lip/Tongue/Throat Home Meds Home Medications Medication Instructions Recorded Confirmed allopurinol 300 mg tablet 300 mg PO Q2D 05/19/19 01/24/25 aspirin 81 mg tablet,delayed 81 mg PO HS 05/19/19 01/24/25 release finasteride 5 mg tablet 5 mg PO QAM 05/19/19 01/24/25 hydrochlorothiazide 25 mg tablet 25 mg PO QAM 05/19/19 01/24/25 lisinopril 10 mg tablet 10 mg PO QAM 05/19/19 01/24/25 vipbjvxt-hz-tqrqd 300 mcg-K 60 1 tab PO QAM 05/19/19 01/24/25 mcg-lycop 600 mcg-lutein 300 mcg tablet (Centrum Silver Men) rosuvastatin 10 mg tablet 10 mg PO QAM 05/19/19 01/24/25 tamsulosin 0.4 mg capsule 0.8 mg PO HS 05/19/19 01/24/25 brimonidine 0.2 % eye drops 1 drp OPL UD 07/28/23 01/24/25 dorzolamide 2 % eye drops 1 drp OPL BID 07/28/23 01/24/25 latanoprost (PF) 0.005 % eye drops 1 drp OPL HS 07/28/23 01/24/25 in a dropperette oxybutynin chloride 10 mg 10 mg PO DAILY 07/28/23 01/24/25 tablet,extended release 24 hr timolol maleate 0.5 % eye drops 1 drp OPB BID 07/28/23 01/24/25 Previous Rx's Medication Instructions Recorded L.acidop,casei,lactis,rham-B.lact,zahraa 1 cap PO DAILY #10 caps 01/03/25 625 mg (10 billion cell) capsule (Advanced Probiotic) pantoprazole 40 mg tablet,delayed 40 mg PO QAM #30 tabs 01/15/25 release polyethylene glycol 3350 17 gram 17 g PO DAILY PRN constipation #14 01/15/25 oral powder packet (Miralax) ea Results & Data (ED) Vital Signs Vital Signs - 24 hr 01/24/25 06:39 01/24/25 08:21 Temperature 35.7 C L Temperature Source Oral Pulse Rate 87 94 H Pulse Rhythm Regular Pulse Strength Normal Respiratory Rate 18 Respiratory Effort / Characteristics Non-Labored Spontaneous Respiratory Depth Normal Respiratory Pattern Regular Blood Pressure 121/75 Blood Pressure Mean 90 Blood Pressure Position Sitting Pulse Oximetry 94 Oxygen Delivery Method Room Air Sepsis Recent Fever Within 48 Hours No Sepsis New/Unexplained Change in Mental Status No Sepsis Action Taken by Nursing No Action Required Home Medications Current Medication List: was personally reviewed by me Laboratory Data Attestation: I reviewed the patient's lab results. 01/24/25 07:34 01/24/25 07:34 Lab Results 04/24/25 Range/Units 07:34 WBC 11.06 H (4.8-10.8) K/ul RBC 3.87 L (4.70-6.10) M/uL Hgb 11.7 L (14.0-18.0) g/dl Hct 34.9 L (42.0-52.0) % MCV 90.2 (80.0-100.0) fL MCH 30.2 (25.0-34.0) pg MCHC 33.5 (32.0-36.0) g/dL RDW Std Deviation 47.9 H (36.4-46.3) fL RDW Coeff of Hilda 14.5 (11.5-14.5) % Plt Count 306 (130-400) K/uL MPV 10.5 (9.4-12.4) fL Immature Gran % (Auto) 0.5 % Neut % (Auto) 76.2 % Lymph % (Auto) 10.5 % Summers % (Auto) 10.5 % Eos % (Auto) 2.1 % Baso % (Auto) 0.2 % Neut # (Auto) 8.43 H (1.40-6.50) K/uL Lymph # (Auto) 1.16 L (1.20-3.40) K/uL Summers # (Auto) 1.16 H (0.11-0.59) K/uL Eos # (Auto) 0.23 (0.00-0.50) K/uL Baso # (Auto) 0.02 (0.00-0.20) K/uL Immature Gran # (Auto) 0.06 (0.01-0.20) K/uL PT 13.2 H (9.0-12.0) Seconds INR 1.2 H (0.9-1.1) APTT 38 H (21-31) Seconds PTT Ratio 1.4 Sodium 138 (136-145) mmol/L Potassium 3.7 (3.5-5.1) mmol/L Chloride 101 (98-107) mmol/L Carbon Dioxide 29 (21-32) mmol/L Anion Gap 8 (3-11) BUN 29 H (6-23) mg/dl Creatinine 0.82 (0.6-1.4) mg/dl Est Cr Clr Drug Dosing Not Reportable eGFR 85.55 BUN/Creatinine Ratio 35.4 H (10-20) Glucose 124 H (70-99(Fasting)) mg/dl Calcium 9.1 (8.6-10.3) mg/dl Magnesium 2.0 (1.7-2.4) mg/dl Total Bilirubin 0.7 (0.2-1.0) mg/dl AST 38 (13-39) U/L ALT 30 (7-52) U/L Alkaline Phosphatase 135 H (34-104) U/L Ammonia 24.0 (18-72) umol/L Troponin I High Sens 12.9 (0-20) pg/ml Total Protein 6.7 (6.0-8.3) gm/dl Albumin 2.9 L (3.4-5.0) gm/dl Globulin 3.8 (2.5-4.0) gm/dl Albumin/Globulin Ratio 0.8 L (0.9-2) Lipase 14 (11-82) U/L TSH 4.120 (0.300-4.500) uIu/ml Administered Medications Discontinued Medications Acetaminophen (Ofirmev) 1,000 mg in 100 mls @ 400 mls/hr IV NOW STA Stop: 01/24/25 08:24 Last Admin: 01/24/25 08:15 Dose: 400 mls/hr Documented By: NDW Imaging Data Radiologist's Impression: Chest X-Ray 01/24/25 06:55 EXAM: XR chest 1V portable CLINICAL HISTORY: weakness TECHNIQUE: X-ray images of the chest were obtained in posteroanterior (PA) projection. COMPARISON: 01/12/2025 CT. FINDINGS: Pulmonary Parenchyma: Expiratory study. Bilateral diffuse reticulations and thickened bands, with prominent bronchovascular markings and price seen. Blunting of both costophrenic angles, possibly due to pleural effusion. Heart and Mediastinum: Cardiomegaly. Left sided mediastinal calcified lymph node measuring 23 x 15mm Bony Thorax: Bony thorax appears intact without fractures or deformities. Soft Tissues: Soft tissues overlying the chest wall are unremarkable. IMPRESSION: 1. Expiratory study. 2. Bilateral diffuse reticulations and thickened bands, with prominent bronchovascular markings and price seen. 3. Blunting of both costophrenic angles, possilby due to pleural effusion. 4. Cardiomegaly. 5. No interval changes. Electronically signed by Ricky Gordillo 01-24-2025 07:43 AM Vascular duplex venous lower extremity unilateral: Impression: Acute appearing thrombus in the right proximal femoral vein Discharge Plan Visit Data Chief Complaint: Nose Bleed (Minor) Stated Complaint: NOSE BLEED AND BLOOD CLOT IN LEG ED Provider: Scott Escoto Discharge Problem: Weakness, DVT (deep venous thrombosis), Epistaxis, Malignant ascites, Anemia Patient Disposition: Admitted As Inpatient Condition: Fair Forms Stand Alone Forms: My [facility] Prescriptions Prescriptions: No Action aspirin 81 mg Tablet,Delayed Release (Dr/Ec) 81 mg PO HS Hold Instructions: Resume on 01/17/25. tamsulosin 0.4 mg capsule 0.8 mg PO HS lisinopril 10 mg tablet 10 mg PO QAM Hold Instructions: Resume on 01/21/25. until seen by primary care doctor allopurinol 300 mg tablet 300 mg PO Q2D hydrochlorothiazide 25 mg tablet 25 mg PO QAM Hold Instructions: Hold taking for 2 to 3 days as advised finasteride 5 mg tablet 5 mg PO QAM rosuvastatin 10 mg tablet 10 mg PO QAM Centrum Silver Men 300-600-300 mcg Tablet 1 tab PO QAM Rx Instructions: otc unable to verify oxybutynin chloride 10 mg tablet extended release 24hr 10 mg PO DAILY brimonidine 0.2 % drops 1 drp OPL UD Rx Instructions: 1 drp opl bid. 10/02/24 90 day supply timolol maleate 0.5 % drops 1 drp OPB BID dorzolamide 2 % drops 1 drp OPL BID latanoprost (PF) 0.005 % Dropperette 1 drp OPL HS Advanced Probiotic 625 mg (10 billion cell) Capsule 1 cap PO DAILY Qty: 10 0RF pantoprazole 40 mg Tablet,Delayed Release (Dr/Ec) 40 mg PO QAM Qty: 30 0RF polyethylene glycol 3350 [Miralax] 17 gram Powder In Packet 17 g PO DAILY PRN (Reason: constipation) Qty: 14 0RF Referrals Referrals: Kenny Alvarado MD [Primary Care Provider] - Discharge Problem: DVT (deep venous thrombosis) Qualifiers: DVT location: lower extremity Affected thrombotic vein of extremity: u nspecified vein of extremity Chronicity: acute Laterality: right Qualified Code(s): I82.401 - Acute embolism and thrombosis of unspecified deep veins of right lower extremity Anemia Qualifiers: Anemia type: unspecified type Qualified Code(s): D64.9 - Anemia, unspecified
--- NOTE | 2025-01-24 07:43 | XRay Report ---
EXAM: XR chest 1V portable CLINICAL HISTORY: weakness TECHNIQUE: X-ray images of the chest were obtained in posteroanterior (PA) projection. COMPARISON: 01/12/2025 CT. FINDINGS: Pulmonary Parenchyma: Expiratory study. Bilateral diffuse reticulations and thickened bands, with prominent bronchovascular markings and price seen. Blunting of both costophrenic angles, possibly due to pleural effusion. Heart and Mediastinum: Cardiomegaly. Left sided mediastinal calcified lymph node measuring 23 x 15mm Bony Thorax: Bony thorax appears intact without fractures or deformities. Soft Tissues: Soft tissues overlying the chest wall are unremarkable. IMPRESSION: 1. Expiratory study. 2. Bilateral diffuse reticulations and thickened bands, with prominent bronchovascular markings and price seen. 3. Blunting of both costophrenic angles, possilby due to pleural effusion. 4. Cardiomegaly. 5. No interval changes. Electronically signed by Ricky Gordillo 01-24-2025 07:43 AM
[2025-01-24 07:49] LABS: Basophils # (auto) 0.02 K/uL (0.00-0.20); Basophils % (auto) 0.2 %; Eosinophils # (auto) 0.23 K/uL (0.00-0.50); Eosinophils % (auto) 2.1 %; Hematocrit (blood only) 34.9 % (42.0-52.0); Hemoglobin 11.7 g/dl (14.0-18.0); Immature Granulocytes # (auto) 0.06 K/uL (0.01-0.20); Immature Granulocytes % (auto) 0.5 %; Lymphocytes # (auto) 1.16 K/uL (1.20-3.40); Lymphocytes % (auto) 10.5 %; Mean Corpuscular Hemoglobin 30.2 pg (25.0-34.0); Mean Corpuscular Hgb Conc 33.5 g/dL (32.0-36.0); Mean Corpuscular Volume 90.2 fL (80.0-100.0); Mean Platelet Volume 10.5 fL (9.4-12.4); Monocytes # (auto) 1.16 K/uL (0.11-0.59); Monocytes % (auto) 10.5 %; Neutrophils # (auto) 8.43 K/uL (1.40-6.50); Neutrophils % (auto) 76.2 %; Platelet Count 306 K/uL (130-400); RDW Coefficient of Variation 14.5 % (11.5-14.5); RDW Standard Deviation 47.9 fL (36.4-46.3); Red Blood Count 3.87 M/uL (4.70-6.10); White Blood Count 11.06 K/ul (4.8-10.8)
[2025-01-24] MEDS: ACETAMINOPHEN 1,000 MG/100 ML VIAL IV STA (08:15)
[2025-01-24 08:17] LABS: Alanine Aminotransferase 30 U/L (7-52); Albumin Globulin Ratio 0.8 (0.9-2); Albumin Level 2.9 gm/dl (3.4-5.0); Alkaline Phosphatase 135 U/L (34-104); Anion Gap 8 (3-11); Aspartate Aminotransferase 38 U/L (13-39); BUN Creatinine Ratio 35.4 (10-20); Bilirubin,Total 0.7 mg/dl (0.2-1.0); Blood Urea Nitrogen 29 mg/dl (6-23); Calcium 9.1 mg/dl (8.6-10.3); Carbon Dioxide 29 mmol/L (21-32); Chloride 101 mmol/L (98-107); Globulin 3.8 gm/dl (2.5-4.0); Glucose 124 mg/dl (70-99(Fasting)); Lipase 14 U/L (11-82); Potassium 3.7 mmol/L (3.5-5.1); Sodium 138 mmol/L (136-145); Total Protein 6.7 gm/dl (6.0-8.3)
[2025-01-24 08:23] LABS: Troponin I High Sensitivity 12.9 pg/ml (0-20)
[2025-01-24 08:24] LABS: INR 1.2 (0.9-1.1); Partial Thromboplastin Ratio 1.4; Partial Thromboplastin Time 38 Seconds (21-31); Prothrombin Time 13.2 Seconds (9.0-12.0)
--- NOTE | 2025-01-24 09:06 | History & Physical Report ---
Date of Service January 24, 2025 Assessment & Plan (1) Malignant ascites: (2) Pulmonary emboli: (3) DVT (deep venous thrombosis): (4) Epistaxis: (5) Diabetes mellitus, type II: (6) Hypertension: (7) Dyslipidemia: (8) Gout: (9) BPH (benign prostatic hyperplasia): (10) Weakness: Plan 84 year old male with PMH significant for DMII, HTN, HLD, COPD, interstitial lung disease, pulmonary HTN, BPH, gout, history of RBBB and LBBB, history of NSVT, gallstones, gastritis, current DVT, and recently diagnosed metastatic adenocarcinoma who presents to the ED with worsening ascites and nosebleeds. Malignant ascites Patient underwent paracentesis by Dr. Fortunato Dennison with ~4L peritoneal fluid removed Fluid sent for cell count, cytology, culture, gram stain, albumin, and protein Follow cultures Observe puncture site Soft tissue neck CT without mass lesions or pathologically enlarged lymph nodes Repeat CT abdomen/pelvis with contrast ordered CEA 6 (up from 3), PSA negative, CA-19 pending Patient has follow up appointment with heme/onc scheduled for 01/31 Pulmonary emboli DVT RLE RLE DVT confirmed on outpatient venous duplex PCP started patient on Eliquis - patient took total of 5 doses including one dose this morning CTA chest revealed multiple pulmonary emboli in the RUL, increasing bilateral pleural effusions customer relations representative of simple or malignant effusions, scattered groundglass opacities within the lung Pulmonary emboli likely due to acute DVT and active cancer PESI score 156 with 10-24.5% 30-day mortality Hold Eliquis while on Heparin drip inpatient Bilateral LE edema Likely due to malignant ascites but consider HF as well Lasix 40mg IV x1 and continue lasix 20mg IV bid Start aldactone in am Echo (technically difficult) with EF 55-60%, RV mild dilation but not well visualized, RV function could not be assessed, poor visualization of valvular anatomy, wall abnormalities could not be excluded due to limited visualization BNP mildly elevated at 130 BLE cool, decreased pulses Arterial duplex BL pending Venous duplex BL pending Epistaxis Resolved Afrin PRN DMII SSI while inpt HTN On HCTZ at home - holding while on IV lasix inpt Lisinopril held during last admission - continue to hold Dyslipidemia Continue rosuvastatin per home dosing Gout Continue allopurinol per home dosing BPH Continue tamsulosin, finasteride, and oxybutynin per home dosing Weakness Likely secondary to malignant ascites DVT Prophylaxis: Heparin IV Code Status: DNR/DNI - As per discussion at bedside with the patient. PCP: Dr Kenny Alvarado MD Disposition: admit to telemetry Patient seen in collaboration with Dr Dennison. Please see addendum. I spent a total of 75 minutes coordinating, documenting and providing care for this patient excluding time spent in the performance of separately billed services or time spent by another provider/QHP. Admission and Anticipated Discharge Date Admission Date: 01/24/2025 History of Present Illness Chief Complaint: worsening ascites Primary Care Provider: Kenny Alvarado MD 84 year old male with PMH significant for DMII, HTN, HLD, COPD, interstitial lung disease, pulmonary HTN, BPH, gout, history of RBBB and LBBB, history of NSVT, gallstones, gastritis, current DVT, and recently diagnosed metastatic adenocarcinoma who presents to the ED with worsening ascites and nosebleeds. Patient was recently admitted from 01/10-01/15 with new onset ascites and underwent paracentesis removing 5L of peritoneal fluid with pathology of metastatic adenocarcinoma. He presents today with worsening ascites and pain. He notes that he has constant pain in his abdomen with intermittent sharp pains that he rates 8/10. He feels short of breath due to the ascites and is not able to tolerate much activity. He also has back pain and is not able to lay down so he has been sleeping upright in a chair. He denies fevers, chills, cough, cold symptoms, chest pain, dysuria, N/V/D. He was seen by his PCP on 01/22 for hospital follow up from his previous admission and was found to have RLE swelling. He underwent venous duplex which revealed a DVT in the right proximal femoral vein. He was prescribed Eliquis. He also had an abdominal ultrasound that showed moderate to large amount of ascites. Patient reports that since starting the Eliquis, he has been having intermittent nosebleeds. He is managing them with cotton balls and using a saline nose spray. He denies bleeding elsewhere. Summar of work up from previous admission 01/10-01/15: 01/10 US gallbladder with cholelithiasis, moderate ascites, fatty infiltration of liver, large right renal cyst General surgery consulted and ruled out cholecystitis Heme/onc consulted: Recommended CT chest for staging and identification of accessible lesion; EGD/colonoscopy if no lesion seen 01/12 CT chest with severe emphysematous COPD with scattered areas of fibrosis, trace bilateral pleural effusions, moderate coronary artery calcifications with cardiomegaly and trace pericardial effusion, large abdominal ascites Patient is scheduled to follow up with heme/onc on 01/31/25 Per record review, Dr Acuna requested NGS testing on malignant peritoneal fluid at [facility] consulted: 01/14 EGD with nonobstructive Schatzki's ring, 3cm hiatal hernia, erosive gastritis, non-bleeding duodenal ulcer, no evidence of tumor or mass 01/14 Colonoscopy with 10mm polyp in ascending colon (removed), enlarged prostate without nodules, diverticulosis, internal hemorrhoids, no evidence of tumor or mass Recommended holding aspirin and continuing pantoprazole Allergies Allergy/AdvReac Type Severity Reaction Status Date / Time Blackening Seasoning Allergy Intermediate Swelling Uncoded 07/28/23 09:00 of Lip/Tongue/Throat Home Medications Medication Instructions Recorded Confirmed Type allopurinol 300 mg tablet 300 mg PO Q2D 05/19/19 01/24/25 History aspirin 81 mg tablet,delayed 81 mg PO DAILY 05/19/19 01/24/25 History release finasteride 5 mg tablet 5 mg PO QAM 05/19/19 01/24/25 History hydrochlorothiazide 25 mg tablet 25 mg PO QAM 05/19/19 01/24/25 History lisinopril 10 mg tablet 10 mg PO QAM 05/19/19 01/24/25 History ifmkakvy-mk-xxjwq 300 mcg-K 60 1 tab PO QAM 05/19/19 01/24/25 History mcg-lycop 600 mcg-lutein 300 mcg tablet (Centrum Silver Men) rosuvastatin 10 mg tablet 10 mg PO QAM 05/19/19 01/24/25 History tamsulosin 0.4 mg capsule 0.8 mg PO HS 05/19/19 01/24/25 History brimonidine 0.2 % eye drops 1 drp OPL UD 07/28/23 01/24/25 History dorzolamide 2 % eye drops 1 drp OPL BID 07/28/23 01/24/25 History latanoprost (PF) 0.005 % eye drops 1 drp OPL HS 07/28/23 01/24/25 History in a dropperette oxybutynin chloride 10 mg 10 mg PO DAILY 07/28/23 01/24/25 History tablet,extended release 24 hr timolol maleate 0.5 % eye drops 1 drp OPB BID 07/28/23 01/24/25 History L.acidop,casei,lactis,rham-B.lact,zahraa 1 cap PO DAILY #10 caps 01/03/25 01/24/25 Rx 625 mg (10 billion cell) capsule (Advanced Probiotic) pantoprazole 40 mg tablet,delayed 40 mg PO QAM #30 tabs 01/15/25 01/24/25 Rx release polyethylene glycol 3350 17 gram 17 g PO DAILY PRN constipation #14 01/15/25 01/24/25 Rx oral powder packet (Miralax) ea apixaban 5 mg tablet (Eliquis) 10 mg PO BID 01/24/25 01/24/25 History Past Med/Surg History Problem List (Updated 01/24/25 @ 11:58 by BALTA Sherman) Pulmonary emboli Dyslipidemia Hypertension Gout BPH (benign prostatic hyperplasia) Diabetes mellitus, type II Anemia (Acute) Malignant ascites (Acute) Epistaxis (Acute) DVT (deep venous thrombosis) (Acute) Weakness (Acute) Leukocytosis (Acute) Medical History (Updated 01/24/25 @ 11:58 by BALTA Sherman) Encounter for pre-operative examination Ascites Intraventricular conduction delay Sinus bradycardia RLQ abdominal pain Weakness Recent urinary tract infection Ambulatory dysfunction Generalized weakness Weakness Acute UTI Ventricular tachycardia Urinary tract infection Pyelonephritis Pyelonephritis Hypercholesterolemia RBBB LBBB (left bundle branch block) NSVT (nonsustained ventricular tachycardia) Surgical History History of colonoscopy Hx of tonsillectomy History of appendectomy Family History Other Cancer Diabetes Social History Smoking Status: Never smoker Second Hand Exposure: No; Do You Dip or Chew Tobacco: No; Hx Alcohol Use: No Hx Substance Use: No Preferred Language: Bahraini Communication Ability: Effective Lieutenant/Deputy Required: No Beliefs That Will Affect Care: None marital status: Current Living Situation: Spouse Current Living Situation Comment: Home with current occupational status: retired Other Information That Helps Us Care for You: No Feels Safe at Home: Yes Safety Concerns: Feels Safe At This Time Assistive Devices: Glasses Review of Systems Review of Systems: All systems reviewed & are unremarkable except as noted in HPI & below Physical Exam Physical Exam: General/Psych: ill appearing, sitting up in bed, NAD, SOB while conversing, euthymic affect Head: normocephalic, atraumatic Eyes: normal inspection, PERRL, conjunctivae pink, anicteric sclerae ENT: external ear and nose normal, oropharynx normal Neck: normal visual inspection, trachea midline, no thyromegaly Respiratory: normal respiratory effort, lungs clear to auscultation, crackles appreciated in posterior lung husain bilaterally, no accessory muscle use Cardiovascular: regular rate and rhythm, no murmur/rub/gallop, no JVD Extremities: no cyanosis or clubbing, BLE cool and difficult to palpate pulses, R posterior tibial pulse appreciated on doppler and L dorsalis pedis pulse appreciated on doppler, 3+ pitting edema BLE Abdomen/GI: decreased bowel sounds, +hepatosplenomegaly, firm ascites present Neurologic/MSK: A+Ox3, motor strength 5/5, moves all extremities Skin: no rashes, normal color, warm and dry Results & Data Results & Data Vital Signs (Past 12 Hours) Vital Signs Temp Pulse Resp BP Pulse Ox O2 Del Method 01/24/25 08:21 94 H 01/24/25 06:39 35.7 C L 87 18 121/75 94 Room Air Laboratory Results Short CBC 01/24/25 Range/Units 07:34 WBC 11.06 H (4.8-10.8) K/ul Hgb 11.7 L (14.0-18.0) g/dl Hct 34.9 L (42.0-52.0) % Plt Count 306 (130-400) K/uL BMP 01/24/25 07:34 Sodium 138 Potassium 3.7 Chloride 101 Carbon Dioxide 29 BUN 29 H Creatinine 0.82 Glucose 124 H Calcium 9.1 Liver Function 01/24/25 Range/Units 07:34 Total Bilirubin 0.7 (0.2-1.0) mg/dl AST 38 (13-39) U/L ALT 30 (7-52) U/L Alkaline Phosphatase 135 H (34-104) U/L Albumin 2.9 L (3.4-5.0) gm/dl Urine 01/24/25 Range/Units 08:40 Urine Color Dark Yellow Urine Appearance Cloudy A (Clear) Urine pH 5.5 (4.5-7.5) Ur Specific [place] 1.043 H (1.000-1.030) Urine Protein 1+ H (Negative) Urine Glucose (UA) Negative (Negative) I have independently reviewed and interpreted patient's admitting labs including CBC, CMP, PTT, PT/INR, mag, troponin, lipase, BNP, UA. Diagnostic Findings Chest X-Ray 01/24/25 06:55 EXAM: XR chest 1V portable CLINICAL HISTORY: weakness TECHNIQUE: X-ray images of the chest were obtained in posteroanterior (PA) projection. COMPARISON: 01/12/2025 CT. FINDINGS: Pulmonary Parenchyma: Expiratory study. Bilateral diffuse reticulations and thickened bands, with prominent bronchovascular markings and price seen. Blunting of both costophrenic angles, possibly due to pleural effusion. Heart and Mediastinum: Cardiomegaly. Left sided mediastinal calcified lymph node measuring 23 x 15mm Bony Thorax: Bony thorax appears intact without fractures or deformities. Soft Tissues: Soft tissues overlying the chest wall are unremarkable. IMPRESSION: 1. Expiratory study. 2. Bilateral diffuse reticulations and thickened bands, with prominent bronchovascular markings and price seen. 3. Blunting of both costophrenic angles, possilby due to pleural effusion. 4. Cardiomegaly. 5. No interval changes. Electronically signed by Ricky Gordillo 01-24-2025 07:43 AM Chest CTA 01/24/25 09:56 CT ANGIOGRAM OF THE CHEST CLINICAL HISTORY: Concern for adenocarcinoma. COMPARISON STUDY: Chest CT January 12, 2025. Chest radiograph performed earlier today. TECHNIQUE: Following the IV administration of 115 cc of Optiray 320, CT angiogram of the chest was performed from the upper abdomen to the thoracic inlet utilizing the pulmonary embolus protocol. Images are reviewed in the axial, sagittal, and coronal planes. 3-D MIPS images are created and assessed. IV contrast was administered without complication. A dose lowering technique was utilized adhering to the principles of ALARA. CT DOSE: 1522.94 mGy.cm FINDINGS: Several segmental pulmonary emboli within the right upper lobe are present. Dilatation of the central pulmonary arteries is again noted. The heart is moderately enlarged. There is no pericardial effusion. Small to moderate left and small right pleural effusions have increased in size since CT of January 12, 2025. There is no pneumothorax. No consolidation is present. Mosaic attenuation within the lungs is noted. There is subpleural reticulation and groundglass opacities within the lungs. There is no thoracic lymphadenopathy. Large volume upper abdominal ascites has increased in amount since CT of January 12, 2025. Subtle omental nodularity is noted. IMPRESSION: 1. Several segmental pulmonary emboli within the right upper lobe. 2. Small to moderate left and small right pleural effusions which have increased in size since prior CT. These could represent simple or malignant effusions. 3. Large volume upper abdominal ascites which has increased since prior exam. Subtle associated omental stranding/nodularity. This may represent malignant ascites/peritoneal carcinomatosis. 4. Dilatation of the central pulmonary arteries consistent with pulmonary arterial hypertension. 5. Scattered groundglass opacities within the lungs which may represent superimposed pulmonary edema. ACT 112: Negative or not required by law. Electronically signed by: Jaron Ellsworth M.D. 01/24/2025 11:52 AM Soft Tissue Neck CT 01/24/25 10:12 CT soft tissue neck w con HISTORY: 84 years-old Male concern for adenocarcinoma acute neck pain with possible lesion COMPARISON: CTA chest the same day, chest CT 01/12/2025 TECHNIQUE: Multiple axial CT images of the soft tissues of the neck were obtained with IV contrast. A dose lowering technique was used consistent with the principals of ALARA. FINDINGS: Prior bilateral lens repair. White matter hypodensities suggest chronic microvascular ischemic disease. Atherosclerosis of the carotid bulbs without high-grade stenosis. Subcentimeter hypodense thyroid nodules. Chest CT dictated separately. Small left pleural effusion. Fluid-filled distended esophagus. Intralobular septal thickening of the lungs with subpleural reticulation. Degenerative changes of the cervical spine. No acute fracture or subluxation. Minimal mucosal thickening of the paranasal sinuses. The mastoid air cells are clear. No acute inflammatory changes are seen within the soft tissues of the neck. Normal epiglottis, glottis and subglottic airway. No suspicious mass lesions or pathologically enlarged lymph nodes. Parotid and submandibular glands demonstrate no acute abnormality. IMPRESSION: 1. No acute process identified involving the soft tissues of the neck. 2. No acute inflammatory changes, suspicious mass lesions or pathologically enlarged lymph nodes. 3. Partially imaged left pleural effusion with fluid filled distention of the esophagus. Please refer to the same day chest CT for additional findings. ACT 112: Negative or not required by law. The above report was generated using voice recognition software. It may contain grammatical, syntax or spelling errors. Electronically signed by: Dayo Smith M.D. 01/24/2025 11:35 AM Medications Administered Current Inpatient Medications Allopurinol (Allopurinol 300 Mg Tab) 300 mg PO Q2D ALEX Stop: 02/23/25 13:32 Last Admin: 01/24/25 14:12 Dose: 300 mg Brimonidine Tartrate (Brimonidine Tartrate 0.2% 5ml) 1 drops OPL BID ALEX Stop: 02/23/25 20:59 Dextrose (Dextrose 50% 50 Ml Syringe) 25 - 50 ml IV UD PRN; Protocol PRN Reason: Hypoglycemia Protocol Stop: 02/23/25 13:32 Dorzolamide HCl (Dorzolamide Hcl 2% Oph Soln 10 Ml Btl) 1 drops OPL BID ALEX Stop: 02/23/25 20:59 Finasteride (Finasteride 5 Mg Tab) 5 mg PO QAM ALEX Stop: 02/24/25 08:59 Glucagon (Glucagon For Inj 1 Mg Vial) 1 mg SQ UD PRN; Protocol PRN Reason: Hypoglycemia Protocol Stop: 02/23/25 13:32 Glucose (Glucose 40% Gel 15 Gm Tube) 15 - 30 gm PO UD PRN; Protocol PRN Reason: Hypoglycemia Protocol Stop: 02/23/25 13:32 Glucose (Glucose 10 Tab/Tube) 4 - 8 tab PO UD PRN; Protocol PRN Reason: Hypoglycemia Protocol Stop: 02/23/25 13:32 Acetaminophen (Ofirmev) 1,000 mg in 100 mls @ 400 mls/hr IV Q8H PRN PRN Reason: Mild Pain (Scale 1, 2, 3) Stop: 01/27/25 15:59 Albumin Human (Albumin 25%) 12.5 gm in 50 mls @ 50 mls/hr IV Q1H ALEX; Protocol Stop: 01/24/25 15:44 Last Admin: 01/24/25 15:20 Dose: 50 mls/hr Insulin Aspart (Insulin Aspart Per Unit Charge) 0 units SC ACHS [facility] Stop: 02/23/25 13:32 Last Admin: 01/24/25 14:12 Dose: Not Given Lactobacillus Acidophilus (Advanced Probiotic 625 Mg Capsule) 1,250 mg PO DAILY [facility] Stop: 02/24/25 08:59 Latanoprost (Latanoprost 0.005% Op Soln 2.5 Ml Btl) 1 drops OP HS [facility] Stop: 02/23/25 20:59 Miscellaneous (Carbohydrates For Hypoglycemia ) 15 - 30 gm PO UD PRN PRN Reason: Hypoglycemia Protocol Stop: 02/23/25 13:32 Morphine Sulfate (Morphine Sulfate 2 Mg/Ml Carp) 2 mg IV NOW PRN PRN Reason: Mod-Sev Pain (Scale 4-10) Stop: 02/07/25 11:34 Multivitamins/Minerals (Cerovite Adv Formula Tab) 1 tab PO QAM [facility] Stop: 02/24/25 08:59 Ondansetron HCl (Ondansetron Inj 2 Mg/Ml 2 Ml Vial) 4 mg IV Q6H PRN PRN Reason: Nausea And Vomiting Stop: 02/23/25 11:44 Last Admin: 01/24/25 14:23 Dose: 4 mg Oxybutynin Chloride (Oxybutynin Chloride Xl 5 Mg Tabcr) 10 mg PO DAILY [facility] Stop: 02/24/25 08:59 Pantoprazole Sodium (Pantoprazole 40 Mg Tab) 40 mg PO QAM [facility] Stop: 02/23/25 13:32 Last Admin: 01/24/25 14:13 Dose: 40 mg Polyethylene Glycol (Polyethylene (Miralax) 17 Gm Pack) 17 gm PO DAILY PRN PRN Reason: Constipation Stop: 02/23/25 13:32 Rosuvastatin Calcium (Rosuvastatin Calcium 10 Mg Tab) 10 mg PO QAM [facility] Stop: 02/23/25 13:32 Last Admin: 01/24/25 14:13 Dose: 10 mg Tamsulosin HCl (Tamsulosin Hcl 0.4 Mg Cap) 0.8 mg PO HS [facility] Stop: 02/23/25 20:59 Timolol Maleate (Timolol Maleate 0.5% Op Soln 5 Ml Btl) 1 drops OP BID [facility] Stop: 02/23/25 20:59 ECG Additional Comments: I have independently reviewed and interpreted patient's admitting EKG which revealed: NSR with PACs at rate of 84bpm with LVH Code Status & VTE Plan Code Status DNR/DNI Supervising Physician Co-Signing Physician Notes Patient seen and examined at bedside. at bedside as well. Patient has been having fluid buildup for the past few days since discharge. Does not feel well overall. Per , patient has been getting sicker over the past few days. Has been getting SOB as well, some headache. On exam, significant fluid wave with abdominal distension noted, trace diffuse tenderness, 2+ pitting edema in legs bilaterally. Indeterminate JVP. Some sarcopenia noted. Adenocarcinoma noted from prior pathology from paracentesis. No known primary at this time. CT chest indicating segmental pulmonary emboli likely in setting of known DVT in setting of malignancy. Paracentesis performed at bedside, see procedure note for details, no immediate post op complications, 4 liters removed. Adenocarcinoma of unknown primary that appears to be progressing quickly, with unknown primary site, peritoneal carcinomatosis, declining functional status, sarcopenia, and malignant ascites 2/2 peritoneal carcinomatosis portending a poor prognosis, likely on scale of weeks to months. Bilateral pleural effusions that could be related to fluid overload, concerning for malignant pleural effusions vs. malignant hydrothorax vs. decompensated heart failure. Adenocarcinoma of unknown primary workup will be completed. Check PSA, tumor markers. Check CT neck for consideration of soft tissue malignancy. Repeat CT abdomen/pelvis with contrast post paracentesis for better definition of abdominal structures, with particular interest in appendix, gastric and pancreatic anatomy as all possible sites for occult malignancy. At this time, would consider occult appendical adenocarcinoma near top of differential given lack of findings elsewhere. If CT negative, will consider MRI of appendix vs. MRCP to define source. As for volume overload, likely 2/2 malignant ascites, echo not grossly abnormal and EF maintained/BNP within age adjusted normal limit. Will start aldactone and lasix in goal directed ratio for ascites, IV lasix for now. Will need to consider peritoneal drain placement given rapid fluid buildup. High risk pulmonary emboli in segmental arteries, likely 2/2 DVT and likely present before eliquis started 5 days ago. PESI score of 156 points makes patient very high risk for 30 day mortality. Unlikely to be candidate for inter vention, however stop eliquis in setting of very high risk PESI and potential interventions. Epistaxis is mild in setting of eliquis use. I have seen and discussed the case with the collaborating advanced practitioner. I agree with the above H&P. I have reviewed and confirmed the patients medical history, the findings on physical examination, and the patients diagnosis and treatment plan with Marion GIFFORD and agree with the information documented. I spent a total of 60 minutes coordinating, documenting, and providing care for this patient excluding time spent in the performance of separately billed services. All of the aforementioned completed outside of collaborating with the assigned advanced practitioner for a full treatment plan. I have reviewed the advanced practitioner's documentation, and I agree with, and take responsibility for the plan of care (3) DVT (deep venous thrombosis) Affected thrombotic vein of extremity: unspecified vein of extremity Chronicity: acute DVT location: lower extremity Laterality: right Qualified Code(s): I82.401 - Acute embolism and thrombosis of unspecified deep veins of right lower extremity
[2025-01-24] MEDS: ONDANSETRON INJ 2 MG/ML 2 ML VIAL IV STA (09:16)
[2025-01-24] MEDS: MoRPHine SULFATE 2 MG/ML CARP IV STA (09:17)
[2025-01-24 09:30] LABS: Appearance Urine Cloudy (Clear); Bilirubin Urine 1+ (Negative); Blood Urine Negative (Negative); Color Urine Dark Yellow; Glucose Urine UA Negative (Negative); Ketones Urine 1+ (Negative); Leukocyte Esterase Urine Trace (Negative); Nitrite Urine Negative (Negative); Protein Urine 1+ (Negative); Specific Gravity Urine 1.043 (1.000-1.030); Urobilinogen Urine Negative (Negative); pH Urine 5.5 (4.5-7.5)
[2025-01-24 09:42] LABS: Bacteria Urine Automated None Seen (None Seen); Epithelial Cell Urine Auto >20 /hpf (0-2)
[2025-01-24 09:46] LABS: Mucus Urine Present (None Prsent)
[2025-01-24 09:49] LABS: Cast Urine Automated 0-2 /lpf (0-2)
[2025-01-24] MEDS: FUROSEMIDE 40 MG/4 ML VIAL IV STA (10:24)
--- NOTE | 2025-01-24 10:54 | Electrocardiogram Report ---
Test Reason : Blood Pressure : */* mmHG Vent. Rate : 84 BPM Atrial Rate : 84 BPM P-R Int : 186 ms QRS Dur : 114 ms QT Int : 390 ms P-R-T Axes : 83 -52 100 degrees QTcB Int : 460 ms Poor data quality, interpretation may be adversely affected Sinus rhythm with frequent Premature atrial complexes Left axis deviation Left ventricular hypertrophy with repolarization abnormality ( R in aVL ) Anterolateral infarct (cited on or before 31-Dec-2024) When compared with ECG of 31-Dec-2024 15:09, QRS duration has decreased Non-specific change in ST segment in Lateral leads T wave inversion now evident in Lateral leads Confirmed by Lucho Nava ([id number]) on 01/24/2025 10:54:09 AM Referred By: Kenny Alvarado Confirmed By: Lucho Nava
[2025-01-24] MEDS: OPTIRAY 320 125ml IV ONE (11:05)
[2025-01-24 11:21] LABS: Troponin I High Sensitivity 12.5 pg/ml (0-20)
[2025-01-24] MEDS ORDERED: MoRPHine SULFATE 2 MG/ML CARP IV PRN ×2 (11:35→17:09)
--- NOTE | 2025-01-24 11:38 | CT Scan Report ---
CT soft tissue neck w con HISTORY: 84 years-old Male concern for adenocarcinoma acute neck pain with possible lesion COMPARISON: CTA chest the same day, chest CT 01/12/2025 TECHNIQUE: Multiple axial CT images of the soft tissues of the neck were obtained with IV contrast. A dose lowering technique was used consistent with the principals of ALARA. FINDINGS: Prior bilateral lens repair. White matter hypodensities suggest chronic microvascular ischemic diseas e. Atherosclerosis of the carotid bulbs without high-grade stenosis. Subcentimeter hypodense thyroid nodules. Chest CT dictated separately. Small left pleural effusion. Fluid-filled distended esophagus. Intralobular septal thickening of the lungs with subpleural reticulation. Degenerative changes of the cervical spine. No acute fracture or subluxation. Minimal mucosal thicken ing of the paranasal sinuses. The mastoid air cells are clear. No acute inflammatory changes are seen within the soft tissues of the neck. Normal epiglottis, glottis and subglottic airway. No suspicious mass lesions or pathologically enlarged lymph nodes. Parotid and submandibular glands demonstrate no acute abnormality. IMPRESSION: 1. No acute process identified involving the soft tissues of the neck. 2. No acute inflammatory changes, suspicious mass lesions or pathologically enlarged lymph nodes. 3. Partially imaged left pleural effusion with fluid filled distention of the esophagus. Please refer to the same day chest CT for additional findings. ACT 112: Negative or not required by law. The above report was generated using voice recognition software. It may contain grammatical, syntax o r spelling errors. Electronically signed by: Dayo Smith M.D. 01/24/2025 11:35 AM
--- NOTE | 2025-01-24 11:53 | CT Scan Report ---
CT ANGIOGRAM OF THE CHEST CLINICAL HISTORY: Concern for adenocarcinoma. COMPARISON STUDY: Chest CT January 12, 2025. Chest radiograph performed earlier today. TECHNIQUE: Following the IV administration of 115 cc of Optiray 320, CT angiogram of the chest was pe rformed from the upper abdomen to the thoracic inlet utilizing the pulmonary embolus protocol. Images are reviewed in the axial, sagittal, and coronal planes. 3-D MIPS images are created and assessed. I V contrast was administered without complication. A dose lowering technique was utilized adhering to the principles of ALARA. CT DOSE: 1522.94 mGy.cm FINDINGS: Several segmental pulmonary emboli within the right upper lobe are present. Dilatation of t he central pulmonary arteries is again noted. The heart is moderately enlarged. There is no pericardi al effusion. Small to moderate left and small right pleural effusions have increased in size since CT of January 12, 2025. There is no pneumothorax. No consolidation is present. Mosaic attenuation within the lungs is noted. There is subpleural reticulation and groundglass opacities within the lungs. Ther e is no thoracic lymphadenopathy. Large volume upper abdominal ascites has increased in amount since CT of January 12, 2025. Subtle omental nodularity is noted. IMPRESSION: 1. Several segmental pulmonary emboli within the right upper lobe. 2. Small to moderate left and small right pleural effusions which have increased in size since prior CT. These could represent simple or malignant effusions. 3. Large volume upper abdominal ascites which has increased since prior exam. Subtle associated oment al stranding/nodularity. This may represent malignant ascites/peritoneal carcinomatosis. 4. Dilatation of the central pulmonary arteries consistent with pulmonary arterial hypertension. 5. Scattered groundglass opacities within the lungs which may represent superimposed pulmonary edema. ACT 112: Negative or not required by law. Electronically signed by: Jaron Ellsworth M.D. 01/24/2025 11:52 AM
[2025-01-24] MEDS ORDERED: GLUCOSE 10 TAB/TUBE PO PRN (13:33)
[2025-01-24] MEDS ORDERED: GLUCOSE 40% GEL 15 GM TUBE PO PRN (13:33)
[2025-01-24] MEDS ORDERED: GLUCAGON FOR INJ 1 MG VIAL SQ PRN (13:33)
[2025-01-24] MEDS ORDERED: CARBOHYDRATES FOR HYPOGLYCEMIA PO PRN (13:33)
[2025-01-24] MEDS ORDERED: DEXTROSE 50% 50 ML SYRINGE IV PRN (13:33)
[2025-01-24] MEDS ORDERED: POLYETHYLENE (MIRALAX) 17 GM PACK PO PRN (13:33)
[2025-01-24] MEDS: ALBUMIN 25% 12.5 GM/50 ML VIAL IV SCH (13:37)
[2025-01-24 14:04] LABS: Total Protein Peritoneal Fluid 3.8 gm/dl
[2025-01-24] MEDS: METOCLOPRAMIDE HCL INJ 5 MG/ML 2 ML VIAL IV STA (14:12)
[2025-01-24] MEDS: INSULIN ASPART PER UNIT CHARGE SC SCH (14:12)
[2025-01-24] MEDS: allopurinoL 300 MG TAB PO SCH (14:12)
[2025-01-24] MEDS: PANTOprazole 40 MG TAB PO SCH (14:13)
[2025-01-24] MEDS: ROSUVASTATIN CALCIUM 10 MG TAB PO SCH (14:13)
[2025-01-24] MEDS: ONDANSETRON INJ 2 MG/ML 2 ML VIAL IV PRN (14:23)
[2025-01-24 14:31] LABS: Appearance Peritoneal Fluid Clear; Color Peritoneal Fluid Yellow; Lymphocytes, Fluid 81 %; Mono,Macrophage,Mesothelial 14 %; Neutrophils, Fluid 5 %; RBC Peritoneal Fluid Auto < 2000 /uL; WBC Peritoneal Fluid Auto 178 /ul (0-300)
[2025-01-24] MEDS ORDERED: ACETAMINOPHEN 1,000 MG/100 ML VIAL IV PRN (16:00)
[2025-01-24] MEDS: OPTIRAY 320 100ml IV ONE (17:27)
[2025-01-24] MEDS: FUROSEMIDE INJ 20 MG/2 ML VIAL IV SCH (17:36)
[2025-01-24] MEDS: HEPARIN 25000 UNIT/500 ML D5W 25,000 UNITS/500 ML BAG IV SCH (17:36)
[2025-01-24] MEDS: HEPARIN SOD (PORCINE) 1000 UNIT/ML IV ONE (17:36)
[2025-01-24] MEDS: SPIRONOLACTONE 25 MG TAB PO SCH (17:37)
[2025-01-24] MEDS ORDERED: OXYMETAZOLINE 0.05% 30 ML BTL PRN (17:38)
[2025-01-24] MEDS: Heparin IV Adult Wt-Based Standard w/ INITIAL Bolus Protocol IV SCH (17:53)
--- NOTE | 2025-01-24 18:34 | Procedure Note ---
Procedure Note Date of Service January 24, 2025 Note INDICATION: diagnostic/therapeutic_PROCEDURE PHYSICIAN INTENSIVIST: Fortunato Dennison_ATTENDING PHYSICIAN: Fortunato Dennison_ In Attendance yes Ultrasound used to leela location: yes CONSENT: During the informed consent discussion regarding the procedure, or treatment, I explained the following to the patient/designee: a. Nature of the procedure or treatment and who will perform the procedure or treatment. b. Necessity for procedure and the possible benefits. c. Risks and complications (most common and serious). d. Alternative treatments and the risks, benefits and side effects of each (including no treatment). e. Likelihood of the patient achieving his/her goals without this procedure and surgery treatment. f. Problems that might occur during the recuperation. g. Conflicts of interest, if any PROCEDURE SUMMARY: A time-out was performed. The area was cleansed and draped in usual sterile fashion using chlorhexidine scrub. Anesthesia was achieved with 1% lidocaine. The left lateral quadrant of the abdomen was prepped and draped in a sterile fashion using chlorhexidine scrub. 1% lidocaine was used to numb the skin, soft tissue and peritoneum. The paracentesis catheter was inserted and advanced with negative pressure until se eddie colored fluid was aspirated. Approximately 60 mL of ascitic fluid was collected and sent for laboratory analysis. The catheter was then connected to the vaccutainer and 4 liters of additional ascitic fluid were drained. The catheter was removed and no leaking was noted. A bandaid was placed over the puncture wound. The patient tolerated the procedure well without any immediate complications. Estimated blood loss was 10cc Post Procedure: sent fluid for cytology and testing, given albumin given high risk patient. Coding
--- NOTE | 2025-01-24 18:37 | Ultrasound Report ---
EXAM: US venous doppler LE CLINICAL HISTORY: Decreased pulses. Previous DVT seen on US 01/22, Patient currently on thinners, History of pitting edema bilateral. TECHNIQUE: Ultrasound examination of bilateral lower extremity veins was performed in real time and duplex. One or more of the following were performed- spectral analysis, resistive index, waveform analysis, and pulsed Doppler. COMPARISON: 11/17/2015 FINDINGS: The veins included are the bilateral common femoral vein, the great saphenous vein proximal segment, profunda femoris, femoral proximal, mid, and distal, popliteal, peroneal, anterior, and posterior tibial veins. There is a hypoechoic area in the proximal right femoral vein with a filling defect otherwise, venous return on color Doppler is noted, suggesting partial acute thrombosis. Mention of thrombosis in one of the posterior tibial veins; however, limited views due to pitting edema. Limited views of the right peroneal vein due to edema. A hypoechoic area with a filling defect was noted in the left distal popliteal vein however, full compression and normal venous return were noted. Normal phasic, non-pulsatile, and spontaneous flow is noted in bilaterally visualized veins, otherwise. Normal venous return is seen. Visualized veins of both lower extremities demonstrate normal compressibility. Augmentation of venous flow is noted. Additional Findings: Marked subcutaneous edema was noted in the lower extremities distally. IMPRESSION: 1. Partial acute thrombosis in the right proximal femoral vein and one of the right posterior tibial veins (Suboptimal views due to edema). Possible partial acute small thrombosis at the left distal popliteal vein. (new when compared to avaible prior dated 11/17/2015). 2. Marked subcutaneous edema noted in the lower extremities distally. Disclaimer: DVT could be missed early in the disease when clot burden is minimal. For patients with moderate and high pretest probability of DVT and negative ultrasound, the [employer] clinical guidelines recommend testing with a D-dimer assay or repeat ultrasound in 5-7 days. If symptoms worsen, the Society of radiologists in ultrasound recommends repeating ultrasound even earlier. Electronically signed by Ricky Gordillo 01-24-2025 6:36 PM
--- NOTE | 2025-01-24 19:08 | Ultrasound Report ---
EXAM: US arterial duplex LE BI CLINICAL HISTORY: decreased pulses. TECHNIQUE: Ultrasound examination of the bilateral lower extremities arteries with ankle brachial indices was performed in real time and duplex. One or more of the following were performed- spectral analysis, resistive index, waveform analysis, and pulsed Doppler. COMPARISON: None. FINDINGS: Vessel Flow Pattern Right Peak Velocity Right (cm/sec) Flow Pattern Left Peak Velocity Left (cm/sec) Common Femoral Artery (NITROGEN OPERATOR) [Triphasic] 78.1 cm/s [Triphasic] 69.8 cm/s Deep Femoral Artery (DPA) [Biphasic] 52.7 cm/s [Triphasic] 95 cm/s Superficial Femoral Artery (SFA) [Triphasic] 97.1 cm/s [Triphasic] 86.4 cm/s Popliteal Artery (POP A) [Biphasic] 36.6 cm/s [Biphasic] 40.7 cm/s Posterior Tibial Artery (LINE REPAIRER) [Biphasic] 184 cm/s [Biphasic] 61.1cm/s Peroneal [Biphasic] 67.3 cm/s [Biphasic] 45 cm/s Dorsalis Pedis Artery (DPA) [Biphasic] 33.8 cm/s [Biphasic] 76.5 cm/s Triphasic waveforms are noted in bilateral NITROGEN OPERATOR and SFA arteries while biphasic waveforms are noted in bilateral popliteal, LINE REPAIRER, JACKI, Profunda femoris and DP arteries. atheromatous changes with mural thickening and calcific plaques are seen along the arterial tree. No hemodynamically significant stenosis is noted in the arteries of both lower extremities. The peak systolic velocity in the right Posterior Tibial Artery is relatively increased measuring 184 cm/s. Moderate stenosis is suggested. Collateral Circulation: No significant collateral circulation noted indicative of chronic arterial occlusion. Additional Findings: edema of bilateral lower leg subcutaneous fat planes. IMPRESSION: Duplex ultrasound of the lower extremity arteries: 1. Bilateral atheromatous changes of the arterial tree with bilateral biphasic waveforms of the popliteal arteries and distally. 2. The peak systolic velocity in the right Posterior Tibial Artery is relatively increased measuring 184 cm/s. Moderate stenosis is suggested. Further CTA can be considered if clinically indicated. 3. Bilateral leg edema. Electronically signed by Ricky Gordillo 01-24-2025 7:08 PM
--- NOTE | 2025-01-24 20:06 | CT Scan Report ---
EXAM: CT abdomen pelvis wo/w con CLINICAL HISTORY: adenocarcinoma of unknown primary TECHNIQUE: An axial CT of the abdomen and pelvis was performed with and without the administration of intravenous contrast, with the following protocol: axial images, and reconstructed coronal and sagittal images. One of the following dose reduction techniques was utilized for this exam: Automated exposure control, adjustment of the mA and/or kV according to patient size, and use of iterative reconstruction. (CTDI: 28.09 mGy, DLP: 3020.65 mGy*cm) COMPARISON: CT dated 12/31/2024 FINDINGS: Abdomen: Liver: Normal in size, shape, and density. Still noted punctate calcifications in the right lobe. No definite pathologically enhancing focal lesions. Gallbladder and Biliary System: Mild wall thickening and pericholecystic fluid with no calcified gallstones is likely congestive rather than inflammatory. Pancreas: The pancreatic head, body, and tail are visualized and appear normal in size and density. No pancreatic masses were noted. Tiny pinctate calcification in the pancreatic body. Spleen: Normal in size, shape, and density. No splenic lesions or masses were identified. Appendix: Not clearly seen. Kidneys and Adrenal Glands: Both kidneys are normal in size, shape, and position. Cortical thickness is within normal limits. No renal calculi or hydronephrosis. 6.6 x 7.2 cm right lower pole renal cortical cyst, table finding. Adrenal glands are unremarkable. Abdominal Aorta and Vessels: Vascular calcification of the aorta and its branches. Patent portal vein measuring 13 mm. Pelvis: Urinary Bladder: Normal in contour and wall thickness. No intraluminal lesions. Prostate: Normal in size and contour. No masses or abnormal thickening. Seminal Vesicles: Normal appearance without abnormal enlargement or mass. Peritoneal and Retroperitoneal Structures: Mild to moderate free fluid within the abdomen or pelvis. Stable finding. Omental fat stranding is likely congestive. No lymphadenopathy was noted. Bilateral inguinal fatty hernias are larger on the right side. Stable finding. Bowel: Scattered colonic diverticulosis. No evidence of bowel obstruction or wall thickening. Bones and Soft Tissues: Degenerative changes of the spine, sacroiliac, and hip joints, as well as the symphysis pubis. Increased bilateral minimal pleural effusions are now being mild on the right side and moderate on the left side with bilateral basal atelectasis. Minimal pericardial effusion. Subcutaneous fat smudging in the abdominal and pelvic wall. IMPRESSION: 1. Mild to moderate ascites with omental fat stranding. 2. Thickened gall bladder wall with surrounding fluid likely congestive. Stable finding. 3. Right lower pole renal cyst. Stable finding. 4. Bilateral pleural effusions and basal pulmonary atelectasis. Progressed since the last study. 5. Minimal pericadial effusion. Stable finding. 6. Correlate clinically. Electronically signed by Ricky Gordillo 01-24-2025 8:05 PM
--- OUTSIDE RECORDS SUMMARY | 2025-01-24 20:53 | External Medical Summary | Summary of Care ---
Author Name Unknown Organization [facility] Address [address] [place] [address] Phone [phone] Care Team Providers Care Artificial Limb Maker Name Role Phone Kenny Alvarado MD Primary Care Provider + Reason for Visit * Reason Onset Date Comments Order Request 01/24/2025 NGS Encounter Details Date Type Department Care Team (Late st Contact Info) Description 01/24/2025 Telephone Hematology/Oncology [facility] [address] [place] [phone] Jos Phelps MD [address] [place] [address] Order Request (NGS) Allergies No known active allergiesdocumented as of [...] 12/26/2023 Phimosis 12/26/2023 NSVT (nonsustained ventricular tachycardia) 01/3 10/2022 Primary open angle glaucoma (POAG) of both [...] encounter Miscellaneous Notes * Telephone Encounter - Raul Bell RN - 01/24/2025 8:[address] Acuna- should request NGS testing on malignant peritoneal fluid from [facility]. Message sent to pathology in [place], they advise they are able to run NGS as long as a block is made. Called [facility] Pathology and they confirmed a block was made for this specimen: [id number] Faxed request to [facility] for block to be sent to [place]. sent to [place] [facility] regarding NGS order. Order placed. documented in this encounter Plan of Treatment Upcoming Encounters Date Type Department Care Team (Late st Contact Info) Description 01/31/2025 12:30 PM EDT Office Visit Hematology/Oncology [facility] [address] [facility] [place] [phone] Jos Phelps MD [address] [facility] [place] [address] 06/10/2025 12:40 PM EDT Office Visit General Internal Medicine [facility] [address] [facility] [place], [place] [address] Kenny Alvarado MD [address] [facility] [place] [address] 07/03/2025 8:30 AM EDT Office Visit Urology, [facility] [address] [place] [phone] Hung Horowitz MD [address] [facility] [place] [id number] 11/01/2025 10:00 AM EST Office Visit Cardiology, [facility] [address] [place] [phone] Vianney Barrett PA-C [address] [facility] [place] [address] Pending Results Name Type Priority Associated Diagnoses Date /Time ANATOMIC PATHOLOGY (BM/SURGICAL/CYTOLOGY) ADD ON REQUEST Lab Routine Metastatic adenocarcinoma (HCC) 01/24/2025 8:54 AM EDT Scheduled Procedures Name Priority Associated [...] as of this encounter Visit Diagnoses Diagnosis Metastatic adenocarcinoma (HCC)- Primary Other malignant neoplasm without specification of site documented in this encounter Care Teams Artificial Limb Maker Relationship Specialty Start Date End Date Kenny Alvarado MD [address] [facility] [place] [address] PCP - General Internal Medicine 07/30/21 documented as of this encounter
--- OUTSIDE RECORDS SUMMARY | 2025-01-24 20:53 | External Medical Summary | Summary of Care ---
Author Name Unknown Organization [facility] Address [address] [place] [address] Phone [phone] Care Team Providers Care Vegetable Worker Name Role Phone Kenny Alvarado MD Primary Care Provider + Reason for Visit * Reason Onset Date Comments Test Results 01/09/2025 Encounter Details Date Type Department Care Team (Late st Contact Info) Description 01/09/2025 Telephone General Internal Medicine [facility] [address] [place] [address] Kenny Alvarado MD [address] [place] [address] Test Results Allergies No known active allergiesdocumented [...] encounter Miscellaneous Notes * Telephone Encounter - Pamela Pedroza OSA - 01/10/2025 6:59 AM EDT Called an spoke with this morning, pt is going in today at 1130 * Telephone Encounter - Bay Garcia RN - 01/09/2025 3:20 PM EDT Called and spoke with patient's spouse Samaria and informed her of Dr. Alvarado's result message. She verbalized understanding of all information, agreeable to all recommendations. Scheduling: Please schedule patient for CT of A/P tomorrow. Priority: NICOL * Telephone Encounter - Bay Garcia RN - 01/09/2025 3:17 PM EDT ----- Message from Kenny Alvarado MD sent at 01/09/2025 3:13 PM EDT ----- 1. Urine w/o infection, please make sure staying hydrated 2. Mild elevated wbc, will recheck 1 week, suggest CT A/P tomorrow given abdominal pain, please schedule 3. Mild elevated lft, will recheck 1 week on labs, but CT as above. If pain worsens in interim, go to ER documented in this encounter Plan of Treatment Upcoming Encounters Date Type Department Care Team (Late st Contact Info) Description 01/31/2025 12:30 PM EDT Office Visit Hematology/Oncology [facility] [address] [facility] [place], [place] [phone] Jos Phelps MD [address] [facility] [place] [address] 06/10/2025 12:40 PM EDT Office Visit General Internal Medicine [facility] [address] [facility] [place] [address] Kenny Alvarado MD [address] [facility] [place] [address] 07/03/2025 8:30 AM EDT Office Visit Urology, [facility] [address] [place] [phone] Hung Horowitz MD [address] [facility] [place] [id number] 11/01/2025 10:00 AM EST Office Visit Cardiology, [facility] [address] [place] [phone] Vianney Barrett PA-C [address] [facility] [place] [address] Scheduled Procedures Name [...] filedocumented as of this encounter Care Teams Vegetable Worker Relationship Specialty Start Date End Date Kenny Alvarado MD [address] [place] [address] PCP - General Internal Medicine 07/30/21 documented as of this encounter
--- OUTSIDE RECORDS SUMMARY | 2025-01-24 20:53 | External Medical Summary | Summary of Care ---
Author Name Unknown Organization [facility] Address [address] [place] [address] Phone [phone] Care Team Providers Care Environmental Services Floor Tech Name Role Phone Kenny Alvarado MD Primary Care Provider + Reason for Visit * Reason Onset Date Comments Abnormal Test Results 01/22/2025 Encounter Details Date Type Department Care Team (Late st Contact Info) Description 01/22/2025 Telephone General Internal Medicine [facility] [address] [place] [address] Kenny Alvarado MD [address] [place] [address] Abnormal Test Results (/) Allergies No known [...] encounter Miscellaneous Notes * Telephone Encounter - Bay Garcia RN - 01/24/2025 7:18 AM EDT Please see previous message. Called and spoke with patient's Samaria. She said they are at the ER now. She said the patient took another dose of Eliquis this morning and is still having a nose bleed. She said at this time the ER doctor seems more concerned about the blood clot in his leg than with the ascites. They wanted Dr. Alvarado to also know that the doctor there is thinking of changing the Eliquis to something he can tolerate better. FYI. * Telephone Encounter - Shefali Warner OSA [...] 01/31/2025 12:30 PM EDT Office Visit Hematology/Oncology [address] [place] [phone] Jos Phelps MD [address] [place] [address] [place] [address] 06/10/2025 12:40 PM EDT Office Visit General Internal Medicine [facility] [address] [facility] [place] [address] Kenny Alvarado MD [address] [facility] [place] [address] 07/03/2025 8:30 AM EDT Office Visit Urology, [facility] [address] [place] [phone] Hung Horowitz MD [address] [place] [address] 11/01/2025 10:00 AM EST Office Visit Cardiology, [facility] [address] [place] [phone] Vianney Barrett PA-C [address] [place] [address] Scheduled Procedures Name Priority Associated Diagnoses Date/Ti [...] Primary documented in this encounter Care Teams Environmental Services Floor Tech Relationship Specialty Start Date End Date Kenny Alvarado MD 200 [place] [address] PCP - General Internal Medicine 07/30/21 documented as of this encounter
[2025-01-24] MEDS: TAMSULOSIN HCL 0.4 MG CAP PO SCH (22:19)
[2025-01-24] MEDS: TIMOLOL MALEATE 0.5% OP SOLN 5 ML BTL OP SCH (22:19)
[2025-01-24] MEDS: BRIMONIDINE TARTRATE 0.2% 5ML OPL SCH (22:20)
[2025-01-24] MEDS: LATANOPROST 0.005% OP SOLN 2.5 ML BTL OP SCH (22:20)
[2025-01-24] MEDS: DORZOLAMIDE HCL 2% OPH SOLN 10 ML BTL OPL SCH (22:20)
[2025-01-24 23:48] LABS: ANTI-Xa, UFH(UnfractionatedHep > 1.50 IU/ml (0.3-0.7)
[2025-01-25 01:49] LABS: ANTI-Xa, UFH(UnfractionatedHep > 1.50 IU/ml (0.3-0.7)
[2025-01-25 03:07] LABS: ANTI-Xa, UFH(UnfractionatedHep > 1.50 IU/ml (0.3-0.7)
[2025-01-25 03:55] LABS: ANTI-Xa, UFH(UnfractionatedHep > 1.50 IU/ml (0.3-0.7)
[2025-01-25 05:25] LABS: ANTI-Xa, UFH(UnfractionatedHep > 1.50 IU/ml (0.3-0.7)
[2025-01-25 05:42] LABS: Hematocrit (blood only) 32.6 % (42.0-52.0); Hemoglobin 10.8 g/dl (14.0-18.0); Mean Corpuscular Hemoglobin 30.1 pg (25.0-34.0); Mean Corpuscular Hgb Conc 33.1 g/dL (32.0-36.0); Mean Corpuscular Volume 90.8 fL (80.0-100.0); Mean Platelet Volume 10.2 fL (9.4-12.4); Platelet Count 261 K/uL (130-400); RDW Coefficient of Variation 14.6 % (11.5-14.5); RDW Standard Deviation 48.6 fL (36.4-46.3); Red Blood Count 3.59 M/uL (4.70-6.10)
[2025-01-25 05:59] LABS: Albumin Globulin Ratio 0.8 (0.9-2); Albumin Level 2.7 gm/dl (3.4-5.0); BUN Creatinine Ratio 31.9 (10-20); Bilirubin,Total 0.6 mg/dl (0.2-1.0); Calcium 8.8 mg/dl (8.6-10.3); Creatinine Clr Calc Pharmacy 69.3 ml/min; Globulin 3.3 gm/dl (2.5-4.0); Magnesium 1.9 mg/dl (1.7-2.4); Potassium 3.4 mmol/L (3.5-5.1)
[2025-01-25 06:28] LABS: INR 1.2 (0.9-1.1); Prothrombin Time 13.3 Seconds (9.0-12.0)
[2025-01-25 06:30] LABS: ANTI-Xa, UFH(UnfractionatedHep > 1.50 IU/ml (0.3-0.7)
[2025-01-25] MEDS ORDERED: HEPARIN 25000 UNIT/500 ML D5W 25,000 UNITS/500 ML BAG IV SCH (06:45)
--- NOTE | 2025-01-25 07:42 | Oncology Consultation ---
Date of Consultation January 25, 2025 History of Present Illness Attending Physician: Fortunato Dennison MD Allergies Allergy/AdvReac Type Severity Reaction Status Date / Time No Known Allergies Allergy Verified 01/24/25 17:59 Home Medications Medication Instructions Recorded Confirmed Type allopurinol 300 mg tablet 300 mg PO Q2D 05/19/19 01/24/25 History aspirin 81 mg tablet,delayed 81 mg PO DAILY 05/19/19 01/24/25 History release finasteride 5 mg tablet 5 mg PO QAM 05/19/19 01/24/25 History hydrochlorothiazide 25 mg tablet 25 mg PO QAM 05/19/19 01/24/25 History lisinopril 10 mg tablet 10 mg PO QAM 05/19/19 01/24/25 History ylpkxoks-yi-xumka 300 mcg-K 60 1 tab PO QAM 05/19/19 01/24/25 History mcg-lycop 600 mcg-lutein 300 mcg tablet (Centrum Silver Men) rosuvastatin 10 mg tablet 10 mg PO QAM 05/19/19 01/24/25 History tamsulosin 0.4 mg capsule 0.8 mg PO HS 05/19/19 01/24/25 History brimonidine 0.2 % eye drops 1 drp OPL UD 07/28/23 01/24/25 History dorzolamide 2 % eye drops 1 drp OPL BID 07/28/23 01/24/25 History latanoprost (PF) 0.005 % eye drops 1 drp OPL HS 07/28/23 01/24/25 History in a dropperette oxybutynin chloride 10 mg 10 mg PO DAILY 07/28/23 01/24/25 History tablet,extended release 24 hr timolol maleate 0.5 % eye drops 1 drp OPB BID 07/28/23 01/24/25 History L.acidop,casei,lactis,rham-B.lact,zahraa 1 cap PO DAILY #10 caps 01/03/25 01/24/25 Rx 625 mg (10 billion cell) capsule (Advanced Probiotic) pantoprazole 40 mg tablet,delayed 40 mg PO QAM #30 tabs 01/15/25 01/24/25 Rx release polyethylene glycol 3350 17 gram 17 g PO DAILY PRN constipation #14 01/15/25 01/24/25 Rx oral powder packet (Miralax) ea apixaban 5 mg tablet (Eliquis) 10 mg PO BID 01/24/25 01/24/25 History Patient History Medical History (Updated 01/24/25 @ 11:58 by BALTA Sherman) Encounter for pre-operative examination Ascites Intraventricular conduction delay Sinus bradycardia RLQ abdominal pain Weakness Recent urinary tract infection Ambulatory dysfunction Generalized weakness Weakness Acute UTI Ventricular tachycardia Urinary tract infection Pyelonephritis Pyelonephritis Hypercholesterolemia RBBB LBBB (left bundle branch block) NSVT (nonsustained ventricular tachycardia) Surgical History History of colonoscopy Hx of tonsillectomy History of appendectomy Family History Other Cancer Diabetes Social History Smoking Status: Never smoker Second Hand Exposure: No; Do You Dip or Chew Tobacco: No; Hx Alcohol Use: No Hx Substance Use: No Preferred Language: Afghan Communication Ability: Effective Inspecting Machine Adjuster Required: No Beliefs That Will Affect Care: None marital status: Current Living Situation: Spouse Current Living Situation Comment: Home with current occupational status: retired Other Information That Helps Us Care for You: No Feels Safe at Home: Yes Safety Concerns: Feels Safe At This Time Assistive Devices: Glasses Results & Data Vital Signs (Past 12 Hours) Vital Signs Temp Pulse Resp BP Pulse Ox O2 Del Method O2 Flow Rate 01/25/25 03:00 36.6 C 76 17 122/62 96 Nasal Cannula 2 01/24/25 23:00 36.8 C 69 17 119/66 98 Nasal Cannula 2 01/24/25 20:00 Nasal Cannula 2
[2025-01-25 07:44] LABS: Partial Thromboplastin Ratio 1.5; Partial Thromboplastin Time 40 Seconds (21-31)
--- NOTE | 2025-01-25 08:01 | Oncology Consultation ---
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 Outpatient oncology follow-up as scheduled with Dr. Acuna to discuss molecular testing/Pathology results. PET/CT might also be beneficial at that time to identify primary. Will sign off at this time. Please feel free to call if you have any other questions. 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 Of note, patient is scheduled for evaluation by Dr. Acuna of medical oncology at [facility] next week and per review of chart, molecular testing has been ordered to potentially identify primary. Allergies Allergy/AdvReac Type Severity Reaction Status Date / Time No Known Allergies Allergy Verified 01/24/25 17:59 Home Medications Medication Instructions Recorded Confirmed Type allopurinol 300 mg tablet 300 mg PO Q2D 05/19/19 01/24/25 History aspirin 81 mg tablet,delayed 81 mg PO DAILY 05/19/19 01/24/25 History release finasteride 5 mg tablet 5 mg PO QAM 05/19/19 01/24/25 History hydrochlorothiazide 25 mg tablet 25 mg PO QAM 05/19/19 01/24/25 History lisinopril 10 mg tablet 10 mg PO QAM 05/19/19 01/24/25 History xqgkwlwa-nv-fsmlk 300 mcg-K 60 1 tab PO QAM 05/19/19 01/24/25 History mcg-lycop 600 mcg-lutein 300 mcg tablet (Centrum Silver Men) rosuvastatin 10 mg tablet 10 mg PO QAM 05/19/19 01/24/25 History tamsulosin 0.4 mg capsule 0.8 mg PO HS 05/19/19 01/24/25 History brimonidine 0.2 % eye drops 1 drp OPL UD 07/28/23 01/24/25 History dorzolamide 2 % eye drops 1 drp OPL BID 07/28/23 01/24/25 History latanoprost (PF) 0.005 % eye drops 1 drp OPL HS 07/28/23 01/24/25 History in a dropperette oxybutynin chloride 10 mg 10 mg PO DAILY 07/28/23 01/24/25 History tablet,extended release 24 hr timolol maleate 0.5 % eye drops 1 drp OPB BID 07/28/23 01/24/25 History L.acidop,casei,lactis,rham-B.lact,zahraa 1 cap PO DAILY #10 caps 01/03/25 01/24/25 Rx 625 mg (10 billion cell) capsule (Advanced Probiotic) pantoprazole 40 mg tablet,delayed 40 mg PO QAM #30 tabs 01/15/25 01/24/25 Rx release polyethylene glycol 3350 17 gram 17 g PO DAILY PRN constipation #14 01/15/25 01/24/25 Rx oral powder packet (Miralax) ea apixaban 5 mg tablet (Eliquis) 10 mg PO BID 01/24/25 01/24/25 History Patient History Medical History (Updated 01/25/25 @ 08:00 by Shima Green MD) Encounter for pre-operative examination Ascites Intraventricular conduction delay Sinus bradycardia RLQ abdominal pain Weakness Recent urinary tract infection Ambulatory dysfunction Generalized weakness Weakness Acute UTI Ventricular tachycardia Urinary tract infection Pyelonephritis Pyelonephritis Hypercholesterolemia RBBB LBBB (left bundle branch block) NSVT (nonsustained ventricular tachycardia) Surgical History History of colonoscopy Hx of tonsillectomy History of appendectomy Family History Other Cancer Diabetes Social History Smoking Status: Never smoker Second Hand Exposure: No; Do You Dip or Chew Tobacco: No; Hx Alcohol Use: No Hx Substance Use: No Preferred Language: Polish Communication Ability: Effective Potline Monitor Required: No Beliefs That Will Affect Care: None marital status: Current Living Situation: Spouse Current Living Situation Comment: Home with current occupational status: retired Other Information That Helps Us Care for You: No Feels Safe at Home: Yes Safety Concerns: Feels Safe At This Time Assistive Devices: Glasses Results & Data Vital Signs (Past 12 Hours) Vital Signs Temp Pulse Resp BP Pulse Ox O2 Del Method O2 Flow Rate 01/25/25 07:53 36.7 C 77 19 126/65 98 Nasal Cannula 2 01/25/25 03:00 36.6 C 76 17 122/62 96 Nasal Cannula 2 01/24/25 23:00 36.8 C 69 17 119/66 98 Nasal Cannula 2 01/24/25 20:00 Nasal Cannula 2
[2025-01-25] MEDS: POTASSIUM CHLORIDE CRTAB 20 MEQ TABCR PO STA (08:37)
[2025-01-25] MEDS: ADVANCED PROBIOTIC 625 MG CAPSULE PO SCH (08:38)
[2025-01-25] MEDS: FINASTERIDE 5 MG TAB PO SCH (08:38)
[2025-01-25] MEDS: CEROVITE ADV FORMULA TAB PO SCH (08:38)
[2025-01-25] MEDS: OXYBUTYNIN CHLORIDE XL 5 MG TABCR PO SCH (08:39)
[2025-01-25] MEDS: ACETAMINOPHEN 325 MG TAB PO PRN (09:56)
[2025-01-25] MEDS: POLYETHYLENE (MIRALAX) 17 GM PACK PO SCH (11:55)
[2025-01-25 12:39] LABS: Partial Thromboplastin Ratio 1.3; Partial Thromboplastin Time 35 Seconds (21-31)
[2025-01-25] MEDS: APIXABAN 5 MG TABLET PO ONE (15:57)
--- NOTE | 2025-01-25 16:16 | Hospitalist Progress Note ---
Date of Service January 25, 2025 Assessment & Plan (1) Malignant ascites: (2) Pulmonary emboli: (3) DVT (deep venous thrombosis): (4) Epistaxis: (5) Diabetes mellitus, type II: (6) Hypertension: (7) Dyslipidemia: (8) Gout: (9) BPH (benign prostatic hyperplasia): (10) Weakness: Plan 84 year old male with PMH significant for DMII, HTN, HLD, COPD, interstitial lung disease, pulmonary HTN, BPH, gout, history of RBBB and LBBB, history of NSVT, gallstones, gastritis, current DVT, and recently diagnosed metastatic adenocarcinoma who presents to the ED with worsening ascites and nosebleeds. Malignant ascites -sp 4L paracentesis on 01/24/2025 -fluid sent for cytology -unclear origin despite extensive imaging, likely gastric/pancreatic in origin based on pathology, awaiting advanced molecular testing Plan: -see above, ongoing GOC discussion, will continue further discussions tomorrow -patient has follow up appointment with heme/onc scheduled for 01/31 -will consider peritoneal drain placement pending GOC discussions Pulmonary Emboli DVT RLE -RLE DVT confirmed on outpatient venous duplex -PCP started patient on Eliquis - patient took total of 5 doses including one dose this morning -CTA chest revealed multiple pulmonary emboli in the RUL, increasing bilateral pleural effusions reimbursement representative of simple or malignant effusions, scattered groundglass opacities within the lung -Pulmonary emboli likely due to acute DVT and active cancer -PESI score 156 with 10-24.5% 30-day mortality Plan: -stop heparin, start eliquis Bilateral LE edema -Likely due to malignant ascites but consider HF as well -echo/BNP not impressive for decompensated HF -noted clots throughout right leg, likely left leg as well based on imaging Plan: -continue aldactone/lasix -discharge on aldactone/lasix combination to reduce need for frequent draining Epistaxis Resolved Afrin PRN DMII SSI while inpt HTN On HCTZ at home - holding while on IV lasix inpt Lisinopril held during last admission - continue to hold Dyslipidemia Continue rosuvastatin per home dosing Gout Continue allopurinol per home dosing BPH Continue tamsulosin, finasteride, and oxybutynin per home dosing Weakness Likely secondary to malignant ascites I spent a total of 50 minutes in direct patient care, including opzx-[id number] time with the patient and/or family, reviewing medical records, ordering and reviewing diagnostic tests, and coordinating care with other healthcare providers. This time includes: history taking, physical examination, medical decision making, counseling, ECG interpretation, imaging interpretation, lab interpretation, orders, and education, excluding time spent in the performance of separately billed services. I spent a total of 30 minutes providing advanced care planning to the patient and/or family, including [id number] time discussing the patient's health status, prognosis, and treatment options. This time includes specific activities such as: discussing advance directives, goals of care, prognostication, and end-of-life planning. Admission and Anticipated Discharge Date Admission Date: January 24, 2025 Subjective Patient seen and examined at bedside. Patient feeling much better today. States his pain has improved. Discussed clinical situation, goals and values with patient and family see note below. Advanced Care Plannin minutes discussing goals and values with patient, , grandson at bedside. Started meeting by introducing ourselves on a role in the team/family. I discussed the patient's current clinical situation, including oncology consultation recommending follow-up outpatient for adequate adenocarcinoma of unknown primary. Discussed that our extensive imaging studies did not reveal primary source, with pathology suggesting gastric or pancreatic origin. Patient states that his goal is to have a good quality of life and to be around family. states he she does not want him to suffer. Discussed different clinical routes forward, with 1 route being a focus on on potentially getting treatment, with the understanding that given his relatively rapid decline in functional status and recurrent malignant ascites is likely unlikely to have significant benefit on mortality. Other route forward be to focus on comfort and quality of life. Patient states he has an idea of what he wants to do but wants to discuss it with his family, before making final decision. Will touch base with patient and family tomorrow to further discuss goals and values. Review of Systems Review of Systems: CONSTITUTIONAL: fatigue/weakness EYES: Patient denies any visual symptoms. EARS, NOSE, AND THROAT: No difficulties with hearing. No symptoms of rhinitis or sore throat. CARDIOVASCULAR: Patient denies chest pains, palpitations, orthopnea and paroxysmal nocturnal dyspnea. RESPIRATORY: No dyspnea on exertion, no wheezing or cough. GI: No nausea, vomiting, diarrhea, constipation, abdominal pain, hematochezia or melena. : No urinary hesitancy or dribbling. No nocturia or urinary frequency. No abnormal urethral discharge. MUSCULOSKELETAL: No myalgias or arthralgias. NEUROLOGIC: No chronic headaches, no seizures. Patient denies numbness, tingling or weakness. PSYCHIATRIC: Patient denies problems with mood disturbance. No problems with anxiety. ENDOCRINE: No excessive urination or excessive thirst. DERMATOLOGIC: Patient denies any rashes or skin changes. Physical Exam Physical Exam: Gen: A&O 3 NAD HEENT: NCAT, EOMI, not icteric. External ears normal. No rhinorrhea. Moist mucous membranes. Neck: Supple, full range of motion, no observable masses, No meningeal sign. Lungs: trace rhonchi bilaterally CV: RRR, no edema. Abdomen: Soft, nondistended, No rebound tenderness. MSK: No joint swelling, no redness. sarcopenia noted Skin: No rashes, petechiae, lesions. Normal color per patient. Neuro: Normal Gait, Grossly intact. Results & Data Results & Data Vital Signs (Past 12 Hours) Vital Signs Temp Pulse Resp BP Pulse Ox O2 Del Method O2 Flow Rate 01/25/25 15:43 36.4 C L 77 20 118/77 97 Room Air 01/25/25 11:16 36.5 C 80 22 94/72 L 98 Room Air 01/25/25 10:00 Room Air 01/25/25 07:53 36.7 C 77 19 126/65 98 Nasal Cannula 2 Laboratory Results -personally reviewed, relatively stable Hgb, creatinine stable, BUN stable Medications Administered Acetaminophen (Acetaminophen 325 Mg Tab) 650 mg PO Q4H PRN PRN Reason: Pain Stop: 02/24/25 08:57 Last Admin: 01/25/25 15:57 Dose: 650 mg Documented By: Admin: 01/25/25 09:56 Dose: 650 mg Documented By: JOANN Allopurinol (Allopurinol 300 Mg Tab) 300 mg PO Q2D [facility] Stop: 02/23/25 13:32 Last Admin: 01/24/25 14:12 Dose: 300 mg Documented By: CHAYITO Brimonidine Tartrate (Brimonidine Tartrate 0.2% 5ml) 1 drops OPL BID [facility] Stop: 02/23/25 20:59 Last Admin: 01/25/25 08:31 Dose: 1 drops Documented By: Admin: 01/24/25 22:20 Dose: 1 drops Documented By: GABRIELLE Dorzolamide HCl (Dorzolamide Hcl 2% Oph Soln 10 Ml Btl) 1 drops OPL BID [facility] Stop: 02/23/25 20:59 Last Admin: 01/25/25 08:31 Dose: 1 drops Documented By: Admin: 01/24/25 22:20 Dose: 1 drops Documented By: GABRIELLE Finasteride (Finasteride 5 Mg Tab) 5 mg PO QAM [facility] Stop: 02/24/25 08:59 Last Admin: 01/25/25 08:38 Dose: 5 mg Documented By: JOANN Furosemide (Furosemide Inj 20 Mg/2 Ml Vial) 20 mg IV BID17 [facility] Stop: 02/23/25 17:14 Last Admin: 01/25/25 08:37 Dose: 20 mg Documented By: Admin: 01/24/25 17:36 Dose: 20 mg Documented By: JOANN Insulin Aspart (Insulin Aspart Per Unit Charge) 0 units SC ACHS [facility] Stop: 02/23/25 13:32 Last Admin: 01/25/25 11:54 Dose: 3 units Documented By: JOANN Co-signed By: DILIP Admin: 01/25/25 08:37 Dose: Not Given Documented By: Admin: 01/24/25 22:27 Dose: Not Given Documented By: Admin: 01/24/25 17:57 Dose: Not Given Documented By: JOANN Co-signed By: BETITO Admin: 01/24/25 14:12 Dose: Not Given Documented By: CHAYITO Lactobacillus Acidophilus (Advanced Probiotic 625 Mg Capsule) 1,250 mg PO DAILY [facility] Stop: 02/24/25 08:59 Last Admin: 01/25/25 08:38 Dose: 1,250 mg Documented By: JOANN Latanoprost (Latanoprost 0.005% Op Soln 2.5 Ml Btl) 1 drops OP HS [facility] Stop: 02/23/25 20:59 Last Admin: 01/24/25 22:20 Dose: 1 drops Documented By: GABRIELLE Multivitamins/Minerals (Cerovite Adv Formula Tab) 1 tab PO QAM [facility] Stop: 02/24/25 08:59 Last Admin: 01/25/25 08:38 Dose: 1 tab Documented By: JOANN Ondansetron HCl (Ondansetron Inj 2 Mg/Ml 2 Ml Vial) 4 mg IV Q6H PRN PRN Reason: Nausea And Vomiting Stop: 02/23/25 11:44 Last Admin: 01/24/25 14:23 Dose: 4 mg Documented By: CHAYITO Oxybutynin Chloride (Oxybutynin Chloride Xl 5 Mg Tabcr) 10 mg PO DAILY [facility] Stop: 02/24/25 08:59 Last Admin: 01/25/25 08:39 Dose: 10 mg Documented By: JOANN Pantoprazole Sodium (Pantoprazole 40 Mg Tab) 40 mg PO QAM [facility] Stop: 02/23/25 13:32 Last Admin: 01/25/25 08:38 Dose: 40 mg Documented By: Admin: 01/24/25 14:13 Dose: 40 mg Documented By: CHAYITO Polyethylene Glycol (Polyethylene (Miralax) 17 Gm Pack) 17 gm PO DAILY [facility] Stop: 02/24/25 11:14 Last Admin: 01/25/25 11:55 Dose: 17 gm Documented By: JOANN Rosuvastatin Calcium (Rosuvastatin Calcium 10 Mg Tab) 10 mg PO QAM [facility] Stop: 02/23/25 13:32 Last Admin: 01/25/25 08:38 Dose: 10 mg Documented By: Admin: 01/24/25 14:13 Dose: 10 mg Documented By: CHAYITO Spironolactone (Spironolactone 25 Mg Tab) 25 mg PO QAM [facility] Stop: 02/23/25 17:14 Last Admin: 01/25/25 08:38 Dose: 25 mg Documented By: Admin: 01/24/25 17:37 Dose: 25 mg Documented By: JOANN Tamsulosin HCl (Tamsulosin Hcl 0.4 Mg Cap) 0.8 mg PO HS [facility] Stop: 02/23/25 20:59 Last Admin: 01/24/25 22:19 Dose: 0.8 mg Documented By: GABRIELLE Timolol Maleate (Timolol Maleate 0.5% Op Soln 5 Ml Btl) 1 drops OP BID [facility] Stop: 02/23/25 20:59 Last Admin: 01/25/25 08:30 Dose: 1 drops Documented By: Admin: 01/24/25 22:19 Dose: 1 drops Documented By: GABRIELLE (3) DVT (deep venous thrombosis) Affected thrombotic vein of extremity: unspecified vein of extremity C hronicity: acute DVT location: lower extremity Laterality: right Qualified Code(s): I82.401 - Acute embolism and thrombosis of unspecified deep veins of right lower extremity
[2025-01-25] MEDS: APIXABAN 5 MG TABLET PO SCH (20:40)
[2025-01-25] MEDS: oxyCODONE HCL IR 5 MG TAB (IMMEDIATE RELEASE) PO PRN (21:59)
[2025-01-26 07:44] LABS: Hematocrit (blood only) 34.2 % (42.0-52.0); Hemoglobin 11.2 g/dl (14.0-18.0); Mean Corpuscular Hemoglobin 30.2 pg (25.0-34.0); Mean Corpuscular Hgb Conc 32.7 g/dL (32.0-36.0); Mean Corpuscular Volume 92.2 fL (80.0-100.0); Mean Platelet Volume 10.8 fL (9.4-12.4); Platelet Count 302 K/uL (130-400); RDW Coefficient of Variation 14.1 % (11.5-14.5); RDW Standard Deviation 47.2 fL (36.4-46.3); Red Blood Count 3.71 M/uL (4.70-6.10); White Blood Count 14.23 K/ul (4.8-10.8)
[2025-01-26 08:19] LABS: Albumin Globulin Ratio 0.8 (0.9-2); Albumin Level 2.9 gm/dl (3.4-5.0); BUN Creatinine Ratio 25.3 (10-20); Bilirubin,Total 0.7 mg/dl (0.2-1.0); Creatinine Clr Calc Pharmacy 38.8 ml/min; Globulin 3.8 gm/dl (2.5-4.0); Magnesium 2.1 mg/dl (1.7-2.4); Potassium 4.6 mmol/L (3.5-5.1); Total Protein 6.7 gm/dl (6.0-8.3)
[2025-01-26] MEDS ORDERED: LORazepam 2 MG/1 ML VIAL IV PRN (11:51)
[2025-01-26] MEDS ORDERED: HYDROmorphone INJ 0.5 MG/0.5 ML SYR IV PRN ×2 (11:51→11:56)
[2025-01-26 15:22] VITALS: PULSE 79; RESP 20; TEMP 98.4; O2SAT 93
--- NOTE | 2025-01-26 17:31 | Hospitalist Progress Note ---
Date of Service January 26, 2025 Assessment & Plan (1) Malignant ascites: (2) Pulmonary emboli: (3) DVT (deep venous thrombosis): (4) Epistaxis: (5) Diabetes mellitus, type II: (6) Hypertension: (7) Dyslipidemia: (8) Gout: (9) BPH (benign prostatic hyperplasia): (10) Weakness: Plan 84 year old male with PMH significant for DMII, HTN, HLD, COPD, interstitial lung disease, pulmonary HTN, BPH, gout, history of RBBB and LBBB, history of NSVT, gallstones, gastritis, current DVT, and recently diagnosed metastatic adenocarcinoma who presents to the ED with worsening ascites and nosebleeds. Malignant ascites -sp 4L paracentesis on 01/24/2025 -fluid sent for cytology -unclear origin despite extensive imaging, likely gastric/pancreatic in origin based on pathology, awaiting advanced molecular testing Plan: -comfort focused care -rotate oxycodone to dilaudid PO/IV -ativan for anxiety/agitation -bowel regiment ordered -[facility] ordered -zofran for nausea/vomiting -contacted [facility] for peritoneal drain, state wait for IR coverage Tuesday Pulmonary Emboli DVT RLE -RLE DVT confirmed on outpatient venous duplex -PCP started patient on Eliquis - patient took total of 5 doses including one dose this morning -CTA chest revealed multiple pulmonary emboli in the RUL, increasing bilateral pleural effusions cash application representative of simple or malignant effusions, scattered groundglass opacities within the lung -Pulmonary emboli likely due to acute DVT and active cancer -PESI score 156 with 10-24.5% 30-day mortality Plan: -continue eliquis -given goals/high risk PE patient can stay on eliquis for time being for drain placement Bilateral LE edema -Likely due to malignant ascites but consider HF as well -echo/BNP not impressive for decompensated HF -noted clots throughout right leg, likely left leg as well based on imaging Plan: -continue aldactone/lasix -discharge on aldactone/lasix PO combination to reduce need for frequent draining Epistaxis Resolved Afrin PRN DMII SSI while inpt HTN On HCTZ at home Lisinopril held during last admission Dyslipidemia Continue rosuvastatin per home dosing Gout Continue allopurinol per home dosing BPH Continue tamsulosin, finasteride, and oxybutynin per home dosing Weakness Likely secondary to malignant ascites I spent a total of 50 minutes in direct patient care, including [id number] time with the patient and/or family, reviewing medical records, ordering and reviewing diagnostic tests, and coordinating care with other healthcare providers. This time includes: history taking, physical examination, medical decision making, counseling, ECG interpretation, imaging interpretation, lab interpretation, orders, and education, excluding time spent in the performance of separately billed services. I spent a total of 30 minutes providing advanced care planning to the patient and/or family, including [id number] time discussing the patient's health status, prognosis, and treatment options. This time includes specific activities such as: discussing advance directives, goals of care, prognostication, and end-of-life planning. Admission and Anticipated Discharge Date Admission Date: January 24, 2025 Subjective Patient seen and examined at bedside. Patient doing ok today. Still having some abdominal pain, does not feel oxycodone is adequate enough at this time. Advanced Care Plannin minutes spent discussing goals and values with patient. Patient states he is on a lot of time to consider all the information, including his worsening clinical condition due to stage IV adenocarcinoma of unknown origin. States he discussed this with family at length. He states at this time he would like to focus on quality of life and comfort. He states he would like to get a peritoneal drain placed. Grant we will work on a transfer to [facility] to get the drain placed and then home with hospice services. He appreciates this and is in agreement with the plan. Review of Systems Review of Systems: CONSTITUTIONAL: fatigue/weakness EYES: Patient denies any visual symptoms. EARS, NOSE, AND THROAT: No difficulties with hearing. No symptoms of rhinitis or sore throat. CARDIOVASCULAR: Patient denies chest pains, palpitations, orthopnea and paroxysmal nocturnal dyspnea. RESPIRATORY: No dyspnea on exertion, no wheezing or cough. GI: No nausea, vomiting, diarrhea, constipation, abdominal pain, hematochezia or melena. : No urinary hesitancy or dribbling. No nocturia or urinary frequency. No abnormal urethral discharge. MUSCULOSKELETAL: No myalgias or arthralgias. NEUROLOGIC: No chronic headaches, no seizures. Patient denies numbness, tingling or weakness. PSYCHIATRIC: Patient denies problems with mood disturbance. No problems with anxiety. ENDOCRINE: No excessive urination or excessive thirst. DERMATOLOGIC: Patient denies any rashes or skin changes. Physical Exam Physical Exam: Gen: A&O 3 NAD HEENT: NCAT, EOMI, not icteric. External ears normal. No rhinorrhea. Moist mucous membranes. Neck: Supple, full range of motion, no observable masses, No meningeal sign. Lungs: trace rhonchi bilaterally CV: RRR, no edema. Abdomen: Soft, nondistended, No rebound tenderness. MSK: No joint swelling, no redness. sarcopenia noted Skin: No rashes, petechiae, lesions. Normal color per patient. Neuro: Normal Gait, Grossly intact. Results & Data Results & Data Vital Signs (Past 12 Hours) Vital Signs Temp Pulse Pulse Resp BP Pulse Ox O2 Del Method 01/26/25 15:21 36.9 C 79 20 98/57 L 93 Room Air 01/26/25 11:14 36.7 C 74 19 105/65 94 Room Air 01/26/25 07:58 36.5 C 72 20 96/70 L 97 Room Air 01/26/25 07:32 83 01/26/25 07:30 36.6 C 84 20 103/65 95 Nasal Cannula O2 Flow Rate 01/26/25 15:21 01/26/25 11:14 01/26/25 07:58 01/26/25 07:32 01/26/25 07:30 2 Laboratory Results -personally reviewed, increased leukocytosis noted, low chloride and sodium in setting of elevated creatinine likely in setting of dehydration Medications Administered Allopurinol (Allopurinol 300 Mg Tab) 300 mg PO Q2D [facility] Stop: 02/23/25 13:32 Last Admin: 01/26/25 07:52 Dose: 300 mg Documented By: Admin: 01/24/25 14:12 Dose: 300 mg Documented By: CHAYITO Apixaban (Apixaban 5 Mg Tablet) 10 mg PO BID [facility] Stop: 01/29/25 09:01 Last Admin: 01/26/25 07:51 Dose: 10 mg Documented By: Admin: 01/25/25 20:40 Dose: 10 mg Documented By: GABRIELLE Brimonidine Tartrate (Brimonidine Tartrate 0.2% 5ml) 1 drops OPL BID [facility] Stop: 02/23/25 20:59 Last Admin: 01/26/25 07:51 Dose: 1 drops Documented By: Admin: 01/25/25 20:41 Dose: 1 drops Documented By: Admin: 01/25/25 08:31 Dose: 1 drops Documented By: Admin: 01/24/25 22:20 Dose: 1 drops Documented By: GABRIELLE Dorzolamide HCl (Dorzolamide Hcl 2% Oph Soln 10 Ml Btl) 1 drops OPL BID [facility] Stop: 02/23/25 20:59 Last Admin: 01/26/25 07:50 Dose: 1 drops Documented By: Admin: 01/25/25 20:40 Dose: 1 drops Documented By: Admin: 01/25/25 08:31 Dose: 1 drops Documented By: Admin: 01/24/25 22:20 Dose: 1 drops Documented By: GABRIELLE Finasteride (Finasteride 5 Mg Tab) 5 mg PO QAM [facility] Stop: 02/24/25 08:59 Last Admin: 01/26/25 07:52 Dose: 5 mg Documented By: Admin: 01/25/25 08:38 Dose: 5 mg Documented By: JOANN Insulin Aspart (Insulin Aspart Per Unit Charge) 0 units SC ACHS [facility] Stop: 02/23/25 13:32 Last Admin: 01/26/25 16:48 Dose: Not Given Documented By: Admin: 01/26/25 11:50 Dose: Not Given Documented By: Admin: 01/26/25 08:05 Dose: Not Given Documented By: Admin: 01/25/25 20:36 Dose: Not Given Documented By: Admin: 01/25/25 16:31 Dose: Not Given Documented By: Admin: 01/25/25 11:54 Dose: 3 units Documented By: JOANN Co-signed By: DILIP Admin: 01/25/25 08:37 Dose: Not Given Documented By: Admin: 01/24/25 22:27 Dose: Not Given Documented By: Admin: 01/24/25 17:57 Dose: Not Given Documented By: JOANN Co-signed By: BETITO Admin: 01/24/25 14:12 Dose: Not Given Documented By: CHELYL Latanoprost (Latanoprost 0.005% Op Soln 2.5 Ml Btl) 1 drops OP HS [facility] Stop: 02/23/25 20:59 Last Admin: 01/25/25 20:41 Dose: 1 drops Documented By: Admin: 01/24/25 22:20 Dose: 1 drops Documented By: GABRIELLE Multivitamins/Minerals (Cerovite Adv Formula Tab) 1 tab PO QAM [facility] Stop: 02/24/25 08:59 Last Admin: 01/26/25 07:52 Dose: 1 tab Documented By: Admin: 01/25/25 08:38 Dose: 1 tab Documented By: OJANN Ondansetron HCl (Ondansetron Inj 2 Mg/Ml 2 Ml Vial) 4 mg IV Q6H PRN PRN Reason: Nausea And Vomiting Stop: 02/23/25 11:44 Last Admin: 01/24/25 14:23 Dose: 4 mg Documented By: CHAYITO Oxybutynin Chloride (Oxybutynin Chloride Xl 5 Mg Tabcr) 10 mg PO DAILY [facility] Stop: 02/24/25 08:59 Last Admin: 01/26/25 07:52 Dose: 10 mg Documented By: Admin: 01/25/25 08:39 Dose: 10 mg Documented By: JOANN Oxycodone HCl (Oxycodone Hcl Ir 5 Mg Tab (Immediate Release)) 5 mg PO Q3HWA PRN PRN Reason: Pain Stop: 02/07/25 17:07 Last Admin: 01/26/25 10:23 Dose: 5 mg Documented By: Admin: 01/26/25 06:14 Dose: 5 mg Documented By: Admin: 01/26/25 03:09 Dose: 5 mg Documented By: Admin: 01/25/25 21:59 Dose: 5 mg Documented By: GABRIELLE Pantoprazole Sodium (Pantoprazole 40 Mg Tab) 40 mg PO QAM [facility] Stop: 02/23/25 13:32 Last Admin: 01/26/25 07:52 Dose: 40 mg Documented By: Admin: 01/25/25 08:38 Dose: 40 mg Documented By: Admin: 01/24/25 14:13 Dose: 40 mg Documented By: CHAYITO Polyethylene Glycol (Polyethylene (Miralax) 17 Gm Pack) 17 gm PO DAILY [facility] Stop: 02/24/25 11:14 Last Admin: 01/26/25 07:49 Dose: 17 gm Documented By: Admin: 01/25/25 11:55 Dose: 17 gm Documented By: JOANN Tamsulosin HCl (Tamsulosin Hcl 0.4 Mg Cap) 0.8 mg PO HS [facility] Stop: 02/23/25 20:59 Last Admin: 01/25/25 20:40 Dose: 0.8 mg Documented By: Admin: 01/24/25 22:19 Dose: 0.8 mg Documented By: GABRIELLE Timolol Maleate (Timolol Maleate 0.5% Op Soln 5 Ml Btl) 1 drops OP BID [facility] Stop: 02/23/25 20:59 Last Admin: 01/26/25 07:50 Dose: 1 drops Documented By: Admin: 01/25/25 20:41 Dose: 1 drops Documented By: Admin: 01/25/25 08:30 Dose: 1 drops Documented By: Admin: 01/24/25 22:19 Dose: 1 drops Documented By: GABRIELLE (3) DVT (deep venous thrombosis) Affected thrombotic vein of extremity: unspecified vein of extremity Chronicity: acute DVT location: lower extremity Laterality: right Qualified Code(s): I82.401 - Acute embolism and thrombosis of unspecified deep veins of right lower extremity
[2025-01-26] MEDS: HYDROmorphone HCL 2 MG TAB PO PRN (20:43)
[2025-01-27] MEDS: FUROSEMIDE 40 MG TAB PO SCH (08:18)
--- NOTE | 2025-01-27 17:10 | Hospitalist Progress Note ---
Date of Service January 27, 2025 Assessment & Plan (1) Malignant ascites: (2) Pulmonary emboli: (3) DVT (deep venous thrombosis): (4) Epistaxis: (5) Diabetes mellitus, type II: (6) Hypertension: (7) Dyslipidemia: (8) Gout: (9) BPH (benign prostatic hyperplasia): (10) Weakness: Plan 84 year old male with PMH significant for DMII, HTN, HLD, COPD, interstitial lung disease, pulmonary HTN, BPH, gout, history of RBBB and LBBB, history of NSVT, gallstones, gastritis, current DVT, and recently diagnosed metastatic adenocarcinoma who presents to the ED with worsening ascites and nosebleeds. Malignant ascites -sp 4L paracentesis on 01/24/2025 -fluid sent for cytology -unclear origin despite extensive imaging, likely gastric/pancreatic in origin based on pathology, awaiting advanced molecular testing Plan: -comfort focused care -continue dilaudid PO/IV, effective -start lyrica 25mg bid for neuropathic pain -ativan for anxiety/agitation -bowel regiment ordered -[facility] -zofran for nausea/vomiting -will attempt paracentesis before discharge Pulmonary Emboli DVT RLE -RLE DVT confirmed on outpatient venous duplex -PCP started patient on Eliquis - patient took total of 5 doses including one dose this morning -CTA chest revealed multiple pulmonary emboli in the RUL, increasing bilateral pleural effusions instruments sales representative of simple or malignant effusions, scattered groundglass opacities within the lung -Pulmonary emboli likely due to acute DVT and active cancer -PESI score 156 with 10-24.5% 30-day mortality Plan: -continue eliquis Bilateral LE edema -Likely due to malignant ascites but consider HF as well -echo/BNP not impressive for decompensated HF -noted clots throughout right leg, likely left leg as well based on imaging Plan: -continue aldactone/lasix -discharge on aldactone/lasix PO combination to reduce need for frequent draining Epistaxis -Resolved -Afrin PRN DMII -SSI while inpt HTN Dyslipidemia -Continue rosuvastatin per home dosing Gout -Continue allopurinol per home dosing BPH -Continue tamsulosin, finasteride, and oxybutynin per home dosing Weakness -Likely secondary to malignant ascites I spent a total of 50 minutes in direct patient care, including [id number] time with the patient and/or family, reviewing medical records, ordering and reviewing diagnostic tests, and coordinating care with other healthcare providers. This time includes: history taking, physical examination, medical decision making, counseling, ECG interpretation, imaging interpretation, lab interpretation, orders, and education, excluding time spent in the performance of separately billed services. Admission and Anticipated Discharge Date Admission Date: January 24, 2025 Subjective Patient seen and examined at bedside. Patient doing well today, discussed with at length as well. Will defer peritoneal drain for now after discussion with family. Will attempt paracentesis tomorrow before going home with hospice services. Review of Systems Review of Systems: CONSTITUTIONAL: fatigue/weakness EYES: Patient denies any visual symptoms. EARS, NOSE, AND THROAT: No difficulties with hearing. No symptoms of rhinitis or sore throat. CARDIOVASCULAR: Patient denies chest pains, palpitations, orthopnea and paroxysmal nocturnal dyspnea. RESPIRATORY: No dyspnea on exertion, no wheezing or cough. GI: No nausea, vomiting, diarrhea, constipation, abdominal pain, hematochezia or melena. : No urinary hesitancy or dribbling. No nocturia or urinary frequency. No abnormal urethral discharge. MUSCULOSKELETAL: No myalgias or arthralgias. NEUROLOGIC: No chronic headaches, no seizures. Patient denies numbness, tingling or weakness. PSYCHIATRIC: Patient denies problems with mood disturbance. No problems with anxiety. ENDOCRINE: No excessive urination or excessive thirst. DERMATOLOGIC: Patient denies any rashes or skin changes. Physical Exam Physical Exam: Gen: A&O 3 NAD HEENT: NCAT, EOMI, not icteric. External ears normal. No rhinorrhea. Moist mucous membranes. Neck: Supple, full range of motion, no observable masses, No meningeal sign. Lungs: trace rhonchi bilaterally CV: RRR, no edema. Abdomen: Soft, nondistended, No rebound tenderness. MSK: No joint swelling, no redness. sarcopenia noted Skin: No rashes, petechiae, lesions. Normal color per patient. Neuro: Normal Gait, Grossly intact. Results & Data Results & Data Vital Signs (Past 12 Hours) Vital Signs O2 Del Method 01/27/25 09:00 Room Air Medications Administered Allopurinol (Allopurinol 300 Mg Tab) 300 mg PO Q2D [facility] Stop: 02/23/25 13:32 Last Admin: 01/26/25 07:52 Dose: 300 mg Documented By: Admin: 01/24/25 14:12 Dose: 300 mg Documented By: CHAYITO Apixaban (Apixaban 5 Mg Tablet) 10 mg PO BID [facility] Stop: 01/29/25 09:01 Last Admin: 01/27/25 08:20 Dose: 10 mg Documented By: Admin: 01/26/25 20:35 Dose: 10 mg Documented By: Admin: 01/26/25 07:51 Dose: 10 mg Documented By: Admin: 01/25/25 20:40 Dose: 10 mg Documented By: GABRIELLE Brimonidine Tartrate (Brimonidine Tartrate 0.2% 5ml) 1 drops OPL BID [facility] Stop: 02/23/25 20:59 Last Admin: 01/27/25 08:19 Dose: 1 drops Documented By: Admin: 01/26/25 20:34 Dose: 1 drops Documented By: Admin: 01/26/25 07:51 Dose: 1 drops Documented By: Admin: 01/25/25 20:41 Dose: 1 drops Documented By: Admin: 01/25/25 08:31 Dose: 1 drops Documented By: Admin: 01/24/25 22:20 Dose: 1 drops Documented By: GABRIELLE Dorzolamide HCl (Dorzolamide Hcl 2% Oph Soln 10 Ml Btl) 1 drops OPL BID [facility] Stop: 02/23/25 20:59 Last Admin: 01/27/25 08:19 Dose: 1 drops Documented By: Admin: 01/26/25 20:34 Dose: 1 drops Documented By: Admin: 01/26/25 07:50 Dose: 1 drops Documented By: Admin: 01/25/25 20:40 Dose: 1 drops Documented By: Admin: 01/25/25 08:31 Dose: 1 drops Documented By: Admin: 01/24/25 22:20 Dose: 1 drops Documented By: GABRIELLE Finasteride (Finasteride 5 Mg Tab) 5 mg PO QAM [facility] Stop: 02/24/25 08:59 Last Admin: 01/27/25 08:18 Dose: 5 mg Documented By: Admin: 01/26/25 07:52 Dose: 5 mg Documented By: Admin: 01/25/25 08:38 Dose: 5 mg Documented By: JOANN Furosemide (Furosemide 40 Mg Tab) 40 mg PO QAM [facility] Stop: 02/26/25 08:59 Last Admin: 01/27/25 08:18 Dose: 40 mg Documented By: KIRK Hydromorphone HCl (Hydromorphone Hcl 2 Mg Tab) 3 mg PO Q3HWA PRN PRN Reason: Pain Stop: 02/09/25 11:50 Last Admin: 01/27/25 09:36 Dose: 3 mg Documented By: Admin: 01/27/25 06:00 Dose: 3 mg Documented By: Admin: 01/26/25 20:43 Dose: 3 mg Documented By: MILAGROS Latanoprost (Latanoprost 0.005% Op Soln 2.5 Ml Btl) 1 drops OP HS [facility] Stop: 02/23/25 20:59 Last Admin: 01/26/25 20:34 Dose: 1 drops Documented By: Admin: 01/25/25 20:41 Dose: 1 drops Documented By: Admin: 01/24/25 22:20 Dose: 1 drops Documented By: GABRIELLE Ondansetron HCl (Ondansetron Inj 2 Mg/Ml 2 Ml Vial) 4 mg IV Q6H PRN PRN Reason: Nausea And Vomiting Stop: 02/23/25 11:44 Last Admin: 01/24/25 14:23 Dose: 4 mg Documented By: CHAYITO Oxybutynin Chloride (Oxybutynin Chloride Xl 5 Mg Tabcr) 10 mg PO DAILY [facility] Stop: 02/24/25 08:59 Last Admin: 01/27/25 08:20 Dose: 10 mg Documented By: Admin: 01/26/25 07:52 Dose: 10 mg Documented By: Admin: 01/25/25 08:39 Dose: 10 mg Documented By: JOANN Pantoprazole Sodium (Pantoprazole 40 Mg Tab) 40 mg PO QAM [facility] Stop: 02/23/25 13:32 Last Admin: 01/27/25 08:21 Dose: 40 mg Documented By: Admin: 01/26/25 07:52 Dose: 40 mg Documented By: Admin: 01/25/25 08:38 Dose: 40 mg Documented By: Admin: 01/24/25 14:13 Dose: 40 mg Documented By: CHAYITO Polyethylene Glycol (Polyethylene (Miralax) 17 Gm Pack) 17 gm PO DAILY [facility] Stop: 02/24/25 11:14 Last Admin: 01/27/25 08:21 Dose: 17 gm Documented By: Admin: 01/26/25 07:49 Dose: 17 gm Documented By: Admin: 01/25/25 11:55 Dose: 17 gm Documented By: JOANN Tamsulosin HCl (Tamsulosin Hcl 0.4 Mg Cap) 0.8 mg PO HS [facility] Stop: 02/23/25 20:59 Last Admin: 01/26/25 20:35 Dose: 0.8 mg Documented By: Admin: 01/25/25 20:40 Dose: 0.8 mg Documented By: Admin: 01/24/25 22:19 Dose: 0.8 mg Documented By: GABRIELLE Timolol Maleate (Timolol Maleate 0.5% Op Soln 5 Ml Btl) 1 drops OP BID [facility] Stop: 02/23/25 20:59 Last Admin: 01/27/25 08:19 Dose: 1 drops Documented By: Admin: 01/26/25 20:34 Dose: 1 drops Documented By: Admin: 01/26/25 07:50 Dose: 1 drops Documented By: Admin: 01/25/25 20:41 Dose: 1 drops Documented By: Admin: 01/25/25 08:30 Dose: 1 drops Documented By: Admin: 01/24/25 22:19 Dose: 1 drops Documented By: GABRIELLE (3) DVT (deep venous thrombosis) Affected thrombotic vein of extremity: unspecified vein of extremity Chronicity: acute DVT location: lower extremity Laterality: right Qualified Code(s): I82.401 - Acute embolism and thrombosis of unspecified deep veins of right lower extremity
[2025-01-27 19:18] VITALS: BP 111/73
[2025-01-27] MEDS: PREGABALIN 25 MG CAP PO SCH (21:26)
[2025-01-28] MEDS: PREGABALIN 25 MG CAP PO ONE (08:53)
--- NOTE | 2025-01-28 15:03 | Discharge Summary ---
Discharge Summary Date of Service January 28, 2025 Principal Dx & Hospital Course #1 = Principal Diagnosis (1) Malignant ascites: (2) Pulmonary emboli: (3) DVT (deep venous thrombosis): (4) Epistaxis: (5) Diabetes mellitus, type II: (6) Hypertension: (7) Dyslipidemia: (8) Gout: (9) BPH (benign prostatic hyperplasia): (10) Weakness: Plan 84 year old male with PMH significant for DMII, HTN, HLD, COPD, interstitial lung disease, pulmonary HTN, BPH, gout, history of RBBB and LBBB, history of NSVT, gallstones, gastritis, current DVT, and recently diagnosed metastatic adenocarcinoma who presents to the ED with worsening ascites and nosebleeds. Malignant ascites End Stage Adenocarcinoma of Unknown Origin -sp 4L paracentesis on 01/24/2025 -fluid sent for cytology -unclear origin despite extensive imaging, likely gastric/pancreatic in origin based on pathology, awaiting advanced molecular testing Plan: -comfort focused care -continue dilaudid PO/IV, effective -start lyrica 25mg bid for neuropathic pain -ativan for anxiety/agitation -bowel regiment ordered -[facility] ordered -zofran for nausea/vomiting -paracentesis attempted but no fluid obtained -start decadron 4mg daily for energy and decreasing inflammation/pain control Pulmonary Emboli DVT RLE -RLE DVT confirmed on outpatient venous duplex -PCP started patient on Eliquis - patient took total of 5 doses including one dose this morning -CTA chest revealed multiple pulmonary emboli in the RUL, increasing bilateral pleural effusions cash application representative of simple or malignant effusions, scattered jennifer undglass opacities within the lung -Pulmonary emboli likely due to acute DVT and active cancer -PESI score 156 with 10-24.5% 30-day mortality Plan: -continue eliquis Bilateral LE edema -Likely due to malignant ascites but consider HF as well -echo/BNP not impressive for decompensated HF -noted clots throughout right leg, likely left leg as well based on imaging Plan: -continue aldactone/lasix -discharge on aldactone/lasix PO combination to reduce need for frequent draining Epistaxis -Resolved -Afrin PRN DMII -SSI while inpt HTN Dyslipidemia -Continue rosuvastatin per home dosing Gout -Continue allopurinol per home dosing BPH -Continue tamsulosin, finasteride, and oxybutynin per home dosing Weakness -Likely secondary to malignant ascites Notes For Next Care Provider 84 year old male with PMH significant for DMII, HTN, HLD, COPD, interstitial lung disease, pulmonary HTN, BPH, gout, history of RBBB and LBBB, history of NSVT, gallstones, gastritis, current DVT, and recently diagnosed metastatic adenocarcinoma who presents to the ED with worsening ascites and nosebleeds. On medicine, paracentesis performed with 4L removed. Discussed case with oncology, next step would be further imaging outpatient given no primary location noted. GOC discussion performed, prognosis on scale of weeks. Started on dilaudid for pain control which was adequate. Started on steroid for energy/decreasing inflammation. Patient and family goals are to stay at home and be comfortable. Hospice chosen. On 01/28/2025 patient discharged home with hospice. Medication Changes From Visit -see below Admission HPI Per Admitting Provider 84 year old male with PMH significant for DMII, HTN, HLD, COPD, interstitial lung disease, pulmonary HTN, BPH, gout, history of RBBB and LBBB, history of NSVT, gallstones, gastritis, current DVT, and recently diagnosed metastatic adenocarcinoma who presents to the ED with worsening ascites and nosebleeds. Patient was recently admitted from 01/10-01/15 with new onset ascites and underwent paracentesis removing 5L of peritoneal fluid with pathology of metastatic adenocarcinoma. He presents today with worsening ascites and pain. He notes that he has constant pain in his abdomen with intermittent sharp pains that he rates 8/10. He feels short of breath due to the ascites and is not able to tolerate much activity. He also has back pain and is not able to lay down so he has been sleeping upright in a chair. He denies fevers, chills, cough, cold symptoms, chest pain, dysuria, N/V/D. He was seen by his PCP on 01/22 for hospital follow up from his previous admission and was found to have RLE swelling. He underwent venous duplex which revealed a DVT in the right proximal femoral vein. He was prescribed Eliquis. He also had an abdominal ultrasound that showed moderate to large amount of ascites. Patient reports that since starting the Eliquis, he has been having intermittent nosebleeds. He is managing them with cotton balls and using a saline nose spray. He denies bleeding elsewhere. Summar of work up from previous admission 4/10-01/15: 01/10 US gallbladder with cholelithiasis, moderate ascites, fatty infiltration of liver, large right renal cyst General surgery consulted and ruled out cholecystitis Heme/onc consulted: Recommended CT chest for staging and identification of accessible lesion; EGD/colonoscopy if no lesion seen 01/12 CT chest with severe emphysematous COPD with scattered areas of fibrosis, trace bilateral pleural effusions, moderate coronary artery calcifications with cardiomegaly and trace pericardial effusion, large abdominal ascites Patient is scheduled to follow up with heme/onc on 01/31/25 Per record review, Dr Acuna requested NGS testing on malignant peritoneal fluid at [place] [facility] consulted: 01/14 EGD with nonobstructive Schatzki's ring, 3cm hiatal hernia, erosive gastritis, non-bleeding duodenal ulcer, no evidence of tumor or mass 01/14 Colonoscopy with 10mm polyp in ascending colon (removed), enlarged prostate without nodules, diverticulosis, internal hemorrhoids, no evidence of tumor or mass Recommended holding aspirin and continuing pantoprazole Discharge Exam Gen: A&O 3 NAD HEENT: NCAT, EOMI, not icteric. External ears normal. No rhinorrhea. Moist mucous membranes. Neck: Supple, full range of motion, no observable masses, No meningeal sign. Lungs: trace rhonchi bilaterally CV: RRR, no edema. Abdomen: Soft, nondistended, No rebound tenderness. MSK: No joint swelling, no redness. sarcopenia noted Skin: No rashes, petechiae, lesions. Normal color per patient. Neuro: Normal Gait, Grossly intact. Updated Medication List Medication Instructions Recorded Confirmed Type allopurinol 300 mg tablet 300 mg PO Q2D 05/19/19 01/24/25 History rosuvastatin 10 mg tablet 10 mg PO QAM 05/19/19 01/24/25 History tamsulosin 0.4 mg capsule 0.8 mg PO HS 05/19/19 01/24/25 History brimonidine 0.2 % eye drops 1 drp OPL UD 07/28/23 01/24/25 History dorzolamide 2 % eye drops 1 drp OPL BID 07/28/23 01/24/25 History latanoprost (PF) 0.005 % eye drops 1 drp OPL HS 10/26/23 04/24/25 History in a dropperette oxybutynin chloride 10 mg 10 mg PO DAILY 07/28/23 01/24/25 History tablet,extended release 24 hr timolol maleate 0.5 % eye drops 1 drp OPB BID 07/28/23 01/24/25 History pantoprazole 40 mg tablet,delayed 40 mg PO QAM #30 tabs 01/15/25 01/24/25 Rx release polyethylene glycol 3350 17 gram 17 g PO DAILY PRN constipation #14 01/15/25 01/24/25 Rx oral powder packet (Miralax) ea apixaban 5 mg tablet (Eliquis) 5 mg PO BID #0 tabs 01/28/25 01/24/25 Rx dexamethasone 4 mg tablet 4 mg PO DAILY #30 tabs 01/28/25 Rx furosemide 40 mg tablet 40 mg PO QAM #30 tabs 01/28/25 Rx Hospital Stay Data Consultations 01/24/25 09:03 ED Decision to Admit Stat 01/25/25 07:39 Consult Oncology Routine Diagnostic Imagining Performed 01/24/25 09:56 CT angio chest PE protocol Stat US venous doppler LE BI Stat 01/24/25 10:12 CT neck soft tissues [CT soft tissue neck w con] Urgent 01/24/25 15:26 US arterial duplex LE BI Urgent 01/24/25 16:52 CT abdomen pelvis wo/w con Urgent Pending Results Patient Have Any Pending Studies at Discharge: No Discharge Instructions Given to Patient (Per Discharging Provider) 1. Please follow up with hospice provider for symptom management. Total Time Total Time Spent Total Time Spent (In Minutes): I spent a total of 35 minutes in direct patient care, including [id number] time with the patient and/or family, reviewing medical records, ordering and reviewing diagnostic tests, and coordinating care with other healthcare providers. This time includes: history taking, physical examination, medical decision making, counseling, ECG interpretation, imaging interpretation, lab interpretation, orders, and education, excluding time spent in the performance of separately billed services.
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
== END 2025-01-28 14:04 | disposition hospice, home (50) | DRG 843 ==
LOC: ED 06:37 → 2E 10:38 → 3W 01-26 18:24